=== PATIENT | female | born 1945 | race Caucasian/White ===

== ENCOUNTER 2016-07-27 14:23 | Inpatient (IN) ==
--- NOTE | 2016-07-27 14:56 | Emergency Department Note ---
Disposition Clinical Impression: Cerebrovascular accident Qualifiers: CVA mechanism: unspecified Qualified Code(s): I63.9 - Cerebral infarction, unspecified Disposition: Admitted As Inpatient Referrals: Orestes Grace MD [Primary Care Provider] - Forms: ED Satisfaction Letter Time of Disposition: 18:12 Neuro HPI - General Chief Complaint: ED Neuro Symptoms/Deficit Stated Complaint: neuro symptoms Time Seen by Provider: 07/27/16 14:30 Source: patient, family Limitations: no limitations Nursing Notes Reviewed: Yes Vital Signs Reviewed: Yes - History of Present Illness HPI Narrative: 70-year-old comes in with a couple month history of difficulty walking falling to the sides. Has fallen several times has hit her head. She also has had some difficulty swallowing and also has had some difficulty speaking for the last week. She notes swelling to her lower extremities. Onset of Symptoms Date: 05/26/16 Onset of Symptoms Time: 09:00 Timing confirmed by: spouse Location: speech, other (Swallowing ambulating) History of same: No Severity: moderate Symptoms Improving: No Improves with: none Worsens with: none Context: sudden onset Associated symptoms: Denies: chest pain, cough - Related Data Home Medications: Home Medications Medication Instructions Recorded Confirmed Albuterol Sulfate [Albuterol 2 puff IH Q4-6H PRN 10/15/15 07/27/16 Inhaler] Allopurinol [Zyloprim 100 MG] 100 mg PO DAILY 10/15/15 07/27/16 Alprazolam [Xanax 1 MG Tablet] 1 mg PO BID PRN 10/15/15 07/27/16 Fenofibrate Nanocrystallized 145 mg PO QPM 10/15/15 07/27/16 [Tricor] Fluticasone/Salmeterol [Advair 1 inh PO BID 10/15/15 07/27/16 500-50 Diskus] Gabapentin [Neurontin] 800 mg PO TID 10/15/15 07/27/16 Isosorbide MONOnitrate (24 HR) 60 mg PO DAILY 10/15/15 07/27/16 [Imdur] Levothyroxine [Synthroid] 112 mcg PO DAILY 10/15/15 07/27/16 [place]-3 Fatty Acids [Fish Oil] 1,200 mg PO DAILY 10/15/15 07/27/16 Omeprazole [PriLOSEC] 40 mg PO DAILY 10/15/15 07/27/16 Ropinirole HCl [Requip] 0.5 - 1 mg PO HS 10/15/15 07/27/16 Sertraline [Zoloft] 100 mg PO BID 10/15/15 07/27/16 Tiotropium [Spiriva] 18 mcg IH DAILY 10/15/15 07/27/16 Diltiazem HCl [Diltiazem ER] 120 mg PO DAILY 03/29/16 07/27/16 Ipratropium/Albuterol Neb [Duoneb] 3 ml IH Q4HR PRN 03/29/16 07/27/16 Atorvastatin [Lipitor] 10 mg PO HS 05/28/16 07/27/16 Gemfibrozil [Lopid] 600 mg PO BIDWM 05/28/16 07/27/16 OxyCODONE/APAP 5/325 [Percocet 1 each PO Q6HR PRN 05/28/16 07/27/16 5/325 MG] Meclizine HCl [Verticalm] 25 mg PO BID PRN 07/27/16 07/27/16 Allergies/Adverse Reactions: Allergies Allergy/AdvReac Type Severity Reaction Status Date / Time codeine Allergy Confusion Verified 05/28/16 08:53 Constitutional: Denies: fever, chills, weakness, weight change Eyes: Denies: eye pain, eye discharge, vision change ENT ED: Denies: ear pain, throat pain, dental pain, hearing loss, epistaxis, congestion, dysphagia Cardiovascular: Denies: chest pain, palpitations, dyspnea on exertion, edema, syncope Respiratory: Denies: cough, dyspnea, wheezes, hemoptysis, stridor Gastrointestinal: Denies: abdominal pain, nausea, vomiting, diarrhea, constipation, hematemesis, melena, hematochezia Genitourinary: Denies: dysuria, frequency, hematuria, discharge Musculoskeletal: Reports: joint swelling. Denies: back pain, neck pain, arthralgia, myalgia Integumentary: Denies: rash, abrasion, lesions Neurological: Reports: abnormal gait, other (Occult he swallowing difficulty speaking). Denies: headache, weakness, numbness, paresthesias, confusion, vertigo Psychiatric: Denies: anxiety, depression, suicidal thoughts, homicidal thoughts , auditory hallucinations, visual hallucinations Endocrine: Denies: fatigue Hematological/Lymphatic: Denies: easy bleeding, easy bruising Allergic/Immunologic: Denies: facial swelling, urticaria Past Medical History - Past Medical History Medical history: Reports: arthritis, COPD, coronary artery disease, hyperlipidemia, hypertension, thyroid disease, other Surgical history: Reports: cholecystectomy, herniorrhaphy, hysterectomy, orthopedic, other (right knee surgery April 2016; additional right knee surgery for infection May 2016), other Psychiatric history: Reports: anxiety, depression - Social History Smoking Status: Never smoker Smokeless Tobacco Status: No Alcohol use: Reports: none Drug use: Reports: none Physical Exam - General Limitations: no limitations General appearance: alert, in no apparent distress - Head Head exam: atraumatic, normocephalic, normal inspection - Eye Eye exam: Present: normal appearance, PERRL, EOMI - ENT ENT exam: normal exam, normal oropharynx, mucous membranes moist - Neck Neck exam: Present: normal inspection, full ROM, trachea midline - Chest Chest inspection: Present: normal inspection, symmetric chest wall rise - Respiratory Respiratory exam: Present: normal lung sounds bilaterally - Cardiovascular Cardiovascular exam: Present: regular rate, normal rhythm, normal heart sounds - Abdominal Exam Abdominal exam: Present: soft, Non-Tender. Absent: tenderness, distention, guarding, rebound, rigidity - Extremities Exam Extremities exam: Present: pedal edema (Bilateral lower extremities) - Expanded Lower Extremity Exam Neurovascular/Tendon exam: Absent: motor deficit, sensory deficit, tendon deficit Gait: not tested/not observed - Back Exam Back exam: Present: normal inspection, full ROM. Absent: tenderness - Neurological Exam Neurological exam: Present: alert, oriented X3, other (Speech,) - Skin Skin exam: Present: warm, dry, intact, normal color Course - Reevaluation(s) Reevaluation #1: Patient has symptoms consistent with a previous CVA she has difficulty ambulating difficulty swallowing and speaking that the states worsened about a week ago. Time: 18:11 - Consultations Consultation #1: Stress with , it. Time: 18:11 Vital Signs Temperature 97.5 F L 07/27/16 14:25 Pulse Rate 79 07/27/16 14:25 Respiratory Rate 18 07/27/16 14:25 Blood Pressure 116/58 07/27/16 14:25 O2 Sat by Pulse Oximetry 98 07/27/16 14:25 Temperature 97.5 F L 07/27/16 14:25 Pulse Rate 83 07/27/16 16:59 Respiratory Rate 18 07/27/16 16:59 Blood Pressure 122/63 07/27/16 16:59 O2 Sat by Pulse Oximetry 100 07/27/16 16:59 Oxygen Delivery Oxygen Delivery Room Air Neuro Symptoms/Deficit - Lab Data Result diagrams: 07/27/16 15:54 07/27/16 15:54 Lab Results 07/27/16 07/27/16 07/27/16 Range/Units 15:54 15:54 15:54 WBC 12.1 H (4.3-11.1) K/mcL RBC 2.90 L (3.82-4.97) M/mcL Hgb 8.7 L (11.5-15.4) g/dL Hct 25.9 L (35.3-44.9) % MCV 89.3 (83.0-100.0) fL MCH 30.0 (28.0-33.3) pg MCHC 33.6 (31.6-35.5) g/dL RDW 16.5 H (11.5-14.5) % Plt Count 348 (140-400) K/mcL MPV 9.8 (9.4-12.4) fL Immature Gran % 0.5 (0-4) % Seg Neutrophils % 79.7 % Lymphocytes % 13.2 % Monocytes % 5.0 % Eosinophils % 1.4 % Basophils % 0.2 % Neutrophils # 9.6 H (1.6-8.9) K/mcL Lymphocytes # 1.6 (0.6-4.6) K/mcL Monocytes # 0.6 (0.0-1.3) K/mcL Eosinophils # 0.2 (0.0-0.6) K/mcL Basophils # 0.0 (0.0-0.2) K/mcL Platelet Estimate Normal (Normal) Hypochromasia Present A (Not Present) Anisocytosis 1+ A (Not Present) PT 16.9 H (9.4-12.1) Seconds INR 1.5 APTT 36.5 H (26.0-36.0) Seconds Sodium 139 (136-145) mEq/L Potassium 3.9 (3.5-4.5) mEq/L Chloride 107 (98-109) mEq/L Carbon Dioxide 24 (19-29) mEq/L BUN 43 H (7-20) mg/dL Creatinine 1.16 H (0.57-1.11) mg/dL Est GFR ( Amer) 56 L (> 60) Est GFR (Non-Af Amer) 46 L (> 60) BUN/Creatinine Ratio 37 H (6-26) Glucose 116 H (70-99) mg/dL Calculated Osmolality 300 (280-300) Calcium 8.1 L (8.6-10.8) mg/dL Troponin I (0-0.03) ng/mL 07/27/16 Range/Units 15:54 WBC (4.3-11.1) K/mcL RBC (3.82-4.97) M/mcL Hgb (11.5-15.4) g/dL Hct (35.3-44.9) % MCV (83.0-100.0) fL MCH (28.0-33.3) pg MCHC (31.6-35.5) g/dL RDW (11.5-14.5) % Plt Count (140-400) K/mcL MPV (9.4-12.4) fL Immature Gran % (0-4) % Seg Neutrophils % % Lymphocytes % % Monocytes % % Eosinophils % % Basophils % % Neutrophils # (1.6-8.9) K/mcL Lymphocytes # (0.6-4.6) K/mcL Monocytes # (0.0-1.3) K/mcL Eosinophils # (0.0-0.6) K/mcL Basophils # (0.0-0.2) K/mcL Platelet Estimate (Normal) Hypochromasia (Not Present) Anisocytosis (Not Present) PT (9.4-12.1) Seconds INR APTT (26.0-36.0) Seconds Sodium (136-145) mEq/L Potassium (3.5-4.5) mEq/L Chloride (98-109) mEq/L Carbon Dioxide (19-29) mEq/L BUN (7-20) mg/dL Creatinine (0.57-1.11) mg/dL Est GFR ( Amer) (> 60) Est GFR (Non-Af Amer) (> 60) BUN/Creatinine Ratio (6-26) Glucose (70-99) mg/dL Calculated Osmolality (280-300) Calcium (8.6-10.8) mg/dL Troponin I 0.01 (0-0.03) ng/mL - EKG Data EKG shows normal: sinus rhythm Rate: normal Rhythm: NSR Interpretation: no acute changes NIH Stroke Scale - Level of Consciousness LOC: Alert - LOC Questions LOC Questions: Answers both correctly - LOC Commands LOC Commands: Performs both correctly - Best Gaze Best Gaze: Normal - Visual Visual: No visual loss - Facial Palsy Facial Palsy: Normal - Motor Arms Motor Arm-Left: No drift for 10 seconds Motor Arm-Right: No drift for 10 seconds - Motor Legs Motor Leg-Left: No drift for 5 seconds Motor Leg-Right: No drift for 5 seconds - Limb Ataxia Limb Ataxia: Present in ONE limb - Sensory Sensory: Normal - Best Language Best Language: No aphasia - Dysarthria Dysarthria: Mild, slurs some words - Extinction and Inattention Extinction and Inattention: Normal - NIHSS Total Score NIHSS Total Score: 2 TPA Checklist - Eligibilty for IV tPA 1. LKW equal to or less than 4.5 hours be before treatment: No - LKW: 3-4.5 hrs Add. Contraindications Patient/family understanding: The patient/family members have been counseled and understood the risk, benefit , and alternatives of treatment.
[2016-07-27 16:02] LABS: Basophils % 0.2 %; Eosinophils # 0.2 K/mcL (0.0-0.6); Eosinophils % 1.4 %; Hematocrit 25.9 % (35.3-44.9); Hemoglobin 8.7 g/dL (11.5-15.4); Immature Granulocytes % 0.5 % (0-4); Lymphocytes # 1.6 K/mcL (0.6-4.6); Lymphocytes % 13.2 %; Mean Corpuscular HGB Conc 33.6 g/dL (31.6-35.5); Mean Corpuscular Volume 89.3 fL (83.0-100.0); Mean Platelet Volume 9.8 fL (9.4-12.4); Monocytes # 0.6 K/mcL (0.0-1.3); Neutrophils # 9.6 K/mcL (1.6-8.9); Platelet Count 348 K/mcL (140-400); Red Cell Distribution Width 16.5 % (11.5-14.5); Segmented Neutrophils % 79.7 %
[2016-07-27 16:11] LABS: INR 1.5; Prothrombin Time 16.9 Seconds (9.4-12.1)
[2016-07-27 16:14] LABS: Activated Partial Thrombo Time 36.5 Seconds (26.0-36.0)
[2016-07-27 16:15] LABS: Calcium 8.1 mg/dL (8.6-10.8); Potassium 3.9 mEq/L (3.5-4.5)
[2016-07-27 16:36] LABS: Anisocytosis 1+ (Not Present); Hypochromasia Present (Not Present)
[2016-07-27 16:37] LABS: Platelet Estimate Normal (Normal)
[2016-07-27] MEDS ORDERED: Naloxone 0.4 MG/ML INJ IVP PRN (19:58)
--- NOTE | 2016-07-27 20:58 | Internal Med History&Physical ---
<Marisa Pickett M - Last Filed: 07/27/16 21:34> Date of Encounter: 07/27/16 Time of Encounter: 20:53 Assessment and Plan (1) Cerebrovascular accident Current visit: Yes Status: Acute Patient with ataxia X 2 months, and dysphagia and slurred speech on and off for last week. Outside window for TpA. On exam, left sided facial droop. CT of head showed no acute intracranial abnormality, though it was motion compromised. MRI head/brain without contrast Carotid dopplers echocardiogram BLE venous dopplers lipid profile speech therapy consult for swallow eval PT/OT consults Neurology consult Qualifiers: CVA mechanism: unspecified Qualified Code(s): I63.9 - Cerebral infarction, unspecified (2) Anemia Current visit: Yes Status: Acute Patient with Hgb of 8.7, decreased from previous of 9.3. Folate, B12 and stool occult blood ordered. Qualifiers: Anemia type: unspecified type Qualified Code(s): D64.9 - Anemia, unspecified (3) Hypertension Current visit: Yes Status: Acute Continue home doses of diltiazem and imdur Qualifiers: Hypertension type: essential hypertension Qualified Code(s): I10 - Essential (primary) hypertension (4) COPD (chronic obstructive pulmonary disease) Current visit: No Status: Chronic Patient denies any cough, or increased SOB. Lungs sound clear to auscultation. Continue Spiriva and advair. Duoneb treatments QID Albuterol nebulizer Q2hr PRN titrate O2 to maintain oxygen saturation > 92%. Qualifiers: COPD type: unspecified COPD Qualified Code(s): J44.9 - Chronic obstructive pulmonary disease, unspecified (5) DVT prophylaxis Current visit: Yes Status: Acute up to chair BID anti-embolic stockings heparin 5,000u SQ TID Internal Medicine - H&P: HPI Chief complaint: difficulty walking, swallowing and speaking Admitted From: Emergency Dept Plans for Post Hospital Care: Home History of present illness: Ms. Tucker is a 70 year old female with hyperlipidemia, hypertension, COPD, coronary artery disease, peripheral vascular disease who presented to the emergency department with complaints of difficulty swallowing, slurred speech, and difficulty walking. She reports she has had difficulty walking for the last 2 months, her reports she leans to the left and falls even while using a walker. She has had difficulty swallowing on and off for the last week, and slurred speech on and off for the last week. Daughters report when they spoke to on the phone last evening they could not understand her because of her slurred speech and that it is improved today, though not back to her baseline. She is also complaining of increased swelling in bilateral lower extremities, right greater than left. Evaluation in the emergency Department included CT of the head which showed no acute intracranial abnormality though was compromised by patient motion, chest x-ray showed a left lower lobe atelectasis and mild cardiomegaly, EKG showed normal sinus rhythm, troponin was normal at 0.01 calcium was low at 8.1, hemoglobin was low at 8.7, white blood cell count was slightly elevated 12.1. On exam patient and equal strength in bilateral upper extremities and bilateral lower extremities. She had negative pronator drift. She did have mild flattening of her left nasolabial fold, and mild left-sided mouth droop. Speech sounded slurred. Cranial nerves are intact. Lungs are clear to auscultation bilaterally, heart has regular rate and rhythm. Bilateral lower extremities have mild edema with right greater than left. Past Med Surg Social Fam HX - Past Medical History Medical history: arthritis, COPD, coronary artery disease, hyperlipidemia, hypertension, thyroid disease, other Psychiatric history: anxiety, depression - Past Surgical History Surgical History: cholecystectomy, herniorrhaphy, hysterectomy, orthopedic, other (right knee surgery April 2016; additional right knee surgery for infection May 2016), other - Social History Smoking Status: Former smoker (90 pack year history) Smokeless Tobacco Status: No Alcohol use: none Drug use: none Current living situation: Home, With Family Activity Level: Uses cane/walker - Family History Mother Living Status: Age at : 76 Cause of : Cancer Father Living Status: Age at : 76 Cause of : [place] Internal Medicine - H&P: Meds Albuterol Sulfate [Albuterol Inhaler] 2 puff IH Q4-6H PRN 10/15/15 [History] Allopurinol [Zyloprim 100 MG] 100 mg PO DAILY 10/15/15 [History] Alprazolam [Xanax 1 MG Tablet] 1 mg PO BID PRN 10/15/15 [History] Fenofibrate Nanocrystallized [Tricor] 145 mg PO QPM 10/15/15 [History] Fluticasone/Salmeterol [Advair 500-50 Diskus] 1 inh PO BID 10/15/15 [History] Gabapentin [Neurontin] 800 mg PO TID 10/15/15 [History] Isosorbide MONOnitrate (24 HR) [Imdur] 60 mg PO DAILY 10/15/15 [History] Levothyroxine [Synthroid] 112 mcg PO DAILY 10/15/15 [History] [place]-3 Fatty Acids [Fish Oil] 1,200 mg PO DAILY 10/15/15 [History] Omeprazole [PriLOSEC] 40 mg PO DAILY 10/15/15 [History] Ropinirole HCl [Requip] 0.5 - 1 mg PO HS 10/15/15 [History] Sertraline [Zoloft] 100 mg PO BID 10/15/15 [History] Tiotropium [Spiriva] 18 mcg IH DAILY 10/15/15 [History] Diltiazem HCl [Diltiazem ER] 120 mg PO DAILY 03/29/16 [History] Ipratropium/Albuterol Neb [Duoneb] 3 ml IH Q4HR PRN 03/29/16 [History] Atorvastatin [Lipitor] 10 mg PO HS 05/28/16 [History] Gemfibrozil [Lopid] 600 mg PO BIDWM 05/28/16 [History] OxyCODONE/APAP 5/325 [Percocet 5/325 MG] 1 each PO TID PRN 05/28/16 [History] Indomethacin [Indomethacin] 50 mg PO BID 07/27/16 [History] Allergies codeine Allergy (Verified 05/28/16 08:53) Confusion Iodinated Contrast Media - Oral and Adverse Reaction (Verified 07/27/16 18:30) See Comments patient states kidney problems. meclizine Adverse Reaction (Verified 07/27/16 18:30) Confusion All Systems PM: A 10-system review of systems was performed and is negative for pertinent findings except as documented above in the HPI. - Constitutional Constitutional: no chills, no fever(s), no night sweats - EENT Eyes: no change in vision, no discharge, no pain, no photophobia Ears: no ear discharge, no ear pain, no tinnitus Nose, mouth and throat: dysphagia, no nasal discharge, no neck pain, no sore throat - Cardiovascular Cardiovascular ROS IM: no chest pain, no diaphoresis, no dyspnea, no lightheadedness, no palpitations, no syncope - Respiratory Respiratory: no cough, no dyspnea, no wheezing, no excessive phlegm production - Gastrointestinal Gastrointestinal: no abdominal pain, no diarrhea, no hematemesis, no hematochezia, no melena, no nausea, no vomiting - Genitourinary Genitourinary: no change in urinary stream, no dysuria, no flank pain, no hematuria - Musculoskeletal Musculoskeletal ROS IM: no numbness, no tingling - Integumentary Integumentary IM: no rash, no unusual bruising - Neurological Neurological ROS: abnormal gait, abnormal speech (slurred), focal weakness ( reports falling to left side), frequent falls, no confusion, no convulsions, no numbness, no tingling, no tremor(s) - Hematologic/Lymphatic Hematologic/Lymphatic: no easy bruising - Constitutional Vitals: Temp Pulse Resp BP Pulse Ox 97.5 F L 83 18 110/62 100 07/27/16 14:25 07/27/16 16:59 07/27/16 19:26 07/27/16 19:26 07/27/16 16:59 General appearance: Present: A&O X 3, pleasant, no acute distress - Head Head exam: Present: atraumatic, normocephalic - Eye Eye exam: Present: PERRL, conjuntiva pink, sclera anicteric Pupils: Present: PERRL - Neck Neck exam general surgery: Present: supple, trachea midline. Absent: lymphadenopathy - Respiratory Respiratory exam: Present: CTAB. Absent: accessory muscle use, rales, rhonchi, wheezes - Cardiovascular Cardiovascular exam: Present: RRR, +S1, +S2. Absent: diastolic murmur, gallop, rubs, systolic murmur - GI/Abdominal GI/Abdominal exam: Present: normal bowel sounds, soft, no peritoneal signs. Absent: distended, tenderness - Extremities Exam Extremities exam: Present: pedal edema (BLE R> L), warm, radial pulses palpable and symetrical. Absent: calf tenderness, cyanotic - Neurological Exam Neurological exam: Present: alert, CN II-XII intact, oriented X3, no focal deficits, strengths equal and symetr throughout, facial droop, speech deficit ( slurred). Absent: pronater drift - Expanded Neurological Exam Patient oriented to: Present: person, place, time Speech: Present: slurred Cranial Nerves: EOM's intact PM: Normal, nystagmus PM: Abnormal Left, Abnormal Right, tongue deviation PM: Normal Sensory exam: LE 2 point discrimination: Normal, lower extremity light touch: Normal, UE 2 point discrimination: Normal, upper extremity light touch: Normal Neuro motor strength exam: LUE: 5, RUE: 5, LLE: 5, RLE: 5 Coma Scale Eye Opening: Spontaneous Coma Scale Motor Response: Obeys Commands Coma Scale Verbal Response: Oriented Coma Scale Total: 15 - Skin Skin exam: Present: dry, intact Internal Med - H&P Results - Labs CBC & Chem 7: 07/27/16 15:54 07/27/16 15:54 Labs: All Lab Results (24 Hours) 07/27/16 07/27/16 07/27/16 Range/Units 15:54 15:54 15:54 WBC 12.1 H (4.3-11.1) K/mcL RBC 2.90 L (3.82-4.97) M/mcL Hgb 8.7 L (11.5-15.4) g/dL Hct 25.9 L (35.3-44.9) % MCV 89.3 (83.0-100.0) fL MCH 30.0 (28.0-33.3) pg MCHC 33.6 (31.6-35.5) g/dL RDW 16.5 H (11.5-14.5) % Plt Count 348 (140-400) K/mcL MPV 9.8 (9.4-12.4) fL Immature Gran % 0.5 (0-4) % Seg Neutrophils % 79.7 % Lymphocytes % 13.2 % Monocytes % 5.0 % Eosinophils % 1.4 % Basophils % 0.2 % Neutrophils # 9.6 H (1.6-8.9) K/mcL Lymphocytes # 1.6 (0.6-4.6) K/mcL Monocytes # 0.6 (0.0-1.3) K/mcL Eosinophils # 0.2 (0.0-0.6) K/mcL Basophils # 0.0 (0.0-0.2) K/mcL Platelet Estimate Normal (Normal) Hypochromasia Present A (Not Present) Anisocytosis 1+ A (Not Present) PT 16.9 H (9.4-12.1) Seconds INR 1.5 APTT 36.5 H (26.0-36.0) Seconds Sodium 139 (136-145) mEq/L Potassium 3.9 (3.5-4.5) mEq/L Chloride 107 (98-109) mEq/L Carbon Dioxide 24 (19-29) mEq/L BUN 43 H (7-20) mg/dL Creatinine 1.16 H (0.57-1.11) mg/dL Est GFR ( Amer) 56 L (> 60) Est GFR (Non-Af Amer) 46 L (> 60) BUN/Creatinine Ratio 37 H (6-26) Glucose 116 H (70-99) mg/dL Calculated Osmolality 300 (280-300) Calcium 8.1 L (8.6-10.8) mg/dL Troponin I (0-0.03) ng/mL 07/27/16 Range/Units 15:54 WBC (4.3-11.1) K/mcL RBC (3.82-4.97) M/mcL Hgb (11.5-15.4) g/dL Hct (35.3-44.9) % MCV (83.0-100.0) fL MCH (28.0-33.3) pg MCHC (31.6-35.5) g/dL RDW (11.5-14.5) % Plt Count (140-400) K/mcL MPV (9.4-12.4) fL Immature Gran % (0-4) % Seg Neutrophils % % Lymphocytes % % Monocytes % % Eosinophils % % Basophils % % Neutrophils # (1.6-8.9) K/mcL Lymphocytes # (0.6-4.6) K/mcL Monocytes # (0.0-1.3) K/mcL Eosinophils # (0.0-0.6) K/mcL Basophils # (0.0-0.2) K/mcL Platelet Estimate (Normal) Hypochromasia (Not Present) Anisocytosis (Not Present) PT (9.4-12.1) Seconds INR APTT (26.0-36.0) Seconds Sodium (136-145) mEq/L Potassium (3.5-4.5) mEq/L Chloride (98-109) mEq/L Carbon Dioxide (19-29) mEq/L BUN (7-20) mg/dL Creatinine (0.57-1.11) mg/dL Est GFR ( Amer) (> 60) Est GFR (Non-Af Amer) (> 60) BUN/Creatinine Ratio (6-26) Glucose (70-99) mg/dL Calculated Osmolality (280-300) Calcium (8.6-10.8) mg/dL Troponin I 0.01 (0-0.03) ng/mL <Ezio Velazquez R - Last Filed: 07/28/16 01:22> Date of Encounter: 07/27/16 Assessment and Plan (1) Diarrhea Current visit: Yes Status: Acute Possible C diff infection: C diff PCR if positive start IV metronidazole versus oral vancomycin, based on tolerance. Start probiotics. Hold any additional antibiotics at this time. Qualifiers: Diarrhea type: presumed infectious Qualified Code(s): A09 - Infectious gastroenteritis and colitis, unspecified (2) RYLEY (acute kidney injury) Current visit: Yes Status: Acute Likely secondary to diarrhea and poor oral intake. Treat with IV fluids. Monitor renal function. (3) Atelectasis of left lung Current visit: Yes Status: Acute Start incentive spirometer (4) Frequent falls Current visit: Yes Status: Acute Suspected CVA versus orthostatic hypotension. MRI brain is pending. Check orthostatic vitals. PT/OT consult Internal Medicine - H&P: HPI History of present illness: Ms. Tucker is a 70 year old female All Systems PM: A 10-system review of systems was performed and is negative for pertinent findings except as documented above in the HPI. - Constitutional Vitals: Temp Pulse Resp BP Pulse Ox 97.5 F L 83 18 110/62 100 07/27/16 14:25 07/27/16 16:59 07/27/16 19:26 07/27/16 19:26 07/27/16 16:59 Internal Med - H&P Results - Labs CBC & Chem 7: 07/27/16 15:54 07/27/16 15:54 Labs: Urine 07/27/16 Range/Units Unknown Urine Color Dark Yellow (Yellow) Urine Clarity Cloudy A (Clear) Urine pH 5.5 (5.0-8.0) pH Units Ur Specific [place] 1.030 H (1.010-1.025) Urine Protein Trace (Neg-Trace) mg/dL Urine Glucose (UA) Normal (Normal) mg/dL - Impressions ITS Impressions Brain MRI 07/27/16 20:01 IMPRESSION: 1. No acute intracranial abnormality. 2. Empty sella turcica. D/ / Gregory Hylton MD / Gregory Hylton MD Interpreting Provider: Gregory Hylton MD - Attending Attestation I examined this patient and my medical decision-making was reviewed with the ONLINE PRODUCER/PA/Advanced Practice Nurse/Resident Physician. I agree with the documented findings, disposition and treatment plan as described except to the extent set forth below. 70 year old female with h/o hypertension, COPD, coronary artery disease, peripheral vascular disease. H/o obtained from the patient, and daughter. Patient apparently had right knee surgery done x 2 (last one in May 2016). She apparently had been on antibiotics for knee infection. Reports multiple episodes of diarrhea, reduced apetite. low back pain x 2 weeks. For about a week, she has been falling onto her left side. No LOC. reports garbled speech. Not able to pass urine. O/E: Oral mucosa is dry. No gross cranial nerve abnormalities; No localizing deficits; Bilateral Lower extremity swelling R>L. Purulent discharge from the right knee area. EKG: SR. CT head: No acute abnormality in a motion compromised study. WBC: 12.1 ; H&H: 8.7/25.9; Creat: 1.16 (baseline: 0.77). CRP: 185; CXR: Left basal atelectasis versus infiltrate (on my personal review favor atelectasis). A/P: Possible C diff infection: C diff PCR if positive start IV metronidazole versus oral vancomycin, based on tolerance. Acute kidney injury: Likely secondary to diarrhea and poor oral intake. Treat with IV fluids. Monitor renal function. Atelectasis of left lung: Start incentive spirometer Frequent falls: Suspected CVA versus orthostatic hypotension. MRI brain is pending if negative, consider MRI of the thoracic/lumbar spine. Check orthostatic vitals. PT/OT consult Slurred speech / suspected CVA: MRI of the brain is pending. Oral mucosa is very dry ??? if that is contributing to her speech problems. Difficulty voiding: Suspect she is dry. Will get straight cath to assess the volume and to exclude UTI. Normocytic anemia: Check hematenics / iron studies; fecal occult blood.
[2016-07-27] MEDS ORDERED: Aspirin 325 MG TABLET PO SCH (21:15)
[2016-07-27] MEDS: Ipratropium/Albuterol Neb 3 ML IH SCH (22:49)
[2016-07-27] MEDS: Gabapentin 400 MG CAPSULE PO SCH (23:53)
[2016-07-27] MEDS: rOPINIRole 0.25 MG TABLET PO SCH (23:53)
[2016-07-27] MEDS: INDOMETHACIN 50 MG PO SCH (23:55)
[2016-07-28 00:43] LABS: Bilirubin,Urine Moderate (Negative); Blood,Urine Negative (Negative); Clarity,Urine Cloudy (Clear); Color,Urine Dark Yellow (Yellow); Glucose,Urine (UA) Normal (Normal); Ketones,Urine Trace mg/dL (Negative); Leukocyte Esterase,Urine Small (Negative); Nitrite,Urine Negative (Negative); PH,Urine 5.5 pH Units (5.0-8.0); Protein,Urine Trace mg/dL (Neg-Trace); Urobilinogen,Urine Normal (Normal)
[2016-07-28] MEDS ORDERED: 0.9 % Sodium Chloride 1,000 ML IVC SCH (00:45)
[2016-07-28 00:46] LABS: Bacteria,Urine None Seen per hpf (None-Few); Hyaline Casts,Urine None Seen per lpf (None-Few); Squamous Epithelial Cell,Urine Moderate per lpf (None-Few); WBC,Urine 0-3 per hpf (0-3)
[2016-07-28] MEDS: Lactobacillus 1 EACH CAP.SPRINK PO SCH ×3 (03:14→22:26)
[2016-07-28] MEDS: Ipratropium/Albuterol Neb 3 ML IH SCH ×4 (03:54→22:15)
[2016-07-28 05:28] LABS: Hematocrit 23.5 % (35.3-44.9); Hemoglobin 7.9 g/dL (11.5-15.4); Mean Corpuscular HGB Conc 33.6 g/dL (31.6-35.5); Mean Corpuscular Hemoglobin 29.7 pg (28.0-33.3); Mean Corpuscular Volume 88.3 fL (83.0-100.0); Mean Platelet Volume 10.4 fL (9.4-12.4); Platelet Count 308 K/mcL (140-400); Red Blood Count 2.66 M/mcL (3.82-4.97); Red Cell Distribution Width 16.4 % (11.5-14.5)
[2016-07-28 05:49] LABS: Alanine Aminotransferase 24 Units/L (0-55); Albumin/Globulin Ratio 0.6 (1.1-2.2); Alkaline Phosphatase 139 Units/L (38-126); Aspartate Amino Transferase 39 Units/L (5-34); BUN/Creatinine Ratio 42 (6-26); Bilirubin,Total 0.9 mg/dL (0.2-1.2); Blood Urea Nitrogen 43 mg/dL (7-20); Calcium 7.7 mg/dL (8.6-10.8); Carbon Dioxide 22 mEq/L (19-29); Chloride 108 mEq/L (98-109); Globulin 2.8 g/dL (2.4-3.5); Glucose 83 mg/dL (70-99); LDL Cholesterol,Calculated 20 mg/dL (0-99); Osmolality,Calculated 296 (280-300); Potassium 3.9 mEq/L (3.5-4.5); Sodium 138 mEq/L (136-145); Total Protein 4.6 g/dL (6.0-8.3); Triglycerides 75 mg/dL (< 150); eGFR For African Americans > 60 (> 60); eGFR For Non-African Americans 54 (> 60)
[2016-07-28 05:57] LABS: Albumin 1.8 g/dL (3.5-5.0); Cholesterol 40 mg/dL (< 200); HDL Cholesterol < 5 mg/dL (40-59)
[2016-07-28 06:03] LABS: Eosinophils # 0.3 K/mcL (0.0-0.6); Lymphocytes # 2.6 K/mcL (0.6-4.6); Monocytes # 0.3 K/mcL (0.0-1.3); Neutrophils # 9.7 K/mcL (1.6-8.9)
[2016-07-28 06:04] LABS: Anisocytosis 1+ (Not Present); Microcytosis Present (Not Present); Platelet Estimate Normal (Normal); Poikilocytosis 1+ (Not Present); Target Cells 1+ (Not Present)
[2016-07-28 06:06] LABS: % Iron Saturation 37 % (15-50); Iron 55 mcg/dL (50-170); Transferrin 105 mg/dL (180-382)
[2016-07-28 06:19] LABS: Folate 9.6 ng/mL (7.0-31.4)
[2016-07-28 06:42] LABS: Vitamin B12 > 2000 pg/mL (213-816)
[2016-07-28] MEDS ORDERED: Tiotropium 18 MCG inhalation IH SCH (09:00)
[2016-07-28] MEDS: Aspirin Enteric Coated 81 MG Tablet PO SCH (10:04)
[2016-07-28] MEDS: INDOMETHACIN 50 MG PO SCH ×2 (10:04→22:26)
[2016-07-28] MEDS: Diltiazem CD (24hr) 120 MG CAPSULE PO SCH (10:04)
[2016-07-28] MEDS: OMEGA PO SCH (10:04)
[2016-07-28] MEDS: Gabapentin 400 MG CAPSULE PO SCH (10:04)
[2016-07-28] MEDS: FATTY ACIDS PO SCH (10:04)
[2016-07-28] MEDS: Isosorbide MONOnitrate (24 HR) 60 MG TAB.ER.24H PO SCH (10:08)
--- NOTE | 2016-07-28 10:21 | Venous Imaging Report ---
LE Venous Duplex Patient Name:Channing Tucker Order Number:[id number] Procedure Date:07/27/2016 Date:8Age:70 yrs Gender:Female Location:[facility] ED Room #: ER2 Fern Gatherer:Sandy Garnica VIDAL Referring MD:Donis Zamora MD plate sensitizer:Orestes Grace M.D. Reading MD:Darren Savage MD , FACS Primary Indications:Swelling of limb Secondary Indications: Risk Factors Yes/No Anticoagulants Yes Impressions: Bilateral lower extremity: normal superficial and deep exam. Recommendations: Preliminary given to Dr Zamora in ED. Test completed on 07/27/2016 at 6:04:00 pm. Findings Venous Duplex Results: Right: Venous imaging of the lower extremity reveals full patency and normal vessel compressibility of the right distal iliac, right common femoral, right superficial femoral, right popliteal, right posterior tibial, right peroneal, right great saphenous and right lesser saphenous. Doppler signals in the evaluated veins were normal. Left: Venous imaging of the lower extremity reveals full patency and normal vessel compressibility of the left distal iliac, left common femoral, left superficial femoral, left popliteal, left posterior tibial, left peroneal, left great saphenous and left lesser saphenous. Doppler signals in the evaluated veins were normal. Prior Study: No prior study available for comparison. Lower Extremity Venous Duplex Side Vein Compress Spontaneous Flow Augment Diameter (cm) Depth (cm) Right Distal Iliac Normal Yes Phasic Yes Right Common Femoral Normal Yes Phasic Yes Right Superficial Femoral Normal Yes Phasic Yes Right Popliteal Normal Yes Phasic Yes Right Posterior Tibial Normal Yes Phasic Yes Right Peroneal Normal Yes Phasic Yes Right Great Saphenous Normal Yes Phasic Yes Right Lesser Saphenous Normal Yes Phasic Yes Left Distal Iliac Normal Yes Phasic Yes Left Common Femoral Normal Yes Phasic Yes Left Superficial Femoral Normal Yes Phasic Yes Left Popliteal Normal Yes Phasic Yes Left Posterior Tibial Normal Yes Phasic Yes Left Peroneal Normal Yes Phasic Yes Left Great Saphenous Normal Yes Phasic Yes Left Lesser Saphenous Normal Yes Phasic Yes Updated by Darren Savage MD, FACS on 07/28/2016 10:16:53 AM Darren Savage MD electronically signed on 07/28/2016 10:17:53 AM with status of Final
--- NOTE | 2016-07-28 10:30 | Neurology - Consult Note ---
Date of Encounter: 07/28/16 Time of Encounter: 08:31 Assessment and Plan (1) Stroke-like symptoms Current Visit: No Status: Acute patient who is having these symptoms for quite some time, had some slurring of the speech along with these weakness in left lower ext, that she has for some time, also having difficulty with gait and balance. Symptoms could be related to other underlying conditions as well but certainly a stroke need to be excluded. MRI of the brain did not show any acute abnormality particularly no diffusion weighted images abnormality. At this time seems like her weakness and balance problems are likely related to underlying orthopedic issues certainly age may be the contributing factor along with other medical condition. She is also having issues with diarrhea perhaps she may be little bit dehydrated and along with no dentures in the mild she could get slurred speech from it as well . Regardless she is getting a stroke workup suggested to continue only on antiplatelet therapy. She would benefit from physical therapy evaluation particularly for gait and balance training. Continue to treat underlying other medical conditions may sure patient is hydrated. She did have an empty sella reported on the MRI as an incidental finding does not require any further imaging studies. (2) Frequent falls Current Visit: Yes Status: Acute She would benefit from physical therapy evaluation perhaps she may need short- term rehabilitation. No evidence of any acute weakness or any other focal findings on EXAMINATION History of Present Illness HPI: Ms. Tucker is a 70 year old female presented to the emergency department with complaints of slurred speech, and difficulty walking, and some difficulty in swallowing, she has had difficulty walking for the last 2 months, her reports she leans to the left and falls even while using a walker. She has had difficulty swallowing on and off for the last week, and slurred speech on and off for the last week. at times her difficult to understand her because of her slurred speech. She is also complaining of increased swelling in bilateral lower extremities, in the emergency Department CT of the head did t show any acute intracranial abnormality, chest x-ray showed a left lower lobe atelectasis and mild cardiomegaly, EKG showed normal sinus rhythm. pt also complaining of diarrhea, and weakness, admitted for work up with possibility of stroke. Past Med Surg Social Fam HX - Past Medical History Medical history: arthritis, COPD, coronary artery disease, hyperlipidemia, hypertension, thyroid disease, other Psychiatric history: anxiety, depression - Past Surgical History Surgical History: cholecystectomy, herniorrhaphy, hysterectomy, orthopedic, other (right knee surgery April 2016; additional right knee surgery for infection May 2016), other - Social History Smoking Status: Former smoker (90 pack year history) Smokeless Tobacco Status: No Alcohol use: none Drug use: none - Family History Mother Adopted: [place]: Faheem Adair Family Member Ethnicity: Non- Living Status: Age at : 76 Cause of : Cancer Hx Family Cardiac Disorders: Yes Hx Family Cancer: Yes Father Adopted: [place]: Bill Adair Living Status: Age at : 76 Cause of : [place] Hx Family Cardiac Disorders: Yes Hx Family Cancer: Yes Medications and Allergies Albuterol Sulfate [Albuterol Inhaler] 2 puff IH Q4-6H PRN 10/15/15 [History] Allopurinol [Zyloprim 100 MG] 100 mg PO DAILY 10/15/15 [History] Alprazolam [Xanax 1 MG Tablet] 1 mg PO BID PRN 10/15/15 [History] Fenofibrate Nanocrystallized [Tricor] 145 mg PO QPM 10/15/15 [History] Fluticasone/Salmeterol [Advair 500-50 Diskus] 1 inh PO BID 10/15/15 [History] Gabapentin [Neurontin] 800 mg PO TID 10/15/15 [History] Isosorbide MONOnitrate (24 HR) [Imdur] 60 mg PO DAILY 10/15/15 [History] Levothyroxine [Synthroid] 112 mcg PO DAILY 10/15/15 [History] [place]-3 Fatty Acids [Fish Oil] 1,200 mg PO DAILY 10/15/15 [History] Omeprazole [PriLOSEC] 40 mg PO DAILY 10/15/15 [History] Ropinirole HCl [Requip] 0.5 - 1 mg PO HS 10/15/15 [History] Sertraline [Zoloft] 100 mg PO BID 10/15/15 [History] Tiotropium [Spiriva] 18 mcg IH DAILY 10/15/15 [History] Diltiazem HCl [Diltiazem ER] 120 mg PO DAILY 03/29/16 [History] Ipratropium/Albuterol Neb [Duoneb] 3 ml IH Q4HR PRN 10/24/16 [History] Atorvastatin [Lipitor] 10 mg PO HS 05/28/16 [History] Gemfibrozil [Lopid] 600 mg PO BIDWM 05/28/16 [History] OxyCODONE/APAP 5/325 [Percocet 5/325 MG] 1 each PO TID PRN 05/28/16 [History] Indomethacin [Indomethacin] 50 mg PO BID 07/27/16 [History] Allergies codeine Allergy (Verified 05/28/16 08:53) Confusion Iodinated Contrast Media - Oral and Adverse Reaction (Verified 07/27/16 18:30) See Comments patient states kidney problems. meclizine Adverse Reaction (Verified 07/27/16 18:30) Confusion All Systems: A 10-system review of systems was performed and is negative for pertinent findings except as documented above in the HPI. Physical Examination - Vital Signs Vital Signs: Initial Vital Signs Temp Pulse Resp BP Pulse Ox 97.5 F L 79 18 116/58 98 07/27/16 14:25 07/27/16 14:25 07/27/16 14:25 07/27/16 14:25 07/27/16 14:25 - Exam Exam: HEART : S1 S2 AUDIBLE, LUNG : cta, EXT; PEDAL EDEMA POSITIVE, NO CHANGE IN COLOR, pluses positive - Constitutional General appearance: comfortable - Neurologic Detailed motor examination: grossly full strength in all extremities Motor examination - right side: 4/5: deltoids, biceps, triceps, wrist flexion, wrist extension, morphology teacher, hip flexors, tibialis Anterior, quadriceps, toe extension (EHL), plantarflexion Motor examination - left side: 4/5: deltoids, biceps, triceps, wrist flexion, wrist extension, hip flexors, morphology teacher, quadriceps, tibialis Anterior, toe extension (EHL), plantarflexion Detailed sensory examination: intact Reflexes: Biceps: 1+, Triceps: 1+, Brachioradialis: 1+, Patella: 1+, Achilles: 1 + Mental Status Examination: awake, alert, oriented to person, oriented to place, oriented to time, follows commands appropriately, answers questions appropriately, no agnosia, no aphasia Cranial nerve examination: PERRL, EOMI, visual lemus intact, sensory to face intact, mastication intact, no facial asymmetry is present, no dysarthria Cerebellar examination: no dysmetria Results - Laboratory Findings CBC and BMP: 07/28/16 04:58 07/28/16 04:58 Abnormal lab findings: Abnormal lab results WBC 12.8 K/mcL (4.3-11.1) H 07/28/16 04:58 RBC 2.66 M/mcL (3.82-4.97) L 07/28/16 04:58 Hgb 7.9 g/dL (11.5-15.4) L 07/28/16 04:58 Hct 23.5 % (35.3-44.9) L 07/28/16 04:58 RDW 16.4 % (11.5-14.5) H 07/28/16 04:58 Neutrophils # 9.7 K/mcL (1.6-8.9) H 07/28/16 04:58 Hypochromasia Present (Not Present) A 07/27/16 15:54 Poikilocytosis 1+ (Not Present) A 07/28/16 04:58 Anisocytosis 1+ (Not Present) A 07/28/16 04:58 Microcytosis Present (Not Present) A 07/28/16 04:58 Target Cells 1+ (Not Present) A 07/28/16 04:58 PT 16.9 Seconds (9.4-12.1) H 07/27/16 15:54 APTT 36.5 Seconds (26.0-36.0) H 07/27/16 15:54 BUN 43 mg/dL (7-20) H 07/28/16 04:58 Est GFR (Non-Af Amer) 54 (> 60) L 07/28/16 04:58 BUN/Creatinine Ratio 42 (6-26) H 07/28/16 04:58 Calcium 7.7 mg/dL (8.6-10.8) L 07/28/16 04:58 Transferrin 105 mg/dL (180-382) L 07/28/16 04:58 AST 39 Units/L (5-34) H 07/28/16 04:58 Alkaline Phosphatase 139 Units/L (38-126) H 07/28/16 04:58 C-Reactive Protein 185 mg/L (Less than 5) H 07/27/16 15:54 B-Natriuretic Peptide 288 pg/mL (0-100) H 07/27/16 15:54 Serum Total Protein 4.6 g/dL (6.0-8.3) L 07/28/16 04:58 Albumin 1.8 g/dL (3.5-5.0) L 07/28/16 04:58 Albumin/Globulin Ratio 0.6 (1.1-2.2) L 07/28/16 04:58 HDL Cholesterol < 5 mg/dL (40-59) L 07/28/16 04:58 Cholesterol/HDL Ratio 8.0 (0-4.9) H 07/28/16 04:58 Vitamin B12 > 2000 pg/mL (213-816) H 07/28/16 04:58 Urine Clarity Cloudy (Clear) A 07/27/16 Unknown Ur Specific [place] 1.030 (1.010-1.025) H 07/27/16 Unknown Urine Ketones Trace mg/dL (Negative) H 07/27/16 Unknown Urine Bilirubin Moderate (Negative) H 07/27/16 Unknown Ur Leukocyte Esterase Small (Negative) H 07/27/16 Unknown Urine Microscopic RBC 5-15 per hpf (0-3) H 07/27/16 Unknown Ur Squamous Epith Cells Moderate per lpf (None-Few) H 07/27/16 Unknown Ur Culture Indicated? YES (NO) A 07/27/16 Unknown - Diagnostic Findings Additional findings: MRI of BRAIN: no acute infarct, empty sella Consult Discharge Plan - Plan Referrals: Orestes Grace MD [Primary Care Provider] -
--- NOTE | 2016-07-28 13:34 | Internal Med Progress Note ---
<Rm Ramirez - Last Filed: 07/28/16 14:10> Date of Encounter: 07/28/16 Time of Encounter: 13:30 - Assessment and plan (1) Cerebrovascular accident Current Visit: Yes Status: Suspected Assessment and plan: 70-year-old female with a history of arthritis, COPD, coronary artery disease, hyperlipidemia, hypertension, hyperthyroidism, right total knee replacement presented with 4 days of's slurred speech and difficulty swallowing, diarhea and nasuea. Patient also complained of difficulty ambulating 2 months. Patient's spouse says she would lean left and fall. She has had multiple falls in the past few months. CT scan was negative. MRI was negative. Echocardiogram pending, carotid Dopplers pending. Patient also presented with bilateral pedal edema and was checked with Dopplers for VTE which is negative. Patient's lipid profile shows abnormally low HDL less than 5. Speech evaluated patient and cleared her for mechanically altered diet with nectar thick liquids. his is this was because she has poor dentition and difficulty chewing regular textures. PT/OT consults ordered. Neurology evaluated the patient. Appreciate input. Patient will continue on aspirin for antiplatelet therapy. We will continue monitoring her mental status. Today's neuro exam was nonfocal and nonlateralizing except for mild left facial droop. Furthermore, if patient's slurred speech was related to confusion we have ordered ammonia levels, and urine drug screen. Qualifiers: CVA mechanism: unspecified Qualified Code(s): I63.9 - Cerebral infarction, unspecified (2) Diarrhea Current Visit: Yes Status: Acute Assessment and plan: As stated the patient has had diarrhea for the past 3 days with nausea. She has watery brown stools 9 times a day. She denies melena or hematochezia. Patient had recent use of antibiotics status post surgical debridement and irrigation of right knee secondary to right knee replacement. C. difficile was checked and was negative. TSH within normal limits. GI stool panel ordered. Her white blood cell count is elevated at 12.8. Diarrhea is most likely infectious. Patient was initially resuscitated with fluids secondary to dehydration. However due to diastolic dysfunction, and bilateral lower extremity 2+ pitting edema this has been stopped. We have also ordered a CT abdomen/pelvis to investigate any type of inflammation. Repeat BMP tomorrow. Potassium chloride over the normal limits.Continue lactobacillus. Qualifiers: Diarrhea type: presumed infectious Qualified Code(s): A09 - Infectious gastroenteritis and colitis, unspecified (3) Anemia Current Visit: Yes Status: Acute Assessment and plan: Normocytic normochromic anemia. Patient's hemoglobin today 7.9. Last year her hemoglobin was 13. She denies any hemoptysis, hematemesis, melena, hematochezia. Patient is not on any anticoagulation. As per family patient 5 years ago had large colon polyp which was removed by Dr. Chow. There was no follow-up colonoscopy afterwards. Patient's B12 and iron, and folate levels are within normal limits. We will continue her Prilosec. Stool guaiac ordered. Repeat CBC tomorrow morning. Furthermore we will obtain CT abdomen and pelvis. Qualifiers: Anemia type: unspecified type Qualified Code(s): D64.9 - Anemia, unspecified (4) RYLEY (acute kidney injury) Current Visit: Yes Status: Resolved Assessment and plan: Patient presented with a creatinine of 1.16. CK is most likely secondary to dehydration from profuse diarrhea. After being resuscitated with fluids patient 's creatinine improved to 1.02. We will continue to monitor. Can start lisinopril. (5) Polypharmacy Current Visit: Yes Status: Acute Assessment and plan: Patient's HDL cholesterol level is less than 5. She is on 3 different medications for hyperlipidemia including statin, gemfibrozil, fenofibrate. We will discontinue these medications for now. (6) DVT prophylaxis Current Visit: Yes Status: Acute Assessment and plan: We will withhold anticoagulation as patient has low hemoglobin.b/l EPCDs (7) Hypertension Current Visit: Yes Status: Acute Qualifiers: Hypertension type: essential hypertension Qualified Code(s): I10 - Essential (primary) hypertension (8) CAD (coronary artery disease) Current Visit: No Status: Chronic Assessment and plan: Patient has history of coronary artery disease. She states she has had left heart cath in the past with no PCI. 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 Patient was evaluated by Dr. Romeo and would need an open procedure for treatment. It was decided as patient was asymptomatic to continue following her. She needs to continue aspirin treatment. We will also continue Cardizem, Imdur. Qualifiers: Coronary Disease-Associated Artery/Lesion type: council artery [place] vs. transplanted heart: council heart Associated angina: without angina Qualified Code(s): I25.10 - Atherosclerotic heart disease of council coronary artery without angina pectoris (9) COPD (chronic obstructive pulmonary disease) Current Visit: No Status: Chronic Assessment and plan: Patient has history of COPD. We will continue scheduled duoneb, Symbicort. Patient denies shortness of breath. And is oxygenating greater than 90% on room air. Qualifiers: COPD type: unspecified COPD Qualified Code(s): J44.9 - Chronic obstructive pulmonary disease, unspecified - Subjective Interval history: This morning patient's alert oriented 2. She continues to have slurred speech however she denies any changes in her speech. Patient's spouse says her speech has changed, and for the past few months she has had difficulty ambulating. Her slurred speech started 3 days ago. She has also had decrease in appetite, nausea, profuse diarrhea 9 times a day. Furthermore patient on March 2016 had total right knee replacement and May 2016 underwent right knee irrigation and debridement secondary to infection. She was started on antibiotics. Patient has finished her antibiotic course. C. difficile was checked and was negative. When talking to the family, they state that the patient has been in decline. In the ER patient decided to be DNR CC because of her medical conditions being too much to deal with. Family is quite concerned and would like to be updated as much as possible. Today patient complaints of weakness, decreased appetite, and difficulty walking. - Constitutional Vitals: Temp Pulse Resp BP Pulse Ox 98.4 F 82 16 127/45 95 07/28/16 07:06 07/28/16 07:06 07/28/16 07:06 07/28/16 07:06 07/28/16 07:06 General appearance: Present: A&O X 3, pleasant, no acute distress - Head Head exam: Present: atraumatic, normocephalic - Eye Eye exam: Present: normal appearance, PERRL, conjuntiva pink, sclera anicteric - Neck Neck exam general surgery: Present: supple, trachea midline. Absent: lymphadenopathy - Respiratory Respiratory exam: Present: CTAB. Absent: accessory muscle use, rales, rhonchi, wheezes - Cardiovascular Cardiovascular exam: Present: RRR, +S1, +S2. Absent: diastolic murmur, gallop, rubs, systolic murmur - GI/Abdominal GI/Abdominal exam: Present: normal bowel sounds, soft, no peritoneal signs. Absent: distended, tenderness - Extremities Exam Extremities exam: Present: joint swelling (Right knee swollen, warm with purulent discharge), pedal edema (2+), warm, radial pulses palpable and symetrical. Absent: calf tenderness, tenderness - Neurological Exam Neurological exam: Present: alert, oriented X3, reflexes normal, strengths equal and symetr throughout, facial droop (Left side), speech deficit (Slurred speech). Absent: motor sensory deficit, pronater drift - Psychiatric Psychiatric exam: Present: depressed Internal Medicine: Result - Labs CBC & Chem 7: 07/28/16 04:58 07/28/16 04:58 Labs: Short CBC 07/28/16 Range/Units 04:58 WBC 12.8 H (4.3-11.1) K/mcL Hgb 7.9 L (11.5-15.4) g/dL Hct 23.5 L (35.3-44.9) % Plt Count 308 (140-400) K/mcL Neutrophils # 9.7 H (1.6-8.9) K/mcL BMP 07/28/16 04:58 Sodium 138 Potassium 3.9 Chloride 108 Carbon Dioxide 22 BUN 43 H Creatinine 1.02 Glucose 83 Calcium 7.7 L Liver Function 07/28/16 Range/Units 04:58 Total Bilirubin 0.9 (0.2-1.2) mg/dL AST 39 H (5-34) Units/L ALT 24 (0-55) Units/L Alkaline Phosphatase 139 H (38-126) Units/L Albumin 1.8 L (3.5-5.0) g/dL Urine 07/27/16 Range/Units Unknown Urine Color Dark Yellow (Yellow) Urine Clarity Cloudy A (Clear) Urine pH 5.5 (5.0-8.0) pH Units Ur Specific [place] 1.030 H (1.010-1.025) Urine Protein Trace (Neg-Trace) mg/dL Urine Glucose (UA) Normal (Normal) mg/dL - ABG Interpretation ABG results: PT/INR, D-dimer PT 16.9 Seconds (9.4-12.1) H 07/27/16 15:54 - Impressions Impressions Brain MRI 07/27/16 20:01 IMPRESSION: 1. No acute intracranial abnormality. 2. Empty sella turcica. D/ / Gregory Hylton MD / Gregory Hylton MD Interpreting Provider: Gregory Hylton MD Consult Discharge Plan - Plan Referrals: Orestes Grace MD [Primary Care Provider] - <Aaron Patel - Last Filed: 07/28/16 18:42> Date of Encounter: 07/28/16 - Assessment and plan (1) Diarrhea Current Visit: Yes Status: Acute Qualifiers: Diarrhea type: presumed infectious Qualified Code(s): A09 - Infectious gastroenteritis and colitis, unspecified (2) Anemia Current Visit: Yes Status: Acute Qualifiers: Anemia type: unspecified type Qualified Code(s): D64.9 - Anemia, unspecified (3) Hypertension Current Visit: Yes Status: Acute Qualifiers: Hypertension type: essential hypertension Qualified Code(s): I10 - Essential (primary) hypertension (4) RYLEY (acute kidney injury) Current Visit: Yes Status: Resolved (5) COPD (chronic obstructive pulmonary disease) Current Visit: No Status: Chronic Qualifiers: COPD type: unspecified COPD Qualified Code(s): J44.9 - Chronic obstructive pulmonary disease, unspecified - Constitutional Vitals: Temp Pulse Resp BP Pulse Ox 97.7 F 75 18 124/60 98 07/28/16 16:12 07/28/16 16:12 07/28/16 16:13 07/28/16 16:12 07/28/16 16:13 Internal Medicine: Result - Labs CBC & Chem 7: 07/28/16 04:58 07/28/16 04:58 Labs: Short CBC 07/28/16 Range/Units 04:58 WBC 12.8 H (4.3-11.1) K/mcL Hgb 7.9 L (11.5-15.4) g/dL Hct 23.5 L (35.3-44.9) % Plt Count 308 (140-400) K/mcL Neutrophils # 9.7 H (1.6-8.9) K/mcL BMP 07/28/16 04:58 Sodium 138 Potassium 3.9 Chloride 108 Carbon Dioxide 22 BUN 43 H Creatinine 1.02 Glucose 83 Calcium 7.7 L Liver Function 07/28/16 Range/Units 04:58 Total Bilirubin 0.9 (0.2-1.2) mg/dL AST 39 H (5-34) Units/L ALT 24 (0-55) Units/L Alkaline Phosphatase 139 H (38-126) Units/L Albumin 1.8 L (3.5-5.0) g/dL Urine 07/27/16 Range/Units Unknown Urine Color Dark Yellow (Yellow) Urine Clarity Cloudy A (Clear) Urine pH 5.5 (5.0-8.0) pH Units Ur Specific [place] 1.030 H (1.010-1.025) Urine Protein Trace (Neg-Trace) mg/dL Urine Glucose (UA) Normal (Normal) mg/dL - ABG Interpretation ABG results: PT/INR, D-dimer PT 16.9 Seconds (9.4-12.1) H 07/27/16 15:54 - Impressions Impressions Brain MRI 07/27/16 20:01 IMPRESSION: 1. No acute intracranial abnormality. 2. Empty sella turcica. D/ / Gregory Hylton MD / Gregory Hylton MD Interpreting Provider: Gregory Hylton MD Abdomen/Pelvis CT 07/28/16 15:45 IMPRESSION: Mild ileus with asymmetric distal right ileal distention. Partial or early obstruction not excluded but unlikely. Sutures from prior right colonic surgery with multiple adjacent lymph nodes in the lower right mesentery new from the prior study. While these could be benign or inflammatory, if the surgery was for colon carcinoma, concern would be for local recurrent metastatic adenopathy. This needs clinical correlation. Basilar airspace disease greater left lower lobe. Atelectasis or pneumonia considered. Severe atherosclerotic calcification with near complete luminal compromise with dense calcified plaque, origin of the celiac artery and adjacent entire aortic lumen. Old T11 and mid coccygeal fracture. D/ / Mike Zhu MD / Mike Zhu MD Interpreting Provider: Mike Zhu MD - Attending Attestation I examined this patient and my medical decision-making was reviewed with the Resident Physician on 07/28/16. I agree with the documented findings, disposition and treatment plan as described except to the extent set forth below. Ms. Tucker is currently in observation due to weakness and concern for neurologic event as well as acute diarrhea. She is moderate to high risk due to potential neurologic worsening. Ms. Tucker feels about the same. She denies further diarrhea or other new symptoms. CT scan ordered today. Further tests results pending. Exam Alert. Comfortable at this time Heart reg No wheeze Abd soft I/P 1. Weakness 2. Diarrhea 3. Hypoalbuminemia Further diagnoses and plan as above.
--- NOTE | 2016-07-28 15:47 | ECHO - Doppler Report ---
Echo with Saline Contrast Name: Channing Tucker Date of Study: 07/28/2016 Date: 1945 Ht: Medical Record#: [id number] Age: 70 Wt: 174.0 lb Gender: Female BSA: Order #: [id number] Location: [facility] Room #: [id number] Reading Physician: Danni Olsen DO Business Banking Representative: Jumana Guardado Ordering Physician: Marisa Pickett CNP Primary Physician: Orestes Grace M.D. Indications: Cerebrovascular Accident Impressions: LVEF 55%. Normal left ventricular size and systolic function. There is evidence of mild diastolic dysfunction of the left ventricle. Normal right ventricular size and function. Mild to moderate mitral regurgitation. Mild tricuspid regurgitation. No pulmonary hypertension. No PFO with saline contrast. Left Ventricular Wall Motion: Rest Echo Findings All wall segments showed normal motion. Findings: Study Quality * Technically adequate exam. ECG Findings * Normal sinus rhythm. Left Ventricle * LVEF 55%. * Normal LV chamber size, wall thickness and function. * Mild left ventricular diastolic dysfunction. Mitral Valve * Normal mitral valve structure. * No mitral stenosis. * Mild-moderate mitral regurgitation. Aortic Valve * Aortic valve not well visualized. * No aortic stenosis. * Trace aortic regurgitation. Tricuspid Valve * Normal tricuspid valve structure. * Mild tricuspid regurgitation. * Estimated RA pressure is 3 mmHg. Pulmonic Valve * Pulmonic valve is not well visualized. * No pulmonic stenosis. * Trace pulmonic regurgitation. Pulmonary Artery * Pulmonary artery not well visualized. Right Ventricle * Normal right ventricular structure and function. Right Atrium * Normal right atrial size. Left Atrium * Moderate to severely dilated left atrium. Interatrial Septum * No evidence of PFO by color Doppler. * No evidence of PFO with agitated saline contrast. IVC * Normal IVC dimensions and inspiratory collapse. Pericardium * There is no pericardial effusion present. Aorta * Normally sized aortic root. History Hypertension Hypercholesteremia Years 34 Packs 3.5 Family History of CAD History of CAD/PTCA 06/02/2012 a Previous Echo was performed. Contrast: Agitated saline 20 ml. Measurements: BP: 127/ 45 2D Normal Values RVIDd: 3.10 cm <2.7 cm IVSd: 1.20 cm 0.6 - 1.0 cm LVIDd: 5.90 cm 3.7 - 5.6 cm LVPWd: 1.20 cm 0.6 - 1.1 cm LVIDs: 4.20 cm 1.5 - 3.6 cm LA: 4.70 cm 2.0 - 4.0cm LA volume: 80 Mitral Valve Peak E' Lat Bryant:4.78 cm/s Peak E' Med Bryant:4.19 cm/s E/E' Lat Ratio:22.8 E/E' Med Ratio:26 Updated by Danni Olsen on 07/28/2016 3:40:23 PM electronically signed on 07/28/2016 3:41:40 PM with status of Final Wall Motion [place]: 1=Normal, 2=Hypokinesis, 3=Akinesis, 4=Dyskinesis, 5=Aneurysmal, 6=Hyperkinetic, X=Not Visualized (Blank)=Missing
[2016-07-28] MEDS ORDERED: Fenofibrate 54 MG TABLET PO SCH (18:00)
--- NOTE | 2016-07-28 20:33 | Carotid Imaging Report ---
Carotid Duplex Patient Name:Channing Tucker Order Number:[id number] Procedure Date:07/28/2016 Date:8Age:70 yrs Gender:Female Lt BP:127 / 45 mmHg Rt.BP:127 / 45 mmHgHeart Rate: Location:[facility] Room #: 2NE24 Electro Optics Engineer:Jumana Guardado Referring MD:Marisa Pickett, [employer] program specialist:Orestes Grace M.D. Reading MD:Darren Savage MD , FACS Primary Indications:CVA Risk Factors Yes/No Hypertension Hypercholesterolemia Smoker Previous Impressions: Findings: Bilateral mid ICA and distal ICA has a severe, 60-79% stenosis. Findings Carotid Duplex: Right: There is nonstenotic plaque in the right distal common carotid artery. There is smooth heterogeneous plaque. There is 40-59% stenosis in the right bifurcation. There is 60-79% stenosis in the right mid internal carotid artery. There is 60-79% stenosis in the right distal internal carotid artery. Left: There is nonstenotic plaque in the left bifurcation. There is calcified plaque. There is 60-79% stenosis in the left proximal internal carotid artery. There is 60-79% stenosis in the left mid internal carotid artery. There is 60-79% stenosis in the left distal internal carotid artery. There is 60-79% stenosis in the left eca. Prior Study: No prior study available for comparison. Carotid Results Right PSV EDV Assessment Proximal CCA 137 17 Normal Mid CCA 189 20 Normal Distal CCA 128 37 Non Stenotic Plaque Bifurcation 155 36 40-59% stenosis Proximal ICA 109 35 Non Stenotic Plaque Mid ICA 134 46 60-79% stenosis Distal ICA 138 49 60-79% stenosis ECA 114 19 Normal Vertebral Artery 79 22 Antegrade Flow Left PSV EDV Assessment Proximal CCA 119 20 Normal Mid CCA 119 20 Normal Distal CCA 103 29 Normal Bifurcation 103 29 Non Stenotic Plaque Proximal ICA 200 45 60-79% stenosis Mid ICA 247 62 60-79% stenosis Distal ICA 194 52 60-79% stenosis ECA 128 25 60-79% stenosis Vertebral Artery 78 27 Antegrade Flow Ratio's Right ICA/CCA Ratio: 0.73 ICA/CCA Values: 138/189 Left ICA/CCA Ratio: 2.08 ICA/CCA Values: 247/119 Updated by Darren Savage MD, FACS on 07/28/2016 8:28:36 PM Darren Savage MD electronically signed on 07/28/2016 8:29:35 PM with status of Final
[2016-07-28] MEDS: rOPINIRole 0.25 MG TABLET PO SCH (22:26)
[2016-07-28] MEDS: ALPRAZolam 1 MG TABLET PO PRN (22:26)
[2016-07-29] MEDS: Ipratropium/Albuterol Neb 3 ML IH SCH ×4 (05:06→23:01)
[2016-07-29 05:28] LABS: Basophils % 0.5 %; Eosinophils # 0.2 K/mcL (0.0-0.6); Eosinophils % 2.8 %; Hematocrit 23.2 % (35.3-44.9); Hemoglobin 7.8 g/dL (11.5-15.4); Immature Platelets 1.8 % (1.1-6.1); Lymphocytes # 1.6 K/mcL (0.6-4.6); Lymphocytes % 20.7 %; Mean Corpuscular HGB Conc 33.6 g/dL (31.6-35.5); Mean Corpuscular Hemoglobin 29.7 pg (28.0-33.3); Mean Corpuscular Volume 88.2 fL (83.0-100.0); Mean Platelet Volume 10.4 fL (9.4-12.4); Monocytes # 0.5 K/mcL (0.0-1.3); Monocytes % 6.1 %; Platelet Count 321 K/mcL (140-400); Red Blood Count 2.63 M/mcL (3.82-4.97); Red Cell Distribution Width 16.4 % (11.5-14.5); Segmented Neutrophils % 68.9 %
[2016-07-29 05:38] LABS: Neutrophils # 5.4 K/mcL (1.6-8.9)
[2016-07-29 06:58] LABS: BUN/Creatinine Ratio 39 (6-26); Blood Urea Nitrogen 41 mg/dL (7-20); Calcium 7.7 mg/dL (8.6-10.8); Carbon Dioxide 21 mEq/L (19-29); Chloride 110 mEq/L (98-109); Glucose 84 mg/dL (70-99); Magnesium 1.6 mg/dL (1.6-2.6); Osmolality,Calculated 297 (280-300); Potassium 3.9 mEq/L (3.5-4.5); Sodium 139 mEq/L (136-145); eGFR For African Americans > 60 (> 60); eGFR For Non-African Americans 52 (> 60)
[2016-07-29 07:01] LABS: Anisocytosis 1+ (Not Present); Platelet Estimate Normal (Normal)
--- NOTE | 2016-07-29 09:34 | Neurology Progress Note ---
Date of Encounter: 07/29/16 Time of Encounter: 08:05 Assessment and Plan (1) Stroke-like symptoms Current Visit: No Status: Acute pt who has stoke like symptoms has resolved now,mri of brain did not show any evidence of acute stroke, echocardiogram was negative for any embolic source, carotid duplex that shows evidence of 60 is a 79% bilateral stenosis. Certainly that is independent risk factor for any stroke or a TIA. At the same time she did have other metabolic conditions and also has diarrhea with generalized weakness and dehydration perhaps that could be the main contributing factor for her symptoms. She had been on antiplatelet therapy suggested to continue on it particularly Plavix, along with the statin. Once she is stabilized she could be evaluated by vascular surgery for possible intervention of the carotid, Perhaps she may benefit from another imaging modality like CT angiogram of the neck in order to determine the exact level of the stenosis. She may benefit from vascular surgical consultation but that could be done as an outpatient In the meantime she may continue on physical therapy. Her leg weakness is chronic due to her other orthopedic issues and not related to any central etiology like a stroke (2) Frequent falls Current Visit: Yes Status: Acute (3) Carotid stenosis, bilateral Current Visit: Yes Status: Acute She had been on antiplatelet therapy suggested to continue on it particularly Plavix, along with the statin. Once she is stabilized she could be evaluated by vascular surgery for possible intervention of the carotid, Perhaps she may benefit from another imaging modality like CT angiogram of the neck in order to determine the exact level of the stenosis. She may benefit from vascular surgical consultation but that could be done as an outpatient Subjective Interval history: condition is stable still having weakness of the lower extremities continued to have GI issues for which she has been getting workup. Objective - Constitutional Vitals: Temp Pulse Resp BP Pulse Ox 98.2 F 92 18 122/50 98 07/28/16 23:36 07/29/16 08:15 07/29/16 08:15 07/29/16 08:15 07/29/16 08:15 - Neurological Exam Motor Examination: Present: grossly full strength in all extremities Motor examination - left side: 4/5: deltoids, biceps, triceps, wrist flexion, wrist extension, hip flexors, balance truing inspector, quadriceps, tibialis Anterior, toe extension (EHL), plantarflexion Sensation intact: Present: intact Mental Status Examination: Present: awake, alert, oriented to person, oriented to place, oriented to time, follows commands appropriately, answers questions appropriately, no agnosia, no aphasia Cranial nerve examination: Present: PERRL, EOMI, visual lemus intact, sensory to face intact, mastication intact, no facial asymmetry is present, no dysarthria Cerebellar examination: Present: no dysmetria Results - Laboratory Findings CBC and BMP: 07/29/16 03:18 07/29/16 03:18 Abnormal lab findings: Abnormal lab results RBC 2.63 M/mcL (3.82-4.97) L 07/29/16 03:18 Hgb 7.8 g/dL (11.5-15.4) L 07/29/16 03:18 Hct 23.2 % (35.3-44.9) L 07/29/16 03:18 RDW 16.4 % (11.5-14.5) H 07/29/16 03:18 Hypochromasia Present (Not Present) A 07/27/16 15:54 Poikilocytosis 1+ (Not Present) A 07/28/16 04:58 Anisocytosis 1+ (Not Present) A 07/29/16 03:18 Microcytosis Present (Not Present) A 07/28/16 04:58 Target Cells 1+ (Not Present) A 07/28/16 04:58 PT 16.9 Seconds (9.4-12.1) H 07/27/16 15:54 APTT 36.5 Seconds (26.0-36.0) H 07/27/16 15:54 Chloride 110 mEq/L (98-109) H 07/29/16 03:18 BUN 41 mg/dL (7-20) H 07/29/16 03:18 Est GFR (Non-Af Amer) 52 (> 60) L 07/29/16 03:18 BUN/Creatinine Ratio 39 (6-26) H 07/29/16 03:18 Calcium 7.7 mg/dL (8.6-10.8) L 07/29/16 03:18 Transferrin 105 mg/dL (180-382) L 07/28/16 04:58 AST 39 Units/L (5-34) H 07/28/16 04:58 Alkaline Phosphatase 139 Units/L (38-126) H 07/28/16 04:58 C-Reactive Protein 185 mg/L (Less than 5) H 07/27/16 15:54 B-Natriuretic Peptide 288 pg/mL (0-100) H 07/27/16 15:54 Serum Total Protein 4.6 g/dL (6.0-8.3) L 07/28/16 04:58 Albumin 1.8 g/dL (3.5-5.0) L 07/28/16 04:58 Albumin/Globulin Ratio 0.6 (1.1-2.2) L 07/28/16 04:58 HDL Cholesterol < 5 mg/dL (40-59) L 07/28/16 04:58 Cholesterol/HDL Ratio 8.0 (0-4.9) H 07/28/16 04:58 Vitamin B12 > 2000 pg/mL (213-816) H 07/28/16 04:58 Urine Clarity Cloudy (Clear) A 07/27/16 Unknown Ur Specific [place] 1.030 (1.010-1.025) H 07/27/16 Unknown Urine Ketones Trace mg/dL (Negative) H 07/27/16 Unknown Urine Bilirubin Moderate (Negative) H 07/27/16 Unknown Ur Leukocyte Esterase Small (Negative) H 07/27/16 Unknown Urine Microscopic RBC 5-15 per hpf (0-3) H 07/27/16 Unknown Ur Squamous Epith Cells Moderate per lpf (None-Few) H 07/27/16 Unknown Ur Culture Indicated? YES (NO) A 07/27/16 Unknown Consult Discharge Plan - Plan Referrals: Orestes Grace MD [Primary Care Provider] -
[2016-07-29] MEDS: OMEGA PO SCH (11:13)
[2016-07-29] MEDS: FATTY ACIDS PO SCH (11:13)
[2016-07-29] MEDS: INDOMETHACIN 50 MG PO SCH (11:13)
[2016-07-29] MEDS: Isosorbide MONOnitrate (24 HR) 60 MG TAB.ER.24H PO SCH (11:19)
[2016-07-29] MEDS: Lactobacillus 1 EACH CAP.SPRINK PO SCH ×2 (11:19→21:20)
[2016-07-29] MEDS: Diltiazem CD (24hr) 120 MG CAPSULE PO SCH (11:19)
[2016-07-29] MEDS: Aspirin Enteric Coated 81 MG Tablet PO SCH (11:19)
[2016-07-29 11:54] LABS: Adenovirus F 40/41 PCR Not detected (Not detect); Astrovirus PCR Not detected (Not detect); C.difficile Toxin A/B by PCR Not detected (Not detect); Campylobacter by PCR Not detected (Not detect); Cryptosporidium by PCR Not detected (Not detect); Cyclospora cayetanensis PCR Not detected (Not detect); E. coli O157 by PCR Not detected (Not detect); Entamoeba histolytica PCR Not detected (Not detect); Enteroaggregative E.coli(EAEC) Not detected (Not detect); Enteropathogenic E.coli(EPEC) Not detected (Not detect); Enterotoxigenic E.coli (ETEC) Not detected (Not detect); Giardia lamblia PCR Not detected (Not detect); Norovirus GI/GII PCR Not detected (Not detect); Plesiomonas shigelloides PCR Not detected (Not detect); Rotavirus A PCR Not detected (Not detect); Salmonella PCR Not detected (Not detect); Sapovirus PCR Not detected (Not detect); Shig/EnteroinvasiveE coli EIEC Not detected (Not detect); Shigalike tox-prod E coli STEC Not detected (Not detect); Vibrio PCR Not detected (Not detect); Vibrio cholerae PCR Not detected (Not detect); Yersinia enterocolitica PCR Not detected (Not detect)
--- NOTE | 2016-07-29 13:33 | Internal Med Progress Note ---
<Rm Ramirez - Last Filed: 07/29/16 13:30> Date of Encounter: 07/29/16 Time of Encounter: 09:00 - Assessment and plan (1) Diarrhea Current Visit: Yes Status: Acute Assessment and plan: As stated the patient has had diarrhea for the past 3 days with nausea. She has watery brown stools 9 times a day. She denies melena or hematochezia. Patient had recent use of antibiotics status post surgical debridement and irrigation of right knee secondary to right knee replacement. C. difficile was checked and was negative. TSH within normal limits. GI stool panel ordered. Her white blood cell count is elevated at 12.8. Diarrhea is most likely infectious. Patient was initially resuscitated with fluids secondary to dehydration. However due to diastolic dysfunction, and bilateral lower extremity 2+ pitting edema this has been stopped. Patient continues to have diarrhea. CT abdomen shows mild ileus with asymmetric distal right ileal distention. May have partial obstruction. Furthermore patient had previous colectomy done by Dr. 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 CT abdomen shows new multiple adjacent lymph nodes in the lower right mesentery new compared to prior study. Surgery was notified and will come see patient today for further evaluation. Qualifiers: Diarrhea type: presumed infectious Qualified Code(s): A09 - Infectious gastroenteritis and colitis, unspecified (2) Swelling of right knee joint Current Visit: Yes Status: Acute Assessment and plan: Patient had a total knee replacement in March 2016. Thereafter her prosthesis became infected and she underwent irrigation and debridement in May 2016. Since then patient has been followed by . Her right knee has appeared swollen and is draining purulent material since admission. It is well dressed. Dressing is changed daily. Patient was scheduled to see today outpatient. We have consult him for further evaluation. (3) Cerebrovascular accident Current Visit: Yes Status: Suspected Assessment and plan: 70-year-old female with a history of arthritis, COPD, coronary artery disease, hyperlipidemia, hypertension, hyperthyroidism, right total knee replacement presented with 4 days of's slurred speech and difficulty swallowing, diarhea and nasuea. Patient also complained of difficulty ambulating 2 months. Patient's spouse says she would lean left and fall. She has had multiple falls in the past few months. CT scan was negative. MRI was negative. Echocardiogram EF 55%, no wall motion abnormalaties, mild to moderate mitral regurg,no PFO. carotid Dopplers Shos 60-79% stenosis in b/l distal ICA and mid ICA . Patient also presented with bilateral pedal edema and was checked with Dopplers for VTE which is negative. Patient's lipid profile shows abnormally low HDL less than 5. PT/OT consults ordered and recommend SNF for rehab. Today's neuro exam was nonfocal and nonlateralizing except for mild left facial droop. Neruo recommends starting plavix and vascular surgery consultation once patient is stabilized. However patient hgb is low and there is suspicion of lower GI bleed. We have ordered stool guaiac. Patient has seen Dr. Romeo in the past. Will setup outpatient referral with him. Leg weakness chornic and 2nd to orthopedic issues. Less likey from CVA. Will continue PT/OT. Will talk to patient about rehab after discharge. 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 With 60% stenosis of aorta. Patient was evaluated by and was not considered a surgical candidate due to her multiple comorbidities and the high risk procedure she would have to undergo. (5) Anemia Current Visit: Yes Status: Acute Assessment and plan: Normocytic normochromic anemia. Patient's hemoglobin today 7.9. Last year her hemoglobin was 13. She denies any hemoptysis, hematemesis, melena, hematochezia. Patient is not on any anticoagulation. As per family patient 5 years ago had large colon polyp which was removed by Dr. Chow. There was no follow-up colonoscopy afterwards. Patient's B12 and iron, and folate levels are within normal limits. We will continue her Prilosec. Stool guaiac ordered. Patient's hemoglobin remained stable. As noted above surgery has been notified of CT abdomen results which shows emergence of new lymph nodes around previous surgical site of colectomy where tubulovillous adenoma was resected. Qualifiers: Anemia type: unspecified type Qualified Code(s): D64.9 - Anemia, unspecified (6) RYLEY (acute kidney injury) Current Visit: Yes Status: Resolved Assessment and plan: Resolved. Patient presented with a creatinine of 1.16. CK is most likely secondary to dehydration from profuse diarrhea. After being resuscitated with fluids patient's creatinine improved to 1.02. We will continue to monitor. (7) Polypharmacy Current Visit: Yes Status: Acute Assessment and plan: Patient's HDL cholesterol level is less than 5. She is on 3 different medications for hyperlipidemia including statin, gemfibrozil, fenofibrate. We will discontinue these medications for now. We will restart on atorvastatin 40 mg as patient has extensive vascular disease. If patient needs to be restarted on her other medications we will leave that up to her primary care physician. (8) DVT prophylaxis Current Visit: Yes Status: Acute Assessment and plan: We will withhold anticoagulation as patient has low hemoglobin.b/l EPCDs (9) CAD (coronary artery disease) Current Visit: No Status: Chronic Qualifiers: Coronary Disease-Associated Artery/Lesion type: [place] artery [place] vs. transplanted heart: [place] heart Associated angina: without angina Qualified Code(s): I25.10 - Atherosclerotic heart disease of [place] coronary artery without angina pectoris (10) COPD (chronic obstructive pulmonary disease) Current Visit: No Status: Chronic Assessment and plan: Patient has history of COPD. We will continue scheduled duoneb, Symbicort. Patient denies shortness of breath. And is oxygenating greater than 90% on room air. Qualifiers: COPD type: unspecified COPD Qualified Code(s): J44.9 - Chronic obstructive pulmonary disease, unspecified - Subjective Interval history: Patient this morning experienced a fall during PT. She did not have any trauma secondary to the fall. She denies any pain, chest pain, shortness of breath, abdominal pain, nausea, vomiting. - Constitutional Vitals: Temp Pulse Resp BP Pulse Ox 98.2 F 85 16 122/50 95 07/28/16 23:36 07/29/16 11:00 07/29/16 11:16 07/29/16 11:00 07/29/16 11:16 General appearance: Present: A&O X 3, pleasant, no acute distress - Head Head exam: Present: atraumatic, normocephalic - Eye Eye exam: Present: PERRL, conjuntiva pink, sclera anicteric - Neck Neck exam general surgery: Present: supple, trachea midline. Absent: lymphadenopathy - Respiratory Respiratory exam: Present: decreased breath sounds. Absent: accessory muscle use, rales, rhonchi, wheezes - Cardiovascular Cardiovascular exam: Present: RRR, +S1, +S2. Absent: diastolic murmur, gallop, rubs, systolic murmur - GI/Abdominal GI/Abdominal exam: Present: normal bowel sounds, soft, no peritoneal signs. Absent: distended, tenderness - Extremities Exam Extremities exam: Present: warm, radial pulses palpable and symetrical. Absent : calf tenderness, cyanotic, pedal edema - Expanded Lower Extremities Exam Knee exam: Present: erythema, swelling (Purulent drainage), tenderness - Neurological Exam Neurological exam: Present: CN II-XII intact, oriented X3, no focal deficits. Absent: pronater drift, facial droop, speech deficit - Skin Skin exam: Present: dry, intact Internal Medicine: Result - Labs CBC & Chem 7: 07/29/16 03:18 07/29/16 03:18 Labs: Short CBC 07/29/16 Range/Units 03:18 WBC 7.8 (4.3-11.1) K/mcL Hgb 7.8 L (11.5-15.4) g/dL Hct 23.2 L (35.3-44.9) % Plt Count 321 (140-400) K/mcL Neutrophils # 5.4 (1.6-8.9) K/mcL BMP 07/29/16 03:18 Sodium 139 Potassium 3.9 Chloride 110 H Carbon Dioxide 21 BUN 41 H Creatinine 1.06 Glucose 84 Calcium 7.7 L - ABG Interpretation ABG results: PT/INR, D-dimer PT 16.9 Seconds (9.4-12.1) H 07/27/16 15:54 - Impressions Impressions Abdomen/Pelvis CT 07/28/16 15:45 IMPRESSION: Mild ileus with asymmetric distal right ileal distention. Partial or early obstruction not excluded but unlikely. Sutures from prior right colonic surgery with multiple adjacent lymph nodes in the lower right mesentery new from the prior study. While these could be benign or inflammatory, if the surgery was for colon carcinoma, concern would be for local recurrent metastatic adenopathy. This needs clinical correlation. Basilar airspace disease greater left lower lobe. Atelectasis or pneumonia considered. Severe atherosclerotic calcification with near complete luminal compromise with dense calcified plaque, origin of the celiac artery and adjacent entire aortic lumen. Old T11 and mid coccygeal fracture. D/ / Mike Zhu MD / Mike Zhu MD Interpreting Provider: Mike Zhu MD Consult Discharge Plan - Plan Referrals: Orestes Grace MD [Primary Care Provider] - <Aaron Patel - Last Filed: 07/29/16 18:07> Date of Encounter: 07/29/16 - Assessment and plan (1) 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 (2) Diarrhea Current Visit: Yes Status: Acute Qualifiers: Diarrhea type: presumed infectious Qualified Code(s): A09 - Infectious gastroenteritis and colitis, unspecified (3) Anemia Current Visit: Yes Status: Suspected Qualifiers: Anemia type: other cause Other causes of anemia: chronic disease, other Qualified Code(s): D63.8 - Anemia in other chronic diseases classified elsewhere (4) Hypertension Current Visit: Yes Status: Acute Qualifiers: Hypertension type: essential hypertension Qualified Code(s): I10 - Essential (primary) hypertension (5) RYLEY (acute kidney injury) Current Visit: Yes Status: Resolved (6) COPD (chronic obstructive pulmonary disease) Current Visit: No Status: Chronic Qualifiers: COPD type: unspecified COPD Qualified Code(s): J44.9 - Chronic obstructive pulmonary disease, unspecified (7) Carotid stenosis, bilateral Current Visit: Yes Status: Chronic - Constitutional Vitals: Temp Pulse Resp BP Pulse Ox 98.2 F 79 15 144/76 96 07/28/16 23:36 07/29/16 16:42 07/29/16 16:42 07/29/16 16:42 07/29/16 16:42 Internal Medicine: Result - Labs CBC & Chem 7: 07/29/16 03:18 07/29/16 03:18 Labs: Short CBC 07/29/16 Range/Units 03:18 WBC 7.8 (4.3-11.1) K/mcL Hgb 7.8 L (11.5-15.4) g/dL Hct 23.2 L (35.3-44.9) % Plt Count 321 (140-400) K/mcL Neutrophils # 5.4 (1.6-8.9) K/mcL BMP 07/29/16 03:18 Sodium 139 Potassium 3.9 Chloride 110 H Carbon Dioxide 21 BUN 41 H Creatinine 1.06 Glucose 84 Calcium 7.7 L - ABG Interpretation ABG results: PT/INR, D-dimer PT 16.9 Seconds (9.4-12.1) H 07/27/16 15:54 - Impressions Impressions Abdomen/Pelvis CT 07/28/16 15:45 IMPRESSION: Mild ileus with asymmetric distal right ileal distention. Partial or early obstruction not excluded but unlikely. Sutures from prior right colonic surgery with multiple adjacent lymph nodes in the lower right mesentery new from the prior study. While these could be benign or inflammatory, if the surgery was for colon carcinoma, concern would be for local recurrent metastatic adenopathy. This needs clinical correlation. Basilar airspace disease greater left lower lobe. Atelectasis or pneumonia considered. Severe atherosclerotic calcification with near complete luminal compromise with dense calcified plaque, origin of the celiac artery and adjacent entire aortic lumen. Old T11 and mid coccygeal fracture. D/ / Mike Zhu MD / Mike Zhu MD Interpreting Provider: Mike Zhu MD - Attending Attestation I examined this patient and my medical decision-making was reviewed with the Resident Physician on 07/29/16. I agree with the documented findings, disposition and treatment plan as described except to the extent set forth below. Ms. Tucker is currently admitted for acute encephalopathy, diarrhea and abdominal pain. She remains moderate risk due to potential for worsening neuro and abdominal issues. Ms. Tucker is more alert today. She is sitting in a chair. She will not go to rehab if recommended. Her pain is controlled at this point but she continues to have diarrhea. Exam Alert Comfortable Heart reg No wheeze Edema present I/P 1. Abd pain - ? due to vascular disease 2. Diarrhea - surg eval ? scope Further diagnoses and plan as above.
--- NOTE | 2016-07-29 14:27 | Orthopedic Consult Note ---
Date of Encounter: 07/28/16 Time of Encounter: 17:30 Assessment and Plan (1) Status post total knee replacement, right Current Visit: Yes Status: Acute Irrigation debridement and wound closure right knee . Date of surgery -05/28/16 (Right TKR 03/29/2016) Complicated with chronic wound dehiscence. She continues to have wound dehiscence, most prominent to mid-incision. No purulence noted. Mild erythema noted. No evidence of intra-articular involvement at this time. Her knee has showed continual improvement since her office visit 2 weeks ago. Dressing changes daily with Mesalt, 4x4 and Medipore tape. Cleanse wound daily with antibacterial soap and water. Progress with ROM as tolerated and PT if tolerated. At this point, no need for further surgical intervention. We will continue to follow her during her hospital stay to monitor. Continue with daily wound care and dressing changes. Plan to f/up in the office at discharge from hospital. (2) Wound dehiscence, surgical Current Visit: Yes Status: Acute Qualifiers: Encounter type: initial encounter Qualified Code(s): T81.31XA - Disruption of external operation (surgical) wound, not elsewhere classified, initial encounter History of Present Illness Chief complaint: Stroke-like symptoms HPI: Ms. Tucker is a 70 year old female, well known to our orthopedic practice. She was admitted for stroke-like symptoms and weakness. She states she is having difficulty with her appetite and weakness for 1-2 weeks. She is s/p Irrigation debridement and wound closure right knee . Date of surgery -05/28/16 - (Primary TKR 03/29/16). She has been closely monitored in our office for new wound dehiscence. She completed Doxycycline and was improving. She complains of stiffness to her Right knee; she is able to ambulate but it is limited because of her LEFT leg weakness. She has limited ROM secondary to prolonged immobilization. She denies recent falls or trauma to knee and any radiation of pain into RLE. She denies N/T into Right lower extremity. Left lower extremity is weak and limited active hip flexion noted. She is having difficulty with raising her LEFT leg to the bed. Past Med Surg Social Fam HX - Past Medical History Medical history: arthritis, COPD, coronary artery disease, hyperlipidemia, hypertension, thyroid disease, other Psychiatric history: anxiety, depression - Past Surgical History Surgical History: cholecystectomy, herniorrhaphy, hysterectomy, orthopedic, other (right knee surgery April 2016; additional right knee surgery for infection May 2016), other - Social History Smoking Status: Former smoker (90 pack year history) Smokeless Tobacco Status: No Alcohol use: none Drug use: none - Family History Mother Adopted: [place]: Faheem Adair Family Member Ethnicity: Non- Living Status: Age at : 76 Cause of : Cancer Hx Family Cardiac Disorders: Yes Hx Family Cancer: Yes Father Adopted: [place]: Bill Adair Living Status: Age at : 76 Cause of : [place] Hx Family Cardiac Disorders: Yes Hx Family Cancer: Yes Medications and Allergies Albuterol Sulfate [Albuterol Inhaler] 2 puff IH Q4-6H PRN 10/15/15 [History] Allopurinol [Zyloprim 100 MG] 100 mg PO DAILY 10/15/15 [History] Alprazolam [Xanax 1 MG Tablet] 1 mg PO BID PRN 10/15/15 [History] Fenofibrate Nanocrystallized [Tricor] 145 mg PO QPM 10/15/15 [History] Fluticasone/Salmeterol [Advair 500-50 Diskus] 1 inh PO BID 10/15/15 [History] Gabapentin [Neurontin] 800 mg PO TID 10/15/15 [History] Isosorbide MONOnitrate (24 HR) [Imdur] 60 mg PO DAILY 10/15/15 [History] Levothyroxine [Synthroid] 112 mcg PO DAILY 10/15/15 [History] [place]-3 Fatty Acids [Fish Oil] 1,200 mg PO DAILY 10/15/15 [History] Omeprazole [PriLOSEC] 40 mg PO DAILY 10/15/15 [History] Ropinirole HCl [Requip] 0.5 - 1 mg PO HS 10/15/15 [History] Sertraline [Zoloft] 100 mg PO BID 10/15/15 [History] Tiotropium [Spiriva] 18 mcg IH DAILY 10/15/15 [History] Diltiazem HCl [Diltiazem ER] 120 mg PO DAILY 03/29/16 [History] Ipratropium/Albuterol Neb [Duoneb] 3 ml IH Q4HR PRN 10/24/16 [History] Atorvastatin [Lipitor] 10 mg PO HS 05/28/16 [History] Gemfibrozil [Lopid] 600 mg PO BIDWM 05/28/16 [History] OxyCODONE/APAP 5/325 [Percocet 5/325 MG] 1 each PO TID PRN 05/28/16 [History] Indomethacin [Indomethacin] 50 mg PO BID 07/27/16 [History] Allergies codeine Allergy (Verified 05/28/16 08:53) Confusion Iodinated Contrast Media - Oral and Adverse Reaction (Verified 07/27/16 18:30) See Comments patient states kidney problems. meclizine Adverse Reaction (Verified 07/27/16 18:30) Confusion All Systems Reviewed: A 10-system review of systems was performed and is negative for pertinent findings except as documented above in the HPI. - Constitutional Constitutional: weakness, no fever(s), no frequent falls - Cardiovascular Cardiovascular: as per HPI, no chest pain, no leg ulcers, no pedal edema, no syncope - Respiratory Respiratory: as per HPI - Musculoskeletal Musculoskeletal: abnormal gait, joint swelling, limited range of motion, muscle weakness, radiating pain into limb, stiffness, no numbness, no tingling Physical Exam - Constitutional Vitals: Temp Pulse Resp BP Pulse Ox 98.2 F 85 16 122/50 95 07/28/16 23:36 07/29/16 11:00 07/29/16 11:16 07/29/16 11:00 07/29/16 11:16 - Knee right Appearance: other (Proximal and mid-incisional wound dehiscence -superficial erythema along incision; no purulent drainage. Mild Serusanginous drainage present. No eschar present, no odor present) Varus alignment in stance: No Valgus alignment in stance: No Tenderness with palpation knee: medial Pain: throughout ROM (secondary to stiffness) Gait: limping (due to left leg weakness) Results - Labs Result Diagrams: 07/29/16 03:18 07/29/16 03:18 Labs: Abnormal lab results RBC 2.63 M/mcL (3.82-4.97) L 07/29/16 03:18 Hgb 7.8 g/dL (11.5-15.4) L 07/29/16 03:18 Hct 23.2 % (35.3-44.9) L 07/29/16 03:18 RDW 16.4 % (11.5-14.5) H 07/29/16 03:18 Hypochromasia Present (Not Present) A 07/27/16 15:54 Poikilocytosis 1+ (Not Present) A 07/28/16 04:58 Anisocytosis 1+ (Not Present) A 07/29/16 03:18 Microcytosis Present (Not Present) A 07/28/16 04:58 Target Cells 1+ (Not Present) A 07/28/16 04:58 PT 16.9 Seconds (9.4-12.1) H 07/27/16 15:54 APTT 36.5 Seconds (26.0-36.0) H 07/27/16 15:54 Chloride 110 mEq/L (98-109) H 07/29/16 03:18 BUN 41 mg/dL (7-20) H 07/29/16 03:18 Est GFR (Non-Af Amer) 52 (> 60) L 07/29/16 03:18 BUN/Creatinine Ratio 39 (6-26) H 07/29/16 03:18 POC Glucose 92 (58-89) H 07/29/16 08:17 Calcium 7.7 mg/dL (8.6-10.8) L 07/29/16 03:18 Transferrin 105 mg/dL (180-382) L 07/28/16 04:58 AST 39 Units/L (5-34) H 07/28/16 04:58 Alkaline Phosphatase 139 Units/L (38-126) H 07/28/16 04:58 C-Reactive Protein 185 mg/L (Less than 5) H 07/27/16 15:54 B-Natriuretic Peptide 288 pg/mL (0-100) H 07/27/16 15:54 Serum Total Protein 4.6 g/dL (6.0-8.3) L 07/28/16 04:58 Albumin 1.8 g/dL (3.5-5.0) L 07/28/16 04:58 Albumin/Globulin Ratio 0.6 (1.1-2.2) L 07/28/16 04:58 HDL Cholesterol < 5 mg/dL (40-59) L 07/28/16 04:58 Cholesterol/HDL Ratio 8.0 (0-4.9) H 07/28/16 04:58 Vitamin B12 > 2000 pg/mL (213-816) H 07/28/16 04:58 Urine Clarity Cloudy (Clear) A 07/27/16 Unknown Ur Specific [place] 1.030 (1.010-1.025) H 07/27/16 Unknown Urine Ketones Trace mg/dL (Negative) H 07/27/16 Unknown Urine Bilirubin Moderate (Negative) H 07/27/16 Unknown Ur Leukocyte Esterase Small (Negative) H 07/27/16 Unknown Urine Microscopic RBC 5-15 per hpf (0-3) H 07/27/16 Unknown Ur Squamous Epith Cells Moderate per lpf (None-Few) H 07/27/16 Unknown Ur Culture Indicated? YES (NO) A 07/27/16 Unknown Stool Occult Blood Positive (Negative) A 07/29/16 09:45 H & H 07/29/16 Range/Units 03:18 Hgb 7.8 L (11.5-15.4) g/dL Hct 23.2 L (35.3-44.9) % All other labs normal. Consult Discharge Plan - Plan Referrals: Orestes Grace MD [Primary Care Provider] -
--- NOTE | 2016-07-29 14:31 | General Surgery Consult Note ---
Date of Encounter: 07/29/16 Time of Encounter: 14:00 Assessment and Plan (1) Anemia Current Visit: Yes Status: Acute Plan for colonoscopy 07/30/[address] Chow Risks, benefits, alternatives and expected outcomes reviewed with the patient and she is in agreement to proceed tomorrow Clear liquid diet today (nectar thick) NPO after midnight Miralax and gatorade bowel prep Qualifiers: Anemia type: unspecified type Qualified Code(s): D64.9 - Anemia, unspecified (2) Mesenteric lymphadenopathy Current Visit: Yes Status: Acute Plan for colonoscopy 07/30/[address] Chow Risks, benefits, alternatives and expected outcomes reviewed with the patient and she is in agreement to proceed tomorrow Clear liquid diet today (nectar thick) NPO after midnight Miralax and gatorade bowel prep (3) Diarrhea Current Visit: Yes Status: Acute Qualifiers: Diarrhea type: presumed infectious Qualified Code(s): A09 - Infectious gastroenteritis and colitis, unspecified History of Present Illness Consult date: 07/29/16 Reason for consult: endoscopy Requesting physician: Rm Ramirez History of present illness: Mrs. Tucker is a very pleasant 70 year old female who presented to the hospital for stroke like symptoms. She has been seen by neurology and has no evidence of acute CVA. She does have carotid stenosis and will be referred to see vascular surgery on an outpatient basis. We have been asked to see due to anemia. The patient denies any abdominal discomfort. Denies any nausesa/vomiting. Admits to 50lb. weight loss over the past 18 months. Admits to diarrhea for the past 2 weeks. Denies any melena or hematochezia. Denies any shortness of breath of chest pains. Her last colonoscopy was in [address] Chow and she did have 1 hyperplastic polyp. She is s/p a colon resection (right hemicolectomy) in 2008 for an unresectable cecal polyp. Past Med Surg Social Fam HX - Past Medical History Medical history: arthritis, COPD, coronary artery disease, hyperlipidemia, hypertension, thyroid disease, other Psychiatric history: anxiety, depression - Past Surgical History Surgical History: cholecystectomy, colectomy (right hemicolectomy secondary to unresectable colon polyp 2008), herniorrhaphy, hysterectomy, orthopedic, other ( right knee surgery April 2016; additional right knee surgery for infection May 2016), other (Colonoscopy 2008, 2009) - Social History Smoking Status: Former smoker (90 pack year history) Smokeless Tobacco Status: No Alcohol use: none Drug use: none - Family History Mother Adopted: [place]: Faheem Adair Family Member Ethnicity: Non- Living Status: Age at : 76 Cause of : Cancer Hx Family Cardiac Disorders: Yes Hx Family Cancer: Yes Father Adopted: [place]: Bill Adair Living Status: Age at : 76 Cause of : [place] Hx Family Cardiac Disorders: Yes Hx Family Cancer: Yes Medications and Allergies Albuterol Sulfate [Albuterol Inhaler] 2 puff IH Q4-6H PRN 10/15/15 [History] Allopurinol [Zyloprim 100 MG] 100 mg PO DAILY 10/15/15 [History] Alprazolam [Xanax 1 MG Tablet] 1 mg PO BID PRN 10/15/15 [History] Fenofibrate Nanocrystallized [Tricor] 145 mg PO QPM 10/15/15 [History] Fluticasone/Salmeterol [Advair 500-50 Diskus] 1 inh PO BID 10/15/15 [History] Gabapentin [Neurontin] 800 mg PO TID 10/15/15 [History] Isosorbide MONOnitrate (24 HR) [Imdur] 60 mg PO DAILY 10/15/15 [History] Levothyroxine [Synthroid] 112 mcg PO DAILY 10/15/15 [History] [place]-3 Fatty Acids [Fish Oil] 1,200 mg PO DAILY 10/15/15 [History] Omeprazole [PriLOSEC] 40 mg PO DAILY 10/15/15 [History] Ropinirole HCl [Requip] 0.5 - 1 mg PO HS 10/15/15 [History] Sertraline [Zoloft] 100 mg PO BID 10/15/15 [History] Tiotropium [Spiriva] 18 mcg IH DAILY 10/15/15 [History] Diltiazem HCl [Diltiazem ER] 120 mg PO DAILY 03/29/16 [History] Ipratropium/Albuterol Neb [Duoneb] 3 ml IH Q4HR PRN 03/29/16 [History] Atorvastatin [Lipitor] 10 mg PO HS 05/28/16 [History] Gemfibrozil [Lopid] 600 mg PO BIDWM 05/28/16 [History] OxyCODONE/APAP 5/325 [Percocet 5/325 MG] 1 each PO TID PRN 05/28/16 [History] Indomethacin [Indomethacin] 50 mg PO BID 07/27/16 [History] Allergies codeine Allergy (Verified 05/28/16 08:53) Confusion Iodinated Contrast Media - Oral and Adverse Reaction (Verified 07/27/16 18:30) See Comments patient states kidney problems. meclizine Adverse Reaction (Verified 07/27/16 18:30) Confusion Review of Systems All systems PM: reviewed and no additional remarkable complaints except as stated (in the HPI) All systems PM: A 10-system review of systems was performed and is negative for pertinent findings except as documented above in the HPI. General Surgery Exam Initial Vital Signs Temp Pulse Resp BP Pulse Ox 97.5 F L 79 18 116/58 98 07/27/16 14:25 07/27/16 14:25 07/27/16 14:25 07/27/16 14:25 07/27/16 14:25 - General physical appearance well developed, well nourished, no distress, no pain - Eyes normal ocular movement - ENT normal mucosa, atraumatic, normocephalic - Neck trachea midline - Respiratory normal respiratory effort, clear to auscultation - Cardiovascular Cardiovascular exam: Present: RRR, 15, 16 - Abdomen Abdomen general surgery: Present: bowel sounds present, soft, non tender - Integumentary Integumentary general surgery: Present: warm and dry - Neurologic Present: CN 2-12 grossly intact - Musculoskeletal Present: normal gait, normal posture - Psychiatric Psychiatric general surgery: Present: appropriate, oriented to person, oriented to place, oriented to time, speech is normal, memory intact Exam Initial Vital Signs Temp Pulse Resp BP Pulse Ox 97.5 F L 79 18 116/58 98 07/27/16 14:25 07/27/16 14:25 07/27/16 14:25 07/27/16 14:25 07/27/16 14:25 Results - Labs 07/29/16 03:18 07/29/16 03:18 Abnormal lab results RBC 2.63 M/mcL (3.82-4.97) L 07/29/16 03:18 Hgb 7.8 g/dL (11.5-15.4) L 07/29/16 03:18 Hct 23.2 % (35.3-44.9) L 07/29/16 03:18 RDW 16.4 % (11.5-14.5) H 07/29/16 03:18 Hypochromasia Present (Not Present) A 07/27/16 15:54 Poikilocytosis 1+ (Not Present) A 07/28/16 04:58 Anisocytosis 1+ (Not Present) A 07/29/16 03:18 Microcytosis Present (Not Present) A 07/28/16 04:58 Target Cells 1+ (Not Present) A 07/28/16 04:58 PT 16.9 Seconds (9.4-12.1) H 07/27/16 15:54 APTT 36.5 Seconds (26.0-36.0) H 07/27/16 15:54 Chloride 110 mEq/L (98-109) H 07/29/16 03:18 BUN 41 mg/dL (7-20) H 07/29/16 03:18 Est GFR (Non-Af Amer) 52 (> 60) L 07/29/16 03:18 BUN/Creatinine Ratio 39 (6-26) H 07/29/16 03:18 POC Glucose 92 (58-89) H 07/29/16 08:17 Calcium 7.7 mg/dL (8.6-10.8) L 07/29/16 03:18 Transferrin 105 mg/dL (180-382) L 07/28/16 04:58 AST 39 Units/L (5-34) H 07/28/16 04:58 Alkaline Phosphatase 139 Units/L (38-126) H 07/28/16 04:58 C-Reactive Protein 185 mg/L (Less than 5) H 07/27/16 15:54 B-Natriuretic Peptide 288 pg/mL (0-100) H 07/27/16 15:54 Serum Total Protein 4.6 g/dL (6.0-8.3) L 07/28/16 04:58 Albumin 1.8 g/dL (3.5-5.0) L 07/28/16 04:58 Albumin/Globulin Ratio 0.6 (1.1-2.2) L 07/28/16 04:58 HDL Cholesterol < 5 mg/dL (40-59) L 07/28/16 04:58 Cholesterol/HDL Ratio 8.0 (0-4.9) H 07/28/16 04:58 Vitamin B12 > 2000 pg/mL (213-816) H 07/28/16 04:58 Urine Clarity Cloudy (Clear) A 07/27/16 Unknown Ur Specific [place] 1.030 (1.010-1.025) H 07/27/16 Unknown Urine Ketones Trace mg/dL (Negative) H 07/27/16 Unknown Urine Bilirubin Moderate (Negative) H 07/27/16 Unknown Ur Leukocyte Esterase Small (Negative) H 07/27/16 Unknown Urine Microscopic RBC 5-15 per hpf (0-3) H 07/27/16 Unknown Ur Squamous Epith Cells Moderate per lpf (None-Few) H 07/27/16 Unknown Ur Culture Indicated? YES (NO) A 07/27/16 Unknown Stool Occult Blood Positive (Negative) A 07/29/16 09:45 Diabetes panel 07/29/16 Range/Units 03:18 Sodium 139 (136-145) mEq/L Potassium 3.9 (3.5-4.5) mEq/L Chloride 110 H (98-109) mEq/L Carbon Dioxide 21 (19-29) mEq/L BUN 41 H (7-20) mg/dL Creatinine 1.06 (0.57-1.11) mg/dL Glucose 84 (70-99) mg/dL Calcium 7.7 L (8.6-10.8) mg/dL Calcium panel 07/29/16 Range/Units 03:18 Calcium 7.7 L (8.6-10.8) mg/dL Pituitary panel 07/29/16 Range/Units 03:18 Sodium 139 (136-145) mEq/L Potassium 3.9 (3.5-4.5) mEq/L Chloride 110 H (98-109) mEq/L Carbon Dioxide 21 (19-29) mEq/L BUN 41 H (7-20) mg/dL Creatinine 1.06 (0.57-1.11) mg/dL Glucose 84 (70-99) mg/dL Calcium 7.7 L (8.6-10.8) mg/dL Adrenal panel 07/29/16 Range/Units 03:18 Sodium 139 (136-145) mEq/L Potassium 3.9 (3.5-4.5) mEq/L Chloride 110 H (98-109) mEq/L Carbon Dioxide 21 (19-29) mEq/L BUN 41 H (7-20) mg/dL Creatinine 1.06 (0.57-1.11) mg/dL Glucose 84 (70-99) mg/dL Calcium 7.7 L (8.6-10.8) mg/dL All other labs normal. - Imaging CT scan - abdomen: report reviewed CT scan - pelvis: report reviewed Additional studies: Head CT 07/27/16 14:38 IMPRESSION: 1. Motion compromised study but no acute intracranial abnormality. D/ / Wilmar Davenport MD / Wilmar Davenport MD Interpreting Provider: Wilmar Davenport MD Chest X-Ray 07/27/16 14:40 IMPRESSION: Streaky left lower lobe opacification. This may represent an infiltrate or areas of atelectasis. Mild cardiomegaly without overt failure. D/ / Kevin Kessler MD / Kevin Kessler MD Interpreting Provider: Kevin Kessler MD Brain MRI 07/27/16 20:01 IMPRESSION: 1. No acute intracranial abnormality. 2. Empty sella turcica. D/ / Gregory Hylton MD / Gregory Hylton MD Interpreting Provider: Gregory Hylton MD Abdomen/Pelvis CT 07/28/16 15:45 IMPRESSION: Mild ileus with asymmetric distal right ileal distention. Partial or early obstruction not excluded but unlikely. Sutures from prior right colonic surgery with multiple adjacent lymph nodes in the lower right mesentery new from the prior study. While these could be benign or inflammatory, if the surgery was for colon carcinoma, concern would be for local recurrent metastatic adenopathy. This needs clinical correlation. Basilar airspace disease greater left lower lobe. Atelectasis or pneumonia considered. Severe atherosclerotic calcification with near complete luminal compromise with dense calcified plaque, origin of the celiac artery and adjacent entire aortic lumen. Old T11 and mid coccygeal fracture. D/ / Mike Zhu MD / Mike Zhu MD Interpreting Provider: Mike Zhu MD Consult Discharge Plan - Plan Referrals: Orestes Grace MD [Primary Care Provider] - - Attending Attestation I examined this patient and my medical decision-making was reviewed with the DIRECTOR OF SOFTWARE DEVELOPMENT/PA/Advanced Practice Nurse/Resident Physician. I agree with the documented findings, disposition and treatment plan as described except to the extent set forth below.
[2016-07-29] MEDS ORDERED: Polyethylene Glycol 3350 255 GM POWDER PO ONE (14:36)
[2016-07-29] MEDS: Budesonide/Formoterol 160/4.5 MDI IH SCH ×2 (17:45→17:46)
[2016-07-29] MEDS: Ondansetron 4 MG/2 ML VIAL IVP PRN (18:09)
[2016-07-29] MEDS: rOPINIRole 0.25 MG TABLET PO SCH (21:19)
[2016-07-29] MEDS: ALPRAZolam 1 MG TABLET PO PRN (21:20)
--- NOTE | 2016-07-29 23:01 | Arterial Study Report ---
LE Arterial Physiologic Study Patient Name:Channing Tucker Order Number:[id number] Procedure Date:07/29/2016 Date:8Age:70 yrs Gender:Female Lt BP:118 / mmHg Rt.BP:115 / mmHgHeart Rate: Location:[facility] Room #: 2NE24 Rapid Outsole Stitcher:Sandy Garnica VIDAL Referring MD:Rm Ramirez DO sap ppm consultant:Orestes Grace M.D. Reading MD:Darren Savage MD , FACS Primary Indications:Calfcification of Left Iliac Risk Factors Yes/No Hypercholesterolemia Yes Smoker Previous Yes Impressions: 1) Right lower extremity waveform demonstrates mildly diminished hemodynamics. 2) Right Ankle Brachial Index demonstrates mildly occlusive disease. 1) Left lower extremity waveform demonstrates moderately diminished hemodynamics. 2) Left Ankle Brachial Index demonstrates moderately occlusive disease. Recommendations: Risk Factor Modification, Suggest clinical correlation, and Follow up exam 3 months. Vascular preliminary noted in patient EMR. Findings LE Arterial Physiologic Exam: PVR: Right: The PVR waveforms are moderately diminished in the right . Left: The PVR waveforms are moderately diminished in the left . Prior Study: Changes noted compared to prior study dated: 07/28/2016. Segmental Pressures Side Location Pressure Index Result Right Posterior Tibial 103 0.87 Mildly Diminished Right Dorsalis Pedis 96 0.81 Mildly Diminished Left Posterior Tibial 81 0.69 Moderately Diminished Left Dorsalis Pedis 89 0.75 Moderately Diminished Ankle Brachial Index Right Systolic Diastolic CHAVEZ Brachial 115 0.87 Dorsalis Pedis 96 0.81 Posterior Tibial 103 0.87 Left Systolic Diastolic CHAVEZ Brachial 118 0.75 Dorsalis Pedis 89 0.75 Posterior Tibial 81 0.69 Updated by Darren Savage MD, FACS on 07/29/2016 10:55:21 PM with Status of Final Darren Savage MD electronically signed on 07/29/2016 10:55:57 PM with status of Final
[2016-07-30] MEDS: Ipratropium/Albuterol Neb 3 ML IH SCH ×4 (03:58→22:22)
[2016-07-30] MEDS ORDERED: Acetaminophen 325 MG TABLET PO PRN (04:03)
[2016-07-30 05:46] LABS: Basophils # 0.1 K/mcL (0.0-0.2); Basophils % 0.4 %; Eosinophils # 0.5 K/mcL (0.0-0.6); Immature Granulocytes % 1.1 % (0-4); Lymphocytes # 2.4 K/mcL (0.6-4.6); Red Blood Count 2.83 M/mcL (3.82-4.97); Red Cell Distribution Width 16.6 % (11.5-14.5)
[2016-07-30 05:54] LABS: Monocytes # 1.3 K/mcL (0.0-1.3)
[2016-07-30 06:11] LABS: BUN/Creatinine Ratio 35 (6-26); Blood Urea Nitrogen 37 mg/dL (7-20); Calcium 8.1 mg/dL (8.6-10.8); Carbon Dioxide 18 mEq/L (19-29); Chloride 107 mEq/L (98-109); Glucose 123 mg/dL (70-99); Osmolality,Calculated 290 (280-300); Potassium 4.1 mEq/L (3.5-4.5); Sodium 135 mEq/L (136-145); eGFR For African Americans > 60 (> 60); eGFR For Non-African Americans 51 (> 60)
[2016-07-30 06:12] LABS: Eosinophils % 3.5 %; Hematocrit 25.5 % (35.3-44.9); Hemoglobin 8.4 g/dL (11.5-15.4); Immature Platelets 2.3 % (1.1-6.1); Lymphocytes % 16.7 %; Mean Corpuscular HGB Conc 32.9 g/dL (31.6-35.5); Mean Corpuscular Hemoglobin 29.7 pg (28.0-33.3); Mean Corpuscular Volume 90.1 fL (83.0-100.0); Monocytes % 9.2 %; Neutrophils # 9.9 K/mcL (1.6-8.9); Platelet Count 298 K/mcL (140-400); Segmented Neutrophils % 69.1 %
--- NOTE | 2016-07-30 06:56 | Electrocardiograph Report ---
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
[2016-07-30] MEDS ORDERED: Furosemide 40 MG/4 ML VIAL ONE (06:57)
[2016-07-30] MEDS ORDERED: Furosemide 40 MG/4 ML VIAL IVP ONE (07:08)
[2016-07-30] MEDS: Budesonide/Formoterol 160/4.5 MDI IH SCH ×2 (07:47→22:25)
[2016-07-30] MEDS ORDERED: Magnesium Sulfate 2 GM in D5% in Water 100 ML IVPB ONE (08:47)
--- NOTE | 2016-07-30 08:51 | Internal Med Progress Note ---
<Rm Ramirez - Last Filed: 07/30/16 14:37> Date of Encounter: 07/30/16 Time of Encounter: 08:48 - Assessment and plan (1) Diarrhea Current Visit: Yes Status: Acute Assessment and plan: As stated the patient has had diarrhea for the past 3 days with nausea. She has watery brown stools 9 times a day. She denies melena or hematochezia. Patient had recent use of antibiotics status post surgical debridement and irrigation of right knee secondary to right knee replacement. C. difficile was checked and was negative. TSH within normal limits. GI stool panel wnl. Her white blood cell count is elevated at 12.8. Diarrhea is most likely infectious. Patient was initially resuscitated with fluids secondary to dehydration. However due to diastolic dysfunction, and bilateral lower extremity 2+ pitting edema this has been stopped. Patient continues to have diarrhea. CT abdomen shows mild ileus with asymmetric distal right ileal distention. May have partial obstruction. Furthermore patient had previous colectomy done by Dr. 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 CT abdomen shows new multiple adjacent lymph nodes in the lower right mesentery new compared to prior study. Surgery will plan again for colonsocopy tomorrow as prep was not adequate. Qualifiers: Diarrhea type: presumed infectious Qualified Code(s): A09 - Infectious gastroenteritis and colitis, unspecified (2) Swelling of right knee joint Current Visit: Yes Status: Acute Assessment and plan: Patient had a total knee replacement in March 2016. Thereafter her prosthesis became infected and she underwent irrigation and debridement in May 2016. Since then patient has been followed by . Her right knee has appeared swollen and is draining purulent material since admission. It is well dressed. Dressing is changed daily. Orthopedic states patient knee has had drastic improvement since irrigation and debridement. Will continue daily dressing changes. (3) Cerebrovascular accident Current Visit: Yes Status: Suspected Assessment and plan: 70-year-old female with a history of arthritis, COPD, coronary artery disease, hyperlipidemia, hypertension, hyperthyroidism, right total knee replacement presented with 4 days of's slurred speech and difficulty swallowing, diarhea and nasuea. Patient also complained of difficulty ambulating 2 months. Patient's spouse says she would lean left and fall. She has had multiple falls in the past few months. CT scan was negative. MRI was negative. Echocardiogram EF 55%, no wall motion abnormalaties, mild to moderate mitral regurg,no PFO. carotid Dopplers show 60-79% stenosis in b/l distal ICA and mid ICA . Patient also presented with bilateral pedal edema and was checked with Dopplers for VTE which is negative. Patient's lipid profile shows abnormally low HDL less than 5. PT/OT consults ordered and recommend SNF for rehab. Today's neuro exam was nonfocal and nonlateralizing Neruo recommends starting plavix and vascular surgery consultation once patient is stabilized. However patient hgb is low and there is suspicion of lower GI bleed. We have ordered stool guaiac. Patient has seen Dr. Romeo in the past. Leg weakness chornic and 2nd to orthopedic issues. Less likey from CVA. Will continue PT/OT. Will talk to patient about rehab after discharge. 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 With 60% stenosis of aorta. Patient was evaluated by and was not considered a surgical candidate due to her multiple comorbidities and the high risk procedure she would have to undergo. (5) Anemia Current Visit: Yes Status: Suspected Assessment and plan: Normocytic normochromic anemia. Patient's hemoglobin today 7.9. Last year her hemoglobin was 13. She denies any hemoptysis, hematemesis, melena, hematochezia. Patient is not on any anticoagulation. As per family patient 5 years ago had large colon polyp which was removed by Dr. Chow. There was no follow-up colonoscopy afterwards. Patient's B12 and iron, and folate levels are within normal limits. We will continue her Prilosec. Stool guaiac ordered. Patient's hemoglobin remained stable. As noted above surgery has been notified of CT abdomen results which shows emergence of new lymph nodes around previous surgical site of colectomy where tubulovillous adenoma was resected. Plan for colonoscopy tomorrow. Qualifiers: Anemia type: other cause Other causes of anemia: chronic disease, other Qualified Code(s): D63.8 - Anemia in other chronic diseases classified elsewhere (6) RYLEY (acute kidney injury) Current Visit: Yes Status: Resolved Assessment and plan: Resolved. Patient presented with a creatinine of 1.16. CK is most likely secondary to dehydration from profuse diarrhea. After being resuscitated with fluids patient's creatinine improved to 1.02. We will continue to monitor. (7) DVT prophylaxis Current Visit: Yes Status: Acute (8) CAD (coronary artery disease) Current Visit: No Status: Chronic Assessment and plan: Patient has history of coronary artery disease. She states she has had left heart cath in the past with no PCI. 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 Patient was evaluated by Dr. Romeo and would need an open procedure for treatment. It was decided as patient was asymptomatic to continue following her. She needs to continue aspirin treatment. We will also continue Cardizem, Imdur. Qualifiers: Coronary Disease-Associated Artery/Lesion type: [place] artery [place] vs. transplanted heart: [place] heart Associated angina: without angina Qualified Code(s): I25.10 - Atherosclerotic heart disease of [place] coronary artery without angina pectoris (9) COPD (chronic obstructive pulmonary disease) Current Visit: No Status: Chronic Assessment and plan: Patient has history of COPD. We will continue scheduled duoneb, Symbicort. Patient denies shortness of breath. And is oxygenating greater than 90% on room air. Qualifiers: COPD type: unspecified COPD Qualified Code(s): J44.9 - Chronic obstructive pulmonary disease, unspecified - Subjective Interval history: Patient had no acute events overnight. Plan was to undergo colonoscopy today however patient had difficulty prepping. Her stool was not clear this morning. Surgery was notified and has rescheduled colonoscopy to Tuesday. - Constitutional Vitals: Temp Pulse Resp BP Pulse Ox 98.2 F 83 16 116/40 92 L 07/30/16 07:46 07/30/16 07:46 07/30/16 07:46 07/30/16 07:46 07/30/16 07:46 General appearance: Present: A&O X 3, pleasant, no acute distress - Respiratory Respiratory exam: Present: CTAB, rales (Considerable rales bilaterally). Absent : accessory muscle use, rhonchi, wheezes - Cardiovascular Cardiovascular exam: Present: RRR, +S1, +S2. Absent: diastolic murmur, gallop, rubs, systolic murmur - GI/Abdominal GI/Abdominal exam: Present: normal bowel sounds, soft, no peritoneal signs. Absent: distended, tenderness - Extremities Exam Extremities exam: Present: joint swelling (Right knee well-dressed), pedal edema (1+ bilateral pitting edema). Absent: calf tenderness - Neurological Exam Neurological exam: Present: CN II-XII intact, oriented X3, no focal deficits. Absent: pronater drift, facial droop, speech deficit Internal Medicine: Result - Labs CBC & Chem 7: 07/30/16 05:16 07/30/16 05:16 Labs: Short CBC 07/30/16 Range/Units 05:16 WBC 14.3 H D (4.3-11.1) K/mcL Hgb 8.4 L (11.5-15.4) g/dL Hct 25.5 L (35.3-44.9) % Plt Count 298 (140-400) K/mcL Neutrophils # 9.9 H (1.6-8.9) K/mcL BMP 07/30/16 05:16 Sodium 135 L Potassium 4.1 Chloride 107 Carbon Dioxide 18 L BUN 37 H Creatinine 1.07 Glucose 123 H Calcium 8.1 L - ABG Interpretation ABG results: PT/INR, D-dimer PT 16.9 Seconds (9.4-12.1) H 07/27/16 15:54 Consult Discharge Plan - Plan Referrals: Orestes Grace MD [Primary Care Provider] - <Aaron Patel - Last Filed: 07/30/16 16:12> Date of Encounter: 07/30/16 - Assessment and plan (1) 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 (2) Diarrhea Current Visit: Yes Status: Acute Qualifiers: Diarrhea type: presumed infectious Qualified Code(s): A09 - Infectious gastroenteritis and colitis, unspecified (3) Anemia Current Visit: Yes Status: Suspected Qualifiers: Anemia type: other cause Other causes of anemia: chronic disease, other Qualified Code(s): D63.8 - Anemia in other chronic diseases classified elsewhere (4) Hypertension Current Visit: Yes Status: Acute Qualifiers: Hypertension type: essential hypertension Qualified Code(s): I10 - Essential (primary) hypertension (5) RYLEY (acute kidney injury) Current Visit: Yes Status: Resolved (6) COPD (chronic obstructive pulmonary disease) Current Visit: No Status: Chronic Qualifiers: COPD type: unspecified COPD Qualified Code(s): J44.9 - Chronic obstructive pulmonary disease, unspecified (7) Carotid stenosis, bilateral Current Visit: Yes Status: Chronic - Constitutional Vitals: Temp Pulse Resp BP Pulse Ox 98.2 F 83 18 116/40 95 07/30/16 07:46 07/30/16 07:46 07/30/16 10:52 07/30/16 07:46 07/30/16 10:52 Internal Medicine: Result - Labs CBC & Chem 7: 07/30/16 05:16 07/30/16 05:16 Labs: Short CBC 07/30/16 Range/Units 05:16 WBC 14.3 H D (4.3-11.1) K/mcL Hgb 8.4 L (11.5-15.4) g/dL Hct 25.5 L (35.3-44.9) % Plt Count 298 (140-400) K/mcL Neutrophils # 9.9 H (1.6-8.9) K/mcL BMP 07/30/16 05:16 Sodium 135 L Potassium 4.1 Chloride 107 Carbon Dioxide 18 L BUN 37 H Creatinine 1.07 Glucose 123 H Calcium 8.1 L - ABG Interpretation ABG results: PT/INR, D-dimer PT 16.9 Seconds (9.4-12.1) H 07/27/16 15:54 - Attending Attestation I examined this patient and my medical decision-making was reviewed with the Resident Physician on 07/30/16. I agree with the documented findings, disposition and treatment plan as described except to the extent set forth below. Ms. Tucker is currently admitted for weakness, abdominal pain, diarrhea and anemia. She remains moderate risk due to persistent diarrhea and anemia. Ms. Tucker is having some abdominal pain this morning. She is having a lot of rectal pain from the loose stool and the colonoscopy prep. No fever or chills. Unable to have the colonoscopy as prep is still not clear. Exam Alert. Uncomfortable due to pain Heart tachy and regular No wheeze I/P 1. Abd pain - attempting to arrange colonoscopy due to abnl CT. 2. Persistent diarrhea 3. Anemia Further diagnoses and plan as above.
[2016-07-30] MEDS: Isosorbide MONOnitrate (24 HR) 60 MG TAB.ER.24H PO SCH (10:29)
[2016-07-30] MEDS: Lactobacillus 1 EACH CAP.SPRINK PO SCH ×2 (10:29→20:37)
[2016-07-30] MEDS: Diltiazem CD (24hr) 120 MG CAPSULE PO SCH (10:29)
[2016-07-30] MEDS: Aspirin Enteric Coated 81 MG Tablet PO SCH (10:29)
[2016-07-30] MEDS: *HR* OxyCODONE/APAP 5/325 TABLET PO PRN ×2 (10:29→16:59)
--- NOTE | 2016-07-30 14:16 | General Surgery Progress Note ---
Date of Encounter: 07/30/16 Time of Encounter: 14:00 - Assessment and Plan (1) Anemia Current Visit: Yes Status: Suspected Patient not clear after gatorade and miralax bowel prep She was given the option to complete scope as an outpatient The patient refused outpatient treatment and states that she wants her scope complete while she is here Will plan to give Mg Citrate X 2 bottles today Clear liquids NPO after midnight Plan for EGD/Colonoscopy 07/31/[address] Ayala Qualifiers: Anemia type: other cause Other causes of anemia: chronic disease, other Qualified Code(s): D63.8 - Anemia in other chronic diseases classified elsewhere (2) Mesenteric lymphadenopathy Current Visit: Yes Status: Acute Patient not clear after gatorade and miralax bowel prep She was given the option to complete scope as an outpatient The patient refused outpatient treatment and states that she wants her scope complete while she is here Will plan to give Mg Citrate X 2 bottles today Clear liquids NPO after midnight Plan for EGD/Colonoscopy 07/31/[address] Ayala (3) Diarrhea Current Visit: Yes Status: Acute Patient not clear after gatorade and miralax bowel prep She was given the option to complete scope as an outpatient The patient refused outpatient treatment and states that she wants her scope complete while she is here Will plan to give Mg Citrate X 2 bottles today Clear liquids NPO after midnight Plan for EGD/Colonoscopy 07/31/[address] Ayala Qualifiers: Diarrhea type: presumed infectious Qualified Code(s): A09 - Infectious gastroenteritis and colitis, unspecified (4) Dysphagia Current Visit: Yes Status: Acute EGD 07/31/[address] Ayala [place] thick liquids Qualifiers: Dysphagia type: unspecified Qualified Code(s): R13.10 - Dysphagia, unspecified Subjective Patient reports: no new complaints, tolerating liquids well, voiding w/o difficulty, flatus, bowel movement (stool not clear after bowel prep), afebrile , other (complaint of sore throat and difficulty swallowing ) Objective Vital Signs - Last 8 Hours Temp Pulse Resp BP Pulse Ox 07/30/16 10:52 18 95 07/30/16 07:46 98.2 F 83 16 116/40 92 L Intake and Output 07/29/16 07/30/16 07/30/16 23:59 07:59 15:59 Intake Total 0 / 0 Output Total 0 / 0 / Balance 0 / 0 -1 / -1 Intake: Oral 0 / 0 Output: Urine 0 / 0 / Other: Stool Size Small Stool Consistency liquid Stool Color Brown # Voids 1 # Bowel Movements 1 Blood Glucose* 295 - General physical appearance well developed, well nourished, no distress, obese - Eyes normal ocular movement - ENT normal mucosa, atraumatic, normocephalic - Neck Neck exam: trachea midline - Respiratory normal respiratory effort, clear to auscultation, other (diminished bibasilar bases) - Cardiovascular Cardiovascular exam: Present: RRR - Abdomen Abdomen: Present: bowel sounds present, soft, non tender - Integumentary no rash - Neurologic CN 2-12 grossly intact - Psychiatric oriented to time, oriented to person, oriented to place, speech is normal, memory intact - Labs 07/30/16 05:16 07/30/16 05:16 Diabetes panel 07/30/16 Range/Units 05:16 Sodium 135 L (136-145) mEq/L Potassium 4.1 (3.5-4.5) mEq/L Chloride 107 (98-109) mEq/L Carbon Dioxide 18 L (19-29) mEq/L BUN 37 H (7-20) mg/dL Creatinine 1.07 (0.57-1.11) mg/dL Glucose 123 H (70-99) mg/dL Calcium 8.1 L (8.6-10.8) mg/dL Calcium panel 07/30/16 Range/Units 05:16 Calcium 8.1 L (8.6-10.8) mg/dL Pituitary panel 07/30/16 Range/Units 05:16 Sodium 135 L (136-145) mEq/L Potassium 4.1 (3.5-4.5) mEq/L Chloride 107 (98-109) mEq/L Carbon Dioxide 18 L (19-29) mEq/L BUN 37 H (7-20) mg/dL Creatinine 1.07 (0.57-1.11) mg/dL Glucose 123 H (70-99) mg/dL Calcium 8.1 L (8.6-10.8) mg/dL Adrenal panel 07/30/16 Range/Units 05:16 Sodium 135 L (136-145) mEq/L Potassium 4.1 (3.5-4.5) mEq/L Chloride 107 (98-109) mEq/L Carbon Dioxide 18 L (19-29) mEq/L BUN 37 H (7-20) mg/dL Creatinine 1.07 (0.57-1.11) mg/dL Glucose 123 H (70-99) mg/dL Calcium 8.1 L (8.6-10.8) mg/dL Consult Discharge Plan - Plan Referrals: Orestes Graec MD [Primary Care Provider] -
--- NOTE | 2016-07-30 14:59 | Physician Discharge Referral ---
<Rm Ramirez - Last Filed: 07/30/16 14:57> Home Health/Hosp Referral Info Transfer to: Home Health Attending Provider: Dr. Patel Provider in Charge Post Discharge: PCP - Diagnosis (1) Diarrhea Priority: Primary Status: Acute (2) Swelling of right knee joint Priority: Secondary Status: Acute (3) Cerebrovascular accident Priority: Secondary Status: Suspected (4) Celiac artery stenosis Priority: Secondary Status: Chronic (5) Anemia Priority: Secondary Status: Suspected (6) RYLEY (acute kidney injury) Priority: Secondary Status: Resolved (7) DVT prophylaxis Priority: Secondary Status: Acute (8) CAD (coronary artery disease) Priority: Secondary Status: Chronic (9) COPD (chronic obstructive pulmonary disease) Priority: Secondary Status: Chronic - Respiratory Orders Smoking Cessation: Smoking cessation has been advised. For more information, call the [place] Tobacco Quit Line at 3-699-FXDO-NOW. - Diet/Nutrition Diet/Nutrition Orders: Cardiac - Activity Activity Orders: Ambulate (as per PT) - Services Needed Following services are medically necessary services: Nursing, Physical Therapy - Transfer Medications Home Medications: Albuterol Sulfate [Albuterol Inhaler] 2 puff IH Q4-6H PRN 10/15/15 [History] Allopurinol [Zyloprim 100 MG] 100 mg PO DAILY 10/15/15 [History] Alprazolam [Xanax 1 MG Tablet] 1 mg PO BID PRN 10/15/15 [History] Fenofibrate Nanocrystallized [Tricor] 145 mg PO QPM 10/15/15 [History] Fluticasone/Salmeterol [Advair 500-50 Diskus] 1 inh PO BID 10/15/15 [History] Gabapentin [Neurontin] 800 mg PO TID 10/15/15 [History] Isosorbide MONOnitrate (24 HR) [Imdur] 60 mg PO DAILY 10/15/15 [History] Levothyroxine [Synthroid] 112 mcg PO DAILY 10/15/15 [History] [place]raine-3 Fatty Acids [Fish Oil] 1,200 mg PO DAILY 10/15/15 [History] Omeprazole [PriLOSEC] 40 mg PO DAILY 10/15/15 [History] Ropinirole HCl [Requip] 0.5 - 1 mg PO HS 10/15/15 [History] Sertraline [Zoloft] 100 mg PO BID 10/15/15 [History] Tiotropium [Spiriva] 18 mcg IH DAILY 10/15/15 [History] Diltiazem HCl [Diltiazem ER] 120 mg PO DAILY 03/29/16 [History] Ipratropium/Albuterol Neb [Duoneb] 3 ml IH Q4HR PRN 03/29/16 [History] Atorvastatin [Lipitor] 10 mg PO HS 05/28/16 [History] Gemfibrozil [Lopid] 600 mg PO BIDWM 05/28/16 [History] OxyCODONE/APAP 5/325 [Percocet 5/325 MG] 1 each PO TID PRN 05/28/16 [History] Indomethacin [Indomethacin] 50 mg PO BID 07/27/16 [History] Allergies/Adverse Reactions: Allergies codeine Allergy (Verified 05/28/16 08:53) Confusion Iodinated Contrast Media - Oral and Adverse Reaction (Verified 07/27/16 18:30) See Comments patient states kidney problems. meclizine Adverse Reaction (Verified 07/27/16 18:30) Confusion Certification: Further, I certify that my clinical findings support that this patient is homebound (i.e. absences from home require considerable and taxing effort and are for medical reasons or latter day services or infrequently or short duration when for other reasons) because: Homebound Reason: Patient requires assistance of a person or device to safely leave home, Leaving home requires considerable and taxing effort due to condition Attestation: My signature below is to certify that this patient is under my care and that I, or nurse practitioner, or a physician's offset assistant press operator working with me, has a face-to -face encounter with this patient. <Aaron Patel - Last Filed: 07/30/16 16:13> - Diagnosis (1) Celiac artery stenosis Status: Chronic (2) Diarrhea Status: Acute (3) Anemia Status: Suspected (4) Hypertension Status: Acute (5) RYLEY (acute kidney injury) Status: Resolved (6) COPD (chronic obstructive pulmonary disease) Status: Chronic (7) Carotid stenosis, bilateral Status: Chronic - Respiratory Orders Smoking Cessation: Smoking cessation has been advised. For more information, call the [place] Tobacco Quit Line at 0-419-JJNT-NOW. Certification: Further, I certify that my clinical findings support that this patient is homebound (i.e. absences from home require considerable and taxing effort and are for medical reasons or latter day services or infrequently or short duration when for other reasons) because: Attestation: My signature below is to certify that this patient is under my care and that I, or nurse practitioner, or a physician's offset assistant press operator working with me, has a face-to -face encounter with this patient.
[2016-07-30] MEDS ORDERED: Hydrocortisone Rectal 2.5% CRM 28 GM TUBE RC PRN (15:08)
[2016-07-30] MEDS: Ondansetron 4 MG/2 ML VIAL IVP PRN ×2 (17:45→21:03)
[2016-07-30] MEDS: rOPINIRole 0.25 MG TABLET PO SCH (20:36)
[2016-07-31] MEDS: Ipratropium/Albuterol Neb 3 ML IH SCH ×4 (04:27→22:27)
[2016-07-31 07:30] LABS: Basophils # 0.1 K/mcL (0.0-0.2); Basophils % 0.5 %; Eosinophils # 0.5 K/mcL (0.0-0.6); Eosinophils % 5.2 %; Hematocrit 24.2 % (35.3-44.9); Hemoglobin 8.3 g/dL (11.5-15.4); Immature Granulocytes % 0.9 % (0-4); Lymphocytes % 19.5 %; Mean Corpuscular HGB Conc 34.3 g/dL (31.6-35.5); Mean Corpuscular Hemoglobin 29.9 pg (28.0-33.3); Mean Corpuscular Volume 87.1 fL (83.0-100.0); Mean Platelet Volume 10.8 fL (9.4-12.4); Monocytes # 0.6 K/mcL (0.0-1.3); Monocytes % 6.2 %; Neutrophils # 6.8 K/mcL (1.6-8.9); Platelet Count 295 K/mcL (140-400); Red Blood Count 2.78 M/mcL (3.82-4.97); Red Cell Distribution Width 16.2 % (11.5-14.5); Segmented Neutrophils % 67.7 %
[2016-07-31 07:31] LABS: BUN/Creatinine Ratio 36 (6-26); Blood Urea Nitrogen 36 mg/dL (7-20); Calcium 7.8 mg/dL (8.6-10.8); Carbon Dioxide 21 mEq/L (19-29); Chloride 109 mEq/L (98-109); Glucose 73 mg/dL (70-99); Osmolality,Calculated 297 (280-300); Potassium 4.6 mEq/L (3.5-4.5); Sodium 140 mEq/L (136-145); eGFR For African Americans > 60 (> 60); eGFR For Non-African Americans 56 (> 60)
[2016-07-31] MEDS ORDERED: *HR* Midazolam HCl 5 MG/5 ML VIAL IVP ONE (09:12)
[2016-07-31] MEDS ORDERED: *HR* Promethazine 25 MG/ML VIAL ONE (09:13)
[2016-07-31] MEDS ORDERED: *HR* FentaNYL (PF) 100 MCG/2 ML VIAL ONE (09:13)
[2016-07-31] MEDS ORDERED: Simethicone 40 MG/0.6 ML MLS IR ONE (09:41)
[2016-07-31] MEDS ORDERED: Tetracaine/Benzocaine/Butamben 200MG/SPRAY (100SPY/BOT) MM ONE (09:41)
[2016-07-31] MEDS ORDERED: *HR* Promethazine 25 MG/ML VIAL IVP ONE (09:41)
--- NOTE | 2016-07-31 09:41 | Pre-Sedation Evaluation ---
Pre-sedation evaluation - Pre-sedation checklist Date of procedure: 07/31/16 Procedure: EGD/colonoscopy Recent Vitals: Last Vital Signs Temp 97.8 F 07/31/16 08:51 Pulse 89 07/31/16 08:51 Resp 16 07/31/16 08:51 BP 125/53 07/31/16 08:51 Pulse Ox 92 L 07/31/16 08:51 H&P (including ROS) documented in medical record: No (needs locked) Previous reaction to sedatives/anesthetics: No Dietary Status: NPO after Midnight Dentition: No loose teeth or bridges ASA Classification *see protocol: CLASS III-Severe systemic disease Plan of Care: Pt appropriate candidate for procedure/moderate/conscious sedation , Risks/benefits of procedure/sedation discussed w/ patient/family
[2016-07-31] MEDS ORDERED: 0.9 % Sodium Chloride 1,000 ML IVC SCH (09:45)
[2016-07-31] MEDS: *HR* Midazolam HCl 5 MG/5 ML VIAL IVP PRN ×3 (09:50→10:04)
[2016-07-31] MEDS: *HR* FentaNYL (PF) 100 MCG/2 ML VIAL IVP PRN ×3 (09:50→10:04)
[2016-07-31] MEDS: Budesonide/Formoterol 160/4.5 MDI IH SCH ×2 (10:13→22:27)
--- NOTE | 2016-07-31 12:35 | Internal Med Progress Note ---
<Rm Ramirez - Last Filed: 07/31/16 12:32> Date of Encounter: 07/31/16 Time of Encounter: 12:32 - Assessment and plan (1) Diarrhea Current Visit: Yes Status: Acute Assessment and plan: As stated the patient has had diarrhea for the past 3 days with nausea. She has watery brown stools 9 times a day. She denies melena or hematochezia. Patient had recent use of antibiotics status post surgical debridement and irrigation of right knee secondary to right knee replacement. C. difficile was checked and was negative. TSH within normal limits. GI stool panel wnl. Her white blood cell count is elevated at 12.8. Diarrhea is most likely infectious. Patient was initially resuscitated with fluids secondary to dehydration. However due to diastolic dysfunction, and bilateral lower extremity 2+ pitting edema this has been stopped. Patient continues to have diarrhea. CT abdomen shows mild ileus with asymmetric distal right ileal distention. May have partial obstruction. Furthermore patient had previous colectomy done by Dr. 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 CT abdomen shows new multiple adjacent lymph nodes in the lower right mesentery new compared to prior study. Underwent colonocopy. Results pending. Qualifiers: Diarrhea type: presumed infectious Qualified Code(s): A09 - Infectious gastroenteritis and colitis, unspecified (2) Swelling of right knee joint Current Visit: Yes Status: Acute Assessment and plan: Patient had a total knee replacement in March 2016. Thereafter her prosthesis became infected and she underwent irrigation and debridement in May 2016. Since then patient has been followed by . Her right knee has appeared swollen and is draining purulent material since admission. It is well dressed. Dressing is changed daily. Orthopedic states patient knee has had drastic improvement since irrigation and debridement. Will continue daily dressing changes. (3) Cerebrovascular accident Current Visit: Yes Status: Suspected Assessment and plan: 70-year-old female with a history of arthritis, COPD, coronary artery disease, hyperlipidemia, hypertension, hyperthyroidism, right total knee replacement presented with 4 days of's slurred speech and difficulty swallowing, diarhea and nasuea. Patient also complained of difficulty ambulating 2 months. Patient's spouse says she would lean left and fall. She has had multiple falls in the past few months. CT scan was negative. MRI was negative. Echocardiogram EF 55%, no wall motion abnormalaties, mild to moderate mitral regurg,no PFO. carotid Dopplers show 60-79% stenosis in b/l distal ICA and mid ICA . Patient also presented with bilateral pedal edema and was checked with Dopplers for VTE which is negative. Patient's lipid profile shows abnormally low HDL less than 5. PT/OT consults ordered and recommend SNF for rehab. Today's neuro exam was nonfocal and nonlateralizing Neruo recommends starting plavix and vascular surgery consultation once patient is stabilized. However patient hgb is low and there is suspicion of lower GI bleed. We have ordered stool guaiac. Patient has seen Dr. Romeo in the past. Leg weakness chornic and 2nd to orthopedic issues. Less likey from CVA. Will continue PT/OT. Will talk to patient about rehab after discharge. 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 With 60% stenosis of aorta. Patient was evaluated by and was not considered a surgical candidate due to her multiple comorbidities and the high risk procedure she would have to undergo. (5) Anemia Current Visit: Yes Status: Suspected Assessment and plan: Normocytic normochromic anemia. Patient's hemoglobin today 7.9. Last year her hemoglobin was 13. She denies any hemoptysis, hematemesis, melena, hematochezia. Patient is not on any anticoagulation. As per family patient 5 years ago had large colon polyp which was removed by Dr. Chow. There was no follow-up colonoscopy afterwards. Patient's B12 and iron, and folate levels are within normal limits. We will continue her Prilosec. Stool guaiac ordered. Patient's hemoglobin remained stable. As noted above surgery has been notified of CT abdomen results which shows emergence of new lymph nodes around previous surgical site of colectomy where tubulovillous adenoma was resected. Colonsocopy results pending. EGD found nonbleeding ulcer and gastritis. Awaiting final results. Qualifiers: Anemia type: other cause Other causes of anemia: chronic disease, other Qualified Code(s): D63.8 - Anemia in other chronic diseases classified elsewhere (6) RYLEY (acute kidney injury) Current Visit: Yes Status: Resolved Assessment and plan: Resolved. Patient presented with a creatinine of 1.16. CK is most likely secondary to dehydration from profuse diarrhea. After being resuscitated with fluids patient's creatinine improved to 1.02. We will continue to monitor. (7) DVT prophylaxis Current Visit: Yes Status: Acute Assessment and plan: We will withhold anticoagulation as patient has low hemoglobin.b/l EPCDs (8) CAD (coronary artery disease) Current Visit: No Status: Chronic Assessment and plan: Patient has history of coronary artery disease. She states she has had left heart cath in the past with no PCI. 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 Patient was evaluated by Dr. Romeo and would need an open procedure for treatment. It was decided as patient was asymptomatic to continue following her. She needs to continue aspirin treatment. We will also continue Cardizem, Imdur. Qualifiers: Coronary Disease-Associated Artery/Lesion type: [place] artery [place] vs. transplanted heart: [place] heart Associated angina: without angina Qualified Code(s): I25.10 - Atherosclerotic heart disease of [place] coronary artery without angina pectoris (9) COPD (chronic obstructive pulmonary disease) Current Visit: No Status: Chronic Assessment and plan: Patient has history of COPD. We will continue scheduled duoneb, Symbicort. Patient denies shortness of breath. And is oxygenating greater than 90% on room air. Qualifiers: COPD type: unspecified COPD Qualified Code(s): J44.9 - Chronic obstructive pulmonary disease, unspecified - Subjective Interval history: Patient had no acute events overnight. Plan is to undergo colonoscopy today. - Constitutional Vitals: Temp Pulse Resp BP Pulse Ox 97.5 F L 82 16 127/52 96 07/31/16 10:34 07/31/16 10:34 07/31/16 10:34 07/31/16 10:34 07/31/16 10:34 General appearance: Present: A&O X 3, pleasant, no acute distress - Respiratory Respiratory exam: Present: CTAB. Absent: accessory muscle use, rales, rhonchi, wheezes - Cardiovascular Cardiovascular exam: Present: RRR, +S1, +S2. Absent: diastolic murmur, gallop, rubs, systolic murmur - GI/Abdominal GI/Abdominal exam: Present: normal bowel sounds, soft, no peritoneal signs. Absent: distended, tenderness - Extremities Exam Extremities exam: Present: joint swelling (stable on r. knee), pedal edema ( imrpoved ), warm, radial pulses palpable and symetrical. Absent: calf tenderness, cyanotic Internal Medicine: Result - Labs CBC & Chem 7: 07/31/16 06:51 07/31/16 06:51 Labs: Short CBC 07/31/16 Range/Units 06:51 WBC 10.1 (4.3-11.1) K/mcL Hgb 8.3 L (11.5-15.4) g/dL Hct 24.2 L (35.3-44.9) % Plt Count 295 (140-400) K/mcL Neutrophils # 6.8 (1.6-8.9) K/mcL BMP 07/31/16 06:51 Sodium 140 Potassium 4.6 H Chloride 109 Carbon Dioxide 21 BUN 36 H Creatinine 0.99 Glucose 73 Calcium 7.8 L - ABG Interpretation ABG results: PT/INR, D-dimer PT 16.9 Seconds (9.4-12.1) H 07/27/16 15:54 Consult Discharge Plan - Plan Referrals: Orestes Grace MD [Primary Care Provider] - <Aaron Patel - Last Filed: 07/31/16 16:04> - Assessment and plan (1) 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 (2) Esophageal candidiasis Current Visit: Yes Status: Acute Assessment and plan: On Nystatin per surgery (3) Diarrhea Current Visit: Yes Status: Acute Qualifiers: Diarrhea type: presumed infectious Qualified Code(s): A09 - Infectious gastroenteritis and colitis, unspecified (4) Anemia Current Visit: Yes Status: Suspected Qualifiers: Anemia type: other cause Other causes of anemia: chronic disease, other Qualified Code(s): D63.8 - Anemia in other chronic diseases classified elsewhere (5) Hypertension Current Visit: Yes Status: Acute Qualifiers: Hypertension type: essential hypertension Qualified Code(s): I10 - Essential (primary) hypertension (6) RYLEY (acute kidney injury) Current Visit: Yes Status: Resolved (7) COPD (chronic obstructive pulmonary disease) Current Visit: No Status: Chronic Qualifiers: COPD type: unspecified COPD Qualified Code(s): J44.9 - Chronic obstructive pulmonary disease, unspecified (8) Carotid stenosis, bilateral Current Visit: Yes Status: Chronic - Constitutional Vitals: Temp Pulse Resp BP Pulse Ox 97.5 F L 82 16 127/52 96 07/31/16 10:34 07/31/16 10:34 07/31/16 10:34 07/31/16 10:34 07/31/16 10:34 Internal Medicine: Result - Labs CBC & Chem 7: 07/31/16 06:51 07/31/16 06:51 Labs: Short CBC 07/31/16 Range/Units 06:51 WBC 10.1 (4.3-11.1) K/mcL Hgb 8.3 L (11.5-15.4) g/dL Hct 24.2 L (35.3-44.9) % Plt Count 295 (140-400) K/mcL Neutrophils # 6.8 (1.6-8.9) K/mcL BMP 07/31/16 06:51 Sodium 140 Potassium 4.6 H Chloride 109 Carbon Dioxide 21 BUN 36 H Creatinine 0.99 Glucose 73 Calcium 7.8 L - ABG Interpretation ABG results: PT/INR, D-dimer PT 16.9 Seconds (9.4-12.1) H 07/27/16 15:54 - Attending Attestation I examined this patient and my medical decision-making was reviewed with the Resident Physician on 07/31/16. I agree with the documented findings, disposition and treatment plan as described except to the extent set forth below. Ms. Tucker is currently hospitalized for abd pain, diarrhea and anemia. She remains moderate risk due to potential for worsening GI issues and BP problems. Ms. Tucker underwent EGD/colonoscopy today. Had candidiasis and small ulcer. No active bleeding. She is still somewhat sedated post procedure. Her rectal area is still very painful from diarrhea and bowel prep. No fever or chills. Exam Sedated post procedure but arousable Heart reg No wheeze I/P 1. Abd pain, diarrhea - colonoscopy negative. She has not been eating well so hopefully this will improve. Appears stool volume has decreased. 2. Celiac artery calcification Further diagnoses and plan as above.
--- NOTE | 2016-07-31 13:19 | General Surgery Progress Note ---
Date of Encounter: 07/31/16 Time of Encounter: 13:00 - Assessment and Plan (1) Anemia Current Visit: Yes Status: Suspected The patient underwent EGD and colonscopy today. She tolerated the procedures well. She was found to have possible findings of esophageal candidiasis and biopsies were taken. Additionally she was found to have one small ulcer. Nystatin ordered for cadidiasis. Carafate ordered for ulcer. She is already on omeprazole 40mg daily. Qualifiers: Anemia type: other cause Other causes of anemia: chronic disease, other Qualified Code(s): D63.8 - Anemia in other chronic diseases classified elsewhere (2) Mesenteric lymphadenopathy Current Visit: Yes Status: Acute Patient underwent colonoscopy today. C. Dif negative. GI stool panel within normal limits. Presumed reactive secondary to infectious diarrhea. (3) Diarrhea Current Visit: Yes Status: Acute Continue fluids. Colonoscopy report pending. Qualifiers: Diarrhea type: presumed infectious Qualified Code(s): A09 - Infectious gastroenteritis and colitis, unspecified (4) Dysphagia Current Visit: Yes Status: Acute Likely secondary to esophagel candidiasis. Nystatin swish and swallow ordered. Qualifiers: Dysphagia type: unspecified Qualified Code(s): R13.10 - Dysphagia, unspecified Subjective Narrative: The patient was somewhat tired from the anesthesia received for her EGD and colonoscopy earlier today. She stated that she has some soreness with urination , but otherwise has no complaints. Objective Vital Signs - Last 8 Hours Temp Pulse Resp BP Pulse Ox 07/31/16 10:34 97.5 F L 82 16 127/52 96 07/31/16 10:23 83 16 122/58 98 07/31/16 10:18 83 16 136/63 98 07/31/16 10:13 82 16 123/59 98 07/31/16 10:08 84 16 120/61 98 07/31/16 10:03 82 16 130/60 98 07/31/16 09:58 83 16 140/80 99 07/31/16 09:53 82 16 158/64 98 07/31/16 09:48 80 16 130/60 98 07/31/16 09:39 97.8 F 89 16 125/53 92 L 07/31/16 08:51 97.8 F 89 16 125/53 92 L 07/31/16 08:49 92 L 07/31/16 07:02 97.8 F 89 16 125/53 92 L 07/31/16 05:30 97.9 F 87 18 121/74 91 L Intake and Output 07/30/16 07/31/16 07/31/16 23:59 07:59 15:59 Intake Total 400 / 400 0 / 0 250 / 250 Balance 400 / 400 0 / 0 250 / 250 Intake: IV Fluids 250 / 250 0.9 % Sodium Chloride 1, 250 / 250 000 ML @ 50 mls/hr IVC . Q20H [facility], [facility] Rx#:[id number] Oral 400 / 400 0 / 0 Other: Meal Dinner Percent of Meal Consumed 0% Stool Size Small Stool Consistency liquid Stool Color Brown # Voids 0 # Bowel Movements 2 Weight 77.5 kg Patient Weight 07/31/16 23:59 Weight 77.5 kg - General physical appearance well developed, well nourished, no distress - Eyes normal ocular movement - ENT normal nares - Neck Neck exam: trachea midline - Respiratory normal respiratory effort, clear to auscultation - Abdomen Abdomen: Present: bowel sounds present, soft, non tender - Integumentary other (erythema present over the sacral base without ulceration) - Neurologic normal coordination, normal sensation - Psychiatric oriented to time, oriented to person, oriented to place, speech is normal - Labs 07/31/16 06:51 07/31/16 06:51 Diabetes panel 07/31/16 Range/Units 06:51 Sodium 140 (136-145) mEq/L Potassium 4.6 H (3.5-4.5) mEq/L Chloride 109 (98-109) mEq/L Carbon Dioxide 21 (19-29) mEq/L BUN 36 H (7-20) mg/dL Creatinine 0.99 (0.57-1.11) mg/dL Glucose 73 (70-99) mg/dL Calcium 7.8 L (8.6-10.8) mg/dL Calcium panel 07/31/16 Range/Units 06:51 Calcium 7.8 L (8.6-10.8) mg/dL Pituitary panel 07/31/16 Range/Units 06:51 Sodium 140 (136-145) mEq/L Potassium 4.6 H (3.5-4.5) mEq/L Chloride 109 (98-109) mEq/L Carbon Dioxide 21 (19-29) mEq/L BUN 36 H (7-20) mg/dL Creatinine 0.99 (0.57-1.11) mg/dL Glucose 73 (70-99) mg/dL Calcium 7.8 L (8.6-10.8) mg/dL Adrenal panel 07/31/16 Range/Units 06:51 Sodium 140 (136-145) mEq/L Potassium 4.6 H (3.5-4.5) mEq/L Chloride 109 (98-109) mEq/L Carbon Dioxide 21 (19-29) mEq/L BUN 36 H (7-20) mg/dL Creatinine 0.99 (0.57-1.11) mg/dL Glucose 73 (70-99) mg/dL Calcium 7.8 L (8.6-10.8) mg/dL Consult Discharge Plan - Plan Referrals: Orestes Grace MD [Primary Care Provider] - - Attending Attestation I examined this patient and my medical decision-making was reviewed with the ACCOUNTS RECEIVABLE ASSOCIATE/PA/Advanced Practice Nurse/Resident Physician. I agree with the documented findings, disposition and treatment plan as described except to the extent set forth below.
[2016-07-31] MEDS: Diltiazem CD (24hr) 120 MG CAPSULE PO SCH (16:20)
[2016-07-31] MEDS: Aspirin Enteric Coated 81 MG Tablet PO SCH (16:20)
[2016-07-31] MEDS: Isosorbide MONOnitrate (24 HR) 60 MG TAB.ER.24H PO SCH (16:21)
[2016-07-31] MEDS: Nystatin SUSP 5 ML UD.LIQ PO SCH ×4 (16:21→22:00)
[2016-07-31] MEDS: Lactobacillus 1 EACH CAP.SPRINK PO SCH ×2 (16:21→22:01)
[2016-07-31] MEDS: Sucralfate 1 GM TABLET PO SCH ×3 (16:22→22:01)
[2016-07-31] MEDS: ALPRAZolam 1 MG TABLET PO PRN (22:01)
[2016-07-31] MEDS: rOPINIRole 0.25 MG TABLET PO SCH (22:10)
[2016-08-01] MEDS: Ipratropium/Albuterol Neb 3 ML IH SCH ×4 (05:00→23:13)
[2016-08-01 07:45] LABS: Basophils # 0.1 K/mcL (0.0-0.2); Basophils % 0.5 %; Eosinophils # 0.3 K/mcL (0.0-0.6); Eosinophils % 2.9 %; Hematocrit 25.1 % (35.3-44.9); Hemoglobin 8.3 g/dL (11.5-15.4); Immature Granulocytes % 1.6 % (0-4); Lymphocytes # 1.9 K/mcL (0.6-4.6); Lymphocytes % 19.1 %; Mean Corpuscular HGB Conc 33.1 g/dL (31.6-35.5); Mean Corpuscular Hemoglobin 29.3 pg (28.0-33.3); Mean Corpuscular Volume 88.7 fL (83.0-100.0); Mean Platelet Volume 10.5 fL (9.4-12.4); Monocytes # 0.7 K/mcL (0.0-1.3); Monocytes % 6.8 %; Neutrophils # 6.8 K/mcL (1.6-8.9); Platelet Count 348 K/mcL (140-400); Red Blood Count 2.83 M/mcL (3.82-4.97); Red Cell Distribution Width 16.3 % (11.5-14.5); Segmented Neutrophils % 69.1 %
[2016-08-01 08:01] LABS: BUN/Creatinine Ratio 34 (6-26); Blood Urea Nitrogen 29 mg/dL (7-20); Calcium 7.7 mg/dL (8.6-10.8); Carbon Dioxide 25 mEq/L (19-29); Chloride 106 mEq/L (98-109); Glucose 66 mg/dL (70-99); Magnesium 1.8 mg/dL (1.6-2.6); Osmolality,Calculated 292 (280-300); Phosphorous 3.3 mg/dL (2.3-4.7); Potassium 4.4 mEq/L (3.5-4.5); Sodium 139 mEq/L (136-145); eGFR For African Americans > 60 (> 60); eGFR For Non-African Americans > 60 (> 60)
--- NOTE | 2016-08-01 08:03 | General Surgery Progress Note ---
<Bobby Serna - Last Filed: 08/01/16 08:07> Date of Encounter: 08/01/16 Time of Encounter: 07:15 - Assessment and Plan (1) Anemia Current Visit: Yes Status: Suspected EGD demonstrated possible findings of esophageal candidiasis. Additionally she was found to have one small ulcer. Nystatin ordered for cadidiasis. Carafate ordered for ulcer. She is already on omeprazole 40mg daily. After colonoscopy she has begun having blood tinged stools. Hemoglobin remains stable at 8.3, which is the same as yesterday. Continue to monitor closely. Qualifiers: Anemia type: other cause Other causes of anemia: chronic disease, other Qualified Code(s): D63.8 - Anemia in other chronic diseases classified elsewhere (2) Mesenteric lymphadenopathy Current Visit: Yes Status: Acute C. Dif negative. GI stool panel within normal limits. Presumed reactive secondary to infectious diarrhea. (3) Diarrhea Current Visit: Yes Status: Acute Continue fluids. Colonoscopy report pending. Qualifiers: Diarrhea type: presumed infectious Qualified Code(s): A09 - Infectious gastroenteritis and colitis, unspecified (4) Dysphagia Current Visit: Yes Status: Acute Likely secondary to esophagel candidiasis. Nystatin swish and swallow ordered. Qualifiers: Dysphagia type: unspecified Qualified Code(s): R13.10 - Dysphagia, unspecified Subjective Patient reports: flatus, bowel movement, diarrhea, blood in stool, nausea, afebrile Narrative: The patient denies abdominal pain, but states she has some abdominal discomfort with associated nausea and diarrhea. She has had several bowel movements this morning, which have been loose and blood tinged. She states she feels fatigued as well. Objective Vital Signs - Last 8 Hours Temp Pulse Resp BP Pulse Ox 08/01/16 07:25 96 08/01/16 05:18 98.5 F 96 18 132/64 96 08/01/16 02:01 98.6 F 89 18 110/52 94 L Intake and Output 07/31/16 08/01/16 08/01/16 23:59 07:59 15:59 Intake Total 0 / 0 340 / 340 Balance 0 / 0 340 / 340 Intake: Oral 0 / 0 340 / 340 Other: Meal Dinner Percent of Meal Consumed 25% Stool Size Moderate Stool Consistency loose liquid soft Stool Color Bright Red Blood Blood Tinged # Voids 0 1 # Bowel Movements 1 Weight 74 kg Patient Weight 08/01/16 23:59 Weight 74 kg - General physical appearance well developed, well nourished, no distress - Eyes normal ocular movement - ENT normal mucosa, atraumatic, normocephalic - Neck Neck exam: trachea midline - Respiratory normal respiratory effort, clear to auscultation - Cardiovascular Cardiovascular exam: Present: RRR - Abdomen Abdomen: Present: bowel sounds present, soft, non tender (discomfort to palpation of the right lower quadrant, but no pain reported) - Neurologic CN 2-12 grossly intact - Psychiatric oriented to time, oriented to person, oriented to place, speech is normal - Labs 08/01/16 07:21 08/01/16 07:21 Consult Discharge Plan - Plan Referrals: Orestes Grace MD [Primary Care Provider] - - Attending Attestation I examined this patient and my medical decision-making was reviewed with the ARTIFICIAL STONE APPLICATOR/PA/Advanced Practice Nurse/Resident Physician. I agree with the documented findings, disposition and treatment plan as described except to the extent set forth below. <Natalie Ayala - Last Filed: 08/01/16 11:53> Time of Encounter: 11:30 - Assessment and Plan (1) Colitis Current Visit: Yes Status: Acute biopsies throughout colon taken, awaiting pathology stop aspirin (2) Esophageal candidiasis Current Visit: Yes Status: Acute continue nystatin swish and swallow has swallow eval in radiology planned for tomorrow (3) Anemia Current Visit: Yes Status: Suspected agree with resident assessment and plan await pathology results from colon biopsies Qualifiers: Anemia type: other cause Other causes of anemia: chronic disease, other Qualified Code(s): D63.8 - Anemia in other chronic diseases classified elsewhere Subjective Narrative: denies abdominal pain currently, states she is having pain passing liquid bms with blood having nausea Objective Vital Signs - Last 8 Hours Temp Pulse Resp BP Pulse Ox 08/01/16 09:35 18 95 08/01/16 08:46 98.4 F 87 18 127/49 95 08/01/16 07:25 96 08/01/16 05:18 98.5 F 96 18 132/64 96 Intake and Output 07/31/16 08/01/16 08/01/16 23:59 07:59 15:59 Intake Total 0 / 0 340 / 340 240 / 240 Balance 0 / 0 340 / 340 240 / 240 Intake: Oral 0 / 0 340 / 340 240 / 240 Other: Meal Dinner Breakfast Percent of Meal Consumed 25% 0% Stool Size Moderate Moderate Stool Consistency loose liquid liquid soft Stool Color Bright Red Blood Bright Red Blood Blood Tinged # Voids 0 1 # Bowel Movements 1 Weight 74 kg Patient Weight 08/01/16 23:59 Weight 74 kg - General physical appearance well developed, well nourished, no distress, obese - Eyes normal ocular movement - ENT normal mucosa, normocephalic - Neck Neck exam: trachea midline - Respiratory clear to auscultation - Cardiovascular Cardiovascular exam: Present: RRR - Abdomen Abdomen: Present: bowel sounds present, soft, non tender - Integumentary no rash, no growths - Neurologic CN 2-12 grossly intact - Musculoskeletal normal posture - Psychiatric oriented to time, oriented to person, memory intact - Labs 08/01/16 07:21 08/01/16 07:21 Vital Signs Temp Pulse Resp BP Pulse Ox 08/01/16 11:50 97.8 F 95 18 128/74 95 08/01/16 09:35 18 95 08/01/16 08:46 98.4 F 87 18 127/49 95 08/01/16 07:25 96 08/01/16 05:18 98.5 F 96 18 132/64 96 08/01/16 02:01 98.6 F 89 18 110/52 94 L 07/31/16 22:24 18 100 07/31/16 21:57 98.3 F 82 18 118/46 94 L 07/31/16 16:47 97.4 F L 90 16 124/63 93 L 07/31/16 15:24 18 96 Intake and Output 07/31/16 08/01/16 08/01/16 23:59 07:59 15:59 Intake Total 0 / 0 340 / 340 240 / 240 Balance 0 / 0 340 / 340 240 / 240 Intake: Oral 0 / 0 340 / 340 240 / 240 Other: Meal Dinner Breakfast Percent of Meal Consumed 25% 0% Stool Size Moderate Moderate Stool Consistency loose liquid liquid soft Stool Color Bright Red Blood Bright Red Blood Blood Tinged # Voids 0 1 # Bowel Movements 1 Weight 74 kg Patient Weight 08/01/16 23:59 Weight 74 kg Short CBC 08/01/16 Range/Units 07:21 WBC 9.8 (4.3-11.1) K/mcL Hgb 8.3 L (11.5-15.4) g/dL Hct 25.1 L (35.3-44.9) % Plt Count 348 (140-400) K/mcL Neutrophils # 6.8 (1.6-8.9) K/mcL BMP 08/01/16 Range/Units 07:21 Sodium 139 (136-145) mEq/L Potassium 4.4 (3.5-4.5) mEq/L Chloride 106 (98-109) mEq/L Carbon Dioxide 25 (19-29) mEq/L BUN 29 H (7-20) mg/dL Creatinine 0.85 (0.57-1.11) mg/dL Glucose 66 L (70-99) mg/dL Calcium 7.7 L (8.6-10.8) mg/dL
[2016-08-01] MEDS: Diltiazem CD (24hr) 120 MG CAPSULE PO SCH (09:11)
[2016-08-01] MEDS: Nystatin SUSP 5 ML UD.LIQ PO SCH ×5 (09:11→20:24)
[2016-08-01] MEDS: Lactobacillus 1 EACH CAP.SPRINK PO SCH ×2 (09:11→20:25)
[2016-08-01] MEDS: Aspirin Enteric Coated 81 MG Tablet PO SCH (09:11)
[2016-08-01] MEDS: Isosorbide MONOnitrate (24 HR) 60 MG TAB.ER.24H PO SCH (09:12)
[2016-08-01] MEDS: Sucralfate 1 GM TABLET PO SCH ×4 (09:12→20:25)
[2016-08-01] MEDS: Ondansetron 4 MG/2 ML VIAL IVP PRN ×2 (09:20→12:04)
[2016-08-01] MEDS: Budesonide/Formoterol 160/4.5 MDI IH SCH ×2 (09:35→23:13)
--- NOTE | 2016-08-01 14:24 | Internal Med Progress Note ---
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 With 60% stenosis of aorta. She has some diffuse abd pain today. Some blood in stool as well (had biopsies yesterday and rectal area has been very irritated with frequent stools). Pain control. (2) Esophageal candidiasis Current Visit: Yes Status: Acute Assessment and plan: On Nystatin per surgery. To have MBS tomorrow. (3) Diarrhea Current Visit: Yes Status: Acute Assessment and plan: Continues to have some episodes of loose stool and now is blood tinged. Pain control Biopsies pending from endoscopy. Add Anusol suppositories for anal canal. Qualifiers: Diarrhea type: presumed infectious Qualified Code(s): A09 - Infectious gastroenteritis and colitis, unspecified (4) Anemia Current Visit: Yes Status: Suspected Assessment and plan: Her hemoglobin is stable over last 2 days. Having some blood in her stool today. Will recheck blood count tomorrow. Qualifiers: Anemia type: other cause Other causes of anemia: chronic disease, other Qualified Code(s): D63.8 - Anemia in other chronic diseases classified elsewhere (5) Hypertension Current Visit: Yes Status: Acute Assessment and plan: Continue home meds. Appears controlled. Qualifiers: Hypertension type: essential hypertension Qualified Code(s): I10 - Essential (primary) hypertension (6) RYLEY (acute kidney injury) Current Visit: Yes Status: Resolved Assessment and plan: Resolved. (7) COPD (chronic obstructive pulmonary disease) Current Visit: No Status: Chronic Assessment and plan: Patient has history of COPD. We will continue scheduled duoneb, Symbicort. She denies acute symptoms at this time. Qualifiers: COPD type: unspecified COPD Qualified Code(s): J44.9 - Chronic obstructive pulmonary disease, unspecified (8) Carotid stenosis, bilateral Current Visit: Yes Status: Chronic Assessment and plan: Chronic (9) Severe protein-calorie malnutrition Current Visit: Yes Status: Chronic Assessment and plan: Nutrition support. - Subjective Interval history: Ms. Tucker is currently admitted for abdominal pain and diarrhea. She had EGD and colonoscopy yesterday. She remains moderate risk due to potential for worsening abd issues and anemia. Ms. Tucker is having some diffuse abd pain today but it is worse in the suprapubic area. She has had some loose stools today with blood tinge. No nausea or emesis. No fever at this time. Biopsies pending from procedure. To have MBS tomorrow to evaluate swallowing. On Nystatin for candidiasis. - Constitutional Vitals: Temp Pulse Resp BP Pulse Ox 97.8 F 95 18 128/74 95 08/01/16 11:50 08/01/16 11:50 08/01/16 11:50 08/01/16 11:50 08/01/16 11:50 General appearance: Present: mild distress, A&O X 3 - Head Head exam: Present: normocephalic - Eye Eye exam: Present: conjuntiva pink - ENT ENT exam: Present: mucous membranes dry - Respiratory Respiratory exam: Present: decreased breath sounds, CTAB - Cardiovascular Cardiovascular exam: Present: RRR. Absent: tachycardia - GI/Abdominal GI/Abdominal exam: Present: normal bowel sounds, soft, tenderness. Absent: mass (Abdomen diffusely tender but no peritoneal signs. Increased discomfort suprapubic area. ) - Extremities Exam Extremities exam: Present: warm - Neurological Exam Neurological exam: Present: alert, oriented X3, no focal deficits - Skin Skin exam: Present: warm. Absent: rash Internal Medicine: Result - Labs CBC & Chem 7: 08/01/16 07:21 08/01/16 07:21 Labs: Short CBC 08/01/16 Range/Units 07:21 WBC 9.8 (4.3-11.1) K/mcL Hgb 8.3 L (11.5-15.4) g/dL Hct 25.1 L (35.3-44.9) % Plt Count 348 (140-400) K/mcL Neutrophils # 6.8 (1.6-8.9) K/mcL BMP 08/01/16 07:21 Sodium 139 Potassium 4.4 Chloride 106 Carbon Dioxide 25 BUN 29 H Creatinine 0.85 Glucose 66 L Calcium 7.7 L - ABG Interpretation ABG results: PT/INR, D-dimer PT 16.9 Seconds (9.4-12.1) H 07/27/16 15:54 Consult Discharge Plan - Plan Referrals: Orestes Grace MD [Primary Care Provider] -
[2016-08-01] MEDS: Hydrocortisone Acetate 25 MG RECTAL SUPPOSITORY RC SCH ×2 (17:08→20:25)
[2016-08-01] MEDS: rOPINIRole 0.25 MG TABLET PO SCH (20:24)
[2016-08-01] MEDS: ALPRAZolam 1 MG TABLET PO PRN (20:25)
[2016-08-02] MEDS: Ipratropium/Albuterol Neb 3 ML IH SCH ×4 (04:44→22:00)
[2016-08-02 06:05] LABS: Hemoglobin 8.3 g/dL (11.5-15.4); Mean Corpuscular HGB Conc 33.2 g/dL (31.6-35.5); Mean Corpuscular Hemoglobin 29.2 pg (28.0-33.3); Mean Platelet Volume 9.8 fL (9.4-12.4); Platelet Count 325 K/mcL (140-400); Red Blood Count 2.84 M/mcL (3.82-4.97); Red Cell Distribution Width 16.4 % (11.5-14.5)
[2016-08-02 06:19] LABS: BUN/Creatinine Ratio 31 (6-26); Blood Urea Nitrogen 25 mg/dL (7-20); Calcium 7.6 mg/dL (8.6-10.8); Carbon Dioxide 20 mEq/L (19-29); Chloride 107 mEq/L (98-109); Glucose 69 mg/dL (70-99); Magnesium 1.5 mg/dL (1.6-2.6); Osmolality,Calculated 287 (280-300); Potassium 4.3 mEq/L (3.5-4.5); Sodium 137 mEq/L (136-145); eGFR For African Americans > 60 (> 60); eGFR For Non-African Americans > 60 (> 60)
[2016-08-02] MEDS ORDERED: Magnesium Sulfate 2 GM in D5% in Water 100 ML IVPB ONE (07:35)
[2016-08-02] MEDS: Budesonide/Formoterol 160/4.5 MDI IH SCH ×2 (10:31→22:01)
[2016-08-02] MEDS: Isosorbide MONOnitrate (24 HR) 60 MG TAB.ER.24H PO SCH (10:41)
[2016-08-02] MEDS: Diltiazem CD (24hr) 120 MG CAPSULE PO SCH (10:41)
[2016-08-02] MEDS: Lactobacillus 1 EACH CAP.SPRINK PO SCH ×2 (10:41→20:26)
[2016-08-02] MEDS: Nystatin SUSP 5 ML UD.LIQ PO SCH ×4 (10:46→20:26)
[2016-08-02] MEDS: Hydrocortisone Acetate 25 MG RECTAL SUPPOSITORY RC SCH ×2 (10:47→20:27)
[2016-08-02] MEDS: Sucralfate 1 GM TABLET PO SCH ×4 (10:47→20:26)
--- NOTE | 2016-08-02 16:04 | General Surgery Progress Note ---
<Laverne Schmidt - Last Filed: 08/02/16 16:08> Date of Encounter: 08/02/16 Time of Encounter: 16:00 - Assessment and Plan (1) Anemia Current Visit: Yes Status: Suspected s/p EGD/Colonoscopy 07/31/[address] Ayala Hgb stable at 8.3 No rectal bleeding noted today Carafate and PPI for ulcer on upper endoscopy Qualifiers: Anemia type: other cause Other causes of anemia: chronic disease, other Qualified Code(s): D63.8 - Anemia in other chronic diseases classified elsewhere (2) Mesenteric lymphadenopathy Current Visit: Yes Status: Acute s/p EGD/Colonoscopy 07/31/[address] Ayala Random colon biopsies complete- pathology pending Presumed from infectious diarrhea (3) Diarrhea Current Visit: Yes Status: Acute s/p EGD/Colonoscopy 07/31/[address] Ayala pathology pending Qualifiers: Diarrhea type: presumed infectious Qualified Code(s): A09 - Infectious gastroenteritis and colitis, unspecified (4) Dysphagia Current Visit: Yes Status: Acute EGD 07/31/[address] Aayla [place] thick liquids Treating for suspected candidiasis- nystatin Carafate and PPI for ulcer on upper endoscopy Qualifiers: Dysphagia type: unspecified Qualified Code(s): R13.10 - Dysphagia, unspecified Subjective Patient reports: no new complaints, feels better, tolerating a regular diet, flatus, bowel movement (last 08/01/16; no bleeding noted today), afebrile Objective Vital Signs - Last 8 Hours Temp Pulse Resp BP Pulse Ox 08/02/16 15:00 98.5 F 86 15 118/55 96 08/02/16 11:00 98.2 F 94 16 141/58 97 08/02/16 10:15 98 Intake and Output 08/02/16 08/02/16 08/02/16 07:59 15:59 23:59 Intake Total 0 / 0 0 / 0 Output Total 0 / 0 Balance 0 / 0 0 / 0 Intake: Oral 0 / 0 0 / 0 Output: Urine 0 / 0 Other: Meal Lunch Percent of Meal Consumed 0% # Voids 0 Weight 75.3 kg Patient Weight 08/02/16 23:59 Weight 75.3 kg - General physical appearance well developed, well nourished, no distress, no pain - Eyes normal ocular movement - ENT normal mucosa, atraumatic, normocephalic - Neck Neck exam: trachea midline - Respiratory normal respiratory effort, clear to auscultation - Abdomen Abdomen: Present: bowel sounds present, soft, non tender - Neurologic CN 2-12 grossly intact - Psychiatric oriented to time, oriented to person, oriented to place, speech is normal, memory intact - Labs 08/02/16 05:37 08/02/16 05:37 Diabetes panel 08/02/16 Range/Units 05:37 Sodium 137 (136-145) mEq/L Potassium 4.3 (3.5-4.5) mEq/L Chloride 107 (98-109) mEq/L Carbon Dioxide 20 (19-29) mEq/L BUN 25 H (7-20) mg/dL Creatinine 0.80 (0.57-1.11) mg/dL Glucose 69 L (70-99) mg/dL Calcium 7.6 L (8.6-10.8) mg/dL Calcium panel 08/02/16 Range/Units 05:37 Calcium 7.6 L (8.6-10.8) mg/dL Pituitary panel 08/02/16 Range/Units 05:37 Sodium 137 (136-145) mEq/L Potassium 4.3 (3.5-4.5) mEq/L Chloride 107 (98-109) mEq/L Carbon Dioxide 20 (19-29) mEq/L BUN 25 H (7-20) mg/dL Creatinine 0.80 (0.57-1.11) mg/dL Glucose 69 L (70-99) mg/dL Calcium 7.6 L (8.6-10.8) mg/dL Adrenal panel 08/02/16 Range/Units 05:37 Sodium 137 (136-145) mEq/L Potassium 4.3 (3.5-4.5) mEq/L Chloride 107 (98-109) mEq/L Carbon Dioxide 20 (19-29) mEq/L BUN 25 H (7-20) mg/dL Creatinine 0.80 (0.57-1.11) mg/dL Glucose 69 L (70-99) mg/dL Calcium 7.6 L (8.6-10.8) mg/dL Consult Discharge Plan - Plan Referrals: Orestes Grace MD [Primary Care Provider] - - Attending Attestation I examined this patient and my medical decision-making was reviewed with the PRINTER REPAIR TECHNICIAN/PA/Advanced Practice Nurse/Resident Physician. I agree with the documented findings, disposition and treatment plan as described except to the extent set forth below. <Natalie Ayala Ambrose - Last Filed: 08/02/16 16:23> - Assessment and Plan (1) Colitis Current Visit: Yes Status: Acute await pathology results from biopsies, stool culture panel was negative for all tested pathogens (2) Esophageal candidiasis Current Visit: Yes Status: Acute continue nystatin swish and swallow (3) Anemia Current Visit: Yes Status: Suspected Qualifiers: Anemia type: other cause Other causes of anemia: chronic disease, other Qualified Code(s): D63.8 - Anemia in other chronic diseases classified elsewhere Objective Vital Signs - Last 8 Hours Temp Pulse Resp BP Pulse Ox 08/02/16 15:00 98.5 F 86 15 118/55 96 08/02/16 11:00 98.2 F 94 16 141/58 97 08/02/16 10:15 98 Intake and Output 08/02/16 08/02/16 08/02/16 07:59 15:59 23:59 Intake Total 0 / 0 0 / 0 Output Total 0 / 0 Balance 0 / 0 0 / 0 Intake: Oral 0 / 0 0 / 0 Output: Urine 0 / 0 Other: Meal Lunch Percent of Meal Consumed 0% # Voids 0 Weight 75.3 kg Patient Weight 08/02/16 23:59 Weight 75.3 kg - Labs 08/02/16 05:37 08/02/16 05:37 Diabetes panel 08/02/16 Range/Units 05:37 Sodium 137 (136-145) mEq/L Potassium 4.3 (3.5-4.5) mEq/L Chloride 107 (98-109) mEq/L Carbon Dioxide 20 (19-29) mEq/L BUN 25 H (7-20) mg/dL Creatinine 0.80 (0.57-1.11) mg/dL Glucose 69 L (70-99) mg/dL Calcium 7.6 L (8.6-10.8) mg/dL Calcium panel 08/02/16 Range/Units 05:37 Calcium 7.6 L (8.6-10.8) mg/dL Pituitary panel 08/02/16 Range/Units 05:37 Sodium 137 (136-145) mEq/L Potassium 4.3 (3.5-4.5) mEq/L Chloride 107 (98-109) mEq/L Carbon Dioxide 20 (19-29) mEq/L BUN 25 H (7-20) mg/dL Creatinine 0.80 (0.57-1.11) mg/dL Glucose 69 L (70-99) mg/dL Calcium 7.6 L (8.6-10.8) mg/dL Adrenal panel 08/02/16 Range/Units 05:37 Sodium 137 (136-145) mEq/L Potassium 4.3 (3.5-4.5) mEq/L Chloride 107 (98-109) mEq/L Carbon Dioxide 20 (19-29) mEq/L BUN 25 H (7-20) mg/dL Creatinine 0.80 (0.57-1.11) mg/dL Glucose 69 L (70-99) mg/dL Calcium 7.6 L (8.6-10.8) mg/dL
--- NOTE | 2016-08-02 19:14 | Internal Med Progress Note ---
Date of Encounter: 08/02/16 Time of Encounter: 09:00 - Assessment and plan (1) Dysphagia Current Visit: Yes Status: Acute Assessment and plan: Diet adjusted. Qualifiers: Dysphagia type: oropharyngeal phase Qualified Code(s): R13.12 - Dysphagia, oropharyngeal phase (2) 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 Assessment and plan: CT abdomen shows celiac artery stenosis. 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 With 60% stenosis of aorta. Continues pain off and on. No further blood in stool. Symptomatic control. (3) Esophageal candidiasis Current Visit: Yes Status: Acute Assessment and plan: On Nystatin per surgery. (4) Diarrhea Current Visit: Yes Status: Acute Assessment and plan: Continues to have some episodes of loose stool. Biopsies are pending. No particular cause found at this point. Qualifiers: Diarrhea type: presumed infectious Qualified Code(s): A09 - Infectious gastroenteritis and colitis, unspecified (5) Anemia Current Visit: Yes Status: Suspected Assessment and plan: Her hemoglobin remains stable. No bleeding noted today. Most likely due to chronic blood loss and chronic disease Qualifiers: Anemia type: other cause Other causes of anemia: chronic disease, other Qualified Code(s): D63.8 - Anemia in other chronic diseases classified elsewhere (6) Hypertension Current Visit: Yes Status: Acute Assessment and plan: Continue home meds. Appears controlled. Qualifiers: Hypertension type: essential hypertension Qualified Code(s): I10 - Essential (primary) hypertension (7) COPD (chronic obstructive pulmonary disease) Current Visit: No Status: Chronic Qualifiers: COPD type: unspecified COPD Qualified Code(s): J44.9 - Chronic obstructive pulmonary disease, unspecified (8) Carotid stenosis, bilateral Current Visit: Yes Status: Chronic Assessment and plan: Chronic (9) Severe protein-calorie malnutrition Current Visit: Yes Status: Chronic Assessment and plan: Nutrition support. Continues to have poor appetite. Diet changed today due to dysphagia. - Subjective Interval history: Ms. Tucker is currently admitted for abdominal pain and diarrhea. She remains moderate risk due to potential for worsening abd issues and anemia. Ms. Tucker is still not eating very well. She continues to refuse to go to rehab but agrees to home care. Her pain seems a little better today. Still with diarrhea. MBS done - needs nectar thick liquids. Today [birth year]. She continues to have abdominal pain and requires positioning that can't be done in her home bed therefore requiring a hospital bed. - Constitutional Vitals: Temp Pulse Resp BP Pulse Ox 98.5 F 86 18 118/55 96 08/02/16 15:00 08/02/16 15:00 08/02/16 16:06 08/02/16 15:00 08/02/16 16:06 General appearance: Present: A&O X 3, answers questions appropriately - Head Head exam: Present: normocephalic - Eye Eye exam: Present: conjuntiva pink - ENT ENT exam: Present: mucous membranes dry - Respiratory Respiratory exam: Present: decreased breath sounds, CTAB - Cardiovascular Cardiovascular exam: Present: RRR. Absent: tachycardia - GI/Abdominal GI/Abdominal exam: Present: soft, tenderness Additional comments: Continues diffuse tenderness. - Extremities Exam Extremities exam: Present: warm. Absent: pedal edema - Neurological Exam Neurological exam: Present: alert, oriented X3 - Skin Skin exam: Present: warm. Absent: rash Internal Medicine: Result - Labs CBC & Chem 7: 08/02/16 05:37 08/02/16 05:37 Labs: Short CBC 08/02/16 Range/Units 05:37 WBC 7.2 (4.3-11.1) K/mcL Hgb 8.3 L (11.5-15.4) g/dL Hct 25.0 L (35.3-44.9) % Plt Count 325 (140-400) K/mcL [facility] 08/02/16 05:37 Sodium 137 Potassium 4.3 Chloride 107 Carbon Dioxide 20 BUN 25 H Creatinine 0.80 Glucose 69 L Calcium 7.6 L - ABG Interpretation ABG results: PT/INR, D-dimer PT 16.9 Seconds (9.4-12.1) H 07/27/16 15:54 - Impressions Impressions Videofluoroscopic Swallow 08/02/16 08:00 IMPRESSION: Aspiration observed with thin barium. Please see separate speech pathology report for full discussion of findings and recommendations. D/ / Domenico Loyd MD / Domenico Loyd MD Interpreting Provider: Domenico Loyd MD Consult Discharge Plan - Plan Referrals: Orestes Grace MD [Primary Care Provider] -
[2016-08-02] MEDS: rOPINIRole 0.25 MG TABLET PO SCH (20:26)
[2016-08-02] MEDS: ALPRAZolam 1 MG TABLET PO PRN (20:26)
[2016-08-03] MEDS: Ipratropium/Albuterol Neb 3 ML IH SCH ×3 (05:13→16:26)
[2016-08-03 06:23] LABS: Hematocrit 24.9 % (35.3-44.9); Hemoglobin 8.4 g/dL (11.5-15.4); Mean Corpuscular HGB Conc 33.7 g/dL (31.6-35.5); Mean Corpuscular Hemoglobin 29.9 pg (28.0-33.3); Mean Corpuscular Volume 88.6 fL (83.0-100.0); Mean Platelet Volume 10.3 fL (9.4-12.4); Platelet Count 371 K/mcL (140-400); Red Blood Count 2.81 M/mcL (3.82-4.97)
[2016-08-03 06:27] LABS: BUN/Creatinine Ratio 27 (6-26); Blood Urea Nitrogen 20 mg/dL (7-20); Calcium 7.7 mg/dL (8.6-10.8); Carbon Dioxide 24 mEq/L (19-29); Chloride 107 mEq/L (98-109); Glucose 81 mg/dL (70-99); Osmolality,Calculated 288 (280-300); Sodium 138 mEq/L (136-145); eGFR For African Americans > 60 (> 60); eGFR For Non-African Americans > 60 (> 60)
[2016-08-03] MEDS: Nystatin SUSP 5 ML UD.LIQ PO SCH (08:59)
[2016-08-03] MEDS: Isosorbide MONOnitrate (24 HR) 60 MG TAB.ER.24H PO SCH (09:00)
[2016-08-03] MEDS: Hydrocortisone Acetate 25 MG RECTAL SUPPOSITORY RC SCH (09:00)
[2016-08-03] MEDS: Sucralfate 1 GM TABLET PO SCH (09:00)
[2016-08-03] MEDS: Lactobacillus 1 EACH CAP.SPRINK PO SCH (09:00)
[2016-08-03] MEDS: Diltiazem CD (24hr) 120 MG CAPSULE PO SCH (09:00)
--- NOTE | 2016-08-03 09:26 | Discharge Summary ---
Date of Encounter: 08/03/16 Time of Encounter: 09:24 - Discharge Diagnosis (1) Diarrhea Priority: Primary Status: Acute Qualifiers: Diarrhea type: unspecified type Qualified Code(s): R19.7 - Diarrhea, unspecified (2) Dysphagia Priority: Primary Status: Acute Qualifiers: Dysphagia type: oropharyngeal phase Qualified Code(s): R13.12 - Dysphagia, oropharyngeal phase (3) Esophageal candidiasis Priority: Primary Status: Acute (4) Frequent falls Priority: Secondary Status: Chronic (5) Hypertension Priority: Secondary Status: Chronic Qualifiers: Hypertension type: essential hypertension Qualified Code(s): I10 - Essential (primary) hypertension (6) Wound dehiscence, surgical Priority: Secondary Status: Chronic Qualifiers: Encounter type: subsequent encounter Qualified Code(s): T81.31XD - Disruption of external operation (surgical) wound, not elsewhere classified, subsequent encounter (7) Status post total knee replacement, right Priority: Secondary Status: Chronic (8) Carotid stenosis, bilateral Priority: Secondary Status: Chronic (9) Celiac artery stenosis Priority: Primary Status: Chronic (10) Severe protein-calorie malnutrition Priority: Secondary Status: Chronic (11) Anemia Priority: Secondary Status: Chronic Qualifiers: Anemia type: other cause Other causes of anemia: chronic disease, other Qualified Code(s): D63.8 - Anemia in other chronic diseases classified elsewhere (12) CAD (coronary artery disease) Priority: Secondary Status: Chronic Qualifiers: Coronary Disease-Associated Artery/Lesion type: [place] artery [place] vs. transplanted heart: [place] heart Associated angina: without angina Qualified Code(s): I25.10 - Atherosclerotic heart disease of [place] coronary artery without angina pectoris (13) COPD (chronic obstructive pulmonary disease) Priority: Secondary Status: Chronic Qualifiers: COPD type: unspecified COPD Qualified Code(s): J44.9 - Chronic obstructive pulmonary disease, unspecified - Discharge Medications Prescriptions: Loperamide [Imodium] 2 mg PO Q4HR PRN #20 capsule PRN Reason: Diarrhea Lactobacillus [Culturelle] 1 each PO BID #30 cap.sprink Nystatin [Nystatin Suspension] 100,000 units PO QID #120 ml Sucralfate [Carafate] 1 gm PO QIDAC #90 tablet Home Medications: Albuterol Sulfate [Albuterol Inhaler] 2 puff IH Q4-6H PRN 10/15/15 [History] Allopurinol [Zyloprim 100 MG] 100 mg PO DAILY 10/15/15 [History] Alprazolam [Xanax 1 MG Tablet] 1 mg PO BID PRN 10/15/15 [History] Fenofibrate Nanocrystallized [Tricor] 145 mg PO QPM 10/15/15 [History] Fluticasone/Salmeterol [Advair 500-50 Diskus] 1 inh PO BID 10/15/15 [History] Gabapentin [Neurontin] 800 mg PO TID 10/15/15 [History] Isosorbide MONOnitrate (24 HR) [Imdur] 60 mg PO DAILY 10/15/15 [History] Levothyroxine [Synthroid] 112 mcg PO DAILY 10/15/15 [History] [place]-3 Fatty Acids [Fish Oil] 1,200 mg PO DAILY 10/15/15 [History] Ropinirole HCl [Requip] 0.5 - 1 mg PO HS 10/15/15 [History] Sertraline [Zoloft] 100 mg PO BID 10/15/15 [History] Tiotropium [Spiriva] 18 mcg IH DAILY 10/15/15 [History] Diltiazem HCl [Diltiazem ER] 120 mg PO DAILY 03/29/16 [History] Ipratropium/Albuterol Neb [Duoneb] 3 ml IH Q4HR PRN 03/29/16 [History] Atorvastatin [Lipitor] 10 mg PO HS 05/28/16 [History] Gemfibrozil [Lopid] 600 mg PO BIDWM 05/28/16 [History] OxyCODONE/APAP 5/325 [Percocet 5/325 MG] 1 each PO TID PRN 05/28/16 [History] Lactobacillus [Culturelle] 1 each PO BID #30 cap.sprink 08/03/16 [Rx] Loperamide [Imodium] 2 mg PO Q4HR PRN #20 capsule 08/03/16 [Rx] Nystatin [Nystatin Suspension] 100,000 units PO QID #120 ml 08/03/16 [Rx] Omeprazole [PriLOSEC] 40 mg PO BID #60 08/03/16 [Rx] Sucralfate [Carafate] 1 gm PO QIDAC #90 tablet 08/03/16 [Rx] Allergies/Adverse Reactions: Allergies codeine Allergy (Verified 05/28/16 08:53) Confusion Iodinated Contrast Media - Oral and Adverse Reaction (Verified 07/27/16 18:30) See Comments patient states kidney problems. meclizine Adverse Reaction (Verified 07/27/16 18:30) Confusion Date of admission: 07/29/16 14:48 Primary care physician: Orestes Grace MD Discharging clinician: Hue Aguila Anticipated date of discharge: 08/03/16 - Patient Status Disposition: Home Health Service Condition: Fair Functional capacity at discharge: uses cane/walker Overall status at discharge: patient is progressing back to baseline - Discharge Instructions Instructions: Loperamide (By mouth), Sucralfate (By mouth), Nystatin (By mouth) , Probiotic (By mouth), Acute Kidney Injury (DC), Acute Kidney Injury (GEN), Chronic Obstructive Pulmonary Disease (DC), Chronic Hypertension (DC), Anemia ( GEN), Acute Kidney Injury, Channel Process Supervisor (GEN) Follow Up With: Natalie Ayala MD [Partnered Physician] - 08/11/16 1:50 pm Orestes Grace MD [Primary Care Provider] - 08/12/16 2:15 pm Additional Instructions: F/up with [facility] in 1 week - Diet and Activity Activity: as per physical therapy Diet: low fat, low cholesterol, low salt diet, other (soft diet, nectar thick liquids ONLY) Hospital course: Ms. Tucker is a 71 year old female with multiple medical problems initially admitted with generalized weakness and strokelike symptoms. CT head and MRI brain showed no acute CVA. Neurology was consulted and recommended medical management for underlying medical and orthopedic issues. Physical therapy evaluation was done and recommended placement in extended care facility for continued rehabilitation. Patient and family declined this option and wished to be discharged home. She had abdominal pain and diarrhea. Abdominal pain was thought to be due to chronic known history of celiac artery stenosis and calcification and patient received IV hydration and supportive care with gradual improvement. Surgery was consulted and patient underwent EGD and colonoscopy. Colonoscopy showed multiple areas of inflammation with adherent blood in transverse and descending colon, biopsies pending. EGD showed esophageal candidiasis and ulcer and she was started on nystatin, PPI and Carafate. She recently underwent right knee replacement and is noted to have wound dehiscence, which is being followed as outpatient. Orthopedic surgery has been consulted during this admission and recommended no further intervention as an inpatient. Patient is currently medically stable for discharge with outpatient follow-up. - Time Spent with Patient Total time spent providing and/or coordinating discharge services: Greater than 30 minutes (45 min) - Constitutional Vitals: Temp Pulse Resp BP Pulse Ox 97.8 F 84 16 149/77 95 08/03/16 08:01 08/03/16 08:01 08/03/16 08:01 08/03/16 08:01 08/03/16 08:01 General appearance: Present: A&O X 3, answers questions appropriately - Respiratory Respiratory exam: Present: CTAB. Absent: accessory muscle use, rales, rhonchi, wheezes - Cardiovascular Cardiovascular exam: Present: RRR, +S1, +S2. Absent: diastolic murmur, gallop, rubs, systolic murmur
--- NOTE | 2016-08-03 09:37 | Physician Discharge Referral ---
Home Health/Hosp Referral Info Transfer to: Home Health Attending Provider: Hue Aguila Provider in Charge Post Discharge: PCP - Diagnosis (1) Diarrhea Priority: Primary Status: Acute (2) Dysphagia Priority: Primary Status: Acute (3) Esophageal candidiasis Priority: Primary Status: Acute (4) Frequent falls Priority: Secondary Status: Chronic (5) Hypertension Priority: Secondary Status: Chronic (6) Wound dehiscence, surgical Priority: Primary Status: Chronic (7) Status post total knee replacement, right Priority: Secondary Status: Chronic (8) Carotid stenosis, bilateral Priority: Secondary Status: Chronic (9) Celiac artery stenosis Priority: Secondary Status: Chronic (10) Severe protein-calorie malnutrition Priority: Secondary Status: Chronic (11) Anemia Priority: Secondary Status: Chronic (12) CAD (coronary artery disease) Priority: Secondary Status: Chronic (13) COPD (chronic obstructive pulmonary disease) Priority: Secondary Status: Chronic - Respiratory Orders Smoking Cessation: Smoking cessation has been advised. For more information, call the [facility] Quit Line at [phone]. - Diet/Nutrition Diet/Nutrition Orders: Mechanical Soft (nectar thick liquids), Cardiac - Activity Activity Orders: Ambulate - Services Needed Following services are medically necessary services: Nursing, Physical Therapy, Occupational Therapy, Speech Therapy - Transfer Medications Prescriptions: Loperamide [Imodium] 2 mg PO Q4HR PRN #20 capsule PRN Reason: Diarrhea Lactobacillus [Culturelle] 1 each PO BID #30 cap.sprink Nystatin [Nystatin Suspension] 100,000 units PO QID #120 ml Sucralfate [Carafate] 1 gm PO QIDAC #90 tablet Home Medications: Albuterol Sulfate [Albuterol Inhaler] 2 puff IH Q4-6H PRN 10/15/15 [History] Allopurinol [Zyloprim 100 MG] 100 mg PO DAILY 10/15/15 [History] Alprazolam [Xanax 1 MG Tablet] 1 mg PO BID PRN 10/15/15 [History] Fenofibrate Nanocrystallized [Tricor] 145 mg PO QPM 10/15/15 [History] Fluticasone/Salmeterol [Advair 500-50 Diskus] 1 inh PO BID 10/15/15 [History] Gabapentin [Neurontin] 800 mg PO TID 10/15/15 [History] Isosorbide MONOnitrate (24 HR) [Imdur] 60 mg PO DAILY 10/15/15 [History] Levothyroxine [Synthroid] 112 mcg PO DAILY 10/15/15 [History] [place]-3 Fatty Acids [Fish Oil] 1,200 mg PO DAILY 10/15/15 [History] Ropinirole HCl [Requip] 0.5 - 1 mg PO HS 10/15/15 [History] Sertraline [Zoloft] 100 mg PO BID 10/15/15 [History] Tiotropium [Spiriva] 18 mcg IH DAILY 10/15/15 [History] Diltiazem HCl [Diltiazem ER] 120 mg PO DAILY 03/29/16 [History] Ipratropium/Albuterol Neb [Duoneb] 3 ml IH Q4HR PRN 03/29/16 [History] Atorvastatin [Lipitor] 10 mg PO HS 05/28/16 [History] Gemfibrozil [Lopid] 600 mg PO BIDWM 05/28/16 [History] OxyCODONE/APAP 5/325 [Percocet 5/325 MG] 1 each PO TID PRN 05/28/16 [History] Lactobacillus [Culturelle] 1 each PO BID #30 cap.sprink 08/03/16 [Rx] Loperamide [Imodium] 2 mg PO Q4HR PRN #20 capsule 08/03/16 [Rx] Nystatin [Nystatin Suspension] 100,000 units PO QID #120 ml 08/03/16 [Rx] Omeprazole [PriLOSEC] 40 mg PO BID #60 08/03/16 [Rx] Sucralfate [Carafate] 1 gm PO QIDAC #90 tablet 08/03/16 [Rx] Allergies/Adverse Reactions: Allergies codeine Allergy (Verified 05/28/16 08:53) Confusion Iodinated Contrast Media - Oral and Adverse Reaction (Verified 07/27/16 18:30) See Comments patient states kidney problems. meclizine Adverse Reaction (Verified 07/27/16 18:30) Confusion Certification: Further, I certify that my clinical findings support that this patient is homebound (i.e. absences from home require considerable and taxing effort and are for medical reasons or [employer] services or infrequently or short duration when for other reasons) because: Homebound Reason: Patient requires assistance of a person or device to safely leave home, Leaving home requires considerable and taxing effort due to condition Attestation: My signature below is to certify that this patient is under my care and that I, or nurse practitioner, or a physician's branch assistant working with me, has a face-to -face encounter with this patient.
[2016-08-03] MEDS: Budesonide/Formoterol 160/4.5 MDI IH SCH (11:01)
[2016-08-03 11:23] VITALS: BP 129/57
== END 2016-08-03 16:31 | disposition home health service (06) | DRG 368 ==
LOC: EMEROO 14:23 → 2NENU 14:23 → OBSVTOIN 18:21 → INTOOBSV 18:21 → 2NENU 19:57 → SUATTDRO 07-29 14:48
PROVIDERS: ADMIT Internal Medicine; ATTEND Internal Medicine
PROC: ENDOCBX (2016-07-31 08:00)
PROC: ENDOEBX (2016-07-31 08:00)

== ENCOUNTER 2016-11-23 15:55 | Inpatient (IN) ==
--- NOTE | 2016-11-23 16:27 | Emergency Department Note ---
Disposition Clinical Impression: Weakness Closed coracoid process fracture Qualifiers: Encounter type: initial encounter Fracture alignment: nondisplaced Laterality: right Qualified Code(s): S42.134A - Nondisplaced fracture of coracoid process, right shoulder, initial encounter for closed fracture CHF exacerbation Qualifiers: Congestive heart failure type: unspecified congestive heart failure type Qualified Code(s): I50.9 - Heart failure, unspecified Fall Qualifiers: Encounter type: initial encounter Qualified Code(s): W19.XXXA - Unspecified fall, initial encounter Altered mental status Qualifiers: Altered mental status type: unspecified Qualified Code(s): R41.82 - Altered mental status, unspecified Disposition: Admitted As Inpatient Condition: Fair Neuro HPI - General Chief Complaint: ED Neuro Symptoms/Deficit Stated Complaint: Weakness Time Seen by Provider: 11/23/16 16:05 Source: patient, family Limitations: language barrier, physical limitation Nursing Notes Reviewed: Yes Vital Signs Reviewed: Yes - History of Present Illness HPI Narrative: 71-year-old female history of TIA in July 2016 with resolution of symptoms, hypertension, COPD non-oxygen dependent who presents to the ER with a chief complaint of weakness, altered mental status and left-sided weakness. Patient is accompanied by spouse who reports that history. He states that 3 days ago she started having trouble with her speech. He states that she uses a walker at home and has also been falling to the left and falling. He has had to come home multiple times to help her off the ground. She does take an aspirin daily. He reports that in July she was diagnosed with a TIA and had deficits in speech and left sided involvement that resolved after discharge. Patient was seen by her primary care provider today and was sent here due to concern for altered mental status and the bruising. Patient does report shortness of breath without chest pain. She does feel weaker on her left comparison to the right. No other complaints. Onset of Symptoms Date: 11/20/16 Symptom Onset Unknown: No Timing confirmed by: spouse Location: speech, left leg History of same: Yes Severity: severe Quality: weakness Symptoms Improving: No Improves with: none Worsens with: none Context: gradual onset On Anticoagulants: No Associated symptoms: Reports: shortness of breath. Denies: confusion, chest pain, fever/chills, headaches Treatments Prior to Arrival: none - Related Data Home Medications: Home Medications Medication Instructions Recorded Confirmed ALPRAZolam [Xanax 1 MG Tablet] 1 mg PO BID PRN 10/15/15 11/23/16 Albuterol Sulfate [Albuterol 2 puff IH Q4-6H PRN 10/15/15 11/23/16 Inhaler] Allopurinol [Zyloprim 100 MG] 100 mg PO DAILY 10/15/15 11/23/16 Fenofibrate Nanocrystallized 145 mg PO QPM 10/15/15 11/23/16 [Tricor] Fluticasone/Salmeterol [Advair 1 inh PO BID 10/15/15 11/23/16 500-50 Diskus] Gabapentin [Neurontin] 800 mg PO TID 10/15/15 11/23/16 Isosorbide MONOnitrate (24 HR) 60 mg PO DAILY 10/15/15 11/23/16 [Imdur] Levothyroxine [Synthroid] 112 mcg PO DAILY 10/15/15 11/23/16 Ropinirole HCl [Requip] 0.5 - 1 mg PO HS 10/15/15 11/23/16 Sertraline [Zoloft] 100 mg PO BID 10/15/15 11/23/16 Tiotropium [Spiriva] 18 mcg IH DAILY 10/15/15 11/23/16 Diltiazem HCl [Diltiazem ER] 120 mg PO DAILY 03/29/16 11/23/16 Ipratropium/Albuterol Neb [Duoneb] 3 ml IH QID 03/29/16 11/23/16 Gemfibrozil [Lopid] 600 mg PO BIDWM 05/28/16 11/23/16 OxyCODONE/APAP 5/325 [Percocet 1 each PO BID PRN 05/28/16 11/23/16 5/325 MG] Aspirin Enteric Coated [Aspirin EC] 81 mg PO DAILY 11/23/16 11/23/16 Ferrous Sulfate 325 mg PO DAILY 11/23/16 11/23/16 Fish Oil/Dha/Epa [Fish Oil 1,200 1 each PO TID 11/23/16 11/23/16 mg Fish Oil] Magnesium Oxide [Mag-Ox] 400 mg PO DAILY 11/23/16 11/23/16 Nystatin [Nystatin Suspension] 400,000 units PO QID 11/23/16 11/23/16 Omeprazole [PriLOSEC] 40 mg PO DAILY 11/23/16 11/23/16 Sucralfate [Carafate] 1 gm PO BID 11/23/16 11/23/16 Allergies/Adverse Reactions: Allergies Allergy/AdvReac Type Severity Reaction Status Date / Time codeine Allergy Confusion Verified 11/23/16 15:59 Iodinated Contrast- Oral and AdvReac See Verified 11/23/16 15:59 IV Dye Comments [Iodinated Contrast Media - Oral and] meclizine AdvReac Confusion Verified 11/23/16 15:59 All systems ED: reviewed and negative except as stated. Constitutional: Denies: fever Cardiovascular: Denies: chest pain Respiratory: Reports: dyspnea. Denies: cough Gastrointestinal: Denies: abdominal pain, nausea, vomiting Genitourinary: Denies: dysuria Neurological: Reports: weakness. Denies: headache, numbness, paresthesias Past Medical History - Past Medical History Attestation: Yes The following information was validated with the patient. Source: patient Medical history: Reports: arthritis, COPD, coronary artery disease, diabetes, hyperlipidemia, hypertension, renal disease, thyroid disease, other Surgical history: Reports: cholecystectomy, colectomy, herniorrhaphy, hysterectomy, orthopedic, other, other Psychiatric history: Reports: anxiety, depression RISK ASSESSOR history: Reports: no RISK ASSESSOR history - Social History Smoking Status: Never smoker Smokeless Tobacco Status: No Alcohol use: Reports: none Drug use: Reports: none Physical Exam - General Limitations: language barrier, physical limitation General appearance: alert, in no apparent distress - Head Head exam: atraumatic, normocephalic, normal inspection - Eye Eye exam: Present: normal appearance, EOMI, other (There is ecchymosis to the left lateral orbit) - ENT ENT exam: normal exam, normal oropharynx - Neck Neck exam: Present: normal inspection, full ROM. Absent: tenderness - Chest Chest inspection: Present: normal inspection, symmetric chest wall rise - Respiratory Respiratory exam: Present: normal lung sounds bilaterally - Cardiovascular Cardiovascular exam: Present: regular rate, normal rhythm, normal heart sounds - Abdominal Exam Abdominal exam: Present: soft, Non-Tender, other (There are multiple ecchymotic lesions over the abdomen). Absent: tenderness, distention, rigidity - Extremities Exam Extremities exam: Present: normal inspection, full ROM - Expanded Upper Extremity Exam Shoulder exam: Present: normal inspection, full ROM Arm exam: Present: normal inspection, full ROM Elbow exam: Present: normal inspection, full ROM Forearm/Wrist exam: Present: normal inspection, full ROM Hand exam: Present: normal inspection, full ROM - Expanded Lower Extremity Exam Hip/Pelvis exam: Present: normal inspection, full ROM Upper leg exam: Present: normal inspection, full ROM Knee exam: Present: normal inspection, full ROM Lower leg exam: Present: normal inspection, full ROM, other (Patient has weakness of the left leg with muscle strength 4 out of 5 compared to 5 out of 5 of the right lower extremity.) Ankle exam: Present: normal inspection, full ROM Foot/toe exam: Present: normal inspection, full ROM - Back Exam Back exam: Present: normal inspection - Neurological Exam Neurological exam: Present: alert, oriented X3, CN II-XII intact - Expanded Neurological Exam Patient oriented to: Present: person, place, time Speech: Present: expressive aphasia (Dysarthria) Cranial nerves: EOM function (II, III, IV, ): Normal, facial sensation (V): Normal, spinal accessory function (XI): Normal, tongue deviation (XII): Normal Motor strength - LUE: 4/5 Motor strength - RUE: 5/5 Motor strength - LLE: 4/5 Motor strength - RLE: 5/5 Sensory exam upper extremity: light touch: Normal Sensory exam lower extremity: light touch: Normal Coma Scale Eye Opening: Spontaneous Coma Scale Motor Response: Obeys Commands Coma Scale Verbal Response: Oriented Coma Scale Total: 15 - Psychiatric Psychiatric exam: Present: normal affect, normal mood - Skin Skin exam: Present: warm, dry, intact, normal color Course Course Narrative: Patient seen and examined. Vital signs reviewed. We will obtain imaging of the head and neck given her fall as well as a chest abdomen pelvis CT given her recent falls and abdominal bruising. We will also check labs for altered mental status including TSH, ammonia, urinalysis as well. Patient will be given IV fluids and will require admission due to weakness, dysarthria and neurodeficits. - Reevaluation(s) Reevaluation #1: I discussed the results of imaging and lab work with the patient and family. She does have Doppler pulses of the dorsalis pedis and posterior tibial in the emergency department. She remains altered and filled her bedside swallow evaluation. Patient will be given IV Lasix [address] chest with elevated BNP. Patient will be admitted to the hospitalist service. Vital Signs Temperature 97.6 F 11/23/16 15:59 Pulse Rate 78 11/23/16 15:59 Respiratory Rate 15 11/23/16 15:59 Blood Pressure 122/71 11/23/16 15:59 O2 Sat by Pulse Oximetry 95 11/23/16 15:59 Temperature 97.8 F 11/23/16 20:43 Pulse Rate 75 11/23/16 20:43 Respiratory Rate 18 11/23/16 20:43 Blood Pressure 107/68 11/23/16 20:43 O2 Sat by Pulse Oximetry 97 11/23/16 20:43 Oxygen Delivery Oxygen Delivery Nasal Cannula Neuro Symptoms/Deficit - MDM Narrative Medical decision making narrative: 71-year-old female presents to the ER due to concern for altered mental status and fall at home. Family reports for the last 3 days that she has had trouble speaking and falling to her left when walking at home. Patient has fallen multiple times while at home requiring assistance to get up. She takes aspirin daily no other anticoagulation. Patient was seen by her PCP today and referred here due to altered mental status and her bruising from the falls. She is alert here with weakness discrepancy in the left versus the right. She does exhibit dysarthria on exam which family reports is new. This seems similar to her prior TIA. Her EKG is nonischemic. CT of the head and cervical spine showed no acute abnormalities. CT of her chest that showed coracoid fracture as well as pulmonary edema. Her BNP is elevated as well as a slight bump in her troponin. Patient given IV Lasix and admitted to the hospitalist service. - Lab Data Lab results reviewed: Yes I reviewed the patient's lab results. Result diagrams: 11/23/16 16:58 11/23/16 16:58 Lab Results 11/23/16 11/23/16 11/23/16 Range/Units 16:40 16:40 16:58 WBC 11.9 H (4.3-11.1) K/mcL RBC 3.47 L (3.82-4.97) M/mcL Hgb 10.1 L (11.5-15.4) g/dL Hct 29.4 L (35.3-44.9) % MCV 84.7 (83.0-100.0) fL MCH 29.1 (28.0-33.3) pg MCHC 34.4 (31.6-35.5) g/dL RDW 17.0 H (11.5-14.5) % Plt Count 285 (140-400) K/mcL MPV 10.4 (9.4-12.4) fL Immature Gran % 2.2 (0-4) % Seg Neutrophils % 70.7 % Lymphocytes % 13.2 % Monocytes % 7.0 % Eosinophils % 6.4 % Basophils % 0.5 % Neutrophils # 8.4 (1.6-8.9) K/mcL Lymphocytes # 1.6 (0.6-4.6) K/mcL Monocytes # 0.8 (0.0-1.3) K/mcL Eosinophils # 0.8 H (0.0-0.6) K/mcL Basophils # 0.1 (0.0-0.2) K/mcL Platelet Estimate Normal (Normal) Immature Plt Fraction 2.6 (1.1-6.1) % Anisocytosis 1+ A (Not Present) PT (9.4-12.1) Seconds INR Sodium (136-145) mEq/L Potassium (3.5-4.5) mEq/L Chloride (98-109) mEq/L Carbon Dioxide (19-29) mEq/L BUN (7-20) mg/dL Creatinine (0.57-1.11) mg/dL Est GFR ( Amer) (> 60) Est GFR (Non-Af Amer) (> 60) BUN/Creatinine Ratio (6-26) Glucose (70-99) mg/dL Calculated Osmolality (280-300) Calcium (8.6-10.8) mg/dL Total Bilirubin (0.2-1.2) mg/dL Direct Bilirubin (0.0-0.5) mg/dL Indirect Bilirubin (0.0-1.2) mg/dL AST (5-34) Units/L ALT (0-55) Units/L Alkaline Phosphatase (38-126) Units/L Ammonia (18-72) mcmol/L Troponin I (0-0.03) ng/mL B-Natriuretic Peptide (0-100) pg/mL Serum Total Protein (6.0-8.3) g/dL Albumin (3.5-5.0) g/dL Globulin (2.4-3.5) g/dL Albumin/Globulin Ratio (1.1-2.2) TSH (0.350-4.840) mcIU/mL Urine Color Dark Yellow (Yellow) Urine Clarity Slightly Hazy (Clear) Urine pH 5.5 (5.0-8.0) pH Units Ur Specific [place] 1.025 (1.010-1.025) Urine Protein Negative (Neg-Trace) mg/dL Urine Glucose (UA) Normal (Normal) mg/dL Urine Ketones Trace H (Negative) mg/dL Urine Blood Negative (Negative) Urine Nitrite Negative (Negative) Urine Bilirubin Small H (Negative) Urine Urobilinogen Normal (Normal) mg/dL Ur Leukocyte Esterase Trace H (Negative) Urine Microscopic RBC 0-3 (0-3) per hpf Urine Microscopic WBC 0-3 (0-3) per hpf Ur Squamous Epith Cells Many H (None-Few) per lpf Urine Bacteria None Seen (None-Few) per hpf Hyaline Casts Few (None-Few) per lpf Urine Opiates Screen Negative (Nwqovt=633) ng/mL Ur Barbiturates Screen Negative (Zmnfxz=523) ng/mL Ur Phencyclidine Scrn Negative (Cutoff=25) ng/mL Ur Amphetamines Screen Negative (Cccoyw=1951) ng/mL U Benzodiazepines Scrn Positive H (Xueydm=973) ng/mL Urine Cocaine Screen Negative (Cutoff= 300) ng/mL U Marijuana (THC) Screen Negative (Cutoff = 50) ng/mL Ethyl Alcohol (0-10) mg/dL 11/23/16 11/23/16 11/23/16 Range/Units 16:58 16:58 16:58 WBC (4.3-11.1) K/mcL RBC (3.82-4.97) M/mcL Hgb (11.5-15.4) g/dL Hct (35.3-44.9) % MCV (83.0-100.0) fL MCH (28.0-33.3) pg MCHC (31.6-35.5) g/dL RDW (11.5-14.5) % Plt Count (140-400) K/mcL MPV (9.4-12.4) fL Immature Gran % (0-4) % Seg Neutrophils % % Lymphocytes % % Monocytes % % Eosinophils % % Basophils % % Neutrophils # (1.6-8.9) K/mcL Lymphocytes # (0.6-4.6) K/mcL Monocytes # (0.0-1.3) K/mcL Eosinophils # (0.0-0.6) K/mcL Basophils # (0.0-0.2) K/mcL Platelet Estimate (Normal) Immature Plt Fraction (1.1-6.1) % Anisocytosis (Not Present) PT 18.8 H (9.4-12.1) Seconds INR 1.7 Sodium 139 (136-145) mEq/L Potassium 3.8 (3.5-4.5) mEq/L Chloride 107 (98-109) mEq/L Carbon Dioxide 23 (19-29) mEq/L BUN 41 H (7-20) mg/dL Creatinine 1.07 (0.57-1.11) mg/dL Est GFR ( Amer) > 60 (> 60) Est GFR (Non-Af Amer) 51 L (> 60) BUN/Creatinine Ratio 38 H (6-26) Glucose 96 (70-99) mg/dL Calculated Osmolality 298 (280-300) Calcium 8.9 (8.6-10.8) mg/dL Total Bilirubin (0.2-1.2) mg/dL Direct Bilirubin (0.0-0.5) mg/dL Indirect Bilirubin (0.0-1.2) mg/dL AST (5-34) Units/L ALT (0-55) Units/L Alkaline Phosphatase (38-126) Units/L Ammonia (18-72) mcmol/L Troponin I 0.06 H* (0-0.03) ng/mL B-Natriuretic Peptide (0-100) pg/mL Serum Total Protein (6.0-8.3) g/dL Albumin (3.5-5.0) g/dL Globulin (2.4-3.5) g/dL Albumin/Globulin Ratio (1.1-2.2) TSH (0.350-4.840) mcIU/mL Urine Color (Yellow) Urine Clarity (Clear) Urine pH (5.0-8.0) pH Units Ur Specific [place] (1.010-1.025) Urine Protein (Neg-Trace) mg/dL Urine Glucose (UA) (Normal) mg/dL Urine Ketones (Negative) mg/dL Urine Blood (Negative) Urine Nitrite (Negative) Urine Bilirubin (Negative) Urine Urobilinogen (Normal) mg/dL Ur Leukocyte Esterase (Negative) Urine Microscopic RBC (0-3) per hpf Urine Microscopic WBC (0-3) per hpf Ur Squamous Epith Cells (None-Few) per lpf Urine Bacteria (None-Few) per hpf Hyaline Casts (None-Few) per lpf Urine Opiates Screen (Qlwimc=423) ng/mL Ur Barbiturates Screen (Jspote=162) ng/mL Ur Phencyclidine Scrn (Cutoff=25) ng/mL Ur Amphetamines Screen (Ysoqrv=7871) ng/mL U Benzodiazepines Scrn (Jldogb=764) ng/mL Urine Cocaine Screen (Cutoff= 300) ng/mL U Marijuana (THC) Screen (Cutoff = 50) ng/mL Ethyl Alcohol < 10 (0-10) mg/dL 11/23/16 11/23/16 11/23/16 Range/Units 16:58 16:58 16:58 WBC (4.3-11.1) K/mcL RBC (3.82-4.97) M/mcL Hgb (11.5-15.4) g/dL Hct (35.3-44.9) % MCV (83.0-100.0) fL MCH (28.0-33.3) pg MCHC (31.6-35.5) g/dL RDW (11.5-14.5) % Plt Count (140-400) K/mcL MPV (9.4-12.4) fL Immature Gran % (0-4) % Seg Neutrophils % % Lymphocytes % % Monocytes % % Eosinophils % % Basophils % % Neutrophils # (1.6-8.9) K/mcL Lymphocytes # (0.6-4.6) K/mcL Monocytes # (0.0-1.3) K/mcL Eosinophils # (0.0-0.6) K/mcL Basophils # (0.0-0.2) K/mcL Platelet Estimate (Normal) Immature Plt Fraction (1.1-6.1) % Anisocytosis (Not Present) PT (9.4-12.1) Seconds INR Sodium (136-145) mEq/L Potassium (3.5-4.5) mEq/L Chloride (98-109) mEq/L Carbon Dioxide (19-29) mEq/L BUN (7-20) mg/dL Creatinine (0.57-1.11) mg/dL Est GFR ( Amer) (> 60) Est GFR (Non-Af Amer) (> 60) BUN/Creatinine Ratio (6-26) Glucose (70-99) mg/dL Calculated Osmolality (280-300) Calcium (8.6-10.8) mg/dL Total Bilirubin 1.1 (0.2-1.2) mg/dL Direct Bilirubin 0.9 H (0.0-0.5) mg/dL Indirect Bilirubin 0.2 (0.0-1.2) mg/dL AST 141 H (5-34) Units/L ALT 106 H (0-55) Units/L Alkaline Phosphatase 151 H (38-126) Units/L Ammonia 38 (18-72) mcmol/L Troponin I (0-0.03) ng/mL B-Natriuretic Peptide 1290 H (0-100) pg/mL Serum Total Protein 5.7 L (6.0-8.3) g/dL Albumin 2.2 L (3.5-5.0) g/dL Globulin 3.5 (2.4-3.5) g/dL Albumin/Globulin Ratio 0.6 L (1.1-2.2) TSH 6.128 H (0.350-4.840) mcIU/mL Urine Color (Yellow) Urine Clarity (Clear) Urine pH (5.0-8.0) pH Units Ur Specific [place] (1.010-1.025) Urine Protein (Neg-Trace) mg/dL Urine Glucose (UA) (Normal) mg/dL Urine Ketones (Negative) mg/dL Urine Blood (Negative) Urine Nitrite (Negative) Urine Bilirubin (Negative) Urine Urobilinogen (Normal) mg/dL Ur Leukocyte Esterase (Negative) Urine Microscopic RBC (0-3) per hpf Urine Microscopic WBC (0-3) per hpf Ur Squamous Epith Cells (None-Few) per lpf Urine Bacteria (None-Few) per hpf Hyaline Casts (None-Few) per lpf Urine Opiates Screen (Pubtzr=773) ng/mL Ur Barbiturates Screen (Auazox=954) ng/mL Ur Phencyclidine Scrn (Cutoff=25) ng/mL Ur Amphetamines Screen (Vsbdea=2152) ng/mL U Benzodiazepines Scrn (Ydxuid=087) ng/mL Urine Cocaine Screen (Cutoff= 300) ng/mL U Marijuana (THC) Screen (Cutoff = 50) ng/mL Ethyl Alcohol (0-10) mg/dL - Radiology Data Radiology results reviewed: Yes I reviewed the patient's radiology results. Cervical Spine CT 11/23/16 16:21 IMPRESSION: No acute abnormality of the cervical spine. Bilateral upper lobe pulmonary infiltrates. D/ / Jesus Chapa MD / Jesus Chapa MD Interpreting Provider: Jesus Chapa MD Head CT 11/23/16 16:21 IMPRESSION: No acute intracranial abnormality. D/ / Ike Jasmine MD / Ike Jasmine MD Interpreting Provider: Ike Jasmine MD Abdomen/Pelvis CT 11/23/16 16:25 IMPRESSION: 1. Patchy diffuse ground-glass opacification throughout the lungs with small bilateral effusions. The findings are nonspecific but suggest possible pulmonary edema and CHF. An infectious process is not excluded. 2. Fracture of the right coracoid process. No other acute osseous findings. 3. Visceral evaluation is limited by the lack of intravenous contrast. No evidence of traumatic abdominal or pelvic visceral injury. 4. Small amount of free pelvic fluid. No significant retroperitoneal or pelvic hematoma. 5. Atherosclerotic changes involving the abdominal aorta. Compromise of the aortic lumen just above the renal arteries, possibly representing an occluded aorta at this level. 6. Mild edema within the subcutaneous soft tissues. Some focal fluid in the subcutaneous soft tissues overlying the left lateral hip. No soft tissue hematoma. D/ / 11/23/2016 18:27:01 Kevin Kessler MD / jude Interpreting Provider: Kevin Kessler MD Chest CT 11/23/16 16:25 IMPRESSION: 1. Patchy diffuse ground-glass opacification throughout the lungs with small bilateral effusions. The findings are nonspecific but suggest possible pulmonary edema and CHF. An infectious process is not excluded. 2. Fracture of the right coracoid process. No other acute osseous findings. 3. Visceral evaluation is limited by the lack of intravenous contrast. No evidence of traumatic abdominal or pelvic visceral injury. 4. Small amount of free pelvic fluid. No significant retroperitoneal or pelvic hematoma. 5. Atherosclerotic changes involving the abdominal aorta. Compromise of the aortic lumen just above the renal arteries, possibly representing an occluded aorta at this level. 6. Mild edema within the subcutaneous soft tissues. Some focal fluid in the subcutaneous soft tissues overlying the left lateral hip. No soft tissue hematoma. D/ / 11/23/2016 18:27:01 [facility] Provider: Kevin Kessler MD - EKG Data EKG attestation: Yes I reviewed and interpreted this EKG. EKG results narrative: EKG demonstrates sinus rhythm with a rate of 80 bpm. Normal axis. Normal intervals. No ST elevations or depressions. No acute ischemic findings. S.B.A.Herson. - Samantha.Xi.Jenn Situation: Demographics, MOA Background: Presenting Complaint, Relevant PMH, Meds, & Allergies Assessment: Vital Signs, Course and respsone to treatment, Exam Concerns, Patient/Family Expectation, Pertinant Lab Results, Outstanding Labs Recommendation: Barrier(s) to disposition, Recommendation based on pending studies, treatments, or consults S.B.A.RDale Report Given to: Dr. Rishi Robin [facility] Time: 19:53 Attestation Statement - Attestation Attestation: I, Kt Matamoros, examined this patient and my medical decision-making was reviewed with the PILATES COORDINATOR/PA/Advanced Practice Nurse/Resident Physician. I agree with the documented findings, disposition and treatment plan as described except to the extent set forth below. 71-year-old female presents with concerns of weakness and altered mental status. Patient states she has had slurred speech and weakness of the left lower extremity over the past 3 days. states that he encouraged her to come in multiple times of this test 3 days however the patient refused. Today the patient is malt more altered and weak then her usual baseline and the was able to convince her to come in. She reports similar symptoms with a TIA in the past. No recent trauma. Patient denies chest pain, nausea, vomiting, fever, chills, abdominal pain. On physical exam the patient has slurred speech and difficulty with word finding. She is able to move both upper extremities however her left lower extremity is more weak than the right lower extremity. Patient has bruising to the anterior abdomen secondary to a fall due to her instability with ambulation. Patient denies abuse and feel safe at home. No history of liver disease. Patient CT of the head does not show acute intracranial hemorrhage or fracture. CT of the chest abdomen pelvis revealed vascular congestion of the bilateral lungs likely secondary to HF versus fibrosis versus possible infection. Patient is afebrile. She has an elevated BNP. CT of the abdomen did not reveal acute intra-abdominal bleeding however she does have a possible occlusion of her aorta. Patient has no back pain or increased pain in her lower extremities and this is likely a chronic finding. This will be further evaluated while in the hospital. Patient was counseled regarding her CT results and will be admitted to the hospital for further care and evaluation.
[2016-11-23] MEDS ORDERED: 0.9 % Sodium Chloride 1,000 ML IVC ONE (16:38)
[2016-11-23 17:00] LABS: Bilirubin,Urine Small (Negative); Blood,Urine Negative (Negative); Color,Urine Dark Yellow (Yellow); Glucose,Urine (UA) Normal (Normal); Ketones,Urine Trace mg/dL (Negative); Leukocyte Esterase,Urine Trace (Negative); Nitrite,Urine Negative (Negative); PH,Urine 5.5 pH Units (5.0-8.0); Protein,Urine Negative (Neg-Trace); Specific Gravity,Urine 1.025 (1.010-1.025); Urobilinogen,Urine Normal (Normal)
[2016-11-23 17:03] LABS: Bacteria,Urine None Seen per hpf (None-Few); Hyaline Casts,Urine Few per lpf (None-Few); RBC,Urine 0-3 per hpf (0-3); Squamous Epithelial Cell,Urine Many per lpf (None-Few); WBC,Urine 0-3 per hpf (0-3)
[2016-11-23 17:04] LABS: Clarity,Urine Slightly Hazy (Clear)
[2016-11-23 17:05] LABS: Basophils # 0.1 K/mcL (0.0-0.2); Basophils % 0.5 %; Eosinophils # 0.8 K/mcL (0.0-0.6); Eosinophils % 6.4 %; Hematocrit 29.4 % (35.3-44.9); Hemoglobin 10.1 g/dL (11.5-15.4); Immature Granulocytes % 2.2 % (0-4); Immature Platelets 2.6 % (1.1-6.1); Lymphocytes # 1.6 K/mcL (0.6-4.6); Lymphocytes % 13.2 %; Mean Corpuscular HGB Conc 34.4 g/dL (31.6-35.5); Mean Corpuscular Hemoglobin 29.1 pg (28.0-33.3); Mean Corpuscular Volume 84.7 fL (83.0-100.0); Mean Platelet Volume 10.4 fL (9.4-12.4); Monocytes # 0.8 K/mcL (0.0-1.3); Neutrophils # 8.4 K/mcL (1.6-8.9); Platelet Count 285 K/mcL (140-400); Red Blood Count 3.47 M/mcL (3.82-4.97); Segmented Neutrophils % 70.7 %
[2016-11-23 17:07] LABS: Amphetamine Screen,Urine Negative ng/mL (Cutoff=1000); Barbiturate Screen,Urine Negative ng/mL (Cutoff=200); Benzodiazepines Screen,Urine Positive ng/mL (Cutoff=200); Cannabinoid Screen,Urine Negative ng/mL (Cutoff = 50); Cocaine Screen,Urine Negative ng/mL (Cutoff= 300); Opiate Screen,Urine Negative ng/mL (Cutoff=300); Phencyclidine Screen,Urine Negative ng/mL (Cutoff=25)
[2016-11-23 17:17] LABS: INR 1.7; Prothrombin Time 18.8 Seconds (9.4-12.1)
[2016-11-23 17:27] LABS: Anisocytosis 1+ (Not Present); BUN/Creatinine Ratio 38 (6-26); Blood Urea Nitrogen 41 mg/dL (7-20); Calcium 8.9 mg/dL (8.6-10.8); Carbon Dioxide 23 mEq/L (19-29); Chloride 107 mEq/L (98-109); Glucose 96 mg/dL (70-99); Osmolality,Calculated 298 (280-300); Platelet Estimate Normal (Normal); Potassium 3.8 mEq/L (3.5-4.5); Sodium 139 mEq/L (136-145); eGFR For African Americans > 60 (> 60); eGFR For Non-African Americans 51 (> 60)
[2016-11-23 17:28] LABS: Albumin 2.2 g/dL (3.5-5.0); Albumin/Globulin Ratio 0.6 (1.1-2.2); Bilirubin,Direct 0.9 mg/dL (0.0-0.5); Bilirubin,Indirect 0.2 mg/dL (0.0-1.2); Bilirubin,Total 1.1 mg/dL (0.2-1.2); Ethanol < 10 mg/dL (0-10); Globulin 3.5 g/dL (2.4-3.5); Total Protein 5.7 g/dL (6.0-8.3)
[2016-11-23 17:49] LABS: Thyroid Stimulating Hormone 6.128 mcIU/mL (0.350-4.840)
[2016-11-23] MEDS ORDERED: Aspirin 81 MG TAB.CHEW PO STA (18:59)
[2016-11-23] MEDS ORDERED: Furosemide 40 MG/4 ML VIAL IVP ONE (19:00)
[2016-11-23] MEDS ORDERED: Acetaminophen 325 MG TABLET PO PRN (20:38)
[2016-11-23] MEDS ORDERED: Naloxone 0.4 MG/ML INJ IVP PRN (20:38)
--- NOTE | 2016-11-23 22:51 | Internal Med History&Physical ---
Date of Encounter: 11/23/16 Time of Encounter: 22:30 Assessment and Plan (1) Cerebrovascular accident Current visit: Yes Status: Suspected Patient has facial deviation, slurring of the speech and weakness on left side. On exam, her face deviates to the right and there is weakness in the left leg. Patient will be admitted to inpatient status. Expected to be in the hospital for at least 2 nights. High risk due to risk of worsening neurological decline. She needs further workup for her stroke. Will obtain MRI and MRA. Expected discharge disposition is to rehabilitation. Qualifiers: CVA mechanism: unspecified Qualified Code(s): I63.9 - Cerebral infarction, unspecified (2) CHF (congestive heart failure) Current visit: Yes Status: Acute Patient comes in with leg swelling history. On exam, patient has bilateral pedal edema and bilateral basal crepitations. Patient received Lasix in the emergency department. We will continue the patient on Lasix. Repeat limited echocardiogram. Cohen catheter. Strict input and output monitoring. Qualifiers: Congestive heart failure type: unspecified congestive heart failure type Congestive heart failure chronicity: acute Qualified Code(s): I50.9 - Heart failure, unspecified (3) Esophageal candidiasis Current visit: Yes Status: Chronic Patient was receiving nystatin swish and swallow. Patient will be placed on intravenous Diflucan. She will require a three-week course of the same. Once the patient passes swallow evaluation, Diflucan can be switched to by mouth status. (4) Celiac artery stenosis Current visit: No Status: Chronic Outpatient follow-up with vascular surgery (5) Hypertension Current visit: Yes Status: Chronic Stable. Permissive hypertension for now. Qualifiers: Hypertension type: essential hypertension Qualified Code(s): I10 - Essential (primary) hypertension (6) Hypothyroidism Current visit: Yes Status: Acute Elevated TSH at 6.128 likely due to noncompliance due to dysphagia. Patient be placed on intravenous Synthroid. Qualifiers: Hypothyroidism type: unspecified Qualified Code(s): E03.9 - Hypothyroidism , unspecified Internal Medicine - H&P: HPI Chief complaint: Altered mental status and left-sided weakness Admitted From: Emergency Dept Plans for Post Hospital Care: Transfer Inp Rehab Fac History of present illness: Ms. Tucker is a 71 year old female who was brought to the emergency department by her due to chief complaint of altered mental status and left sided weakness. History obtained by review of medical records, from her and from the emergency room physician. Apparently, the patient has been having change in her speech over the past 3 days. The patient has also been falling to the left side multiple times despite using her walker. Apparently, the patient's found her on the floor whenever he came home. The patient was admitted diagnosed with TIA in July 2016. The patient was taken to her primary care physician and they were directed to present to the emergency department due to her symptoms. The patient currently denies any chest pain, palpitations, shortness of breath, cough or wheezing. She denies any lightheadedness. She denies any nausea or vomiting. Denies any fever or chills. She does report swelling in her legs. The states that they followed up with vascular surgery after being discharged in July 2016 after being diagnosed with a TIA. The patient underwent a CT angiogram of the neck which did not reveal any flow limiting stenosis. The also states that the patient has been on nystatin swish and swallow for her candidal esophagitis. He reports that she has had poor by mouth intake. Past Med Surg Social Fam HX - Past Medical History Source: old records reviewed Medical history: arthritis, COPD, coronary artery disease, diabetes, hyperlipidemia, hypertension, renal disease, thyroid disease, other Psychiatric history: anxiety, depression - Past Surgical History Surgical History: cholecystectomy, colectomy, herniorrhaphy, hysterectomy, orthopedic, other, other - Social History Smoking Status: Never smoker Smokeless Tobacco Status: No Alcohol use: none Drug use: none Current living situation: Home, With Family - Family History Mother Adopted: No Family Member Ethnicity: Non- Living Status: Hx Family Cardiac Disorders: Yes Hx Family Cancer: Yes Father Adopted: No Living Status: Hx Family Cardiac Disorders: Yes Hx Family Cancer: Yes Internal Medicine - H&P: Meds ALPRAZolam [Xanax 1 MG Tablet] 1 mg PO BID PRN 10/15/15 [History] Albuterol Sulfate [Albuterol Inhaler] 2 puff IH Q4-6H PRN 10/15/15 [History] Allopurinol [Zyloprim 100 MG] 100 mg PO DAILY 10/15/15 [History] Fenofibrate Nanocrystallized [Tricor] 145 mg PO QPM 10/15/15 [History] Fluticasone/Salmeterol [Advair 500-50 Diskus] 1 inh PO BID 10/15/15 [History] Gabapentin [Neurontin] 800 mg PO TID 10/15/15 [History] Isosorbide MONOnitrate (24 HR) [Imdur] 60 mg PO DAILY 10/15/15 [History] Levothyroxine [Synthroid] 112 mcg PO DAILY 10/15/15 [History] Ropinirole HCl [Requip] 0.5 - 1 mg PO HS 10/15/15 [History] Sertraline [Zoloft] 100 mg PO BID 10/15/15 [History] Tiotropium [Spiriva] 18 mcg IH DAILY 10/15/15 [History] Diltiazem HCl [Diltiazem ER] 120 mg PO DAILY 03/29/16 [History] Ipratropium/Albuterol Neb [Duoneb] 3 ml IH QID 03/29/16 [History] Gemfibrozil [Lopid] 600 mg PO BIDWM 05/28/16 [History] OxyCODONE/APAP 5/325 [Percocet 5/325 MG] 1 each PO BID PRN 05/28/16 [History] Aspirin Enteric Coated [Aspirin EC] 81 mg PO DAILY 11/23/16 [History] Ferrous Sulfate 325 mg PO DAILY 11/23/16 [History] Fish Oil/Dha/Epa [Fish Oil 1,200 mg Fish Oil] 1 each PO TID 11/23/16 [History] Magnesium Oxide [Mag-Ox] 400 mg PO DAILY 11/23/16 [History] Nystatin [Nystatin Suspension] 400,000 units PO QID 11/23/16 [History] Omeprazole [PriLOSEC] 40 mg PO DAILY 11/23/16 [History] Sucralfate [Carafate] 1 gm PO BID 11/23/16 [History] Allergies codeine Allergy (Verified 11/23/16 15:59) Confusion Iodinated Contrast- Oral and IV Dye [Iodinated Contrast Media - Oral and] Adverse Reaction (Verified 11/23/16 15:59) See Comments patient states kidney problems. meclizine Adverse Reaction (Verified 11/23/16 15:59) Confusion All Systems PM: A 10-system review of systems was performed and is negative for pertinent findings except as documented above in the HPI. Review of systems: 10 systems have been reviewed and are negative except as mentioned in the history of present illness - Constitutional Vitals: Temp Pulse Resp BP Pulse Ox 97.8 F 75 18 107/68 97 11/23/16 20:43 11/23/16 20:43 11/23/16 20:43 11/23/16 20:43 11/23/16 21:42 Exam: Gen.: Lying in bed. No acute distress. Eyes: Pupils equal, round and reactive to light. Extraocular muscles intact. ENT: Moist mucous membranes. No oropharyngeal erythema or discharge. Chest: Bilateral basal crepitations present. CVS: First and second heart sounds present. No murmurs, rubs or gallops. Abdomen: Soft, nontender, nondistended. Bowel sounds present. No hepatosplenomegaly. Skin: No decubitus ulcers appreciated. [employer]: Facial deviation to the right. Slurred speech. Power 5/5 bilateral upper extremities. 4/5 right lower extremity. 3/5 in the left lower extremity. Reduced sensation in the left lower extremity. Psychiatric: Lethargic. Not oriented to time, place or person. Lymphatic system: No lymphadenopathy appreciated Internal Med - H&P Results - Labs CBC & Chem 7: 11/23/16 16:58 11/23/16 16:58 - EKG Data -: EKG Interpreted by Myself EKG shows normal: sinus rhythm, ST-T waves (Nonspecific ST-T changes) Rate: normal - Impressions Patient had an echocardiogram July 2016-ejection fraction of 55% with normal left and regular size and systolic function. Evidence of mild diastolic dysfunction of the left ventricle. Normal right ventricle size and function. Mild to moderate mitral regurgitation. No PFO with saline contrast. No pulmonary hypertension. Carotid duplex in July 2016-bilateral mid internal carotid and distal internal carotid artery has a severe 60-79% stenosis Neck CT angiogram in August 2016 did not reveal any significant flow-limiting stenosis. Endoscopy in August 2016 revealed candidal esophagitis for which the patient was discharged on nystatin swish and swallow 4 times a day - Diagnostic Studies CT scan - chest Status: image reviewed by me (Patchy diffuse groundglass opacification throughout the lungs with small bilateral pleural effusions. Atherosclerotic changes involving the ureter.)
[2016-11-23] MEDS ORDERED: Ipratropium/Albuterol Neb 3 ML IH PRN (23:02)
[2016-11-24 01:35] LABS: Basophils # 0.1 K/mcL (0.0-0.2); Basophils % 0.7 %; Eosinophils # 0.9 K/mcL (0.0-0.6); Eosinophils % 7.1 %; Hematocrit 28.9 % (35.3-44.9); Hemoglobin 9.7 g/dL (11.5-15.4); Immature Granulocytes % 1.8 % (0-4); Lymphocytes # 1.6 K/mcL (0.6-4.6); Lymphocytes % 12.8 %; Mean Corpuscular HGB Conc 33.6 g/dL (31.6-35.5); Mean Corpuscular Hemoglobin 28.7 pg (28.0-33.3); Mean Corpuscular Volume 85.5 fL (83.0-100.0); Mean Platelet Volume 11.1 fL (9.4-12.4); Monocytes # 0.9 K/mcL (0.0-1.3); Monocytes % 7.4 %; Neutrophils # 8.6 K/mcL (1.6-8.9); Platelet Count 264 K/mcL (140-400); Red Blood Count 3.38 M/mcL (3.82-4.97); Red Cell Distribution Width 17.1 % (11.5-14.5); Segmented Neutrophils % 70.2 %
[2016-11-24 01:50] LABS: Alanine Aminotransferase 93 Units/L (0-55); Albumin 2.2 g/dL (3.5-5.0); Albumin/Globulin Ratio 0.7 (1.1-2.2); Alkaline Phosphatase 141 Units/L (38-126); Aspartate Amino Transferase 128 Units/L (5-34); BUN/Creatinine Ratio 39 (6-26); Bilirubin,Total 0.9 mg/dL (0.2-1.2); Blood Urea Nitrogen 41 mg/dL (7-20); Calcium 8.6 mg/dL (8.6-10.8); Carbon Dioxide 24 mEq/L (19-29); Chloride 109 mEq/L (98-109); Globulin 3.3 g/dL (2.4-3.5); Glucose 81 mg/dL (70-99); Osmolality,Calculated 297 (280-300); Sodium 139 mEq/L (136-145); Total Protein 5.5 g/dL (6.0-8.3); eGFR For African Americans > 60 (> 60); eGFR For Non-African Americans 51 (> 60)
[2016-11-24] MEDS: Levothyroxine Sodium 100 MCG VIAL IVP SCH (05:19)
[2016-11-24] MEDS ORDERED: Fluconazole 200 MG/100 ML 200 MG/100 ML BAG IVPB SCH ×2 (09:00→12:30)
[2016-11-24] MEDS: Pantoprazole 40 MG in 0.9 % Sodium Chloride 50 ML IVPB SCH (10:59)
[2016-11-24] MEDS: Furosemide 40 MG/4 ML VIAL IVP SCH ×2 (10:59→18:10)
[2016-11-24] MEDS ORDERED: Furosemide 20 MG/2 ML VIAL IVP ONE (14:17)
--- NOTE | 2016-11-24 14:25 | Electrocardiograph Report ---
[place] [id number] Test Date: 2016-11-23 Pat Name: Channing Tucker Department: 105 Room: 3B43 Gender: F Scorekeeper: : 1945 Requested By: Briana Chavez Order Number: [id number] Reading MD: Maico cK MD Measurements Intervals [place] Rate: 80 P: 51 CT: 147 QRS: 51 QRSD: 82 T: 9 QT: 392 QTc: 428 Interpretive Statements SINUS RHYTHM LEFT ATRIAL ENLARGEMENT Electronically Signed On 11-24-2016 14:23:03 EDT by Maico Kc MD
[2016-11-24 15:41] LABS: ABG Base Excess -1.3 mEq/L (-2.0 to 3.0); ABG HCO3 23.7 mEQ/L (21-27); ABG Oxygen Saturation 93 % (95-98); ABG PCO2 40 mmHg (35-45); ABG PH 7.38 pH Units (7.32-7.45); ABG PO2 70 mmHg (85-104); ABG TCO2 24.9 mEq/L (20-26); Blood Gas FiO2 40 %
[2016-11-24] MEDS ORDERED: Ipratropium/Albuterol Neb 3 ML IH ONE (16:14)
[2016-11-24] MEDS ORDERED: Ipratropium/Albuterol Neb 3 ML ONE (16:15)
--- NOTE | 2016-11-24 17:14 | Internal Med Progress Note ---
Date of Encounter: 11/24/16 Time of Encounter: 10:40 - Assessment and plan (1) Cerebrovascular accident Current Visit: Yes Status: Suspected Assessment and plan: Patient has been admitted for CVA. She has been seen by neurology today. Patient was at home for the last 3 days was falling frequently, leaning to the left, and was having slurred speech. On my initial assessment this morning. Patient had obvious left facial droop however when she smiled, frowned, or raise her eyebrows her facial movements were symmetrical. She has obvious slurring of the speech and during my initial assessment she appeared to have no weakness on the left side, other than she could not lift her left leg from the bed. Her foot press/pull and hand grasps were strong and equal bilaterally both upper and lower extremities. We are still waiting on MRI and MRA. We just called the department and patient will be transported downstairs soon. Head CT showed no acute abnormality. Patient had echocardiogram today that showed decreased LVEF of 40%, mildly dilated left ventricle. Left ventricular function has decreased from prior study 4 months ago. Prior echocardiogram from July 28 of this year showed LVEF of 55% with normal systolic function, mild diastolic dysfunction, mild to moderate mitral regurgitation mild tricuspid regurgitation and no pulmonary hypertension. We will wait for MRI and MRA results. Neurology is on board. Qualifiers: CVA mechanism: unspecified Qualified Code(s): I63.9 - Cerebral infarction, unspecified (2) CHF (congestive heart failure) Current Visit: Yes Status: Chronic Assessment and plan: Patient has decreased LV function, 55% in July, 40% now. Limited echo with saline done today. BNP is elevated at 1290. She also has elevated troponin most likely due to demand from CHF. Patient appeared to be an respiratory distress this afternoon. Chest CT showed cardiomegaly and mild pulmonary edema including trace bilateral pleural effusions. At that time she did have rails and audible wheezing. She was on supplemental oxygen. Continue IV Lasix Strict intake and output Cohen catheter Cardiology consult in the morning. Qualifiers: Congestive heart failure type: diastolic Congestive heart failure chronicity: acute Qualified Code(s): I50.31 - Acute diastolic (congestive) heart failure (3) Hypertension Current Visit: Yes Status: Chronic Assessment and plan: Chronic. Continue to monitor. Continue home medications. Qualifiers: Hypertension type: essential hypertension Qualified Code(s): I10 - Essential (primary) hypertension (4) Celiac artery stenosis Current Visit: No Status: Chronic Assessment and plan: Patient will need to follow-up with vascular surgery after discharge. (5) Dysphagia Current Visit: No Status: Acute Assessment and plan: Patient is to have mechanically altered diet with thin liquids. Patient is to have her medications in applesauce, she has not have a straw. Patient is going to have physical therapy and occupational therapy. We will continue to monitor. Qualifiers: Dysphagia type: oropharyngeal phase Qualified Code(s): R13.12 - Dysphagia, oropharyngeal phase (6) Esophageal candidiasis Current Visit: Yes Status: Chronic Assessment and plan: Patient is getting IV Diflucan. She will require a 3 week course, she will switched over to by mouth tomorrow morning. (7) Hypothyroidism Current Visit: Yes Status: Chronic Assessment and plan: Chronic. Continue home medications. Qualifiers: Hypothyroidism type: unspecified Qualified Code(s): E03.9 - Hypothyroidism , unspecified - Time Spent With Patient less than 15 minutes - Subjective Interval history: Patient was seen and assessed this morning at about 10:40 AM. At the time I saw her she had left face droop, slurred speech. Her grasps and foot press/ pull was strong bilaterally upper and lower extremities. She reported a frontal headache. Her speech was slurred. She was alert and oriented, facial movements were symmetrical. She was able to follow commands. There is no nystagmus, PERRLA. As called to the patient's bedside by nursing home social worker earlier this afternoon. Patient appeared to be in mild respiratory distress and was requiring some oxygen. She did have rails and audible wheezing. I ordered a chest x-ray, 20 mg of Lasix IV, and a blood gas. Patient did appear to be slower to respond than she had been in the morning. She does answer questions appropriately. Vital signs were within normal limits, O2 sat was 96% on oxygen. The chest x- ray showed cardiomegaly and findings consistent with mild pulmonary edema including trace bilateral pleural effusions. Findings may reflect congestive heart failure ABG within normal limits other than PO2 and O2 sat are only slightly decreased. Patient is wearing supplemental oxygen. We will have to continue to monitor her condition. - Constitutional Vitals: Temp Pulse Resp BP Pulse Ox 98.0 F 84 16 134/76 95 11/24/16 16:10 11/24/16 16:10 11/24/16 16:10 11/24/16 16:10 11/24/16 16:10 General appearance: Present: cooperative, A&O X 3, answers questions appropriately - Head Head exam: Present: normal inspection - Eye Eye exam: Present: normal appearance, PERRL, conjuntiva pink. Absent: nystagmus - ENT ENT exam: Present: mucous membranes moist, normal exam - Neck Neck exam general surgery: Present: normal inspection. Absent: lymphadenopathy , tenderness - Respiratory Respiratory exam: Present: accessory muscle use, rales, respiratory distress, wheezes, tachypnea. Absent: CTAB, stridor - Cardiovascular Cardiovascular exam: Present: RRR, +S1, +S2. Absent: clicks, diastolic murmur, gallop, systolic murmur - GI/Abdominal GI/Abdominal exam: Present: soft. Absent: distended, hepatomegaly, mass, tenderness - Extremities Exam Extremities exam: Present: normal capillary refill, warm, radial pulses palpable and symetrical. Absent: pedal edema, tenderness - Neurological Exam Neurological exam: Present: alert, CN II-XII intact, motor sensory deficit, oriented X3, strengths equal and symetr throughout, facial droop, speech deficit. Absent: pronater drift Internal Medicine: Result - Labs CBC & Chem 7: 11/24/16 00:43 11/24/16 00:43 Labs: Short CBC 11/24/16 Range/Units 00:43 WBC 12.2 H (4.3-11.1) K/mcL Hgb 9.7 L (11.5-15.4) g/dL Hct 28.9 L (35.3-44.9) % Plt Count 264 (140-400) K/mcL Neutrophils # 8.6 (1.6-8.9) K/mcL BMP 11/24/16 00:43 Sodium 139 Potassium 4.0 Chloride 109 Carbon Dioxide 24 BUN 41 H Creatinine 1.06 Glucose 81 Calcium 8.6 Cardiac Enzymes 11/24/16 11/24/16 Range/Units 00:43 05:48 Troponin I 0.07 H* 0.07 H* (0-0.03) ng/mL Liver Function 11/24/16 Range/Units 00:43 Total Bilirubin 0.9 (0.2-1.2) mg/dL AST 128 H (5-34) Units/L ALT 93 H (0-55) Units/L Alkaline Phosphatase 141 H (38-126) Units/L Albumin 2.2 L (3.5-5.0) g/dL - ABG Interpretation ABG results: ABG ABG pH 7.38 pH Units (7.32-7.45) 11/24/16 15:33 ABG pCO2 40 mmHg (35-45) 11/24/16 15:33 ABG pO2 70 mmHg (85-104) L 11/24/16 15:33 ABG O2 Saturation 93 % (95-98) L 11/24/16 15:33 PT/INR, D-dimer PT 18.8 Seconds (9.4-12.1) H 11/23/16 16:58 - Impressions Impressions Chest X-Ray 11/24/16 14:15 IMPRESSION: Cardiomegaly and findings consistent with mild pulmonary edema, including trace bilateral pleural effusions. Findings may reflect congestive heart failure. D/ / 11/24/2016 15:06:16 Nicolle Camilo MD / earnold Interpreting Provider: Nicolle Camilo MD Consult Discharge Plan - Plan Referrals: Orestes Grace MD [Primary Care Provider] - 12/02/16 2:15 pm
--- NOTE | 2016-11-24 17:48 | Neurology - Consult Note ---
Date of Encounter: 11/24/16 Time of Encounter: 17:48 Assessment and Plan (1) Weakness Current Visit: Yes Status: Acute The differential diagnosis for this case is broad. It seems as though his symptom onset fairly acutely. Given that I would like to rule out the possibility of a cerebral infarct. She also has breathing difficulty, swallowing difficulty. I will check to rule out myasthenia gravis. I do not feel that we are dealing with Guillain-Oden because she does have reflexes. She does seem to have a sensory gradient distal to proximal. She also has proximal muscle weakness. Therefore we should entertain the possibility of myopathy. Pain is conspicuously absent here. Ultimately she may benefit from an EMG as an outpatient if were not able to identify a specific etiology for this presentation during this hospitalization. History of Present Illness HPI: Ms. Tucker is a 71 year old female seen for neurologic evaluation secondary to symptoms of weakness of the upper and lower extremities along with shortness of breath, dysphagia and hypophonia. She has a multitude of different symptoms and I am not certain will fit into a unified diagnosis. She states that she is not able to raise her arms above her head. She is concerned about pain and weakness of the left leg, she is also had several recent falls. And she has weakness of the right leg primarily below the knee. She did have some intermittent motor impersistence however. Most part was able to give a lucid history. Apparently she initially had some confusion but this appears to be improving. She did have a CT scan of the head in the ED which was unrevealing. Past Med Surg Social Fam HX - Past Medical History Medical history: arthritis, COPD, coronary artery disease, diabetes, hyperlipidemia, hypertension, renal disease, thyroid disease, other Psychiatric history: anxiety, depression - Past Surgical History Surgical History: cholecystectomy, colectomy, herniorrhaphy, hysterectomy, orthopedic, other, other - Social History Smoking Status: Never smoker Smokeless Tobacco Status: No Alcohol use: none Drug use: none - Family History Mother Adopted: No Family Member Ethnicity: Non- Living Status: Hx Family Cardiac Disorders: Yes Hx Family Cancer: Yes Father Adopted: No Living Status: Hx Family Cardiac Disorders: Yes Hx Family Cancer: Yes Medications and Allergies ALPRAZolam [Xanax 1 MG Tablet] 1 mg PO BID PRN 10/15/15 [History] Albuterol Sulfate [Albuterol Inhaler] 2 puff IH Q4-6H PRN 10/15/15 [History] Allopurinol [Zyloprim 100 MG] 100 mg PO DAILY 10/15/15 [History] Fenofibrate Nanocrystallized [Tricor] 145 mg PO QPM 10/15/15 [History] Fluticasone/Salmeterol [Advair 500-50 Diskus] 1 inh PO BID 10/15/15 [History] Gabapentin [Neurontin] 800 mg PO TID 10/15/15 [History] Isosorbide MONOnitrate (24 HR) [Imdur] 60 mg PO DAILY 10/15/15 [History] Levothyroxine [Synthroid] 112 mcg PO DAILY 10/15/15 [History] Ropinirole HCl [Requip] 0.5 - 1 mg PO HS 10/15/15 [History] Sertraline [Zoloft] 100 mg PO BID 10/15/15 [History] Tiotropium [Spiriva] 18 mcg IH DAILY 10/15/15 [History] Diltiazem HCl [Diltiazem ER] 120 mg PO DAILY 03/29/16 [History] Ipratropium/Albuterol Neb [Duoneb] 3 ml IH QID 03/29/16 [History] Gemfibrozil [Lopid] 600 mg PO BIDWM 05/28/16 [History] OxyCODONE/APAP 5/325 [Percocet 5/325 MG] 1 each PO BID PRN 05/28/16 [History] Aspirin Enteric Coated [Aspirin EC] 81 mg PO DAILY 11/23/16 [History] Ferrous Sulfate 325 mg PO DAILY 11/23/16 [History] Fish Oil/Dha/Epa [Fish Oil 1,200 mg Fish Oil] 1 each PO TID 11/23/16 [History] Magnesium Oxide [Mag-Ox] 400 mg PO DAILY 11/23/16 [History] Nystatin [Nystatin Suspension] 400,000 units PO QID 11/23/16 [History] Omeprazole [PriLOSEC] 40 mg PO DAILY 11/23/16 [History] Sucralfate [Carafate] 1 gm PO BID 11/23/16 [History] Allergies codeine Allergy (Verified 11/23/16 15:59) Confusion Iodinated Contrast- Oral and IV Dye [Iodinated Contrast Media - Oral and] Adverse Reaction (Verified 11/23/16 15:59) See Comments patient states kidney problems. meclizine Adverse Reaction (Verified 11/23/16 15:59) Confusion All Systems: A 10-system review of systems was performed and is negative for pertinent findings except as documented above in the HPI. Review of Systems: 10 point review of systems is consistent with a history of present illness and otherwise negative. Physical Examination - Vital Signs Vital Signs: Initial Vital Signs Temp Pulse Resp BP Pulse Ox 97.6 F 78 15 122/71 95 11/23/16 15:59 11/23/16 15:59 11/23/16 15:59 11/23/16 15:59 11/23/16 15:59 - Exam Exam: Cerebral functions-she is alert and oriented to person place and fairly oriented to time. She was 1 day off on the day, one day off on the date. She does know the month is November, she knows that the year is 2016. Sometime she has motor impersistence with command following however. There is no agnosia aphasia or apraxia. Cranial nerves-pupils are equal and reactive to light and accommodation. Extraocular motility is intact. Sensory to face is intact. Mastication is intact. There is no facial asymmetry. Speech is not dysarthric, however her breathing is labored and interferes with her ability to talk. She is very short of breath. Tongue protrudes midline. There are no tongue fasciculations identified. Motor exam-on deltoid strength is 3-3/5 symmetrically. Biceps strength is -4/5 symmetrically, triceps strength is 3/5 on the right 4/5 on the left. Right inspector air carrier strength is 4/5 left inspector air carrier strength is 5/5. She is able to raise the right leg off the bed against gravity at about 4/5. The left leg is externally rotated and is a bit weaker. Quadriceps strength is 4/5 symmetrically. She does have weakness of the right ankle in dorsiflexion as well as eversion. Inversion was normal. Straight leg raising is negative. She has generalized weakness of the left lower extremity. Sensory exam-does find a sensory gradient distal to proximal Deep tendon reflexes-2 symmetrically the biceps triceps brachial radialis. The left patellar reflex is to the right patellar reflex is absent. Achilles reflexes are absent symmetrically. There are no long tract signs identifiable. Results - Laboratory Findings CBC and BMP: 11/24/16 00:43 11/24/16 00:43 Abnormal lab findings: Abnormal lab results WBC 12.2 K/mcL (4.3-11.1) H 11/24/16 00:43 RBC 3.38 M/mcL (3.82-4.97) L 11/24/16 00:43 Hgb 9.7 g/dL (11.5-15.4) L 11/24/16 00:43 Hct 28.9 % (35.3-44.9) L 11/24/16 00:43 RDW 17.1 % (11.5-14.5) H 11/24/16 00:43 Eosinophils # 0.9 K/mcL (0.0-0.6) H 11/24/16 00:43 Anisocytosis 1+ (Not Present) A 11/23/16 16:58 PT 18.8 Seconds (9.4-12.1) H 11/23/16 16:58 ABG pO2 70 mmHg (85-104) L 11/24/16 15:33 ABG O2 Saturation 93 % (95-98) L 11/24/16 15:33 BUN 41 mg/dL (7-20) H 11/24/16 00:43 Est GFR (Non-Af Amer) 51 (> 60) L 11/24/16 00:43 BUN/Creatinine Ratio 39 (6-26) H 11/24/16 00:43 Direct Bilirubin 0.9 mg/dL (0.0-0.5) H 11/23/16 16:58 AST 128 Units/L (5-34) H 11/24/16 00:43 ALT 93 Units/L (0-55) H 11/24/16 00:43 Alkaline Phosphatase 141 Units/L (38-126) H 11/24/16 00:43 Troponin I 0.07 ng/mL (0-0.03) H* 11/24/16 05:48 B-Natriuretic Peptide 1290 pg/mL (0-100) H 11/23/16 16:58 Serum Total Protein 5.5 g/dL (6.0-8.3) L 11/24/16 00:43 Albumin 2.2 g/dL (3.5-5.0) L 11/24/16 00:43 Albumin/Globulin Ratio 0.7 (1.1-2.2) L 11/24/16 00:43 TSH 6.128 mcIU/mL (0.350-4.840) H 11/23/16 16:58 Urine Ketones Trace mg/dL (Negative) H 11/23/16 16:40 Urine Bilirubin Small (Negative) H 11/23/16 16:40 Ur Leukocyte Esterase Trace (Negative) H 11/23/16 16:40 Ur Squamous Epith Cells Many per lpf (None-Few) H 11/23/16 16:40 Nasal Screen MRSA (PCR) Positive (Negative) A 11/24/16 11:12 U Benzodiazepines Scrn Positive ng/mL (Vcdtwi=394) H 11/23/16 16:40 Consult Discharge Plan - Plan Referrals: Orestes Grace MD [Primary Care Provider] - 12/02/16 2:15 pm
[2016-11-25 05:09] LABS: Basophils # 0.1 K/mcL (0.0-0.2); Eosinophils # 0.7 K/mcL (0.0-0.6); Eosinophils % 6.8 %; Hematocrit 31.2 % (35.3-44.9); Hemoglobin 10.5 g/dL (11.5-15.4); Immature Granulocytes % 1.7 % (0-4); Immature Platelets 3.2 % (1.1-6.1); Lymphocytes # 2.2 K/mcL (0.6-4.6); Lymphocytes % 20.8 %; Mean Corpuscular HGB Conc 33.7 g/dL (31.6-35.5); Mean Corpuscular Hemoglobin 28.5 pg (28.0-33.3); Mean Corpuscular Volume 84.8 fL (83.0-100.0); Mean Platelet Volume 11.2 fL (9.4-12.4); Monocytes # 0.9 K/mcL (0.0-1.3); Monocytes % 8.3 %; Neutrophils # 6.5 K/mcL (1.6-8.9); Platelet Count 300 K/mcL (140-400); Red Blood Count 3.68 M/mcL (3.82-4.97); Segmented Neutrophils % 61.4 %
[2016-11-25 05:20] LABS: BUN/Creatinine Ratio 37 (6-26); Blood Urea Nitrogen 40 mg/dL (7-20); Calcium 8.5 mg/dL (8.6-10.8); Carbon Dioxide 26 mEq/L (19-29); Chloride 105 mEq/L (98-109); Glucose 72 mg/dL (70-99); Osmolality,Calculated 300 (280-300); Sodium 141 mEq/L (136-145); eGFR For African Americans > 60 (> 60); eGFR For Non-African Americans 50 (> 60)
[2016-11-25] MEDS: Levothyroxine Sodium 100 MCG VIAL IVP SCH (05:59)
--- NOTE | 2016-11-25 07:16 | Venous Imaging Report ---
LE Venous Duplex Patient Name:Channing Tucker Order Number:[id number] Procedure Date:11/24/2016 Date:8Age:71 yrs Gender:Female Location:[facility] Room #: 3B43 Checker Cashier:Briana King RDCS, RVT Referring MD:Sanchez Montejo MD head up operator:Jesus Michaels MD:Neal Romeo MD Primary Indications:Swelling Secondary Indications: Risk Factors Yes/No Hx of DVT No Hx of Chemotherapy No Recent Surgery No Impressions: Normal bilateral lower extremity deep and superficial venous exam. Recommendations: After imaging the patient returned to their room. Test completed on 11/24/2016 at 10:00:40 am. Lower Extremity Venous Duplex Side Vein Compress Spontaneous Flow Augment Diameter (cm) Depth (cm) Right Distal Iliac Normal Yes Phasic Yes Right Common Femoral Normal Yes Phasic Yes Right Superficial Femoral Normal Yes Phasic Yes Right Popliteal Normal Yes Phasic Yes Right Posterior Tibial Normal Yes Phasic Yes Right Peroneal Normal Yes Phasic Yes Right Great Saphenous Normal Yes Phasic Yes Right Lesser Saphenous Normal Yes Phasic Yes Left Distal Iliac Normal Yes Phasic Yes Left Common Femoral Normal Yes Phasic Yes Left Superficial Femoral Normal Yes Phasic Yes Left Popliteal Normal Yes Phasic Yes Left Posterior Tibial Normal Yes Phasic Yes Left Peroneal Normal Yes Phasic Yes Left Great Saphenous Normal Yes Phasic Yes Left Lesser Saphenous Normal Yes Phasic Yes Updated by Neal Romeo MD on 11/25/2016 7:09:06 AM electronically signed on 11/25/2016 7:09:32 AM with status of Final
[2016-11-25] MEDS ORDERED: Fluconazole 200 MG/100 ML 200 MG/100 ML BAG IVPB SCH (09:00)
[2016-11-25 10:16] LABS: Alanine Aminotransferase 74 Units/L (0-55); Aspartate Amino Transferase 152 Units/L (5-34)
[2016-11-25] MEDS: Furosemide 40 MG/4 ML VIAL IVP SCH ×2 (12:16→17:51)
--- NOTE | 2016-11-25 12:16 | Neurology Progress Note ---
<Kulwinder Stover - Last Filed: 11/25/16 12:13> Date of Encounter: 11/25/16 Time of Encounter: 08:00 Assessment and Plan (1) Weakness Current Visit: Yes Status: Acute Exam patient's strength assessment is equal bilaterally in upper and lower extremities. Patient's overall condition improved from yesterday. No focal neurological deficits identified on exam. Cardiology plans to continue assessment for decrease in left ventricular function. Recent echo shows drop in LVEF from 55% to 40%. No further recommendations from neurology at this time. Subjective Principal diagnosis: Weakness Interval history: Patient seen and examined at bedside this a.m. Patient reports no adverse events overnight. Patient states that she feels better than she did yesterday. Objective - Constitutional Vitals: Temp Pulse Resp BP Pulse Ox 98.0 F 79 16 149/85 96 11/25/16 07:50 11/25/16 07:50 11/25/16 07:50 11/25/16 07:50 11/25/16 07:50 General appearance: Present: cooperative, A&O X 3, no acute distress, answers questions appropriately - Head Head exam: Present: atraumatic, normocephalic - Eye Eye exam: Present: PERRL, conjuntiva pink, sclera anicteric Pupils: Present: PERRL - Extremities Exam Extremities exam: Present: normal capillary refill, warm, radial pulses palpable and symetrical. Absent: calf tenderness, cyanotic, pedal edema - Neurological Exam Sensorimotor examination: Present: intact Motor examination - right side: 5/5: deltoids, biceps, triceps, wrist flexion, wrist extension, human resources compensation analyst, hip flexors, tibialis Anterior, quadriceps, plantarflexion Motor examination - left side: 5/5: deltoids, biceps, triceps, wrist flexion, wrist extension, hip flexors, human resources compensation analyst, quadriceps, tibialis Anterior, plantarflexion Sensation intact: Present: intact, light touch Mental Status Examination: Present: awake, alert, oriented to person, oriented to place, oriented to time, follows commands appropriately, answers questions appropriately, no aphasia (Slurring of speech improved from yesterday, patient' s mouth not as dry as yesterday) Cranial nerve examination: Present: PERRL, EOMI, visual lemus intact, sensory to face intact, no facial asymmetry is present, hearing is intact symmetrically , tongue protrudes midline Cerebellar examination: Present: no difficulty with rapid alternating movements Results - Laboratory Findings CBC and BMP: 11/25/16 04:01 11/25/16 04:01 Abnormal lab findings: Abnormal lab results RBC 3.68 M/mcL (3.82-4.97) L 11/25/16 04:01 Hgb 10.5 g/dL (11.5-15.4) L 11/25/16 04:01 Hct 31.2 % (35.3-44.9) L 11/25/16 04:01 RDW 17.0 % (11.5-14.5) H 11/25/16 04:01 Eosinophils # 0.7 K/mcL (0.0-0.6) H 11/25/16 04:01 Anisocytosis 1+ (Not Present) A 11/23/16 16:58 PT 18.8 Seconds (9.4-12.1) H 11/23/16 16:58 ABG pO2 70 mmHg (85-104) L 11/24/16 15:33 ABG O2 Saturation 93 % (95-98) L 11/24/16 15:33 BUN 40 mg/dL (7-20) H 11/25/16 04:01 Est GFR (Non-Af Amer) 50 (> 60) L 11/25/16 04:01 BUN/Creatinine Ratio 37 (6-26) H 11/25/16 04:01 Calcium 8.5 mg/dL (8.6-10.8) L 11/25/16 04:01 Direct Bilirubin 0.9 mg/dL (0.0-0.5) H 11/23/16 16:58 Alkaline Phosphatase 141 Units/L (38-126) H 11/24/16 00:43 AST 152 Units/L (5-34) H 11/25/16 09:50 ALT 74 Units/L (0-55) H 11/25/16 09:50 Creatine Kinase 14 Units/L (29-168) L 11/24/16 18:30 Troponin I 0.07 ng/mL (0-0.03) H* 11/24/16 05:48 B-Natriuretic Peptide 1290 pg/mL (0-100) H 11/23/16 16:58 Serum Total Protein 5.5 g/dL (6.0-8.3) L 11/24/16 00:43 Albumin 2.2 g/dL (3.5-5.0) L 11/24/16 00:43 Albumin/Globulin Ratio 0.7 (1.1-2.2) L 11/24/16 00:43 Vitamin B12 1792 pg/mL (213-816) H 11/24/16 18:30 TSH 6.128 mcIU/mL (0.350-4.840) H 11/23/16 16:58 Urine Ketones Trace mg/dL (Negative) H 11/23/16 16:40 Urine Bilirubin Small (Negative) H 11/23/16 16:40 Ur Leukocyte Esterase Trace (Negative) H 11/23/16 16:40 Ur Squamous Epith Cells Many per lpf (None-Few) H 11/23/16 16:40 Nasal Screen MRSA (PCR) Positive (Negative) A 11/24/16 11:12 U Benzodiazepines Scrn Positive ng/mL (Endsve=103) H 11/23/16 16:40 Consult Discharge Plan - Plan Referrals: Orestes Grace MD [Primary Care Provider] - 12/02/16 2:15 pm <Ike Macario - Last Filed: 11/25/16 16:49> Date of Encounter: 11/25/16 Time of Encounter: 16:44 Assessment and Plan (1) Weakness Current Visit: Yes Status: Acute I agree with Dr. Dr. Jay assessment stated above. MRI and MRA scans of the brain were unrevealing. CPK level was not elevated. I will reevaluate her at your request. Subjective Interval history: She is awake and much more alert today. She still has complaints of left leg weakness. However the weakness is really limited to the left hip and is secondary to pain. She has good power with dorsiflexing both feet as well as plantar flexion. Her speech is much more crisp today. She is in no respiratory distress at the moment. Cranial nerves II through XII are intact. She has good strength of both upper extremities in all muscles. Objective - Constitutional Vitals: Temp Pulse Resp BP Pulse Ox 98.2 F 76 18 124/72 99 11/25/16 15:27 11/25/16 15:27 11/25/16 15:27 11/25/16 15:27 11/25/16 15:27 Results - Laboratory Findings CBC and BMP: 11/25/16 04:01 11/25/16 04:01 Abnormal lab findings: Abnormal lab results RBC 3.68 M/mcL (3.82-4.97) L 11/25/16 04:01 Hgb 10.5 g/dL (11.5-15.4) L 11/25/16 04:01 Hct 31.2 % (35.3-44.9) L 11/25/16 04:01 RDW 17.0 % (11.5-14.5) H 11/25/16 04:01 Eosinophils # 0.7 K/mcL (0.0-0.6) H 11/25/16 04:01 Anisocytosis 1+ (Not Present) A 11/23/16 16:58 PT 18.8 Seconds (9.4-12.1) H 11/23/16 16:58 ABG pO2 70 mmHg (85-104) L 11/24/16 15:33 ABG O2 Saturation 93 % (95-98) L 11/24/16 15:33 BUN 40 mg/dL (7-20) H 11/25/16 04:01 Est GFR (Non-Af Amer) 50 (> 60) L 11/25/16 04:01 BUN/Creatinine Ratio 37 (6-26) H 11/25/16 04:01 Calcium 8.5 mg/dL (8.6-10.8) L 11/25/16 04:01 Direct Bilirubin 0.9 mg/dL (0.0-0.5) H 11/23/16 16:58 Alkaline Phosphatase 141 Units/L (38-126) H 11/24/16 00:43 AST 152 Units/L (5-34) H 11/25/16 09:50 ALT 74 Units/L (0-55) H 11/25/16 09:50 Creatine Kinase 14 Units/L (29-168) L 11/24/16 18:30 Troponin I 0.07 ng/mL (0-0.03) H* 11/24/16 05:48 B-Natriuretic Peptide 1290 pg/mL (0-100) H 11/23/16 16:58 Serum Total Protein 5.5 g/dL (6.0-8.3) L 11/24/16 00:43 Albumin 2.2 g/dL (3.5-5.0) L 11/24/16 00:43 Albumin/Globulin Ratio 0.7 (1.1-2.2) L 11/24/16 00:43 Vitamin B12 1792 pg/mL (213-816) H 11/24/16 18:30 TSH 6.128 mcIU/mL (0.350-4.840) H 11/23/16 16:58 Urine Ketones Trace mg/dL (Negative) H 11/23/16 16:40 Urine Bilirubin Small (Negative) H 11/23/16 16:40 Ur Leukocyte Esterase Trace (Negative) H 11/23/16 16:40 Ur Squamous Epith Cells Many per lpf (None-Few) H 11/23/16 16:40 Nasal Screen MRSA (PCR) Positive (Negative) A 11/24/16 11:12 U Benzodiazepines Scrn Positive ng/mL (Pokrgn=076) H 11/23/16 16:40
[2016-11-25] MEDS: Fluconazole 100 MG TABLET PO SCH (12:18)
[2016-11-25] MEDS: Pantoprazole 40 MG VIAL IVP SCH (14:25)
--- NOTE | 2016-11-25 15:01 | Cardiology Consult Note ---
<Ray Marte - Last Filed: 11/25/16 16:17> Date of Encounter: 11/25/16 Time of Encounter: 15:00 Assessment and Plan (1) Altered mental status Current Visit: Yes Status: Acute Per Cardiology: Presented with weakness, altered mental status, and left-sided weakness. Head CT and brain MRI with no acute findings. Neurology following. Reported TIA July 2016. According to review of outpatient medical records history of CVA. Currently alert and oriented 3 and appears improved from admission. Qualifiers: Altered mental status type: unspecified Qualified Code(s): R41.82 - Altered mental status, unspecified (2) Cardiomyopathy Current Visit: Yes Status: Acute Per Cardiology: Last echo May 2012 showed EF 65%, mild diastolic dysfunction, normal RV size and function, no significant valvular dysfunction, no pulmonary hypertension, NSWMA. Current echo shows EF decreased to 40%. Patient on IV Lasix per primary service and currently appears to be negative 1010ml during hospital stay. Continue daily weights. Will place on 1.5 L fluid restriction and strict I's and O's. Patient with no CP. Recommend [facility] for ischemic eval with decreased EF, however has relatively new issues of anemia, elevated LFTs/ INR 1.7 not on anticoagulation. Liver U/S showed no significant findings (s/p cholycystectomy). Listed to have allergy to IVP dye, however patient denies. Denies previous LHC-- no records noted. Again, according to outpatient records, hx of CAD with IA. 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 Patient agreeable to [facility] if deemed clinically appropriate. Will discuss and review with Dr. Olsen, suspect may recommend medical management and f/u as outpatient to allow for other underlying multiple comorbidities improve. Qualifiers: Cardiomyopathy type: unspecified Qualified Code(s): I42.9 - Cardiomyopathy , unspecified (3) Elevated troponin Current Visit: Yes Status: Acute Per Cardiology: Flat and adynamic. Peak trop 0.07. Chest pain-free. Do not suspect non-STEMI, suspect demand ischemia setting of multiple comorbid conditions. No cardiac rehabilitation consult warranted. (4) Closed coracoid process fracture Current Visit: Yes Status: Acute Per Cardiology: Noted on CT. Management per primary service. Had recent falls. Qualifiers: Encounter type: initial encounter Fracture alignment: nondisplaced Laterality: right Qualified Code(s): S42.134A - Nondisplaced fracture of coracoid process, right shoulder, initial encounter for closed fracture (5) Anemia Current Visit: No Status: Chronic Per Cardiology: Patient noted to have apparent anemia since March 2016. Reports "black/green stools" past 1 month. Guiaic stool. Qualifiers: Anemia type: other cause Other causes of anemia: chronic disease, other Qualified Code(s): D63.8 - Anemia in other chronic diseases classified elsewhere (6) Carotid stenosis, bilateral Current Visit: No Status: Chronic Per Cardiology: Follows with vascular surgery with bilateral 60-79% ICA stenosis. On aspirin as outpatient-- will resume for now. (7) CKD (chronic kidney disease) Current Visit: No Status: Chronic Per Cardiology: Appears to have CKD 3a. Currently stable. Qualifiers: Chronic kidney disease stage: unspecified stage Qualified Code(s): N18.9 - Chronic kidney disease, unspecified Discussion w patient/family: The assessment and plan as outlined above was discussed with the patient and/or family members who expressed understanding and agreement. All questions were answered. Thank you for involving us in the care of your patient. Please call with any questions. History of Present Illness Consult date: 11/25/16 Requesting physician: Briana Chavez Consult reason: Decreased EF Chief complaint: Weakness, Fall History of present illness: Ms. Tucker is a 71 year old female with relevant past medical history of peripheral vascular disease with iliac stenting, bilateral carotid artery stenosis 60-79%, past history nicotine abuse, COPD, hyperlipidemia, GERD, hypothyroidism, sleep apnea with noncompliance, CKD. According to records history of IA with coronary stenting, however patient denies cardiac stenting and no previous catheterization records available for review. Cardiology consult for decreased EF on echo and mild troponin elevations. Patient unable to provide accurate history regarding her admission. She reports she "fell with weakness ". Records reviewed and show: "was brought to the emergency department by her due to chief complaint of altered mental status and left sided weakness. History obtained by review of medical records, from her and from the emergency room physician. Apparently, the patient has been having change in her speech over the past 3 days. The patient has also been falling to the left side multiple times despite using her walker. Apparently, the patient's found her on the floor whenever he came home. The patient was admitted diagnosed with TIA in July 2016". Patient denies any awareness to any chest pain. Reports her shortness of breath at rest about baseline. Does not utilize home oxygen. She reports she quit smoking about 23 years ago, however smoked for at least 20 years 3 packs per day. Denies any palpitations or known history of atrial fibrillation. Reports over the past one month intermittent black/green stools. Denies any awareness to bright red bleeding. Reports right shoulder and arm soreness the past few weeks. Reports limited mobility at home. Past Med Surg Social Fam HX - Past Medical History Attestation: Yes The following information was validated with the patient. Source: patient, old records reviewed Medical history: arthritis, COPD, coronary artery disease, diabetes, hyperlipidemia, hypertension, renal disease, thyroid disease, other Psychiatric history: anxiety, depression - Past Surgical History Surgical History: cholecystectomy, colectomy, herniorrhaphy, hysterectomy, orthopedic, other, other - Social History Smoking Status: Never smoker Smokeless Tobacco Status: No Alcohol use: none Drug use: none - Family History Mother Adopted: No Family Member Ethnicity: Non- Living Status: Hx Family Cardiac Disorders: Yes Hx Family Cancer: Yes Father Adopted: No Living Status: Hx Family Cardiac Disorders: Yes Hx Family Cancer: Yes Medications and Allergies ALPRAZolam [Xanax 1 MG Tablet] 1 mg PO BID PRN 10/15/15 [History] Albuterol Sulfate [Albuterol Inhaler] 2 puff IH Q4-6H PRN 10/15/15 [History] Allopurinol [Zyloprim 100 MG] 100 mg PO DAILY 10/15/15 [History] Fenofibrate Nanocrystallized [Tricor] 145 mg PO QPM 10/15/15 [History] Fluticasone/Salmeterol [Advair 500-50 Diskus] 1 inh PO BID 10/15/15 [History] Gabapentin [Neurontin] 800 mg PO TID 10/15/15 [History] Isosorbide MONOnitrate (24 HR) [Imdur] 60 mg PO DAILY 10/15/15 [History] Levothyroxine [Synthroid] 112 mcg PO DAILY 10/15/15 [History] Ropinirole HCl [Requip] 0.5 - 1 mg PO HS 10/15/15 [History] Sertraline [Zoloft] 100 mg PO BID 10/15/15 [History] Tiotropium [Spiriva] 18 mcg IH DAILY 10/15/15 [History] Diltiazem HCl [Diltiazem ER] 120 mg PO DAILY 03/29/16 [History] Ipratropium/Albuterol Neb [Duoneb] 3 ml IH QID 03/29/16 [History] Gemfibrozil [Lopid] 600 mg PO BIDWM 05/28/16 [History] OxyCODONE/APAP 5/325 [Percocet 5/325 MG] 1 each PO BID PRN 05/28/16 [History] Aspirin Enteric Coated [Aspirin EC] 81 mg PO DAILY 11/23/16 [History] Ferrous Sulfate 325 mg PO DAILY 11/23/16 [History] Fish Oil/Dha/Epa [Fish Oil 1,200 mg Fish Oil] 1 each PO TID 11/23/16 [History] Magnesium Oxide [Mag-Ox] 400 mg PO DAILY 11/23/16 [History] Nystatin [Nystatin Suspension] 400,000 units PO QID 11/23/16 [History] Omeprazole [PriLOSEC] 40 mg PO DAILY 11/23/16 [History] Sucralfate [Carafate] 1 gm PO BID 11/23/16 [History] Allergies codeine Allergy (Verified 11/23/16 15:59) Confusion Iodinated Contrast- Oral and IV Dye [Iodinated Contrast Media - Oral and] Adverse Reaction (Verified 11/23/16 15:59) See Comments patient states kidney problems. meclizine Adverse Reaction (Verified 11/23/16 15:59) Confusion All Systems Review: A 10-system review of systems was performed and is negative for pertinent findings except as documented above in the HPI. - Constitutional Constitutional: frequent falls, weakness - Cardiovascular Cardiovascular: as per HPI - Respiratory Respiratory: dyspnea - Gastrointestinal Gastrointestinal: other (reports "black/green" stoold for past 1 month) - Musculoskeletal Musculoskeletal: muscle weakness - Neurological Neurological: other (admitted with confusion and left sided weakness) Physical Examination Selected Entries 11/25/16 07:50 11/25/16 10:38 Temperature 98.0 F Pulse Rate 79 Respiratory Rate 16 Blood Pressure 149/85 O2 Sat by Pulse Oximetry 96 Oxygen Flow Rate (LPM) 2 Oxygen Delivery Method Nasal Cannula General: Conversant, No Apparent Distress HEENT: Atraumatic, Normocephaly, Mucus Membranes Moist Neck: No JVD, Normal carotid pulses Cardiac: Reg Rate and Rhythm, Normal S1 and S2, No Murmur Lungs: Normal Breath Sounds, Other (conversational dyspnea, decreased to bases) Neuro: Alert and responsive, No focal deficits noted Abdomen: Soft, Non-Tender, Other (obese) Skin: Other (few abrasions noted to legs) Musculoskeletal: No Chest Wall Tenderness Extremities: No Clubbing, No Cyanosis, Normal Pulses, Other (+1 pitting edema bilateral LE) Results 11/25/16 04:01 11/25/16 04:01 Lab Results Laboratory Tests 02/10/16 03/24/16 03/31/16 09:38 12:00 06:28 Hgb 13.4 Hct 39.8 Creatinine Est GFR (Non-Af Amer) > 60 AST 22 ALT 13 07/27/16 07/29/16 07/31/16 15:54 03:18 06:51 Hgb 7.8 L Hct 24.2 L Creatinine Est GFR (Non-Af Amer) 46 L AST ALT 11/23/16 11/23/16 11/24/16 16:58 16:58 00:43 Hgb 10.1 L 9.7 L Hct 29.4 L 28.9 L Creatinine Est GFR (Non-Af Amer) 51 L AST ALT 11/24/16 11/25/16 11/25/16 00:43 04:01 04:01 Hgb 10.5 L Hct 31.2 L Creatinine 1.08 Est GFR (Non-Af Amer) 51 L 50 L AST ALT 11/25/16 09:50 Hgb Hct Creatinine Est GFR (Non-Af Amer) AST 152 H ALT 74 H 11/23/16 16:58 TSH 6.128 H 11/23/16 16:58 INR 1.7 ITS Impressions Cervical Spine CT 11/23/16 16:21 IMPRESSION: No acute abnormality of the cervical spine. Bilateral upper lobe pulmonary infiltrates. D/ / Jesus Chapa MD / Jesus Chpaa MD Interpreting Provider: Jesus Chapa MD Head CT 11/23/16 16:21 IMPRESSION: No acute intracranial abnormality. D/ / Ike Jasmine MD / Ike Jasmine MD Interpreting Provider: Ike Jasmine MD Abdomen/Pelvis CT 11/23/16 16:25 IMPRESSION: 1. Patchy diffuse ground-glass opacification throughout the lungs with small bilateral effusions. The findings are nonspecific but suggest possible pulmonary edema and CHF. An infectious process is not excluded. 2. Fracture of the right coracoid process. No other acute osseous findings. 3. Visceral evaluation is limited by the lack of intravenous contrast. No evidence of traumatic abdominal or pelvic visceral injury. 4. Small amount of free pelvic fluid. No significant retroperitoneal or pelvic hematoma. 5. Atherosclerotic changes involving the abdominal aorta. Compromise of the aortic lumen just above the renal arteries, possibly representing an occluded aorta at this level. 6. Mild edema within the subcutaneous soft tissues. Some focal fluid in the subcutaneous soft tissues overlying the left lateral hip. No soft tissue hematoma. D/ /23/2016 18:27:01 Kevin Kessler MD / jude Interpreting Provider: Kevin Kessler MD Chest CT 11/23/16 16:25 IMPRESSION: 1. Patchy diffuse ground-glass opacification throughout the lungs with small bilateral effusions. The findings are nonspecific but suggest possible pulmonary edema and CHF. An infectious process is not excluded. 2. Fracture of the right coracoid process. No other acute osseous findings. 3. Visceral evaluation is limited by the lack of intravenous contrast. No evidence of traumatic abdominal or pelvic visceral injury. 4. Small amount of free pelvic fluid. No significant retroperitoneal or pelvic hematoma. 5. Atherosclerotic changes involving the abdominal aorta. Compromise of the aortic lumen just above the renal arteries, possibly representing an occluded aorta at this level. 6. Mild edema within the subcutaneous soft tissues. Some focal fluid in the subcutaneous soft tissues overlying the left lateral hip. No soft tissue hematoma. D/ /23/2016 18:27:01 Kevin Kessler MD / lgray Interpreting Provider: Kevin Kessler MD Brain MRI 11/24/16 12:25 IMPRESSION: No acute infarct. D/ / Jesus Durant MD / Jesus Durant MD Interpreting Provider: Jesus Durant MD Head MRA 11/24/16 12:25 IMPRESSION: No acute infarct. D/ / Jesus Durant MD / Jesus Durant MD Interpreting Provider: Jesus Durant MD Chest X-Ray 11/24/16 14:15 IMPRESSION: Cardiomegaly and findings consistent with mild pulmonary edema, including trace bilateral pleural effusions. Findings may reflect congestive heart failure. D/ / 11/24/2016 15:06:16 Nicolle Camilo MD / earnold Interpreting Provider: Nicolle Camilo MD Liver Ultrasound 11/25/16 11:00 IMPRESSION: 1. Status post cholecystectomy. 2. Incidental note of right-sided pleural effusion. D/ / Dipti Dorantes MD / Dipti Dorantes MD Interpreting Provider: Dipti Dorantes MD Intake & Output 11/22/16 11/23/16 11/24/16 11/25/16 23:59 23:59 23:59 23:59 Intake Total 1000 / 1000 50 / 50 240 / 240 Output Total 1700 / 1700 600 / 600 Balance 1000 / 1000 -1650 / -1650 -360 / -360 Weight 70.6 kg 68.2 kg Active Medications Acetaminophen (Tylenol) 650 mg PO Q6HR PRN PRN Reason: Mild Pain (1-3) Stop: 05/25/17 20:39 Albuterol/Ipratropium (Duoneb) 3 ml IH QID PRN; Protocol PRN Reason: Shortness Of Breath/Wheezing Stop: 05/25/17 23:03 Budesonide/Formoterol Fumarate (Symbicort) 2 puff IH BID DUSTY Stop: 05/26/17 09:01 Fluconazole (Diflucan) 100 mg PO DAILY DUSTY Stop: 05/27/17 09:01 Last Admin: 11/25/16 12:18 Dose: 100 mg Furosemide (Lasix) 40 mg IVP BIDDIURETIC DUSTY Stop: 05/26/17 08:01 Last Admin: 11/25/16 12:16 Dose: 40 mg Levothyroxine Sodium (Synthroid) 50 mcg IVP 0630 DUSTY Stop: 05/26/17 06:31 Last Admin: 11/25/16 05:59 Dose: 50 mcg Naloxone HCl (Narcan) 0.4 mg IVP Q2MIN PRN PRN Reason: Opioid Reversal Stop: 05/25/17 20:39 Ondansetron HCl (Zofran) 4 mg IVP Q8HR PRN PRN Reason: Nausea And Vomiting Stop: 05/25/17 20:39 Pantoprazole Sodium (Protonix) 40 mg IVP DAILY DUSTY Stop: 05/27/17 12:46 Last Admin: 11/25/16 14:25 Dose: 40 mg - Imaging and Cardiology Chest Xray: report reviewed Echo: report reviewed - EKG Interpretation EKG results cardiology: personally reviewed, normal ECG, sinus rhythm, other ( Sinus rhythm in the 70s on telemetry) Consult Discharge Plan - Plan Referrals: Orestes Grace MD [Primary Care Provider] - 12/02/16 2:15 pm <Danni Olsen - Last Filed: 11/26/16 10:51> Date of Encounter: 11/26/16 Assessment and Plan Discussion w patient/family: The assessment and plan as outlined above was discussed with the patient and/or family members who expressed understanding and agreement. All questions were answered. Thank you for involving us in the care of your patient. Please call with any questions. History of Present Illness History of present illness: Ms. Tucker is a 71 year old female All Systems Review: A 10-system review of systems was performed and is negative for pertinent findings except as documented above in the HPI. Physical Examination Vital Signs, Last 4 Hours Temp Pulse Resp BP Pulse Ox 11/26/16 08:15 98.4 F 81 16 131/72 99 Results 11/26/16 05:28 11/26/16 05:28 Lab Results 11/26/16 11/26/16 05:28 05:28 WBC 10.0 Hgb 10.8 L Hct 31.7 L Plt Count 325 Sodium 138 Potassium 3.8 Chloride 99 Carbon Dioxide 30 H BUN 31 H Creatinine 0.85 Glucose 78 Calcium 8.5 L AST 130 H ALT 62 H - Attending Attestation I examined this patient and my medical decision-making was reviewed with the TRUCK JUMPER/PA/Advanced Practice Nurse/Resident Physician. I agree with the documented findings, disposition and treatment plan. Ms. Tucker presents with AMS and is presently alert and oriented. Current echo demonstrates reduced EF 40% which appears new when compared to prior echo in 2011. Patient denies cardiac complaints. No concerning ECG findings. Troponins are flat and adynamic. We discussed consideration for LHC. However, her LFTs and INR are abnormal and she has anemia that need to be further explored. We discussed this with the patient. Recommend conservative management with pharmacotherapy at this time. Patient is in agreement.
--- NOTE | 2016-11-25 18:21 | Internal Med Progress Note ---
Date of Encounter: 11/25/16 Time of Encounter: 10:20 - Assessment and plan (1) Cerebrovascular accident Current Visit: Yes Status: Suspected Assessment and plan: All imaging has been negative. Patient appears to be significantly better than yesterday. She has very minimal left facial droop at the mouth. Facial movements are symmetrical. Strength assessment is equal bilaterally in upper or lower extremities. There are no focal neurological deficits. Neurology has signed off at this time. Head CT 11/23/16 16:21 IMPRESSION: No acute intracranial abnormality. D/ / Ike Jasmine MD / Ike Jasmine MD Interpreting Provider: Ike Jasmine MD :2 Brain MRI 11/24/16 12:25 IMPRESSION: No acute infarct. D/ / Jesus Durant MD / Jesus Durant MD Interpreting Provider: Jesus Durant MD Head MRA 11/24/16 12:25 IMPRESSION: No acute infarct. D/ / Jesus Durant MD / Jesus Durant MD Interpreting Provider: Jesus Durant MD Qualifiers: CVA mechanism: unspecified Qualified Code(s): I63.9 - Cerebral infarction, unspecified (2) CHF (congestive heart failure) Current Visit: Yes Status: Chronic Assessment and plan: Patient has decreased LV function, 55% in July, 40% now. Limited echo with saline done today. BNP is elevated at 1290. She also has elevated troponin most likely due to demand from CHF. Patient is not in any respiratory distress, she speaks easily in full sentences. She is sitting at bedside. At the time of assessment she was wearing supplemental oxygen and respirations are easy and unlabored. Her lungs are clear and diminished. Cardiology has evaluated today. Cardiology will determine tomorrow if she will have an LHC done. She will be in npo after midnight. Continue IV Lasix Strict intake and output Cohen catheter . Qualifiers: Congestive heart failure type: diastolic Congestive heart failure chronicity: acute Qualified Code(s): I50.31 - Acute diastolic (congestive) heart failure (3) Hypertension Current Visit: Yes Status: Chronic Assessment and plan: Chronic. Continue to monitor. Continue home medications. Qualifiers: Hypertension type: essential hypertension Qualified Code(s): I10 - Essential (primary) hypertension (4) Celiac artery stenosis Current Visit: No Status: Chronic Assessment and plan: Patient will need to follow-up with vascular surgery after discharge. (5) Dysphagia Current Visit: No Status: Acute Assessment and plan: Patient is to have mechanically altered diet with thin liquids. Patient is to have her medications in applesauce, she is not have a straw. Patient is going to have physical therapy and occupational therapy. We will continue to monitor. Qualifiers: Dysphagia type: oropharyngeal phase Qualified Code(s): R13.12 - Dysphagia, oropharyngeal phase (6) Esophageal candidiasis Current Visit: Yes Status: Chronic Assessment and plan: Diflucan by mouth. Patient will need 3 week course. (7) Hypothyroidism Current Visit: Yes Status: Chronic Assessment and plan: Chronic. Continue home medications. Qualifiers: Hypothyroidism type: unspecified Qualified Code(s): E03.9 - Hypothyroidism , unspecified (8) Elevated transaminase level Current Visit: Yes Status: Acute Assessment and plan: AST appears to be chronically elevated, however, is at highest level in trend. ALT just appears to be elevated at this time. Right upper quadrant is tender to palpation, Vo's is negative. Will continue to monitor labs. Hepatitis panel will be ordered. Patient does report heavy drinking history. She says "I was the [facility]." She reports drinking daily for 10-15 years. She said she quit about 25 years ago. We will continue to monitor labs and consult GI tomorrow. Abdomen/Pelvis CT 11/23/16 16:25 IMPRESSION: 1. Patchy diffuse ground-glass opacification throughout the lungs with small bilateral effusions. The findings are nonspecific but suggest possible pulmonary edema and CHF. An infectious process is not excluded. 2. Fracture of the right coracoid process. No other acute osseous findings. 3. Visceral evaluation is limited by the lack of intravenous contrast. No evidence of traumatic abdominal or pelvic visceral injury. 4. Small amount of free pelvic fluid. No significant retroperitoneal or pelvic hematoma. 5. Atherosclerotic changes involving the abdominal aorta. Compromise of the aortic lumen just above the renal arteries, possibly representing an occluded aorta at this level. 6. Mild edema within the subcutaneous soft tissues. Some focal fluid in the subcutaneous soft tissues overlying the left lateral hip. No soft tissue hematoma. D/ / 11/23/2016 18:27:01 Kevin Kessler MD / jude Interpreting Provider: Kevin Kessler MD Liver Ultrasound 11/25/16 11:00 IMPRESSION: 1. Status post cholecystectomy. 2. Incidental note of right-sided pleural effusion. D/ / Dipti Dorantes MD / Dipti Dorantes MD Interpreting Provider: Dipti Dorantes MD - Time Spent With Patient less than 15 minutes - Subjective Interval history: Patient was seen and assessed at about 10:20 AM. Patient face droop and speech has greatly improved. Speech is no longer slurred. Her grasps and foot process pull, and strength against resistance are all strong and equal bilaterally upper and lower extremities. She denies a headache today. She is alert and oriented, facial movements are symmetrical. She follows commands. During examination today, patient had noticeable right upper quadrant tenderness , Vo's sign was negative. Patient has elevated transaminases. Liver ultrasound was ordered, no abnormalities. Continue to follow. Patient admits to very heavy drinking for 15-20 years, she said she quit 25 years ago. Patient is also being followed by cardiology. Consult was created due to decreased EF on recent echocardiogram. The suggested after discussion, she may have an [facility] tomorrow morning. Neurology has no further recommendations at this time, they have signed off due to improved condition. I have also put in an orthopedic consult for the coracoid fracture. Patient denies pain and has adequate range of motion. Will have them review. - Constitutional Vitals: Temp Pulse Resp BP Pulse Ox 98.2 F 76 18 124/72 99 11/25/16 15:27 11/25/16 15:27 11/25/16 15:27 11/25/16 15:27 11/25/16 15:27 General appearance: Present: cooperative, A&O X 3, pleasant, answers questions appropriately - Head Head exam: Present: normal inspection - Eye Eye exam: Present: normal appearance, conjuntiva pink. Absent: nystagmus - ENT ENT exam: Present: mucous membranes moist, normal exam - Neck Neck exam general surgery: Absent: lymphadenopathy, tenderness - Respiratory Respiratory exam: Present: decreased breath sounds, CTAB. Absent: rales, rhonchi, stridor, wheezes - Cardiovascular Cardiovascular exam: Present: RRR, +S1, +S2. Absent: diastolic murmur, systolic murmur - GI/Abdominal GI/Abdominal exam: Present: distended, hepatomegaly, normal bowel sounds, soft, tenderness. Absent: firm - Extremities Exam Extremities exam: Present: normal capillary refill, warm, radial pulses palpable and symetrical. Absent: pedal edema, tenderness - Neurological Exam Neurological exam: Present: alert, oriented X3, no focal deficits, strengths equal and symetr throughout, facial droop. Absent: speech deficit - Skin Skin exam: Present: dry, normal color, warm Internal Medicine: Result - Labs CBC & Chem 7: 11/25/16 04:01 11/25/16 04:01 Labs: Short CBC 11/25/16 Range/Units 04:01 WBC 10.6 (4.3-11.1) K/mcL Hgb 10.5 L (11.5-15.4) g/dL Hct 31.2 L (35.3-44.9) % Plt Count 300 (140-400) K/mcL Neutrophils # 6.5 (1.6-8.9) K/mcL BMP 11/25/16 04:01 Sodium 141 Potassium 4.0 Chloride 105 Carbon Dioxide 26 BUN 40 H Creatinine 1.08 Glucose 72 Calcium 8.5 L Liver Function 11/25/16 Range/Units 09:50 AST 152 H (5-34) Units/L ALT 74 H (0-55) Units/L - ABG Interpretation ABG results: ABG ABG pH 7.38 pH Units (7.32-7.45) 11/24/16 15:33 ABG pCO2 40 mmHg (35-45) 11/24/16 15:33 ABG pO2 70 mmHg (85-104) L 11/24/16 15:33 ABG O2 Saturation 93 % (95-98) L 11/24/16 15:33 PT/INR, D-dimer PT 18.8 Seconds (9.4-12.1) H 11/23/16 16:58 - Impressions Impressions Brain MRI 11/24/16 12:25 IMPRESSION: No acute infarct. D/ / Jesus Durant MD / Jesus Durant MD Interpreting Provider: Jesus Durant MD Head MRA 11/24/16 12:25 IMPRESSION: No acute infarct. D/ / Jesus Durant MD / Jesus Durant MD Interpreting Provider: Jesus Durant MD Liver Ultrasound 11/25/16 11:00 IMPRESSION: 1. Status post cholecystectomy. 2. Incidental note of right-sided pleural effusion. D/ / Dipti Dorantes MD / Dipti Dorantes MD Interpreting Provider: Dipti Dorantes MD Consult Discharge Plan - Plan Referrals: Orestes Grace MD [Primary Care Provider] - 12/02/16 2:15 pm
[2016-11-26 05:45] LABS: Basophils # 0.1 K/mcL (0.0-0.2); Basophils % 1.3 %; Eosinophils # 0.6 K/mcL (0.0-0.6); Eosinophils % 5.5 %; Hematocrit 31.7 % (35.3-44.9); Hemoglobin 10.8 g/dL (11.5-15.4); Immature Granulocytes % 1.1 % (0-4); Lymphocytes # 2.3 K/mcL (0.6-4.6); Mean Corpuscular HGB Conc 34.1 g/dL (31.6-35.5); Mean Corpuscular Hemoglobin 28.2 pg (28.0-33.3); Mean Corpuscular Volume 82.8 fL (83.0-100.0); Mean Platelet Volume 10.2 fL (9.4-12.4); Monocytes # 0.8 K/mcL (0.0-1.3); Monocytes % 8.4 %; Neutrophils # 6.1 K/mcL (1.6-8.9); Platelet Count 325 K/mcL (140-400); Red Blood Count 3.83 M/mcL (3.82-4.97); Red Cell Distribution Width 16.7 % (11.5-14.5); Segmented Neutrophils % 60.7 %
[2016-11-26 06:00] LABS: Alanine Aminotransferase 62 Units/L (0-55); Aspartate Amino Transferase 130 Units/L (5-34); BUN/Creatinine Ratio 36 (6-26); Blood Urea Nitrogen 31 mg/dL (7-20); Calcium 8.5 mg/dL (8.6-10.8); Carbon Dioxide 30 mEq/L (19-29); Chloride 99 mEq/L (98-109); Glucose 78 mg/dL (70-99); Osmolality,Calculated 291 (280-300); Potassium 3.8 mEq/L (3.5-4.5); Sodium 138 mEq/L (136-145); eGFR For African Americans > 60 (> 60); eGFR For Non-African Americans > 60 (> 60)
[2016-11-26] MEDS: Levothyroxine Sodium 100 MCG VIAL IVP SCH (06:17)
[2016-11-26] MEDS: Fluconazole 100 MG TABLET PO SCH (08:27)
[2016-11-26] MEDS: Furosemide 40 MG/4 ML VIAL IVP SCH ×2 (08:27→17:27)
[2016-11-26] MEDS: Pantoprazole 40 MG VIAL IVP SCH (08:27)
[2016-11-26] MEDS: Aspirin 81 MG TAB.CHEW PO SCH (08:27)
[2016-11-26] MEDS: Ondansetron 4 MG/2 ML VIAL IVP PRN ×2 (08:31→17:27)
--- NOTE | 2016-11-26 10:23 | Cardiology Progress Note ---
Date of Encounter: 11/26/16 Time of Encounter: 10:00 Assessment and Plan (1) Altered mental status Current Visit: Yes Status: Acute Per Cardiology: Presented with weakness, altered mental status, and left-sided weakness. Head CT and brain MRI with no acute findings. Neurology following. Reported TIA July 2016. According to review of outpatient medical records, history of CVA. Currently alert and oriented 3 and appears improved from admission. Qualifiers: Altered mental status type: unspecified Qualified Code(s): R41.82 - Altered mental status, unspecified (2) Cardiomyopathy Current Visit: Yes Status: Acute Per Cardiology: Last echo May 2012 showed EF 65%, mild diastolic dysfunction, normal RV size and function, no significant valvular dysfunction, no pulmonary hypertension, NSWMA. Current echo shows EF decreased to 40%. Patient on IV Lasix per primary service and currently appears to be -5460ml during hospital stay. Continue daily weights, 1.5 L fluid restriction, and strict I's and O's. CP free. Discussed and reviewed with Dr. Olsen, recommend medical management for now and evaluate in outpatient setting possible [facility] if clinically appropriate. Patient verbalized understanding and agreed with plan. On asa and will add BB (had brief SVT as well). Will s/o, re-consult PRN, follow up scheduled. Qualifiers: Cardiomyopathy type: unspecified Qualified Code(s): I42.9 - Cardiomyopathy , unspecified (3) Elevated troponin Current Visit: Yes Status: Acute Per Cardiology: Flat and adynamic. Peak trop 0.07. Chest pain-free. Do not suspect non-STEMI, suspect demand ischemia setting of multiple comorbid conditions. (4) Closed coracoid process fracture Current Visit: Yes Status: Acute Per Cardiology: Noted on CT. Management per primary service. Had recent falls. Qualifiers: Encounter type: initial encounter Fracture alignment: nondisplaced Laterality: right Qualified Code(s): S42.134A - Nondisplaced fracture of coracoid process, right shoulder, initial encounter for closed fracture (5) Anemia Current Visit: No Status: Chronic Per Cardiology: Patient noted to have apparent anemia since March 2016. Reports "black/green stools" past 1 month. Monitor for any bleeding. GI consult pending for elevate LFTs and anemia. Qualifiers: Anemia type: other cause Other causes of anemia: chronic disease, other Qualified Code(s): D63.8 - Anemia in other chronic diseases classified elsewhere (6) Carotid stenosis, bilateral Current Visit: No Status: Chronic Per Cardiology: Follows with vascular surgery with bilateral 60-79% ICA stenosis. On aspirin. Will not add statin d/t LFTs elevated. (7) CKD (chronic kidney disease) Current Visit: No Status: Chronic Per Cardiology: Appears to have CKD 3a. Currently stable. Qualifiers: Chronic kidney disease stage: unspecified stage Qualified Code(s): N18.9 - Chronic kidney disease, unspecified Discussion w patient/family: The assessment and plan as outlined above was discussed with the patient and/or family members who expressed understanding and agreement. All questions were answered. Thank you for involving us in the care of your patient. Please call with any questions. Subjective Principal diagnosis: Weakness Interval history: Patient denies any chest pain, short of breath, palpitations. Does report some nausea this morning. Objective Vital Signs, Last 4 Hours Temp Pulse Resp BP Pulse Ox 11/26/16 08:15 98.4 F 81 16 131/72 99 General: Conversant, No Apparent Distress Cardiac: Reg Rate and Rhythm, Normal S1 and S2, No Murmur Lungs: Normal Breath Sounds, No Wheeze, Rales, Rhonchi Neuro: Alert and responsive, No focal deficits noted Extremities: Other (trace pedal) Other: Cohen draining dark yellow urine Results 11/26/16 05:28 11/26/16 05:28 Lab Results Laboratory Tests 11/26/16 05:28 AST 130 H ALT 62 H Impressions Chest X-Ray 11/24/16 14:15 IMPRESSION: Cardiomegaly and findings consistent with mild pulmonary edema, including trace bilateral pleural effusions. Findings may reflect congestive heart failure. D/ / 11/24/2016 15:06:16 Nicolle Camilo MD / earnold Interpreting Provider: Nicolle Camilo MD Liver Ultrasound 11/25/16 11:00 IMPRESSION: 1. Status post cholecystectomy. 2. Incidental note of right-sided pleural effusion. D/ / Dipti Dorantes MD / Dipti Dorantes MD Interpreting Provider: Dipti Dorantes MD Intake & Output 11/23/16 11/24/16 11/25/16 11/26/16 23:59 23:59 23:59 23:59 Intake Total 1000 / 1000 50 / 50 240 / 240 Output Total 1700 / 1700 3550 / 3550 1500 / 1500 Balance 1000 / 1000 -1650 / -1650 -3310 / -3310 -1500 / -1500 Weight 70.6 kg 68.2 kg 66.2 kg Active Medications Acetaminophen (Tylenol) 650 mg PO Q6HR PRN PRN Reason: Mild Pain (1-3) Stop: 05/25/17 20:39 Albuterol/Ipratropium (Duoneb) 3 ml IH QID PRN; Protocol PRN Reason: Shortness Of Breath/Wheezing Stop: 05/25/17 23:03 Aspirin (Aspirin) 81 mg PO DAILY DUSTY Stop: 05/28/17 09:01 Last Admin: 11/26/16 08:27 Dose: 81 mg Budesonide/Formoterol Fumarate (Symbicort) 2 puff IH BID DUSTY Stop: 05/26/17 09:01 Fluconazole (Diflucan) 100 mg PO DAILY DUSTY Stop: 05/27/17 09:01 Last Admin: 11/26/16 08:27 Dose: 100 mg Furosemide (Lasix) 40 mg IVP BIDDIURETIC DUSTY Stop: 05/26/17 08:01 Last Admin: 11/26/16 08:27 Dose: 40 mg Levothyroxine Sodium (Synthroid) 50 mcg IVP 0630 DUSTY Stop: 05/26/17 06:31 Last Admin: 11/26/16 06:17 Dose: 50 mcg Naloxone HCl (Narcan) 0.4 mg IVP Q2MIN PRN PRN Reason: Opioid Reversal Stop: 05/25/17 20:39 Ondansetron HCl (Zofran) 4 mg IVP Q8HR PRN PRN Reason: Nausea And Vomiting Stop: 05/25/17 20:39 Last Admin: 11/26/16 08:31 Dose: 4 mg Pantoprazole Sodium (Protonix) 40 mg IVP DAILY DUSTY Stop: 05/27/17 12:46 Last Admin: 11/26/16 08:27 Dose: 40 mg - Imaging and Cardiology Echo: report reviewed - EKG Interpretation EKG results cardiology: other (Telemetry reviewed with average heart rate 77, brief episodes of SVT noted) Consult Discharge Plan - Plan Referrals: Orestes Grace MD [Primary Care Provider] - 12/02/16 2:15 pm
[2016-11-26] MEDS: Metoprolol XL (24 HR) Succ 25 MG TAB.ER.24H PO SCH (11:14)
[2016-11-26 11:39] LABS: Hepatitis B Surface Antigen Nonreactive (Nonreactive)
--- NOTE | 2016-11-26 12:17 | Gastroenterology Consult Note ---
<Ike Cortez - Last Filed: 11/26/16 12:15> Date of Encounter: 11/26/16 Time of Encounter: 11:45 - Assessment and plan (1) Anemia Current Visit: No Status: Chronic Assessment and plan: Hemoglobin stable at 10.8. Continue to monitor CBC and transfuse PRBC as needed. Qualifiers: Anemia type: other cause Other causes of anemia: chronic disease, other Qualified Code(s): D63.8 - Anemia in other chronic diseases classified elsewhere (2) Elevated transaminase level Current Visit: Yes Status: Acute Assessment and plan: Trending down, continue to monitor. Liver ultrasound with no cirrhosis. Complete liver workup. (3) RUQ pain Current Visit: Yes Status: Acute Assessment and plan: CT A/P and right upper quadrant ultrasound negative for cause of abdominal pain. EGD July 2016 with nonbleeding gastric ulcer, small hiatal hernia, and monilial esophagitis. No indication of duodenal ulcers. Continue daily PPI. (4) Esophageal candidiasis Current Visit: Yes Status: Chronic Assessment and plan: Continue Diflucan. (5) Altered mental status Current Visit: Yes Status: Acute Qualifiers: Altered mental status type: unspecified Qualified Code(s): R41.82 - Altered mental status, unspecified (6) Cardiomyopathy Current Visit: Yes Status: Acute Qualifiers: Cardiomyopathy type: unspecified Qualified Code(s): I42.9 - Cardiomyopathy , unspecified - Time Spent With Patient Total time spent is greater than 50% in coordination of care (as documented) at patient's floor/unit and/or counseling patient: GI History of Present Illness - Data of Consult Patient: new to practice Consult date: 11/26/16 Requesting Physician: Briana Chavez CNP - Consult Narrative Reason for consult: RUQ pain, elevated LFTs History of present illness: Ms. Tucker is a 71 year old female with PMHx of arthritis, COPD, CAD, DM, HLD, HTN, and alcohol abuse who presented to the ED with altered mental status and left-sided weakness. CT head, MRI brain, head MRA negative. We were consulted for right upper quadrant pain, anemia, and elevated LFTs. Liver ultrasound with no cirrhosis. Pt denies recent alcohol consumption, but states she used to be a heavy drinker and quit about 25 years ago. Procedures: EGD 07/31/2016 Dr. Ayala: Nonbleeding gastric ulcer, small hiatal hernia, monilial esophagitis. Colonoscopy 07/31/2016 Dr. Ayala: Scattered moderate inflammation in the descending and transverse colon, scar colonic anastomosis, positive for collagenous colitis NSAIDs: ASA Anticoagulation: None Past Med Surg Social Fam HX - Past Medical History Medical history: arthritis, COPD, coronary artery disease, diabetes, hyperlipidemia, hypertension, renal disease, thyroid disease, other Psychiatric history: anxiety, depression - Past Surgical History Surgical History: cholecystectomy, colectomy, herniorrhaphy, hysterectomy, orthopedic, other, other - Social History Smoking Status: Never smoker Smokeless Tobacco Status: No Alcohol use: none Drug use: none - Family History Mother Adopted: No Family Member Ethnicity: Non- Living Status: Hx Family Cardiac Disorders: Yes Hx Family Cancer: Yes Father Adopted: No Living Status: Hx Family Cardiac Disorders: Yes Hx Family Cancer: Yes - Gastrointestinal Gastrointestinal: Present: as per HPI - Constitutional Constitutional: as per HPI - EENT Eyes: as per HPI Ears: Present: as per HPI Nose, mouth and throat: Present: as per HPI - Cardiovascular Cardiovascular ROS: Present: as per HPI - Respiratory Respiratory IM: Present: as per HPI - Genitourinary Genitourinary: Absent: change in color, Urinary frequency - Neurological ROS Neurological GI: Present: as per HPI - Hematologic/Lymphatic Hematologic/Lymphatic pediatric: Present: as per HPI - Musculoskeletal Musculoskeletal ROS GI: Present: as per HPI - Integumentary Integumentary GI: Present: as per HPI - Psychiatric ROS Psychiatric GI: Present: as per HPI - Endocrine Endocrine IM: Present: as per HPI - Constitutional Vitals: Temp Pulse Resp BP Pulse Ox 98.3 F 77 16 124/73 95 11/26/16 11:37 11/26/16 11:37 11/26/16 11:37 11/26/16 11:37 11/26/16 11:37 General appearance: Present: cooperative, A&O X 3, no acute distress, answers questions appropriately - Head Head exam: Present: atraumatic, normocephalic - Eye Eye exam: Present: normal appearance, sclera anicteric - ENT ENT exam: Present: mucous membranes moist - Neck Neck exam general surgery: Present: normal inspection, trachea midline - Respiratory Respiratory exam: Present: decreased breath sounds, CTAB. Absent: rales, rhonchi - Cardiovascular Cardiovascular exam: Present: RRR, +S1, +S2 - GI/Abdominal GI/Abdominal exam: Present: soft, tenderness (RUQ), no peritoneal signs. Absent : distended, firm, guarding - Rectal Rectal exam: Present: deferred - Extremities Exam Extremities exam: Present: warm - Neurological Exam Neurological exam: Present: no focal deficits - Psychiatric Psychiatric exam: Present: normal affect, normal mood - Skin Skin exam: Present: dry, intact, normal color, warm Results - Labs CBC & Chem 7: 11/26/16 05:28 11/26/16 05:28 Labs: Last Result Calcium 8.5 mg/dL (8.6-10.8) L 11/26/16 05:28 Troponin I 0.07 ng/mL (0-0.03) H* 11/24/16 05:48 Vitamin B12 1792 pg/mL (213-816) H 11/24/16 18:30 Urine Opiates Screen Negative ng/mL (Fontec=[id number]) 11/23/16 16:40 Entire Visit Hgb 10.8 g/dL (11.5-15.4) L 11/26/16 05:28 Hct 31.7 % (35.3-44.9) L 11/26/16 05:28 PT 18.8 Seconds (9.4-12.1) H 11/23/16 16:58 Total Bilirubin 0.9 mg/dL (0.2-1.2) 11/24/16 00:43 AST 130 Units/L (5-34) H 11/26/16 05:28 ALT 62 Units/L (0-55) H 11/26/16 05:28 Ammonia 38 mcmol/L (18-72) 11/23/16 16:58 - ABG ABG results: ABG ABG pH 7.38 pH Units (7.32-7.45) 11/24/16 15:33 ABG pCO2 40 mmHg (35-45) 11/24/16 15:33 ABG pO2 70 mmHg (85-104) L 11/24/16 15:33 ABG O2 Saturation 93 % (95-98) L 11/24/16 15:33 PT/INR, D-dimer PT 18.8 Seconds (9.4-12.1) H 11/23/16 16:58 - Impressions Impressions Chest X-Ray 11/24/16 14:15 IMPRESSION: Cardiomegaly and findings consistent with mild pulmonary edema, including trace bilateral pleural effusions. Findings may reflect congestive heart failure. D/ / 11/24/2016 15:06:16 Nicolle Camilo MD / earnold Interpreting Provider: Nicolle Camilo MD Consult Discharge Plan - Plan Referrals: Orestes Grace MD [Primary Care Provider] - 12/02/16 2:15 pm <Rere Mclaughlin - Last Filed: 11/26/16 15:56> Date of Encounter: 11/26/16 Time of Encounter: 14:00 - Time Spent With Patient Total time spent is greater than 50% in coordination of care (as documented) at patient's floor/unit and/or counseling patient: GI History of Present Illness - Data of Consult Requesting Physician: Briana Chavez CNP - Consult Narrative History of present illness: Ms. Tucker is a 71 year old female - Constitutional Vitals: Temp Pulse Resp BP Pulse Ox 97.5 F L 78 18 124/70 94 11/26/16 15:38 11/26/16 15:38 11/26/16 15:38 11/26/16 15:38 11/26/16 15:38 Results - Labs CBC & Chem 7: 11/26/16 05:28 11/26/16 05:28 Labs: Last Result Calcium 8.5 mg/dL (8.6-10.8) L 11/26/16 05:28 Ferritin 433 ng/ml (5-204) H 11/26/16 12:05 Troponin I 0.07 ng/mL (0-0.03) H* 11/24/16 05:48 Vitamin B12 1792 pg/mL (213-816) H 11/24/16 18:30 Urine Opiates Screen Negative ng/mL ([id number]=[id number]) 11/23/16 16:40 Entire Visit Hgb 10.8 g/dL (11.5-15.4) L 11/26/16 05:28 Hct 31.7 % (35.3-44.9) L 11/26/16 05:28 PT 18.0 Seconds (9.4-12.1) H 11/26/16 12:05 Total Bilirubin 0.9 mg/dL (0.2-1.2) 11/24/16 00:43 Ferritin 433 ng/ml (5-204) H 11/26/16 12:05 AST 130 Units/L (5-34) H 11/26/16 05:28 ALT 62 Units/L (0-55) H 11/26/16 05:28 Ammonia 38 mcmol/L (18-72) 11/23/16 16:58 - ABG ABG results: ABG ABG pH 7.38 pH Units (7.32-7.45) 11/24/16 15:33 ABG pCO2 40 mmHg (35-45) 11/24/16 15:33 ABG pO2 70 mmHg (85-104) L 11/24/16 15:33 ABG O2 Saturation 93 % (95-98) L 11/24/16 15:33 PT/INR, D-dimer PT 18.0 Seconds (9.4-12.1) H 11/26/16 12:05 - Impressions Impressions Chest X-Ray 11/24/16 14:15 IMPRESSION: Cardiomegaly and findings consistent with mild pulmonary edema, including trace bilateral pleural effusions. Findings may reflect congestive heart failure. D/ / 11/24/2016 15:06:16 Nicolle Camilo MD / earnold Interpreting Provider: Nicolle Camlio MD - Attending Attestation I examined this patient and my medical decision-making was reviewed with the SEATING UPHOLSTERER/PA/Advanced Practice Nurse/Resident Physician. I agree with the documented findings, disposition and treatment plan as described except to the extent set forth below. Pt with EGD/colon in Jul. Had gastric ulcer. Consider EGD on tuesday if pt still here. NPO after MN on tuesday
[2016-11-26 12:35] LABS: INR 1.6
[2016-11-26] MEDS ORDERED: Ibuprofen 600 MG TABLET PO PRN (12:52)
--- NOTE | 2016-11-26 15:46 | Internal Med Progress Note ---
Date of Encounter: 11/26/16 Time of Encounter: 08:30 - Assessment and plan (1) Cerebrovascular accident Current Visit: Yes Status: Suspected Assessment and plan: All imaging has been negative. All symptoms have resolved.. She has very minimal left facial droop at the mouth. Facial movements are symmetrical. Strength assessment is equal bilaterally in upper or lower extremities. There are no focal neurological deficits. Neurology has signed off. Head CT 11/23/16 16:21 IMPRESSION: No acute intracranial abnormality. D/ / Ike Jasmine MD / Ike Jasmine MD Interpreting Provider: Ike Jasmine MD :2 Brain MRI 11/24/16 12:25 IMPRESSION: No acute infarct. D/ / Jesus Durant MD / Jesus Durant MD Interpreting Provider: Jesus Durant MD Head MRA 11/24/16 12:25 IMPRESSION: No acute infarct. D/ / Jesus Durant MD / Jesus Durant MD Interpreting Provider: Jesus Durant MD Qualifiers: CVA mechanism: unspecified Qualified Code(s): I63.9 - Cerebral infarction, unspecified (2) CHF (congestive heart failure) Current Visit: Yes Status: Chronic Assessment and plan: Patient has decreased LV function, 55% in July, 40% now. BNP is elevated at 1290. She also has elevated troponin most likely due to demand from CHF. Patient is not in any respiratory distress, she speaks easily in full sentences. She is sitting at bedside. At the time of assessment she was wearing supplemental oxygen and respirations are easy and unlabored. Her lungs are clear and diminished. Cardiology has evaluated and will follow patient outpatient for possible LHC if anemia and transaminases and other comorbidities are more stable. Cardiology has signed off, will reconsult when necessary. I appreciate their recommendations of consultation. Continue IV Lasix Strict intake and output Cohen catheter Daily weights Continue aspirin, cardiology has added a beta conner for brief run of SVT. . Qualifiers: Congestive heart failure type: diastolic Congestive heart failure chronicity: acute Qualified Code(s): I50.31 - Acute diastolic (congestive) heart failure (3) Hypertension Current Visit: Yes Status: Chronic Assessment and plan: Chronic. Continue to monitor. Continue home medications. Qualifiers: Hypertension type: essential hypertension Qualified Code(s): I10 - Essential (primary) hypertension (4) Celiac artery stenosis Current Visit: No Status: Chronic Assessment and plan: Patient will need to follow-up with vascular surgery after discharge. (5) Dysphagia Current Visit: No Status: Resolved Assessment and plan: Resolved. Qualifiers: Dysphagia type: oropharyngeal phase Qualified Code(s): R13.12 - Dysphagia, oropharyngeal phase (6) Esophageal candidiasis Current Visit: Yes Status: Chronic Assessment and plan: Patient is taking by mouth Diflucan. She will need to take it for 3 weeks. (7) Hypothyroidism Current Visit: Yes Status: Chronic Assessment and plan: Chronic. Continue home medications. Qualifiers: Hypothyroidism type: unspecified Qualified Code(s): E03.9 - Hypothyroidism , unspecified (8) Elevated transaminase level Current Visit: Yes Status: Acute Assessment and plan: Trending down today. We will continue to monitor. Patient has been evaluated by GI today, patient had an EGD in July with nonbleeding gastric ulcer, small hiatal hernia. There is no indication of duodenal ulcers. Recommended continue her daily PPI. Per conversation with DISPLAYER, there is no further testing needed at this time. Patient has hepatomegaly as well as right upper quadrant tenderness with palpation. We will continue to monitor labs. Abdomen/Pelvis CT 11/23/16 16:25 IMPRESSION: 1. Patchy diffuse ground-glass opacification throughout the lungs with small bilateral effusions. The findings are nonspecific but suggest possible pulmonary edema and CHF. An infectious process is not excluded. 2. Fracture of the right coracoid process. No other acute osseous findings. 3. Visceral evaluation is limited by the lack of intravenous contrast. No evidence of traumatic abdominal or pelvic visceral injury. 4. Small amount of free pelvic fluid. No significant retroperitoneal or pelvic hematoma. 5. Atherosclerotic changes involving the abdominal aorta. Compromise of the aortic lumen just above the renal arteries, possibly representing an occluded aorta at this level. 6. Mild edema within the subcutaneous soft tissues. Some focal fluid in the subcutaneous soft tissues overlying the left lateral hip. No soft tissue hematoma. D/ / 11/23/2016 18:27:01 Kevin Kessler MD / jude Interpreting Provider: Kevin Kessler MD Liver Ultrasound 11/25/16 11:00 IMPRESSION: 1. Status post cholecystectomy. 2. Incidental note of right-sided pleural effusion. D/ / Dipti Dorantes MD / Dipti Dorantes MD Interpreting Provider: Dipti Dorantes MD (9) Anemia Current Visit: No Status: Chronic Assessment and plan: Patient has chronic anemia since last March. Hemoglobin is 10.8 today. Is actually trending up over the last couple of days. We will continue to monitor this. She reports to cardiology that she has "black/green stools" for the past month. She is not reported this to nursing staff, nursing staff has not made note of this or notified me. Patient states that she has been going to the bathroom and having bowel movements on her own. I have ordered a stool for occult blood. Iron studies and folate were normal in July. I have reordered them for the morning. B12 level is significantly elevated. Continue to monitor hemoglobin and hematocrit Prepare to transfuse as needed Stool for occult blood knees to be collected Monitor iron studies and folate level in the morning. Qualifiers: Anemia type: other cause Other causes of anemia: chronic disease, other Qualified Code(s): D63.8 - Anemia in other chronic diseases classified elsewhere - Subjective Interval history: Patient was seen and assessed at about 8:30 AM. She is alert, awake, oriented, interactive. She has no neurological deficits. Today she reports decreased appetite and states she does not like the food. She has had multiple family members visiting today. She has been assessed by GI for transaminases and the hepatomegaly. Her abdomen is tender to palpation in right upper quadrant. We will continue to monitor her transaminases and look ahead to potential discharge on Tuesday when precertification will be done for patient's transfer to [facility]. - Constitutional Vitals: Temp Pulse Resp BP Pulse Ox 97.5 F L 78 18 124/70 94 11/26/16 15:38 11/26/16 15:38 11/26/16 15:38 11/26/16 15:38 11/26/16 15:38 General appearance: Present: cooperative, A&O X 3, pleasant, answers questions appropriately - Head Head exam: Present: normal inspection - Eye Eye exam: Present: normal appearance, conjuntiva pink - ENT ENT exam: Present: mucous membranes moist, normal exam, normal external ear exam - Neck Neck exam general surgery: Present: normal inspection. Absent: lymphadenopathy , tenderness - Respiratory Respiratory exam: Present: CTAB. Absent: respiratory distress - Cardiovascular Cardiovascular exam: Present: RRR, +S1, +S2. Absent: bradycardia, diastolic murmur, systolic murmur, tachycardia - GI/Abdominal GI/Abdominal exam: Present: firm, hepatomegaly, normal bowel sounds, soft, tenderness - Extremities Exam Extremities exam: Present: warm, radial pulses palpable and symetrical. Absent : pedal edema, tenderness - Neurological Exam Neurological exam: Present: alert, oriented X3, strengths equal and symetr throughout. Absent: motor sensory deficit, facial droop, speech deficit - Skin Skin exam: Present: dry, normal color, rash. Absent: warm Internal Medicine: Result - Labs CBC & Chem 7: 11/26/16 05:28 11/26/16 05:28 Labs: Short CBC 11/26/16 Range/Units 05:28 WBC 10.0 (4.3-11.1) K/mcL Hgb 10.8 L (11.5-15.4) g/dL Hct 31.7 L (35.3-44.9) % Plt Count 325 (140-400) K/mcL Neutrophils # 6.1 (1.6-8.9) K/mcL BMP 11/26/16 05:28 Sodium 138 Potassium 3.8 Chloride 99 Carbon Dioxide 30 H BUN 31 H Creatinine 0.85 Glucose 78 Calcium 8.5 L Liver Function 11/26/16 Range/Units 05:28 AST 130 H (5-34) Units/L ALT 62 H (0-55) Units/L - ABG Interpretation ABG results: ABG ABG pH 7.38 pH Units (7.32-7.45) 11/24/16 15:33 ABG pCO2 40 mmHg (35-45) 11/24/16 15:33 ABG pO2 70 mmHg (85-104) L 11/24/16 15:33 ABG O2 Saturation 93 % (95-98) L 11/24/16 15:33 PT/INR, D-dimer PT 18.0 Seconds (9.4-12.1) H 11/26/16 12:05 - Impressions Impressions Chest X-Ray 11/24/16 14:15 IMPRESSION: Cardiomegaly and findings consistent with mild pulmonary edema, including trace bilateral pleural effusions. Findings may reflect congestive heart failure. D/ / 11/24/2016 15:06:16 Nicolle Camilo MD / earnold Interpreting Provider: Nicolle Camilo MD Consult Discharge Plan - Plan Referrals: Orestes Grace MD [Primary Care Provider] - 12/02/16 2:15 pm
[2016-11-26 20:38] LABS: Hepatitis A Antibody IgM Nonreactive (Nonreactive); Hepatitis C Virus Antibody Nonreactive (Nonreactive)
[2016-11-26 20:47] LABS: Hepatitis B Core IgM Grayzone (Nonreactive)
[2016-11-27 04:28] LABS: Basophils # 0.1 K/mcL (0.0-0.2); Basophils % 1.4 %; Eosinophils # 0.5 K/mcL (0.0-0.6); Eosinophils % 5.4 %; Hematocrit 31.7 % (35.3-44.9); Hemoglobin 10.9 g/dL (11.5-15.4); Immature Granulocytes % 0.7 % (0-4); Lymphocytes # 2.8 K/mcL (0.6-4.6); Lymphocytes % 29.6 %; Mean Corpuscular HGB Conc 34.4 g/dL (31.6-35.5); Mean Corpuscular Hemoglobin 28.3 pg (28.0-33.3); Mean Corpuscular Volume 82.3 fL (83.0-100.0); Mean Platelet Volume 11.7 fL (9.4-12.4); Monocytes # 0.8 K/mcL (0.0-1.3); Monocytes % 8.3 %; Neutrophils # 5.2 K/mcL (1.6-8.9); Platelet Count 348 K/mcL (140-400); Red Blood Count 3.85 M/mcL (3.82-4.97); Red Cell Distribution Width 16.8 % (11.5-14.5); Segmented Neutrophils % 54.6 %
[2016-11-27 04:41] LABS: % Iron Saturation 36 % (15-50); Alanine Aminotransferase 52 Units/L (0-55); Aspartate Amino Transferase 123 Units/L (5-34); BUN/Creatinine Ratio 33 (6-26); Blood Urea Nitrogen 30 mg/dL (7-20); Calcium 8.8 mg/dL (8.6-10.8); Carbon Dioxide 30 mEq/L (19-29); Chloride 95 mEq/L (98-109); Glucose 70 mg/dL (70-99); Iron 98 mcg/dL (50-170); Osmolality,Calculated 291 (280-300); Potassium 3.7 mEq/L (3.5-4.5); Sodium 138 mEq/L (136-145); Transferrin 192 mg/dL (180-382); eGFR For African Americans > 60 (> 60); eGFR For Non-African Americans > 60 (> 60)
[2016-11-27] MEDS: Levothyroxine Sodium 100 MCG VIAL IVP SCH (09:13)
[2016-11-27] MEDS: Pantoprazole 40 MG VIAL IVP SCH (09:19)
[2016-11-27] MEDS: Furosemide 40 MG/4 ML VIAL IVP SCH ×2 (09:19→17:24)
[2016-11-27] MEDS: Aspirin 81 MG TAB.CHEW PO SCH (09:19)
[2016-11-27] MEDS: Fluconazole 100 MG TABLET PO SCH (09:19)
[2016-11-27] MEDS: Ondansetron 4 MG/2 ML VIAL IVP PRN ×2 (09:19→17:25)
[2016-11-27] MEDS: Folic Acid 1 MG TABLET PO SCH (09:19)
[2016-11-27] MEDS: Metoprolol XL (24 HR) Succ 25 MG TAB.ER.24H PO SCH (09:19)
--- NOTE | 2016-11-27 12:08 | Orthopedic Consult Note ---
Date of Encounter: 11/27/16 Time of Encounter: 12:01 History of Present Illness Chief complaint: Patient denies any acute right shoulder pain HPI: Ms. Tucker is a 71 year old right hand dominant female who is seen in regards to a finding on a CT scan of her right coracoid. Patient states that she has no acute changes to the right shoulder. She states she did have right rotator cuff surgery in the past and has some mild chronic issues. She denies any acute injury or pain. For complete history and physical data please refer to the completed portion of the medical record. Pertinent orthopedic examination at this time shows fairly good range of motion. She does have overt rotator cuff weakness. She however has excellent abduction. I do not identify any pain to palpation of the coracoid or in her biceps. I reviewed multiple studies. She had a chest x-ray completed on 11 24 2016, this reveals bilateral rotator cuff arthropathy with right humeral head elevated much higher than the left. This is manifested by glenohumeral and acromioclavicular arthritic changes. There are some changes at the base of the coracoid though these are not well-defined on the chest x-ray proper. I also reviewed a right shoulder x-ray from 11 10 2011, this does not show any obvious of chronic findings in comparison to the recent x-ray. An MRI also completed best that time does not show definitive evidence of any problems with the coracoid. I reviewed a CT scan of her chest from 11 23 2016, this reveals a chronic nonunion of the base of the right coracoid. This is manifested by sclerotic margins without evidence of any acute soft tissue changes. The overall position is unremarkable. Impression: Chronic nonunion/fibrous union right coracoid (base) Recommendation: No intervention is required. This is a chronic finding and is of no acute concern. Encouraged the patient to continue to use her arm as tolerated. Thank you very much for allowing me to see and care for Mrs. Tucker. Sincerely , Josh Pittman,DO Past Med Surg Social Fam HX - Past Medical History Medical history: arthritis, COPD, coronary artery disease, diabetes, hyperlipidemia, hypertension, renal disease, thyroid disease, other Psychiatric history: anxiety, depression - Past Surgical History Surgical History: cholecystectomy, colectomy, herniorrhaphy, hysterectomy, orthopedic, other, other - Social History Smoking Status: Never smoker Smokeless Tobacco Status: No Alcohol use: none Drug use: none - Family History Mother Adopted: No Family Member Ethnicity: Non- Living Status: Hx Family Cardiac Disorders: Yes Hx Family Cancer: Yes Father Adopted: No Living Status: Hx Family Cardiac Disorders: Yes Hx Family Cancer: Yes Medications and Allergies ALPRAZolam [Xanax 1 MG Tablet] 1 mg PO BID PRN 10/15/15 [History] Albuterol Sulfate [Albuterol Inhaler] 2 puff IH Q4-6H PRN 10/15/15 [History] Allopurinol [Zyloprim 100 MG] 100 mg PO DAILY 10/15/15 [History] Fenofibrate Nanocrystallized [Tricor] 145 mg PO QPM 10/15/15 [History] Fluticasone/Salmeterol [Advair 500-50 Diskus] 1 inh PO BID 10/15/15 [History] Gabapentin [Neurontin] 800 mg PO TID 10/15/15 [History] Isosorbide MONOnitrate (24 HR) [Imdur] 60 mg PO DAILY 10/15/15 [History] Levothyroxine [Synthroid] 112 mcg PO DAILY 10/15/15 [History] Ropinirole HCl [Requip] 0.5 - 1 mg PO HS 10/15/15 [History] Sertraline [Zoloft] 100 mg PO BID 10/15/15 [History] Tiotropium [Spiriva] 18 mcg IH DAILY 10/15/15 [History] Diltiazem HCl [Diltiazem ER] 120 mg PO DAILY 03/29/16 [History] Ipratropium/Albuterol Neb [Duoneb] 3 ml IH QID 03/29/16 [History] Gemfibrozil [Lopid] 600 mg PO BIDWM 05/28/16 [History] OxyCODONE/APAP 5/325 [Percocet 5/325 MG] 1 each PO BID PRN 05/28/16 [History] Aspirin Enteric Coated [Aspirin EC] 81 mg PO DAILY 11/23/16 [History] Ferrous Sulfate 325 mg PO DAILY 11/23/16 [History] Fish Oil/Dha/Epa [Fish Oil 1,200 mg Fish Oil] 1 each PO TID 11/23/16 [History] Magnesium Oxide [Mag-Ox] 400 mg PO DAILY 11/23/16 [History] Nystatin [Nystatin Suspension] 400,000 units PO QID 11/23/16 [History] Omeprazole [PriLOSEC] 40 mg PO DAILY 11/23/16 [History] Sucralfate [Carafate] 1 gm PO BID 11/23/16 [History] Allergies codeine Allergy (Verified 11/23/16 15:59) Confusion Iodinated Contrast- Oral and IV Dye [Iodinated Contrast Media - Oral and] Adverse Reaction (Verified 11/23/16 15:59) See Comments patient states kidney problems. meclizine Adverse Reaction (Verified 11/23/16 15:59) Confusion All Systems Reviewed: A 10-system review of systems was performed and is negative for pertinent findings except as documented above in the HPI. Physical Exam - Constitutional Vitals: Temp Pulse Resp BP Pulse Ox 98.0 F 72 15 121/65 91 11/27/16 11:17 11/27/16 11:17 11/27/16 11:17 11/27/16 11:17 11/27/16 11:17 General appearance IM: cooperative, A&O X 3, no acute distress, answers questions appropriately Results - Labs Result Diagrams: 11/27/16 03:36 11/27/16 03:36 Labs: Abnormal lab results Hgb 10.9 g/dL (11.5-15.4) L 11/27/16 03:36 Hct 31.7 % (35.3-44.9) L 11/27/16 03:36 MCV 82.3 fL (83.0-100.0) L 11/27/16 03:36 RDW 16.8 % (11.5-14.5) H 11/27/16 03:36 Anisocytosis 1+ (Not Present) A 11/23/16 16:58 PT 18.0 Seconds (9.4-12.1) H 11/26/16 12:05 ABG pO2 70 mmHg (85-104) L 11/24/16 15:33 ABG O2 Saturation 93 % (95-98) L 11/24/16 15:33 Chloride 95 mEq/L (98-109) L 11/27/16 03:36 Carbon Dioxide 30 mEq/L (19-29) H 11/27/16 03:36 BUN 30 mg/dL (7-20) H 11/27/16 03:36 BUN/Creatinine Ratio 33 (6-26) H 11/27/16 03:36 Direct Bilirubin 0.9 mg/dL (0.0-0.5) H 11/23/16 16:58 Ferritin 433 ng/ml (5-204) H 11/26/16 12:05 Alkaline Phosphatase 141 Units/L (38-126) H 11/24/16 00:43 AST 123 Units/L (5-34) H 11/27/16 03:36 Creatine Kinase 14 Units/L (29-168) L 11/24/16 18:30 Troponin I 0.07 ng/mL (0-0.03) H* 11/24/16 05:48 B-Natriuretic Peptide 1290 pg/mL (0-100) H 11/23/16 16:58 Serum Total Protein 5.5 g/dL (6.0-8.3) L 11/24/16 00:43 Albumin 2.2 g/dL (3.5-5.0) L 11/24/16 00:43 Albumin/Globulin Ratio 0.7 (1.1-2.2) L 11/24/16 00:43 Vitamin B12 1792 pg/mL (213-816) H 11/24/16 18:30 Folate 4.8 ng/mL (7.0-31.4) L 11/27/16 03:36 TSH 6.128 mcIU/mL (0.350-4.840) H 11/23/16 16:58 Urine Ketones Trace mg/dL (Negative) H 11/23/16 16:40 Urine Bilirubin Small (Negative) H 11/23/16 16:40 Ur Leukocyte Esterase Trace (Negative) H 11/23/16 16:40 Ur Squamous Epith Cells Many per lpf (None-Few) H 11/23/16 16:40 Nasal Screen MRSA (PCR) Positive (Negative) A 11/24/16 11:12 Stool Occult Blood Positive (Negative) A 11/27/16 07:35 U Benzodiazepines Scrn Positive ng/mL (Aybobc=560) H 11/23/16 16:40 Hep B Core IgM Ab Grayzone (Nonreactive) H 11/26/16 05:28 H & H 11/27/16 Range/Units 03:36 Hgb 10.9 L (11.5-15.4) g/dL Hct 31.7 L (35.3-44.9) % All other labs normal. - Diagnostic results Shoulder x-ray: image reviewed Shoulder MRI: image reviewed Shoulder CT: image reviewed Consult Discharge Plan - Plan Referrals: Orestes Grace MD [Primary Care Provider] - 12/02/16 2:15 pm
--- NOTE | 2016-11-27 13:20 | Internal Med Progress Note ---
Date of Encounter: 11/27/16 Time of Encounter: 12:15 - Assessment and plan (1) Cerebrovascular accident Current Visit: Yes Status: Suspected Assessment and plan: All imaging has been negative. All symptoms have resolved, including facial droop. Facial movements are symmetrical. Strength assessment is equal bilaterally in upper or lower extremities. There are no focal neurological deficits. Neurology has signed off. Head CT 11/23/16 16:21 IMPRESSION: No acute intracranial abnormality. D/ / Ike Jasmine MD / Ike Jasmine MD Interpreting Provider: Ike Jasmine MD :2 Brain MRI 11/24/16 12:25 IMPRESSION: No acute infarct. D/ / Jesus Durant MD / Jesus Durant MD Interpreting Provider: Jesus Durant MD Head MRA 11/24/16 12:25 IMPRESSION: No acute infarct. D/ / Jesus Durant MD / Jesus Durant MD Interpreting Provider: Jesus Durant MD Qualifiers: CVA mechanism: unspecified Qualified Code(s): I63.9 - Cerebral infarction, unspecified (2) CHF (congestive heart failure) Current Visit: Yes Status: Chronic Assessment and plan: Patient has decreased LV function, 55% in July, 40% now. BNP is elevated at 1290. She also had elevated troponin on admission, most likely due to demand from CHF. Patient is not in any respiratory distress, she speaks easily in full sentences. She is sitting at bedside. At the time of assessment she is on room air and respirations are easy and unlabored. Her lungs are clear and diminished. Cardiology has evaluated and will follow patient outpatient for possible LHC if anemia and transaminases and other comorbidities are more stable. Cardiology has signed off, will reconsult when necessary. I appreciate their recommendations of consultation. Continue IV Lasix Strict intake and output Cohen catheter discontinued Daily weights Continue aspirin, cardiology has added a beta conner for brief run of SVT. . Qualifiers: Congestive heart failure type: diastolic Congestive heart failure chronicity: acute Qualified Code(s): I50.31 - Acute diastolic (congestive) heart failure (3) Hypertension Current Visit: Yes Status: Chronic Assessment and plan: Chronic. Continue to monitor. Continue home medications. Qualifiers: Hypertension type: essential hypertension Qualified Code(s): I10 - Essential (primary) hypertension (4) Celiac artery stenosis Current Visit: No Status: Chronic Assessment and plan: Patient will need to follow-up with vascular surgery after discharge. (5) Dysphagia Current Visit: No Status: Resolved Assessment and plan: Resolved. Qualifiers: Dysphagia type: oropharyngeal phase Qualified Code(s): R13.12 - Dysphagia, oropharyngeal phase (6) Esophageal candidiasis Current Visit: Yes Status: Chronic Assessment and plan: Patient remains on Diflucan. She will be discharged to rehabilitation with prescription. She will need a total of 3 week course. (7) Hypothyroidism Current Visit: Yes Status: Chronic Assessment and plan: Chronic. Continue home medications. Qualifiers: Hypothyroidism type: unspecified Qualified Code(s): E03.9 - Hypothyroidism , unspecified (8) Elevated transaminase level Current Visit: Yes Status: Acute Assessment and plan: Levels are returning to normal. ALT is within normal limits today. AST is decreased to 123. We will continue to monitor labs. (9) Anemia Current Visit: No Status: Chronic Assessment and plan: Patient has chronic anemia since last March. Hemoglobin is 10.9 today. Iron studies and folate were normal in July. I have reordered them for the morning. B12 level is significantly elevated. Folate was low at 4.8. She has been started on folic acid 1 mg by mouth daily. Continue to monitor hemoglobin and hematocrit Prepare to transfuse as needed Stool for occult blood knees to be collected GI ordered multiple labs. Will monitor for results. Qualifiers: Anemia type: other cause Other causes of anemia: chronic disease, other Qualified Code(s): D63.8 - Anemia in other chronic diseases classified elsewhere - Time Spent With Patient less than 15 minutes - Subjective Interval history: Patient was seen and assessed at about 12:15 today. She is alert, awake, oriented, interactive, joking with me. She has 2 family members at the bedside. We discussed labs and test results with her permission. Again, today she reports decreased appetite and states that she does not like the food. She said she will try to eat some lunch. Her labs are improving, ALT is within normal limits, and AST has decreased to 123. Her folate is low at 4.8. She has been started on folic acid 1 mg po. I discussed her hepatitis B results with her. She is aware that she will need continued testing. She is also aware that she will be here until a bed opened to [facility] for her. Patient will most likely go on Tuesday when precertification is completed. - Constitutional Vitals: Temp Pulse Resp BP Pulse Ox 98.0 F 72 15 121/65 91 11/27/16 11:17 11/27/16 11:17 11/27/16 11:17 11/27/16 11:17 11/27/16 11:17 General appearance: Present: cooperative, A&O X 3, pleasant, answers questions appropriately - Head Head exam: Present: normal inspection - Eye Eye exam: Present: normal appearance, conjuntiva pink - ENT ENT exam: Present: mucous membranes moist, normal exam - Neck Neck exam general surgery: Present: normal inspection. Absent: lymphadenopathy , tenderness - Respiratory Respiratory exam: Present: decreased breath sounds, CTAB. Absent: accessory muscle use, rales, respiratory distress, rhonchi, stridor, wheezes - Cardiovascular Cardiovascular exam: Present: RRR, +S1, +S2. Absent: diastolic murmur, systolic murmur - GI/Abdominal GI/Abdominal exam: Present: hepatomegaly, normal bowel sounds, soft. Absent: distended, firm, guarding, mass, tenderness - Extremities Exam Extremities exam: Present: normal capillary refill, warm, radial pulses palpable and symetrical. Absent: pedal edema - Neurological Exam Neurological exam: Present: alert, normal gait, oriented X3, no focal deficits. Absent: pronater drift, facial droop, speech deficit - Skin Skin exam: Present: dry, intact, normal color, warm. Absent: rash Internal Medicine: Result - Labs CBC & Chem 7: 11/27/16 03:36 11/27/16 03:36 Labs: Short CBC 11/27/16 Range/Units 03:36 WBC 9.5 (4.3-11.1) K/mcL Hgb 10.9 L (11.5-15.4) g/dL Hct 31.7 L (35.3-44.9) % Plt Count 348 (140-400) K/mcL Neutrophils # 5.2 (1.6-8.9) K/mcL BMP 11/27/16 03:36 Sodium 138 Potassium 3.7 Chloride 95 L Carbon Dioxide 30 H BUN 30 H Creatinine 0.92 Glucose 70 Calcium 8.8 Liver Function 11/27/16 Range/Units 03:36 AST 123 H (5-34) Units/L ALT 52 (0-55) Units/L - ABG Interpretation ABG results: ABG ABG pH 7.38 pH Units (7.32-7.45) 11/24/16 15:33 ABG pCO2 40 mmHg (35-45) 11/24/16 15:33 ABG pO2 70 mmHg (85-104) L 11/24/16 15:33 ABG O2 Saturation 93 % (95-98) L 11/24/16 15:33 PT/INR, D-dimer PT 18.0 Seconds (9.4-12.1) H 11/26/16 12:05 Consult Discharge Plan - Plan Referrals: Orestes Grace MD [Primary Care Provider] - 12/02/16 2:15 pm
[2016-11-27] MEDS: Budesonide/Formoterol 160/4.5 MDI IH SCH ×4 (19:40→22:20)
[2016-11-27] MEDS: Pantoprazole 40 MG in 0.9 % Sodium Chloride 50 ML IVPB SCH (19:43)
[2016-11-28] MEDS: Levothyroxine Sodium 100 MCG VIAL IVP SCH (06:15)
[2016-11-28] MEDS: Ondansetron 4 MG/2 ML VIAL IVP PRN (06:15)
[2016-11-28] MEDS: Aspirin 81 MG TAB.CHEW PO SCH (08:19)
[2016-11-28] MEDS: Folic Acid 1 MG TABLET PO SCH (08:19)
[2016-11-28] MEDS: Fluconazole 100 MG TABLET PO SCH (08:19)
[2016-11-28] MEDS: Metoprolol XL (24 HR) Succ 25 MG TAB.ER.24H PO SCH (08:19)
[2016-11-28] MEDS: Ondansetron ODT 4 MG TAB.RAPDIS SL PRN (08:19)
[2016-11-28] MEDS: Furosemide 20 MG TABLET PO SCH (08:19)
[2016-11-28] MEDS: Pantoprazole 40 MG VIAL IVP SCH (08:19)
[2016-11-28] MEDS ORDERED: Metoclopramide 10 MG/2 ML VIAL IVP ONE (09:43)
--- NOTE | 2016-11-28 16:26 | Internal Med Progress Note ---
Date of Encounter: 11/28/16 Time of Encounter: 12:30 - Assessment and plan (1) Cerebrovascular accident Current Visit: Yes Status: Suspected Assessment and plan: All imaging has been negative. All symptoms have resolved, including facial droop. Facial movements are symmetrical. Strength assessment is equal bilaterally in upper or lower extremities. There are no focal neurological deficits. Neurology has signed off. Head CT 11/23/16 16:21 IMPRESSION: No acute intracranial abnormality. D/ / Ike Jasmine MD / Ike Jasmine MD Interpreting Provider: Ike Jasmine MD :2 Brain MRI 11/24/16 12:25 IMPRESSION: No acute infarct. D/ / Jesus Durant MD / Jesus Durant MD Interpreting Provider: Jesus Durant MD Head MRA 11/24/16 12:25 IMPRESSION: No acute infarct. D/ / Jesus Durant MD / Jesus Durant MD Interpreting Provider: Jesus Durant MD Qualifiers: CVA mechanism: unspecified Qualified Code(s): I63.9 - Cerebral infarction, unspecified (2) CHF (congestive heart failure) Current Visit: Yes Status: Chronic Assessment and plan: Patient has decreased LV function, 55% in July, 40% now. Patient is not in any respiratory distress, she speaks easily in full sentences. She is sitting at bedside. At the time of assessment she is on room air and respirations are easy and unlabored. Her lungs are clear and diminished. Cardiology has evaluated and will follow patient outpatient for possible LHC if anemia and transaminases and other comorbidities are more stable. Cardiology has signed off, will reconsult when necessary. I appreciate their recommendations of consultation. Patient has lost approximately 8 kg. she has no peripheral edema. Lasix 20 mg by mouth daily Strict intake and output Cohen catheter discontinued Daily weights Continue aspirin, cardiology has added a beta conner for brief run of SVT. . Qualifiers: Congestive heart failure type: diastolic Congestive heart failure chronicity: acute Qualified Code(s): I50.31 - Acute diastolic (congestive) heart failure (3) Hypertension Current Visit: Yes Status: Chronic Assessment and plan: Chronic. Continue to monitor. Continue home medications. Qualifiers: Hypertension type: essential hypertension Qualified Code(s): I10 - Essential (primary) hypertension (4) Celiac artery stenosis Current Visit: No Status: Chronic Assessment and plan: Patient will need to follow-up with vascular surgery after discharge. (5) Esophageal candidiasis Current Visit: Yes Status: Chronic Assessment and plan: Patient remains on p.o. Diflucan. She will be discharged to rehabilitation with prescription. She will need a total of 3 week course. (6) Hypothyroidism Current Visit: Yes Status: Chronic Assessment and plan: Chronic. Continue home medications. Qualifiers: Hypothyroidism type: unspecified Qualified Code(s): E03.9 - Hypothyroidism , unspecified (7) Elevated transaminase level Current Visit: Yes Status: Acute Assessment and plan: We will recheck levels in the morning. Returning to normal. (8) Anemia Current Visit: No Status: Chronic Assessment and plan: Chronic. Patient is on folic acid. All other iron studies within normal limits. B12 is elevated. Patient has external hemorrhoids which could have used positive result for stool occult blood. Hemoglobin has remained steady throughout visit. Is actually improving. Qualifiers: Anemia type: other cause Other causes of anemia: chronic disease, other Qualified Code(s): D63.8 - Anemia in other chronic diseases classified elsewhere - Time Spent With Patient less than 15 minutes - Subjective Interval history: Patient was seen and assessed at about 12:15 today. Today she is alert, awake, oriented, visiting with family, very pleasant. Patient states that she has nausea today. I gave her Reglan 10 mg IV and nurse reports later today that nausea has resolved. She said that she did not eat much for lunch tray, we will reassess after dinner since nausea is controlled. We could consider appetite stimulant tomorrow. Her abdomen is soft and nontender. Patient has external hemorrhoids bedside guaiac was negative. Hemoglobin is holding steady. - Constitutional Vitals: Temp Pulse Resp BP Pulse Ox 98.2 F 73 17 118/75 95 11/28/16 15:41 11/28/16 15:41 11/28/16 15:41 11/28/16 15:41 11/28/16 15:41 General appearance: Present: cooperative, A&O X 3, pleasant, no acute distress, answers questions appropriately - Head Head exam: Present: normal inspection - Eye Eye exam: Present: normal appearance, conjuntiva pink - ENT ENT exam: Present: mucous membranes moist, normal exam - Neck Neck exam general surgery: Present: normal inspection. Absent: lymphadenopathy , tenderness - Respiratory Respiratory exam: Present: CTAB. Absent: rales, respiratory distress, rhonchi, stridor - Cardiovascular Cardiovascular exam: Present: RRR, +S1, +S2. Absent: diastolic murmur, systolic murmur - GI/Abdominal GI/Abdominal exam: Present: distended, hepatomegaly, soft. Absent: firm, tenderness - Extremities Exam Extremities exam: Present: normal inspection, warm, radial pulses palpable and symetrical. Absent: pedal edema, tenderness - Neurological Exam Neurological exam: Present: alert, oriented X3, no focal deficits. Absent: facial droop, speech deficit - Skin Skin exam: Present: dry, intact, normal color, warm Additional comments: Patient has covered pressure ulcer to coccyx. Was present on arrival. Internal Medicine: Result - Labs CBC & Chem 7: 11/27/16 03:36 11/27/16 03:36 - ABG Interpretation ABG results: ABG ABG pH 7.38 pH Units (7.32-7.45) 11/24/16 15:33 ABG pCO2 40 mmHg (35-45) 11/24/16 15:33 ABG pO2 70 mmHg (85-104) L 11/24/16 15:33 ABG O2 Saturation 93 % (95-98) L 11/24/16 15:33 PT/INR, D-dimer PT 18.0 Seconds (9.4-12.1) H 11/26/16 12:05 Consult Discharge Plan - Plan Referrals: Orestes Grace MD [Primary Care Provider] - 12/02/16 2:15 pm
[2016-11-28] MEDS: Budesonide/Formoterol 160/4.5 MDI IH SCH (19:30)
[2016-11-29 03:34] LABS: Basophils # 0.1 K/mcL (0.0-0.2); Eosinophils # 0.3 K/mcL (0.0-0.6); Eosinophils % 2.9 %; Hematocrit 34.6 % (35.3-44.9); Hemoglobin 11.5 g/dL (11.5-15.4); Immature Granulocytes % 0.4 % (0-4); Lymphocytes # 3.2 K/mcL (0.6-4.6); Mean Corpuscular HGB Conc 33.2 g/dL (31.6-35.5); Mean Corpuscular Hemoglobin 27.5 pg (28.0-33.3); Mean Corpuscular Volume 82.8 fL (83.0-100.0); Mean Platelet Volume 10.8 fL (9.4-12.4); Monocytes # 0.9 K/mcL (0.0-1.3); Monocytes % 9.1 %; Neutrophils # 5.4 K/mcL (1.6-8.9); Platelet Count 422 K/mcL (140-400); Red Blood Count 4.18 M/mcL (3.82-4.97); Red Cell Distribution Width 17.2 % (11.5-14.5); Segmented Neutrophils % 54.6 %
[2016-11-29] MEDS: Budesonide/Formoterol 160/4.5 MDI IH SCH (03:41)
[2016-11-29 03:52] LABS: Aspartate Amino Transferase 186 Units/L (5-34); BUN/Creatinine Ratio 32 (6-26); Blood Urea Nitrogen 32 mg/dL (7-20); Carbon Dioxide 30 mEq/L (19-29); Chloride 94 mEq/L (98-109); Glucose 80 mg/dL (70-99); Osmolality,Calculated 294 (280-300); Potassium 3.7 mEq/L (3.5-4.5); Sodium 139 mEq/L (136-145); eGFR For African Americans > 60 (> 60); eGFR For Non-African Americans 54 (> 60)
[2016-11-29] MEDS: Levothyroxine Sodium 100 MCG VIAL IVP SCH (05:08)
[2016-11-29] MEDS: Ondansetron ODT 4 MG TAB.RAPDIS SL PRN (05:14)
[2016-11-29 07:37] LABS: AFP Tumor Marker Non-Pregnant 4 ng/mL (0-9); Alpha-1-Antitrypsin 224 mg/dL (90-200); Myeloperoxidase Ab 2 AU/mL (0-19); Serine Protease-3 Antibody 9 AU/mL (0-19)
[2016-11-29 07:38] LABS: Ceruloplasmin 24 mg/dL (17-54)
[2016-11-29] MEDS ORDERED: 0.9 % Sodium Chloride 1,000 ML IVC SCH (08:00)
[2016-11-29 08:01] LABS: ANA IgG by ELISA DETECTED (None Detected); F-Actin (sm muscle) Ab IgG 30 Units (0-19)
[2016-11-29] MEDS: Furosemide 20 MG TABLET PO SCH (08:19)
[2016-11-29] MEDS: Pantoprazole 40 MG VIAL IVP SCH (08:19)
[2016-11-29] MEDS: Aspirin 81 MG TAB.CHEW PO SCH (08:20)
[2016-11-29] MEDS: Metoprolol XL (24 HR) Succ 25 MG TAB.ER.24H PO SCH (08:20)
[2016-11-29] MEDS: Folic Acid 1 MG TABLET PO SCH (08:20)
[2016-11-29] MEDS: Fluconazole 100 MG TABLET PO SCH (08:20)
[2016-11-29] MEDS ORDERED: Budesonide/Formoterol 160/4.5 MDI IH SCH (10:00)
[2016-11-29 16:45] VITALS: BP 118/64
--- NOTE | 2016-11-29 17:05 | Discharge Summary ---
Date of Encounter: 11/29/16 Time of Encounter: 09:20 - Discharge Diagnosis (1) Cerebrovascular accident Priority: Primary Status: Suspected Comments: Resolved. All imaging has been negative. Patient has no neurological deficits or symptoms. Qualifiers: CVA mechanism: unspecified Qualified Code(s): I63.9 - Cerebral infarction, unspecified (2) CHF (congestive heart failure) Priority: Secondary Status: Chronic Comments: Patient has lost approximately 8 kg and has diuresed well. She has no peripheral edema. She is in no respiratory distress and speaks easily in full sentences. Cardiology has evaluated and will follow up outpatient for possible left heart catheter if anemia and transaminases or more stable. Cardiology signed off. She will continue her home dose of Lasix on discharge. Qualifiers: Congestive heart failure type: diastolic Congestive heart failure chronicity: acute Qualified Code(s): I50.31 - Acute diastolic (congestive) heart failure (3) Hypertension Priority: Secondary Status: Chronic Comments: Pressures been well controlled in the inpatient setting. We will continue home medications on discharge. Qualifiers: Hypertension type: essential hypertension Qualified Code(s): I10 - Essential (primary) hypertension (4) Celiac artery stenosis Priority: Secondary Status: Chronic Comments: Follow-up outpatient with vascular surgery after discharge. (5) Esophageal candidiasis Priority: Secondary Status: Chronic Comments: Continue Diflucan for 2 more weeks. (6) Hypothyroidism Priority: Secondary Status: Chronic Comments: Chronic. Continue home medication. Qualifiers: Hypothyroidism type: unspecified Qualified Code(s): E03.9 - Hypothyroidism , unspecified (7) Elevated transaminase level Priority: Secondary Status: Acute Comments: ALT is fluctuant. AST has returned to normal. Patient will need to follow up with GI outpatient. (8) Anemia Priority: Secondary Status: Chronic Comments: Hemoglobin has returned to normal. Iron studies were within normal limits, B12 was elevated. Continue folic acid 1 mg. Qualifiers: Anemia type: other cause Other causes of anemia: chronic disease, other Qualified Code(s): D63.8 - Anemia in other chronic diseases classified elsewhere - Discharge Medications Prescriptions: ALPRAZolam [Xanax 1 MG Tablet] 1 mg PO BID PRN #6 tablet PRN Reason: Anxiety Fluconazole [Diflucan] 50 mg PO DAILY #15 tablet Folic Acid 1 mg PO DAILY #30 tablet Furosemide [Lasix] 20 mg PO DAILY #30 tablet Megestrol Acetate [Megace] 40 mg PO DAILY #30 tablet Metoclopramide [Reglan] 10 mg PO BID PRN #15 mls PRN Reason: Nausea Metoprolol XL (24 HR) Succ [Toprol Xl] 12.5 mg PO DAILY #15 tab.er.24h Home Medications: Albuterol Sulfate [Albuterol Inhaler] 2 puff IH Q4-6H PRN 10/15/15 [History] Allopurinol [Zyloprim 100 MG] 100 mg PO DAILY 10/15/15 [History] Fenofibrate Nanocrystallized [Tricor] 145 mg PO QPM 10/15/15 [History] Fluticasone/Salmeterol [Advair 500-50 Diskus] 1 inh PO BID 10/15/15 [History] Gabapentin [Neurontin] 800 mg PO TID 10/15/15 [History] Isosorbide MONOnitrate (24 HR) [Imdur] 60 mg PO DAILY 10/15/15 [History] Levothyroxine [Synthroid] 112 mcg PO DAILY 10/15/15 [History] Ropinirole HCl [Requip] 0.5 - 1 mg PO HS 10/15/15 [History] Sertraline [Zoloft] 100 mg PO BID 10/15/15 [History] Tiotropium [Spiriva] 18 mcg IH DAILY 10/15/15 [History] Diltiazem HCl [Diltiazem ER] 120 mg PO DAILY 03/29/16 [History] Ipratropium/Albuterol Neb [Duoneb] 3 ml IH QID 03/29/16 [History] Gemfibrozil [Lopid] 600 mg PO BIDWM 05/28/16 [History] OxyCODONE/APAP 5/325 [Percocet 5/325 MG] 1 each PO BID PRN 05/28/16 [History] Aspirin Enteric Coated [Aspirin EC] 81 mg PO DAILY 11/23/16 [History] Ferrous Sulfate 325 mg PO DAILY 11/23/16 [History] Fish Oil/Dha/Epa [Fish Oil 1,200 mg Fish Oil] 1 each PO TID 11/23/16 [History] Magnesium Oxide [Mag-Ox] 400 mg PO DAILY 11/23/16 [History] Nystatin [Nystatin Suspension] 400,000 units PO QID 11/23/16 [History] Omeprazole [PriLOSEC] 40 mg PO DAILY 11/23/16 [History] Sucralfate [Carafate] 1 gm PO BID 11/23/16 [History] ALPRAZolam [Xanax 1 MG Tablet] 1 mg PO BID PRN #6 tablet 11/29/16 [Rx] Fluconazole [Diflucan] 50 mg PO DAILY #15 tablet 11/29/16 [Rx] Folic Acid 1 mg PO DAILY #30 tablet 11/29/16 [Rx] Furosemide [Lasix] 20 mg PO DAILY #30 tablet 11/29/16 [Rx] Megestrol Acetate [Megace] 40 mg PO DAILY #30 tablet 11/29/16 [Rx] Metoclopramide [Reglan] 10 mg PO BID PRN #15 mls 11/29/16 [Rx] Metoprolol XL (24 HR) Succ [Toprol Xl] 12.5 mg PO DAILY #15 tab.er.24h 11/29/16 [Rx] Allergies/Adverse Reactions: Allergies codeine Allergy (Verified 11/23/16 15:59) Confusion Iodinated Contrast- Oral and IV Dye [Iodinated Contrast Media - Oral and] Adverse Reaction (Verified 11/23/16 15:59) See Comments patient states kidney problems. meclizine Adverse Reaction (Verified 11/23/16 15:59) Confusion Date of admission: 11/23/16 20:38 Primary care physician: Orestes Grace MD Consults: 11/23/16 21:47 Consult to Captain/Check Airman [CONS] Routine Reason for SW Consult: weakness, may need help at home/rehab 11/23/16 22:45 Consult to Occupational Therapy [CONS] Routine Comment: Evaluate, develop and implement POC Reason for Consult: CVA Consult to Physical Therapy [CONS] Routine Comment: Evaluate, develop and implement POC Reason for Consult: CVA Consult to Speech Therapy [CONS] Routine Comment: Evaluate, develop and implement POC Reason for Consult: CVA Call Completed: No 11/24/16 10:06 Consult to Neurology [CONS] Routine Consulting Provider: [facility] Reason for Consult: CVA, L weakness, falling, slurred speech. Echo, doppler, MRA, MRI pending. Time Notified: 10:07 Call Completed: Yes 11/25/16 08:45 Consult to Cardiology [CONS] Routine Comment: Consulting Provider: Card[facility] Reason for Consult: LV function 40%, was 55% last echo 3 mos ago. Time Notified: 08:46 Call Completed: Yes 11/25/16 18:22 Consult to Orthopedic Surgery [CONS] Routine Consulting Provider: Orthopedics [facility] Reason for Consult: pt has coracoid fx from fall at home recently. Please review while pt is inpt. Call Completed: No 11/26/16 10:55 Consult to Gastroenterology [CONS] Routine Consulting Provider: G[facility]enterology [facility] Reason for Consult: RUQ pain, elevated transaminases, anemia, dark stools Time Notified: 10:56 Call Completed: Yes Discharging clinician: Briana Chavez Anticipated date of discharge: 11/29/16 - Patient Status Disposition: Transfer Inpatient Rehab Fac Condition: Good Functional capacity at discharge: uses cane/walker Overall status at discharge: patient is progressing back to baseline - Discharge Instructions Follow Up With: Justin Westbrook TEXTILE COLORIST DYER [Advanced Practice Nurse] - 12/22/16 11:30 am - Diet and Activity Activity: ambulate only with your walker, as per physical therapy, increase activity as tolerated Diet: advance to your usual diet Hospital course: Ms. Tucker is a 71 year old female with past medical history of hypothyroidism hypertension, celiac artery stenosis, recent esophageal candidiasis, CHF. Patient was brought to the emergency department by her due to altered mental status, left-sided weakness, slurred speech. reports slurred speech for the last 3 days prior to arrival. also reports that she had been falling to the left side despite using her walker. Patient was found in the floor at home when her came home from work. Recent TIA in July. He denied any chest pain, palpitations, shortness of breath, cough, or wheezing. No lightheadedness no nausea or vomiting. No fever or chills. She did have peripheral edema on arrival. Patient had a CT angiography of the neck in 2016 after she was discharged with her TIA which did not reveal any flow limiting stenosis. She was also discharged on nystatin swish and swallow for candidal esophagitis. This obviously did not cure it and she has been placed on Diflucan 100 mg for 3 weeks. She has completed 1 week in the hospital be sent to rehabilitation with a prescription for 2 weeks more. CVA symptoms have all resolved. All imaging was negative. Speech was slurred initially on day of admission to the floor, speech is clear now.. Altered facial movements are symmetrical, speech is clear, strength assessment is equal bilaterally in upper and lower extremities. No focal neurological defects. She is able to ambulate without difficulty. No nystagmus or vision changes. No nausea, vomiting, diaphoresis, chest pain, shortness of breath, weakness. Head CT was negative for any intracranial abnormality, MRI was negative for acute infarct. Head MRA was also negative for acute infarct. Echocardiogram showed decreased LV function, 55% in June, 40% now. She is in no respiratory distress. Mild exacerbation of CHF. She was treated with Lasix 20 mg by mouth daily, strict intake and output I did DC her Cohen catheter. She was also on a fluid restriction diet 1.5 L. She diuresed nicely had approximately 8 kg weight loss. No peripheral edema and her lungs are clear. She was assessed by cardiology, however her anemia and elevated transaminases prevented any further treatment they have signed off and will follow patient outpatient for possible LHC. Also will need to follow up with vascular surgery after discharge for celiac artery stenosis. Her blood pressure is been well controlled and will continue her home medications on discharge. She will also continue her thyroid medication on discharge, as well. Transaminases have been fluctuant. ALT has returned to normal, AST is elevated. She was seen by GI, they signed off. She will need to follow-up outpatient for further testing. Hepatitis panel was negative. CT abdomen and pelvis was done that showed no evidence of traumatic abdominal or pelvic visceral injury. Small amount of free pelvic fluid but no significant retroperitoneal or pelvic hematoma. There are atherosclerotic changes involving the abdominal aorta. This was followed up with a liver ultrasound. She is status post cholecystectomy and incidental note of right-sided pleural effusion. No other findings. Patient was also mildly anemic during admission. Admit her had stated that she was on folic acid , however I did not see this in her medical record and it was started. Her B12 was extremely elevated. Hemoglobin is actually returned to within normal limits. She will need to be monitored. Patient has been accepted to [facility] for physical therapy. Patient reports nausea and decreased appetite since arrival here. She says that she does not like her food at all. She also reports decreased appetite since her stroke in July. Have started her on Megace, and she also reports relief from nausea with Reglan. She will be sent with prescriptions for both of those to rehabilitation as well. Patient also had a coracoid fracture. She was seen by orthopedics. No further treatment needed. She has no bruising, edema to area. She has normal range of motion to joints. Patient is appropriate and stable for discharge at this time. - Time Spent with Patient Total time spent providing and/or coordinating discharge services: Less than 30 minutes - Constitutional Vitals: Temp Pulse Resp BP Pulse Ox 97.8 F 59 16 118/64 95 11/29/16 16:43 11/29/16 16:43 11/29/16 16:43 11/29/16 16:43 11/29/16 16:43 General appearance: Present: cooperative, A&O X 3, pleasant, no acute distress, answers questions appropriately - Head Head exam: Present: normal inspection - Eye Eye exam: Present: normal appearance, conjuntiva pink - ENT ENT exam: Present: mucous membranes moist, normal exam, normal oropharynx - Neck Neck exam general surgery: Absent: lymphadenopathy, tenderness - Respiratory Respiratory exam: Present: CTAB. Absent: rales, respiratory distress, rhonchi, stridor, wheezes - Cardiovascular Cardiovascular exam: Present: RRR, +S1, +S2. Absent: diastolic murmur, systolic murmur - Extremities Exam Extremities exam: Present: warm, radial pulses palpable and symetrical. Absent : pedal edema, tenderness - Neurological Exam Neurological exam: Present: alert, oriented X3, no focal deficits, strengths equal and symetr throughout. Absent: pronater drift, facial droop, speech deficit
--- NOTE | 2016-11-29 18:16 | Physician Discharge Referral ---
ExtendedCare Referral Info Provider in Charge after Transfer: PCP Institutional Level of Care: Skilled - Diagnosis (1) Cerebrovascular accident Status: Resolved (2) CHF (congestive heart failure) Priority: Secondary Status: Chronic (3) Hypertension Priority: Secondary Status: Chronic (4) Celiac artery stenosis Priority: Secondary Status: Chronic (5) Esophageal candidiasis Priority: Secondary Status: Acute (6) Hypothyroidism Priority: Secondary Status: Chronic (7) Elevated transaminase level Priority: Secondary Status: Acute (8) Anemia Priority: Secondary Status: Chronic Prognosis: Good Aware of Diagnosis: Patient, Family Aware of Prognosis: Patient, Family - Transfer Medications Prescriptions: ALPRAZolam [Xanax 1 MG Tablet] 1 mg PO BID PRN #6 tablet PRN Reason: Anxiety Fluconazole [Diflucan] 50 mg PO DAILY #15 tablet Folic Acid 1 mg PO DAILY #30 tablet Furosemide [Lasix] 20 mg PO DAILY #30 tablet Megestrol Acetate [Megace] 40 mg PO DAILY #30 tablet Metoclopramide [Reglan] 10 mg PO BID PRN #15 mls PRN Reason: Nausea Metoprolol XL (24 HR) Succ [Toprol Xl] 12.5 mg PO DAILY #15 tab.er.24h Home Medications: Albuterol Sulfate [Albuterol Inhaler] 2 puff IH Q4-6H PRN 10/15/15 [History] Allopurinol [Zyloprim 100 MG] 100 mg PO DAILY 10/15/15 [History] Fenofibrate Nanocrystallized [Tricor] 145 mg PO QPM 10/15/15 [History] Fluticasone/Salmeterol [Advair 500-50 Diskus] 1 inh PO BID 10/15/15 [History] Gabapentin [Neurontin] 800 mg PO TID 10/15/15 [History] Isosorbide MONOnitrate (24 HR) [Imdur] 60 mg PO DAILY 10/15/15 [History] Levothyroxine [Synthroid] 112 mcg PO DAILY 10/15/15 [History] Ropinirole HCl [Requip] 0.5 - 1 mg PO HS 10/15/15 [History] Sertraline [Zoloft] 100 mg PO BID 10/15/15 [History] Tiotropium [Spiriva] 18 mcg IH DAILY 10/15/15 [History] Diltiazem HCl [Diltiazem ER] 120 mg PO DAILY 03/29/16 [History] Ipratropium/Albuterol Neb [Duoneb] 3 ml IH QID 03/29/16 [History] Gemfibrozil [Lopid] 600 mg PO BIDWM 05/28/16 [History] OxyCODONE/APAP 5/325 [Percocet 5/325 MG] 1 each PO BID PRN 05/28/16 [History] Aspirin Enteric Coated [Aspirin EC] 81 mg PO DAILY 11/23/16 [History] Ferrous Sulfate 325 mg PO DAILY 11/23/16 [History] Fish Oil/Dha/Epa [Fish Oil 1,200 mg Fish Oil] 1 each PO TID 11/23/16 [History] Magnesium Oxide [Mag-Ox] 400 mg PO DAILY 11/23/16 [History] Nystatin [Nystatin Suspension] 400,000 units PO QID 11/23/16 [History] Omeprazole [PriLOSEC] 40 mg PO DAILY 11/23/16 [History] Sucralfate [Carafate] 1 gm PO BID 11/23/16 [History] ALPRAZolam [Xanax 1 MG Tablet] 1 mg PO BID PRN #6 tablet 11/29/16 [Rx] Fluconazole [Diflucan] 50 mg PO DAILY #15 tablet 11/29/16 [Rx] Folic Acid 1 mg PO DAILY #30 tablet 11/29/16 [Rx] Furosemide [Lasix] 20 mg PO DAILY #30 tablet 11/29/16 [Rx] Megestrol Acetate [Megace] 40 mg PO DAILY #30 tablet 11/29/16 [Rx] Metoclopramide [Reglan] 10 mg PO BID PRN #15 mls 11/29/16 [Rx] Metoprolol XL (24 HR) Succ [Toprol Xl] 12.5 mg PO DAILY #15 tab.er.24h 11/29/16 [Rx] Allergies/Adverse Reactions: Allergies codeine Allergy (Verified 11/23/16 15:59) Confusion Iodinated Contrast- Oral and IV Dye [Iodinated Contrast Media - Oral and] Adverse Reaction (Verified 11/23/16 15:59) See Comments patient states kidney problems. meclizine Adverse Reaction (Verified 11/23/16 15:59) Confusion - Respiratory Orders Smoking Cessation: Smoking cessation has been advised. For more information, call the [place] Tobacco Quit Line at 1-881-IKYC-NOW. - Lab Orders Lab Orders: CBC, U/A - Ancillary Orders May use pressure relief devices daily prn, May go on SALMA w/family/respon constitution party w /meds at nurse discretion PRN - Advance Directives Code Status: Full Code - Mobility Orders Ambulate - Rehabiliation Orders Rehab Potential: Good Rehab Orders: ROM Exercises, Evaluation for Physical Therapy, Evaluation for Occupational Therapy - Treatments Skin tear care topically daily PRN per policy, May check for fecal impaction rectally daily PRN, Fleet enema rectally every other day PRN cleansing purposes CERTIFICATION: I certify that the transfer of the above named patient to an Extended Care Facility is necessary for the continuing treatment of the diagnosis listed. The above information is true and accurate reflection of patient's current condition. Confidential - Redisclosure prohibited without a patient's written consent.
[2016-11-30 06:45] LABS: Smooth Muscle Ab Titer IgG <1:20 (<1:20)
== END 2016-11-29 18:35 | disposition other institution (70) | DRG 69 ==
LOC: 3BNU 15:55 → EMEROO 15:55 → 3BNU 20:34
PROVIDERS: ADMIT Family Medicine; ATTEND Registered Nurse

== ENCOUNTER 2017-01-12 06:50 | Observation (INO) ==
[2017-01-12] MEDS ORDERED: Furosemide 40 MG/4 ML VIAL IVP ONE (07:12)
--- NOTE | 2017-01-12 07:18 | Emergency Department Note ---
Disposition Clinical Impression: CHF (congestive heart failure) Disposition: Admitted As Inpatient Condition: Fair Forms: ED Satisfaction Letter Time of Disposition: 09:24 SOB HPI - General Chief Complaint: ED Shortness of Breath/Dyspnea Stated Complaint: SOB Time Seen by Provider: 01/12/17 07:12 Source: patient Mode of arrival: private vehicle Limitations: no limitations Nursing Notes Reviewed: Yes Vital Signs Reviewed: Yes - History of Present Illness 71-year-old female patient presents to the emergency department complaining of shortness of breath. Patient states that this began yesterday and has progressively worse over the last 24 hours. Patient does state a history of congestive heart failure. She denies any previous cardiac events. She denies any recent travel, or smoking, or swelling to her calves. Patient does state that she takes Lasix daily and has noticed some mild increase in edema to her legs. She denies any fever, chills, nausea, vomiting, chest pain, dizziness, lightheadedness. Pt Subjective Complaint: shortness of breath Onset (ago): hour(s) (24) Severity: moderate Improves with: rest Worsens with: exertion Known history of: congestive heart failure Associated symptoms: Reports: denies other symptoms Treatment prior to arrival: none Cough present: No - Related Data Home Medications Medication Instructions Recorded Confirmed Albuterol Sulfate [Albuterol 2 puff IH Q4-6H PRN 10/15/15 11/29/16 Inhaler] Allopurinol [Zyloprim 100 MG] 100 mg PO DAILY 10/15/15 11/29/16 Fenofibrate Nanocrystallized 145 mg PO QPM 10/15/15 11/29/16 [Tricor] Fluticasone/Salmeterol [Advair 1 inh PO BID 10/15/15 11/29/16 500-50 Diskus] Gabapentin [Neurontin] 800 mg PO TID 10/15/15 11/29/16 Isosorbide MONOnitrate (24 HR) 60 mg PO DAILY 10/15/15 11/29/16 [Imdur] Levothyroxine [Synthroid] 112 mcg PO DAILY 10/15/15 11/29/16 Ropinirole HCl [Requip] 0.5 - 1 mg PO HS 10/15/15 11/29/16 Sertraline [Zoloft] 100 mg PO BID 10/15/15 11/29/16 Tiotropium [Spiriva] 18 mcg IH DAILY 10/15/15 11/29/16 Diltiazem HCl [Diltiazem ER] 120 mg PO DAILY 03/29/16 11/29/16 Ipratropium/Albuterol Neb [Duoneb] 3 ml IH QID 03/29/16 11/29/16 Gemfibrozil [Lopid] 600 mg PO BIDWM 05/28/16 11/29/16 OxyCODONE/APAP 5/325 [Percocet 1 each PO BID PRN 05/28/16 11/29/16 5/325 MG] Aspirin Enteric Coated [Aspirin EC] 81 mg PO DAILY 11/23/16 11/29/16 Ferrous Sulfate 325 mg PO DAILY 11/23/16 11/29/16 Fish Oil/Dha/Epa [Fish Oil 1,200 1 each PO TID 11/23/16 11/29/16 mg Fish Oil] Magnesium Oxide [Mag-Ox] 400 mg PO DAILY 11/23/16 11/29/16 Nystatin [Nystatin Suspension] 400,000 units PO QID 11/23/16 11/29/16 Omeprazole [PriLOSEC] 40 mg PO DAILY 11/23/16 11/29/16 Sucralfate [Carafate] 1 gm PO BID 11/23/16 11/29/16 Previous Rx's Medication Instructions Recorded ALPRAZolam [Xanax 1 MG Tablet] 1 mg PO BID PRN #6 tablet 11/29/16 Fluconazole [Diflucan] 50 mg PO DAILY #15 tablet 11/29/16 Folic Acid 1 mg PO DAILY #30 tablet 11/29/16 Furosemide [Lasix] 20 mg PO DAILY #30 tablet 11/29/16 Megestrol Acetate [Megace] 40 mg PO DAILY #30 tablet 11/29/16 Metoclopramide [Reglan] 10 mg PO BID PRN #15 mls 11/29/16 Metoprolol XL (24 HR) Succ [Toprol 12.5 mg PO DAILY #15 tab.er.24h 11/29/16 Xl] Allergies Allergy/AdvReac Type Severity Reaction Status Date / Time codeine Allergy Confusion Verified 01/12/17 06:56 Iodinated Contrast- Oral and AdvReac See Verified 01/12/17 06:56 IV Dye Comments [Iodinated Contrast Media - Oral and] meclizine AdvReac Confusion Verified 01/12/17 06:56 All systems ED: reviewed and negative except as stated. Constitutional: Denies: fever, chills Cardiovascular: Denies: chest pain Respiratory: Reports: dyspnea. Denies: cough, wheezes, hemoptysis, stridor Gastrointestinal: Denies: abdominal pain, nausea, vomiting Musculoskeletal: Denies: back pain, neck pain Integumentary: Denies: rash, abrasion, lesions Neurological: Denies: headache Psychiatric: Denies: anxiety, depression, suicidal thoughts, homicidal thoughts Past Medical History - Past Medical History Attestation: Yes The following information was validated with the patient. Source: patient, nursing notes reviewed Medical history: Reports: arthritis, CHF, COPD, coronary artery disease, CVA, hyperlipidemia, hypertension, myocardial infarction, osteoporosis, renal disease , thyroid disease, other Surgical history: Reports: cholecystectomy, colectomy, herniorrhaphy, hysterectomy, knee replacement, other Psychiatric history: Reports: anxiety, depression POWDER MIXER history: Reports: no POWDER MIXER history - Social History Smoking Status: Never smoker Smokeless Tobacco Status: No Alcohol use: Reports: none Drug use: Reports: none Physical Exam - General Limitations: no limitations General appearance: alert - Head Head exam: atraumatic, normocephalic, normal inspection - Eye Eye exam: Present: normal appearance, PERRL - Neck Neck exam: Present: normal inspection, full ROM, trachea midline - Chest Chest inspection: Present: normal inspection, symmetric chest wall rise - Respiratory Respiratory exam: Absent: respiratory distress, wheezes, stridor - Expanded Respiratory Exam Location: decreased breath sounds: Lower - Cardiovascular Cardiovascular exam: Present: regular rate, normal rhythm, normal heart sounds - Abdominal Exam Abdominal exam: Present: soft, Non-Tender, normal bowel sounds - Extremities Exam Extremities exam: Present: normal inspection, full ROM. Absent: tenderness, pedal edema - Expanded Lower Extremity Exam Gait: observed and normal - Back Exam Back exam: Present: normal inspection, full ROM. Absent: tenderness - Neurological Exam Neurological exam: Present: alert, oriented X3 - Psychiatric Psychiatric exam: Present: normal affect, normal mood - Skin Skin exam: Present: warm, dry, intact, normal color Course - Consultations Consultation #1: I discussed this patient's case with the hospitalist, Dr. Joshua, she accepts the patient for observation and further evaluation. Time: 09:24 Vital Signs Temperature 97.9 F 01/12/17 06:53 Pulse Rate 89 01/12/17 06:53 Respiratory Rate 24 01/12/17 06:53 Blood Pressure 113/64 01/12/17 06:53 O2 Sat by Pulse Oximetry 95 01/12/17 06:53 Temperature 97.9 F 01/12/17 06:53 Pulse Rate 83 01/12/17 08:55 Respiratory Rate 16 01/12/17 08:55 Blood Pressure 98/70 01/12/17 08:55 O2 Sat by Pulse Oximetry 99 01/12/17 08:55 Oxygen Delivery Oxygen Delivery Room Air Shortness of Breath/Dyspnea - Lab Data Lab results reviewed: Yes I reviewed the patient's lab results. Result diagrams: 01/12/17 07:31 01/12/17 07:31 Lab Results 01/12/17 01/12/17 01/12/17 Range/Units 07:31 07:31 07:31 WBC 9.3 (4.3-11.1) K/mcL RBC 3.13 L (3.82-4.97) M/mcL Hgb 9.8 L (11.5-15.4) g/dL Hct 29.4 L (35.3-44.9) % MCV 93.9 (83.0-100.0) fL MCH 31.3 (28.0-33.3) pg MCHC 33.3 (31.6-35.5) g/dL RDW 19.2 H (11.5-14.5) % Plt Count 274 (140-400) K/mcL MPV 11.4 (9.4-12.4) fL Immature Gran % 0.4 (0-4) % Seg Neutrophils % 65.1 % Lymphocytes % 22.8 % Monocytes % 6.8 % Eosinophils % 4.4 % Basophils % 0.5 % Neutrophils # 6.0 (1.6-8.9) K/mcL Lymphocytes # 2.1 (0.6-4.6) K/mcL Monocytes # 0.6 (0.0-1.3) K/mcL Eosinophils # 0.4 (0.0-0.6) K/mcL Basophils # 0.1 (0.0-0.2) K/mcL PT 12.0 (9.4-12.1) Seconds INR 1.1 APTT 31.6 (26.0-36.0) Seconds Sodium 133 L (136-145) mEq/L Potassium 3.6 (3.5-4.5) mEq/L Chloride 103 (98-109) mEq/L Carbon Dioxide 23 (19-29) mEq/L BUN 17 (7-20) mg/dL Creatinine 0.78 (0.57-1.11) mg/dL Est GFR ( Amer) > 60 (> 60) Est GFR (Non-Af Amer) > 60 (> 60) BUN/Creatinine Ratio 22 (6-26) Glucose 93 (70-99) mg/dL Calculated Osmolality 277 L (280-300) Lactic Acid (0.5-2.2) mmol/L Calcium 9.7 (8.6-10.8) mg/dL Troponin I (0-0.03) ng/mL B-Natriuretic Peptide (0-100) pg/mL 01/12/17 01/12/17 01/12/17 Range/Units 07:31 07:31 07:31 WBC (4.3-11.1) K/mcL RBC (3.82-4.97) M/mcL Hgb (11.5-15.4) g/dL Hct (35.3-44.9) % MCV (83.0-100.0) fL MCH (28.0-33.3) pg MCHC (31.6-35.5) g/dL RDW (11.5-14.5) % Plt Count (140-400) K/mcL MPV (9.4-12.4) fL Immature Gran % (0-4) % Seg Neutrophils % % Lymphocytes % % Monocytes % % Eosinophils % % Basophils % % Neutrophils # (1.6-8.9) K/mcL Lymphocytes # (0.6-4.6) K/mcL Monocytes # (0.0-1.3) K/mcL Eosinophils # (0.0-0.6) K/mcL Basophils # (0.0-0.2) K/mcL PT (9.4-12.1) Seconds INR APTT (26.0-36.0) Seconds Sodium (136-145) mEq/L Potassium (3.5-4.5) mEq/L Chloride (98-109) mEq/L Carbon Dioxide (19-29) mEq/L BUN (7-20) mg/dL Creatinine (0.57-1.11) mg/dL Est GFR ( Amer) (> 60) Est GFR (Non-Af Amer) (> 60) BUN/Creatinine Ratio (6-26) Glucose (70-99) mg/dL Calculated Osmolality (280-300) Lactic Acid 1.3 (0.5-2.2) mmol/L Calcium (8.6-10.8) mg/dL Troponin I 0.02 (0-0.03) ng/mL B-Natriuretic Peptide 2577 H (0-100) pg/mL - Radiology Data Radiology results reviewed: Yes I reviewed the patient's radiology results.
[2017-01-12 07:48] LABS: INR 1.1
[2017-01-12 07:51] LABS: Activated Partial Thrombo Time 31.6 Seconds (26.0-36.0)
[2017-01-12 07:59] LABS: BUN/Creatinine Ratio 22 (6-26); Blood Urea Nitrogen 17 mg/dL (7-20); Calcium 9.7 mg/dL (8.6-10.8); Carbon Dioxide 23 mEq/L (19-29); Chloride 103 mEq/L (98-109); Glucose 93 mg/dL (70-99); Osmolality,Calculated 277 (280-300); Potassium 3.6 mEq/L (3.5-4.5); Sodium 133 mEq/L (136-145); eGFR For African Americans > 60 (> 60); eGFR For Non-African Americans > 60 (> 60)
[2017-01-12 08:12] LABS: Basophils # 0.1 K/mcL (0.0-0.2); Basophils % 0.5 %; Eosinophils # 0.4 K/mcL (0.0-0.6); Eosinophils % 4.4 %; Hematocrit 29.4 % (35.3-44.9); Hemoglobin 9.8 g/dL (11.5-15.4); Immature Granulocytes % 0.4 % (0-4); Lymphocytes # 2.1 K/mcL (0.6-4.6); Lymphocytes % 22.8 %; Mean Corpuscular HGB Conc 33.3 g/dL (31.6-35.5); Mean Corpuscular Hemoglobin 31.3 pg (28.0-33.3); Mean Corpuscular Volume 93.9 fL (83.0-100.0); Mean Platelet Volume 11.4 fL (9.4-12.4); Monocytes # 0.6 K/mcL (0.0-1.3); Monocytes % 6.8 %; Platelet Count 274 K/mcL (140-400); Red Blood Count 3.13 M/mcL (3.82-4.97); Red Cell Distribution Width 19.2 % (11.5-14.5); Segmented Neutrophils % 65.1 %
--- NOTE | 2017-01-12 09:23 | Emergency Department Note ---
START Narrative - START START: saw mason in concordance with LEYLA (DAMASO). This is a 71 year old female with HX of congestive heart failure. It appears she has excerbated her CHF. Although she has lasix therapy at home. WE will admit patient to the medicine service for therapy of her CHF Excerbation with increased lasix therapy. Marlene villanueva areeable with the plan.
[2017-01-12] MEDS ORDERED: Ondansetron 4 MG/2 ML VIAL IVP PRN (10:59)
[2017-01-12] MEDS ORDERED: Naloxone 0.4 MG/ML INJ IVP PRN (10:59)
[2017-01-12] MEDS ORDERED: Acetaminophen 325 MG TABLET PO PRN (10:59)
--- NOTE | 2017-01-12 11:41 | Internal Med History&Physical ---
<Rudy Chavez - Last Filed: 01/12/17 12:46> Date of Encounter: 01/12/17 Time of Encounter: 10:30 Assessment and Plan (1) Acute exacerbation of CHF (congestive heart failure) Current visit: Yes Status: Acute Patient presents with acute exacerbation of CHF and reports severe SOB and dyspnea for the past several days. On examination, patient has bilateral wheezes in all lobes and is using her abdominal accessory muscle to breathe. Patient takes lasix 20 mg PO daily. Will hold PO lasix and administer 20 mg IVP lasix BID. Patient to be placed on continuous cardiac telemetry and supplemental O2 with continuous SpO2 monitoring as well as falls/safety precautions due to SOB/left-sided weakness (residual from previous CVA/TIA). DuoNebs ordered Q4. Will monitor I&O and daily weight and use 1.5L daily fluid restriction. Qualifiers: Congestive heart failure type: diastolic Qualified Code(s): I50.33 - Acute on chronic diastolic (congestive) heart failure (2) Dyspnea due to congestive heart failure Current visit: Yes Status: Acute Patient presents with acute SOB/dyspnea and reported orthopnea due to current acue exacerbation of CHF. Supplemental O2 with SpO2 monitoring ordered, DuoNebs Q4, daily fluid restriction of 1.5L, monitor I&O stone daily weight, and falls/ safety precautions due to SOB/left-sided weakness/hx of syncope. (3) Left-sided weakness Current visit: Yes Status: Acute Patient presents with acute on chronic left-sided weakness due to history of previous CVA/TIAs. On exam, patient is neurlogically intact with some residual left-sided weakness present. Some speech deficit present as well. PT/OT/Speech Therapy consults ordered. (4) Hyponatremia Current visit: Yes Status: Acute Patient presents with acute hyponatremia based on sodium level of 133 on admission. Patient is currently experiencing fluid overload due to acute exacerbation of CHF and will not be given IV fluids at this time. Will monitor sodium level in follow-up labs. (5) COPD (chronic obstructive pulmonary disease) Current visit: Yes Status: Chronic Patient presents with history of chronic COPD. DuoNebs ordered Q4. Patient placed on supplemental O2 with SpO2 monitoring. Qualifiers: COPD type: emphysema Qualified Code(s): J43.9 - Emphysema, unspecified (6) Hx of TIA (transient ischemic attack) and stroke Current visit: Yes Status: Chronic Patient presents with history of CVA/TIAs and reports that her last episode was three weeks ago when she became syncopal. Patient's previous MRI was done due to slurred speech/left-sided weakness and showed no acute infarct. CT of the head/brain ordered today due to episode taking place post-MRI. CT to be done w/o contrast as patient is allergic to IV contrast. On exam patient still has some speech deficit and left-sided weakness present. PT/OT/Speech Therapy/ SW consults placed to asses patient and current home needs. Patient placed as falls precautions/up with assist/bedrest with bathroom privileges with assist only due to history of syncope and left-sided weakness. (7) HLD (hyperlipidemia) Current visit: Yes Status: Chronic Patient presents with history of chronic HLD. Lipid panel ordered. Will continue patient's TriCor and Lopid. Qualifiers: Hyperlipidemia type: pure hypercholesterolemia Qualified Code(s): E78.00 - Pure hypercholesterolemia, unspecified; E78.0 - Pure hypercholesterolemia (8) CAD (coronary artery disease) Current visit: Yes Status: Chronic Patient presents with history of CAD. Patient to be placed on continuous cardiac telemetry with continuation of patient's aspirin therapy. We will continue patient's Imdur, TriCor, lisinopril, diltiazem, metoprolol, and Lopid. Qualifiers: Coronary Disease-Associated Artery/Lesion type: [place] artery [place] vs. transplanted heart: [place] heart Associated angina: without angina Qualified Code(s): I25.10 - Atherosclerotic heart disease of [place] coronary artery without angina pectoris (9) Frequent falls Current visit: Yes Status: Chronic Patient presents with history chronic and frequent falls related to her CVA/TIA history. Patient placed as falls precautions/up with assist/bed rest with bathroom privileges with assist only due to hx of syncope and falls and left- sided weakness. (10) Hypertension Current visit: Yes Status: Chronic Patient presents with history of chronic hypertension. Will monitor patient vital signs and continue patient's Lisinopril. Qualifiers: Hypertension type: essential hypertension Qualified Code(s): I10 - Essential (primary) hypertension (11) Hypothyroidism Current visit: Yes Status: Chronic Patient presents with history of hypothyroidism. Will continue patient's Synthroid. Qualifiers: Hypothyroidism type: unspecified Qualified Code(s): E03.9 - Hypothyroidism , unspecified (12) DVT prophylaxis Current visit: Yes Status: Acute Patient to be placed on DVT prophylaxis due to current admission protocol and bed rest status. Heparin 5,000 units SQ Q8 ordered. Internal Medicine - H&P: HPI Chief complaint: SOB/Dyspnea Admitted From: Emergency Dept Plans for Post Hospital Care: Home History of present illness: Mrs. Tucker is a 71 year old female who presents from the ED with chief complaint of shortness of breath and dyspnea patient has a history of CHF and COPD and presents with symptomatology of acute exacerbation of CHF. Patient currently takes 20 mg daily by mouth Lasix. Patient states symptoms have been present for the past several days. Patient reports syncopal episode 3 weeks ago due to possible CVA/TIA. This episode left her with mild left-sided weakness and notable speech deficit. Patient's medical history includes arthritis, CHF, COPD, CAD, CVA/TIA, HLD, HTN, [place], osteoporosis, renal disease, and thyroid disease. Patient is a never smoker. Patient also has history of chronic anemia with Hgb currently 9.8 and HCT currently 29.4, both of which are not far from her recent baseline. Will order H&H and monitor follow-up labs. Patient is at moderate risk for respiratory decline based on current symptoms and risk factors and will be placed as observation status with orders for continuous cardiac telemetry, supplemental O2 with continuous SPO2 monitoring, Lasix 20 mg IVP twice a day, fluid restriction diet of 1.5 L daily, consults for PT/OT/speech therapy/SW ordered to assess patient for ambulation strength and possible needs related to history of CVA/TIA. Patient placed as follows precautions/up with assist/bedrest with bathroom privileges with assist only due to current SOB, left-sided weakness, and history of syncope. Due to patient 's syncopal episode 3 weeks ago, CT of the head/brain without contrast ordered ( patient is allergic to IV contrast). Previous MRI of the brain and echo were done on 11/24/16 prior to patient's syncopal episode. Patient to be monitored closely for signs of fluid overload, cardiac and/or respiratory distress, as well as neurological changes/deficits. Time spent with patient > 40 minutes. Past Med Surg Social Fam HX - Past Medical History Source: patient Medical history: arthritis, CHF, COPD, coronary artery disease, CVA, hyperlipidemia, hypertension, myocardial infarction, osteoporosis, renal disease , thyroid disease, other Psychiatric history: anxiety, depression - Past Surgical History Surgical History: cholecystectomy, colectomy, herniorrhaphy, hysterectomy (Total ), knee replacement (Right), other (Stent placement in left leg) - Social History Smoking Status: Never smoker Smokeless Tobacco Status: No Alcohol use: none Drug use: none Current living situation: Home, With Family Activity Level: Independent ambulation Recent Out of Country Travel Within the Last 8 Weeks: No Exposure or Possible Exposure to Illness During Travel: No - Family History Mother Adopted: No Race: Family Member Ethnicity: Non- Living Status: Age at : 79 Cause of : Cancer Hx Family Cardiac Disorders: Yes (HD, HTN) Hx Family Cancer: Yes Hx Family Endocrine Disorder: Yes (DM) Father Adopted: No Race: Family Member Ethnicity: Non- Living Status: Age at : 76 Cause of : [place] Hx Family Cardiac Disorders: Yes (HD, HTN) Hx Family Endocrine Disorder: Yes (DM) Brother Race: Family Member Ethnicity: Non- Living Status: Age at : 63 Cause of : [place] Hx Family Cardiac Disorders: Yes ([place], HD, HTN) Sister Race: Family Member Ethnicity: Non- Living Status: Still Living Hx Family Cancer: Yes (Esophageal) Internal Medicine - H&P: Meds Albuterol Sulfate [Albuterol Inhaler] 2 puff IH Q4-6H PRN 10/15/15 [History] Allopurinol [Zyloprim 100 MG] 100 mg PO DAILY 10/15/15 [History] Fenofibrate Nanocrystallized [Tricor] 145 mg PO QPM 10/15/15 [History] Fluticasone/Salmeterol [Advair 500-50 Diskus] 1 inh PO BID 10/15/15 [History] Gabapentin [Neurontin] 800 mg PO TID 10/15/15 [History] Isosorbide MONOnitrate (24 HR) [Imdur] 60 mg PO DAILY 10/15/15 [History] Levothyroxine [Synthroid] 112 mcg PO DAILY 10/15/15 [History] Ropinirole HCl [Requip] 0.5 - 1 mg PO HS 10/15/15 [History] Sertraline [Zoloft] 100 mg PO BID 10/15/15 [History] Tiotropium [Spiriva] 18 mcg IH DAILY 10/15/15 [History] Diltiazem HCl [Diltiazem ER] 120 mg PO DAILY 03/29/16 [History] Ipratropium/Albuterol Neb [Duoneb] 3 ml IH QID 03/29/16 [History] Gemfibrozil [Lopid] 600 mg PO BIDWM 05/28/16 [History] OxyCODONE/APAP 5/325 [Percocet 5/325 MG] 1 each PO BID PRN 05/28/16 [History] Aspirin Enteric Coated [Aspirin EC] 81 mg PO DAILY 11/23/16 [History] Ferrous Sulfate 325 mg PO DAILY 11/23/16 [History] Fish Oil/Dha/Epa [Fish Oil 1,200 mg Fish Oil] 1 each PO TID 11/23/16 [History] Magnesium Oxide [Mag-Ox] 400 mg PO DAILY 11/23/16 [History] Nystatin [Nystatin Suspension] 400,000 units PO QID 11/23/16 [History] Omeprazole [PriLOSEC] 40 mg PO DAILY 11/23/16 [History] Sucralfate [Carafate] 1 gm PO BID 11/23/16 [History] ALPRAZolam [Xanax 1 MG Tablet] 1 mg PO BID PRN #6 tablet 11/29/16 [Rx] Folic Acid 1 mg PO DAILY #30 tablet 11/29/16 [Rx] Furosemide [Lasix] 20 mg PO DAILY #30 tablet 11/29/16 [Rx] Megestrol Acetate [Megace] 40 mg PO DAILY #30 tablet 11/29/16 [Rx] Metoprolol XL (24 HR) Succ [Toprol Xl] 12.5 mg PO DAILY #15 tab.er.24h 11/29/16 [Rx] Lisinopril [Lisinopril] 2.5 mg PO DAILY 01/12/17 [History] Metoclopramide [Reglan] 20 mg PO DAILY PRN 01/12/17 [History] Allergies codeine Allergy (Verified 01/12/17 06:56) Confusion Iodinated Contrast- Oral and IV Dye [Iodinated Contrast Media - Oral and] Adverse Reaction (Verified 01/12/17 06:56) See Comments patient states kidney problems. meclizine Adverse Reaction (Verified 01/12/17 06:56) Confusion All Systems PM: A 10-system review of systems was performed and is negative for pertinent findings except as documented above in the HPI. - Constitutional Constitutional: as per HPI, falls, weakness (Left-sided), no chills, no fever(s) , no night sweats - EENT Eyes: no change in vision, no discharge, no pain, no photophobia Ears: no ear discharge, no ear pain, no tinnitus Nose, mouth and throat: no dysphagia, no nasal discharge, no neck pain, no sore throat - Breasts Breasts: as per HPI - Cardiovascular Cardiovascular ROS IM: as per HPI, dyspnea, dyspnea on exertion, edema ( Bilateral pedal/Non-pitting), syncope - Respiratory Respiratory: as per HPI, dyspnea, dyspnea on exertion, wheezing - Gastrointestinal Gastrointestinal: no abdominal pain, no diarrhea, no hematemesis, no hematochezia, no melena, no nausea, no vomiting - Genitourinary Genitourinary: no change in urinary stream, no dysuria, no flank pain, no hematuria Menstruation: as per HPI, post hysterectomy - Musculoskeletal Musculoskeletal ROS IM: as per HPI, arthralgias, muscle weakness (Left-sided) - Integumentary Integumentary IM: no rash, no unusual bruising - Neurological Neurological ROS: as per HPI, abnormal speech, disequilibrium, frequent falls, restless legs - Psychiatric Psychiatric: as per HPI - Endocrine Endocrine IM: as per HPI - Hematologic/Lymphatic Hematologic/Lymphatic: no easy bruising - Allergic/Immunologic Allergic/Immunologic: as per HPI - Constitutional Vitals: Temp Pulse Resp BP Pulse Ox 97.4 F L 83 22 109/60 97 01/12/17 11:04 01/12/17 11:04 01/12/17 11:04 01/12/17 11:04 01/12/17 11:04 General appearance: Present: cooperative, A&O X 3, pleasant, no acute distress, obese, answers questions appropriately - Head Head exam: Present: atraumatic, normocephalic - Eye Eye exam: Present: PERRL, conjuntiva pink, sclera anicteric Pupils: Present: PERRL - ENT ENT exam: Present: normal exam, normal external ear exam - Neck Neck exam general surgery: Present: normal inspection, supple, trachea midline - Respiratory Respiratory exam: Present: accessory muscle use, wheezes - Cardiovascular Cardiovascular exam: Present: RRR, +S1, +S2. Absent: diastolic murmur, gallop, rubs, systolic murmur - GI/Abdominal GI/Abdominal exam: Present: normal bowel sounds, soft, no peritoneal signs. Absent: distended, tenderness - Rectal Rectal exam: Present: deferred - Additional comments: exam deferred. - Extremities Exam Extremities exam: Present: pedal edema, warm, radial pulses palpable and symmetrical. Absent: calf tenderness, cyanotic - Back Exam Back exam: Present: normal inspection - Neurological Exam Neurological exam: Present: CN II-XII intact, oriented X3, no focal deficits, speech deficit. Absent: pronater drift, facial droop - Psychiatric Psychiatric exam: Present: normal affect, normal mood - Skin Skin exam: Present: dry, intact Internal Med - H&P Results - Labs CBC & Chem 7: 01/12/17 07:31 01/12/17 07:31 - EKG Data EKG shows normal: sinus rhythm - EKG Data Prior EKG available for review: yes When compared to previous EKG: there is no significant change Interpretation IM: suggestive of ischemia EKG comments: 01/12/17 11:49 EKG dated 11/23/16 shows sinus rhythm with left atrial enlargement. EKG dated 01/12/17 shows sinus rhythm with possible left atrial enlargement and possible anterior myocardial infarction (probably old). - Diagnostic Studies Chest x-ray Additional comments: Impressions Chest X-Ray 01/12/17 07:12 IMPRESSION: Pulmonary edema. Given the cardiac enlargement CHF is considered D/ / Raciel Escamilla MD / Raciel Escamilla MD Interpreting Provider: Raciel Escamilla MD <Jason Joshua - Last Filed: 01/12/17 18:47> Date of Encounter: 01/12/17 Internal Medicine - H&P: HPI History of present illness: Ms. Tucker is a 71 year old female All Systems PM: A 10-system review of systems was performed and is negative for pertinent findings except as documented above in the HPI. - Constitutional Vitals: Temp Pulse Resp BP Pulse Ox 98.0 F 84 16 98/56 96 01/12/17 16:10 01/12/17 16:10 01/12/17 16:10 01/12/17 16:10 01/12/17 16:10 Internal Med - H&P Results - Labs CBC & Chem 7: 01/12/17 07:31 01/12/17 07:31 - Impressions ITS Impressions Head CT 01/12/17 12:00 IMPRESSION: No acute intracranial abnormality. No significant change D/ / Jesus Petersen MD / Jesus Petersen MD Interpreting Provider: Jesus Petersen MD - Attending Attestation I examined this patient and my medical decision-making was reviewed with the [employer]. I agree with the documented findings, disposition and treatment plan as described .
[2017-01-12] MEDS: *HR* Heparin 5,000 UNIT/ML VIAL SQ SCH ×2 (15:06→21:48)
[2017-01-12] MEDS: Pantoprazole 40 MG VIAL IVP SCH (15:06)
[2017-01-12] MEDS: Gabapentin 400 MG CAPSULE PO SCH ×2 (15:06→21:47)
[2017-01-12] MEDS: DHA PO SCH ×2 (15:28→21:49)
[2017-01-12] MEDS: EPA PO SCH ×2 (15:28→21:49)
[2017-01-12] MEDS: FISH OIL PO SCH ×2 (15:28→21:49)
[2017-01-12] MEDS: Ipratropium/Albuterol Neb 3 ML IH SCH ×4 (15:55→23:53)
[2017-01-12] MEDS: Nystatin SUSP 5 ML UD.LIQ PO SCH ×3 (17:02→21:48)
[2017-01-12] MEDS: Furosemide 20 MG/2 ML VIAL IVP SCH ×2 (17:17→22:10)
[2017-01-12] MEDS ORDERED: Fenofibrate 54 MG TABLET PO SCH (18:00)
--- NOTE | 2017-01-12 20:37 | Electrocardiograph Report ---
[place] [id number] Test Date: 2017-01-12 Pat Name: Channing Tucker Department: 105 Room: 3B Gender: F [employer]: : 1945 Requested By: Wandy Venegas Order Number: [id number] Reading MD: Maico Kc MD Measurements Intervals [place] Rate: 82 P: 46 ND: 160 QRS: 42 QRSD: 80 T: 40 QT: 364 QTc: 402 Interpretive Statements SINUS RHYTHM Poor R wave progression Electronically Signed On 01-12-2017 20:36:06 EDT by Maico Kc MD
[2017-01-12] MEDS ORDERED: rOPINIRole 0.25 MG TABLET PO SCH (21:00)
[2017-01-12] MEDS: Sucralfate 1 GM TABLET PO SCH (21:47)
[2017-01-12] MEDS: ALPRAZolam 1 MG TABLET PO PRN (22:10)
[2017-01-13 04:14] LABS: Basophils % 0.4 %; Eosinophils # 0.2 K/mcL (0.0-0.6); Eosinophils % 3.2 %; Hemoglobin 8.9 g/dL (11.5-15.4); Immature Granulocytes % 0.5 % (0-4); Lymphocytes # 1.9 K/mcL (0.6-4.6); Lymphocytes % 33.5 %; Mean Corpuscular HGB Conc 34.2 g/dL (31.6-35.5); Mean Corpuscular Hemoglobin 31.6 pg (28.0-33.3); Mean Corpuscular Volume 92.2 fL (83.0-100.0); Mean Platelet Volume 11.3 fL (9.4-12.4); Monocytes # 0.5 K/mcL (0.0-1.3); Monocytes % 8.8 %; Platelet Count 250 K/mcL (140-400); Red Blood Count 2.82 M/mcL (3.82-4.97); Red Cell Distribution Width 18.6 % (11.5-14.5); Segmented Neutrophils % 53.6 %
[2017-01-13 04:17] LABS: INR 1.2; Prothrombin Time 13.2 Seconds (9.4-12.1)
[2017-01-13 04:20] LABS: Activated Partial Thrombo Time 33.8 Seconds (26.0-36.0)
[2017-01-13] MEDS: Ipratropium/Albuterol Neb 3 ML IH SCH ×4 (04:24→16:10)
[2017-01-13 04:34] LABS: BUN/Creatinine Ratio 21 (6-26); Blood Urea Nitrogen 18 mg/dL (7-20); Calcium 9.5 mg/dL (8.6-10.8); Carbon Dioxide 26 mEq/L (19-29); Chloride 101 mEq/L (98-109); Chol/HDL Ratio 15.2 (0-4.9); Cholesterol 91 mg/dL (< 200); Glucose 84 mg/dL (70-99); HDL Cholesterol 6 mg/dL (40-59); LDL Cholesterol,Calculated 65 mg/dL (0-99); Magnesium 1.4 mg/dL (1.6-2.6); Osmolality,Calculated 283 (280-300); Sodium 136 mEq/L (136-145); Triglycerides 101 mg/dL (< 150); eGFR For African Americans > 60 (> 60); eGFR For Non-African Americans > 60 (> 60)
[2017-01-13 04:41] LABS: Hemoglobin A1C 4.1 %
[2017-01-13] MEDS: *HR* Heparin 5,000 UNIT/ML VIAL SQ SCH ×2 (06:07→13:30)
[2017-01-13] MEDS: Furosemide 20 MG/2 ML VIAL IVP SCH (08:09)
[2017-01-13] MEDS: Pantoprazole 40 MG VIAL IVP SCH (08:11)
[2017-01-13] MEDS: FISH OIL PO SCH ×2 (08:13→14:29)
[2017-01-13] MEDS: DHA PO SCH ×2 (08:13→14:29)
[2017-01-13] MEDS: EPA PO SCH ×2 (08:13→14:29)
[2017-01-13] MEDS: Sucralfate 1 GM TABLET PO SCH (08:15)
[2017-01-13] MEDS: Gabapentin 400 MG CAPSULE PO SCH ×2 (08:17→14:34)
[2017-01-13] MEDS: Nystatin SUSP 5 ML UD.LIQ PO SCH ×2 (08:17→13:30)
[2017-01-13] MEDS: ALPRAZolam 1 MG TABLET PO PRN ×2 (08:19→14:34)
[2017-01-13] MEDS ORDERED: Metoprolol XL (24 HR) Succ 25 MG TAB.ER.24H PO SCH (09:00)
[2017-01-13] MEDS ORDERED: Isosorbide MONOnitrate (24 HR) 60 MG TAB.ER.24H PO SCH (09:00)
[2017-01-13] MEDS ORDERED: Diltiazem CD (24hr) 120 MG CAPSULE PO SCH (09:00)
[2017-01-13] MEDS ORDERED: Tiotropium 18 MCG inhalation IH SCH (09:00)
[2017-01-13] MEDS ORDERED: Aspirin Enteric Coated 81 MG Tablet PO SCH (09:00)
[2017-01-13] MEDS ORDERED: Folic Acid 1 MG TABLET PO SCH (09:00)
[2017-01-13] MEDS ORDERED: Magnesium Oxide 400 MG TABLET PO SCH (09:00)
[2017-01-13] MEDS ORDERED: Potassium Chloride Elixir 20 MEQ/15 ML UDC PO SCH (12:15)
[2017-01-13 12:40] VITALS: BP 102/54
--- NOTE | 2017-01-13 16:25 | Discharge Summary ---
Date of Encounter: 01/13/17 Time of Encounter: 14:30 - Discharge Diagnosis (1) Acute exacerbation of CHF (congestive heart failure) Priority: Primary Status: Resolved Comments: Acute on chronic combined heart failure. Successfully diuresed during this admission. Patient denied shortness of breath above her normal time of discharge. Pedal edema also resolved. Increased her home furosemide dosage and started her on potassium supplementation. Follow-up outpatient. Fluid and sodium restricted diet reinforced. (2) CHF (congestive heart failure) Priority: Secondary Status: Chronic Comments: Recent heart catheter revealing her ejection fraction is 40% with diastolic dysfunction. Acute on chronic combined heart failure. Successfully diuresed during this admission, denies shortness of breath above her normal on day of discharge. Qualifiers: Congestive heart failure type: combined Congestive heart failure chronicity : acute on chronic Qualified Code(s): I50.43 - Acute on chronic combined systolic (congestive) and diastolic (congestive) heart failure (3) Frequent falls Priority: Secondary Status: Chronic Comments: OT and PT recommended home with 24-hour supervision. She lives with her . (4) Hypokalemia Priority: Primary Status: Acute Comments: Replaced prior to discharge, likely resolved, follow up outpatient (5) COPD (chronic obstructive pulmonary disease) Priority: Secondary Status: Chronic Comments: No acute exacerbation Qualifiers: COPD type: emphysema Emphysema type: unspecified Qualified Code(s): J43.9 - Emphysema, unspecified (6) CAD (coronary artery disease) Priority: Secondary Status: Chronic Comments: Patient denied chest pain during this admission Qualifiers: Coronary Disease-Associated Artery/Lesion type: [place] artery [place] vs. transplanted heart: [place] heart Associated angina: without angina Qualified Code(s): I25.10 - Atherosclerotic heart disease of [place] coronary artery without angina pectoris (7) Anemia Priority: Secondary Status: Chronic Comments: Remained stable and at the low end of her normal throughout this admission. Follow-up outpatient. Qualifiers: Anemia type: other cause Other causes of anemia: chronic disease, other Qualified Code(s): D63.8 - Anemia in other chronic diseases classified elsewhere (8) Hypertension Priority: Secondary Status: Chronic Comments: Controlled, follow-up outpatient Qualifiers: Hypertension type: essential hypertension Qualified Code(s): I10 - Essential (primary) hypertension (9) DVT prophylaxis Priority: Primary Status: Acute Comments: Subcutaneous heparin while admitted (10) Hypothyroidism Priority: Secondary Status: Chronic Comments: TSH checked last month and was mildly elevated however free T4 was normal. Follow-up outpatient. Qualifiers: Hypothyroidism type: unspecified Qualified Code(s): E03.9 - Hypothyroidism , unspecified (11) Hyponatremia Priority: Primary Status: Resolved (12) Hx of TIA (transient ischemic attack) and stroke Priority: Secondary Status: Chronic Comments: no new symptoms (13) HLD (hyperlipidemia) Priority: Secondary Status: Chronic Comments: Lipid panel unremarkable. On gemfibrozil and fenofibrate at home Qualifiers: Hyperlipidemia type: pure hypercholesterolemia Qualified Code(s): E78.00 - Pure hypercholesterolemia, unspecified; E78.0 - Pure hypercholesterolemia (14) Left-sided weakness Priority: Secondary Status: Chronic Comments: subjective; no new focal neurological weaknesses present on examination - Discharge Medications Prescriptions: Furosemide [Lasix] 40 mg PO DAILY #60 tab Potassium Chloride 20 meq PO DAILY #30 tab.er.prt Home Medications: Albuterol Sulfate [Albuterol Inhaler] 2 puff IH Q4-6H PRN 10/15/15 [History] Allopurinol [Zyloprim 100 MG] 100 mg PO DAILY 10/15/15 [History] Fenofibrate Nanocrystallized [Tricor] 145 mg PO QPM 10/15/15 [History] Fluticasone/Salmeterol [Advair 500-50 Diskus] 1 inh PO BID 10/15/15 [History] Gabapentin [Neurontin] 800 mg PO TID 10/15/15 [History] Isosorbide MONOnitrate (24 HR) [Imdur] 60 mg PO DAILY 10/15/15 [History] Levothyroxine [Synthroid] 112 mcg PO DAILY 10/15/15 [History] Ropinirole HCl [Requip] 0.5 - 1 mg PO HS 10/15/15 [History] Sertraline [Zoloft] 100 mg PO BID 10/15/15 [History] Tiotropium [Spiriva] 18 mcg IH DAILY 10/15/15 [History] Diltiazem HCl [Diltiazem ER] 120 mg PO DAILY 03/29/16 [History] Ipratropium/Albuterol Neb [Duoneb] 3 ml IH QID 03/29/16 [History] Gemfibrozil [Lopid] 600 mg PO BIDWM 05/28/16 [History] OxyCODONE/APAP 5/325 [Percocet 5/325 MG] 1 each PO BID PRN 05/28/16 [History] Aspirin Enteric Coated [Aspirin EC] 81 mg PO DAILY 11/23/16 [History] Ferrous Sulfate 325 mg PO DAILY 11/23/16 [History] Fish Oil/Dha/Epa [Fish Oil 1,200 mg Fish Oil] 1 each PO TID 11/23/16 [History] Magnesium Oxide [Mag-Ox] 400 mg PO DAILY 11/23/16 [History] Nystatin [Nystatin Suspension] 400,000 units PO QID 11/23/16 [History] Omeprazole [PriLOSEC] 40 mg PO DAILY 11/23/16 [History] Sucralfate [Carafate] 1 gm PO BID 11/23/16 [History] ALPRAZolam [Xanax 1 MG Tablet] 1 mg PO BID PRN #6 tablet 11/29/16 [Rx] Folic Acid 1 mg PO DAILY #30 tablet 11/29/16 [Rx] Megestrol Acetate [Megace] 40 mg PO DAILY #30 tablet 11/29/16 [Rx] Metoprolol XL (24 HR) Succ [Toprol Xl] 12.5 mg PO DAILY #15 tab.er.24h 11/29/16 [Rx] Lisinopril [Lisinopril] 2.5 mg PO DAILY 01/12/17 [History] Metoclopramide [Reglan] 20 mg PO DAILY PRN 01/12/17 [History] Furosemide [Lasix] 40 mg PO DAILY #60 tab 01/13/17 [Rx] Potassium Chloride 20 meq PO DAILY #30 tab.er.prt 01/13/17 [Rx] Allergies/Adverse Reactions: Allergies codeine Allergy (Verified 01/12/17 06:56) Confusion Iodinated Contrast- Oral and IV Dye [Iodinated Contrast Media - Oral and] Adverse Reaction (Verified 01/12/17 06:56) See Comments patient states kidney problems. meclizine Adverse Reaction (Verified 01/12/17 06:56) Confusion Procedures/tests Complete & Pending: Procedures Performed prior 72 hours Category Date Time Status CT head/brain wo con [CT] Routine Cat Scan 01/12/17 12:00 Completed Date of admission: 01/12/17 10:02 Primary care physician: Orestes Grace MD Consults: 01/12/17 11:03 Consult to Physical Therapy [CONS] Routine Comment: Evaluate, develop and implement POC Reason for Consult: Patient has hx of CVA/TIAs with last episode reportedly three weeks ago. Some left-sided weakness and speech deficits 01/12/17 11:04 Consult to Occupational Therapy [CONS] Routine Comment: Evaluate, develop and implement POC Reason for Consult: Patient has hx of CVA/TIAs with last episode reportedly three weeks ago. Some left-sided weakness and speech deficits Consult to Emergency Room Physician [CONS] Routine Reason for SW Consult: Patient has hx of CVA/TIAs with last episode reportedly three weeks ago. Some left-sided weakness and speech deficits. Assess for possible home needs Consult to Speech Therapy [CONS] Routine Comment: Evaluate, develop and implement POC Reason for Consult: Patient has hx of CVA/TIAs with last episode reportedly three weeks ago. Some left-sided weakness and speech deficits Call Completed: No Discharging clinician: Patty Hennessy Anticipated date of discharge: 01/13/17 - Patient Status Disposition: Home, Self-Care Condition: Fair Functional capacity at discharge: uses cane/walker Overall status at discharge: patient is back to baseline - Discharge Instructions Instructions: Transient Ischemic Attack (DC), Heart Failure (DC), Hypothyroidism (DC), Chronic Obstructive Pulmonary Disease (DC), Chronic Hypertension (DC) Follow Up With: Orestes Grace MD [Primary Care Provider] - 01/20/17 3:15 pm Additional Instructions: followup with primary care provider as scheduled. follow 1500ml/day fluid restricted and sodium restricted diets - Diet and Activity Activity: ambulate only with your walker Diet: low fat, low cholesterol, low salt diet Hospital course: Ms. Tucker is a 71 year old female with past medical history of CHF, COPD, CAD, hypertension, hyperlipidemia, hypothyroidism. Patient presented to the emergency department chief complaint of shortness of breath and dyspnea on exertion. Patient stating her symptoms were present for several days. Patient also stating that she had a syncopal episode 3 weeks prior to presentation from a possible CVA/TIA. She states this episode left her with mild left-sided weakness and a mild speech deficit. Workup in the emergency department unremarkable. Chest x-ray with pulmonary edema, head CT negative. She was admitted to the hospitalist service for further evaluation and management of COPD exacerbation. She was successfully diuresed with IV furosemide. Her shortness of breath and dyspnea on exertion returned to its baseline. She was seen and evaluated by speech therapy who surmised she had no needs. She was seen and evaluated by occupational and physical therapy both of whom surmise she needed to go home with 24-hour supervision. She lives with her who is always present. Her anemia remained stable. She had mild hypokalemia and was started on potassium supplementation as her furosemide dosage at home was increased. She was back to her baseline and anxious to return home. Her pedal edema had resolved. She was discharged home in stable condition with close outpatient follow-up recommended. Fluid and sodium restricted diet reinforced. ITS Impressions Chest X-Ray 01/12/17 07:12 IMPRESSION: Pulmonary edema. Given the cardiac enlargement CHF is considered D/ / Raciel Escamilla MD / Raciel Escamilla MD Interpreting Provider: Raciel Escamilla MD Head CT 01/12/17 12:00 IMPRESSION: No acute intracranial abnormality. No significant change D/ / Jesus Petersen MD / Jesus Petersen MD Interpreting Provider: Jesus Petersen MD - Time Spent with Patient Total time spent providing and/or coordinating discharge services: - Constitutional Vitals: Temp Pulse Resp BP Pulse Ox 97.9 F 81 16 102/54 95 01/13/17 12:35 01/13/17 12:35 01/13/17 16:10 01/13/17 12:35 01/13/17 16:10 General appearance: Present: cooperative, A&O X 3, pleasant, no acute distress, obese, answers questions appropriately - Head Head exam: Present: atraumatic, normocephalic - Eye Eye exam: Present: PERRL, conjuntiva pink, sclera anicteric Pupils: Present: PERRL - Neck Neck exam general surgery: Present: supple, trachea midline. Absent: lymphadenopathy - Respiratory Respiratory exam: Present: CTAB. Absent: accessory muscle use, rales, respiratory distress, rhonchi, wheezes - Cardiovascular Cardiovascular exam: Present: RRR, +S1, +S2. Absent: diastolic murmur, gallop, rubs, systolic murmur - GI/Abdominal GI/Abdominal exam: Present: normal bowel sounds, soft, no peritoneal signs. Absent: distended, tenderness - Extremities Exam Extremities exam: Present: warm, radial pulses palpable and symmetrical. Absent : calf tenderness, cyanotic, pedal edema - Neurological Exam Neurological exam: Present: alert, CN II-XII intact, oriented X3, no focal deficits, strengths equal and symetr throughout (subjective left sided weakness ; no deficits on examination). Absent: pronater drift, facial droop, speech deficit - Skin Skin exam: Present: dry, intact, normal color, warm
== END 2017-01-13 19:00 | disposition home or self-care (01) ==
LOC: EMEROO 06:50 → 3BNU 06:50
PROVIDERS: ADMIT Nurse Practitioner Family; ATTEND Nurse Practitioner Family

== ENCOUNTER 2017-03-19 16:33 | Observation (INO) ==
[2017-03-19 17:14] LABS: Basophils % 0.2 %; Eosinophils # 0.1 K/mcL (0.0-0.6); Eosinophils % 0.5 %; Hematocrit 26.1 % (35.3-44.9); Immature Granulocytes % 0.8 % (0-4); Immature Platelets 3.6 % (1.1-6.1); Lymphocytes # 1.8 K/mcL (0.6-4.6); Lymphocytes % 12.4 %; Mean Corpuscular HGB Conc 34.5 g/dL (31.6-35.5); Mean Corpuscular Hemoglobin 31.9 pg (28.0-33.3); Mean Corpuscular Volume 92.6 fL (83.0-100.0); Mean Platelet Volume 10.9 fL (9.4-12.4); Monocytes # 0.8 K/mcL (0.0-1.3); Monocytes % 5.7 %; Neutrophils # 11.8 K/mcL (1.6-8.9); Platelet Count 327 K/mcL (140-400); Red Blood Count 2.82 M/mcL (3.82-4.97); Red Cell Distribution Width 14.7 % (11.5-14.5); Segmented Neutrophils % 80.4 %
[2017-03-19 17:16] LABS: Bilirubin,Urine Negative (Negative); Blood,Urine Negative (Negative); Clarity,Urine Cloudy (Clear); Color,Urine Yellow (Yellow); Glucose,Urine (UA) Normal (Normal); Ketones,Urine Negative (Negative); Leukocyte Esterase,Urine Trace (Negative); Nitrite,Urine Negative (Negative); Protein,Urine Negative (Neg-Trace); Specific Gravity,Urine 1.015 (1.010-1.025); Urobilinogen,Urine Normal (Normal)
[2017-03-19 17:17] LABS: Bacteria,Urine None Seen per hpf (None-Few); Hyaline Casts,Urine None Seen per lpf (None-Few); RBC,Urine 0-3 per hpf (0-3); Squamous Epithelial Cell,Urine Many per lpf (None-Few); WBC,Urine 0-3 per hpf (0-3)
[2017-03-19 17:29] LABS: Alanine Aminotransferase 9 Units/L (0-55); Albumin 2.9 g/dL (3.5-5.0); Albumin/Globulin Ratio 0.7 (1.1-2.2); Alkaline Phosphatase 88 Units/L (38-126); Amylase 31 Units/L (25-125); Aspartate Amino Transferase 29 Units/L (5-34); BUN/Creatinine Ratio 21 (6-26); Bilirubin,Direct 0.4 mg/dL (0.0-0.5); Bilirubin,Indirect 0.3 mg/dL (0.0-1.2); Bilirubin,Total 0.7 mg/dL (0.2-1.2); Blood Urea Nitrogen 19 mg/dL (7-20); Calcium 9.7 mg/dL (8.6-10.8); Carbon Dioxide 24 mEq/L (19-29); Chloride 100 mEq/L (98-109); Globulin 3.9 g/dL (2.4-3.5); Glucose 109 mg/dL (70-99); Osmolality,Calculated 285 (280-300); Potassium 3.6 mEq/L (3.5-4.5); Sodium 136 mEq/L (136-145); Total Protein 6.8 g/dL (6.0-8.3); eGFR For African Americans > 60 (> 60); eGFR For Non-African Americans > 60 (> 60)
[2017-03-19] MEDS ORDERED: 0.9 % Sodium Chloride 1,000 ML IVC ONE ×2 (17:29→23:41)
[2017-03-19 17:30] LABS: Lipase < 10 Units/L (8-78)
--- NOTE | 2017-03-19 19:08 | Emergency Department Note ---
Disposition Clinical Impression: GI bleeding Qualifiers: GI bleed type/associated pathology: unspecified gastrointestinal hemorrhage type Qualified Code(s): K92.2 - Gastrointestinal hemorrhage, unspecified Diarrhea Qualifiers: Diarrhea type: presumed infectious Qualified Code(s): A09 - Infectious gastroenteritis and colitis, unspecified Disposition: Admitted As Inpatient Condition: Good Time of Disposition: 19:37 Abdominal Pain HPI - General Chief Complaint: ED Abdominal Pain Stated Complaint: Abd pain/diarrhea Time Seen by Provider: 03/19/17 16:54 Source: patient Nursing Notes Reviewed: Yes Vital Signs Reviewed: Yes - History of Present Illness HPI Narrative: The patient is a 71 y/o F with a history of hypertension, congestive heart failure, adn TIA who presents to the ED complaining of lower abdominal pain and diarrhea. Patient states that she has been having lower abdominal pain for the past 3 days with associated diarrhea. She describes the pain as a crampy and intermittent that does not radiate. She states the pain improves when she has a bowel movement. She states that she currently does not have any abdominal pain. She states that she has had multiple episodes of watery diarrhea with no blood for the past three days. She denies anything that brings on the abdominal pain or diarrhea. She states that she has taken imodium yesterday that has improved her abdominal pain and diarrhea. She any headache, vision changes, chest pain, shortness of breath, difficulty breathing, constipation, blood in her urine, numbness and tingling, and any weaknesses. Pain Scale: 2 - Related Data Home Medications Medication Instructions Recorded Confirmed Albuterol Sulfate [Albuterol 2 puff IH Q4-6H PRN 10/15/15 03/21/17 Inhaler] Allopurinol [Zyloprim 100 MG] 100 mg PO DAILY 10/15/15 03/21/17 Fenofibrate Nanocrystallized 145 mg PO QPM 10/15/15 03/21/17 [Tricor] Fluticasone/Salmeterol [Advair 1 inh PO BID 10/15/15 03/21/17 500-50 Diskus] Isosorbide MONOnitrate (24 HR) 30 mg PO DAILY 10/15/15 03/21/17 [Imdur] Levothyroxine [Synthroid] 112 mcg PO DAILY 10/15/15 03/21/17 Ropinirole HCl [Requip] 0.5 - 1 mg PO HS 10/15/15 03/21/17 Sertraline [Zoloft] 100 mg PO BID 10/15/15 03/21/17 Tiotropium [Spiriva] 18 mcg IH DAILY 10/15/15 03/21/17 Diltiazem HCl [Diltiazem ER] 120 mg PO DAILY 03/29/16 03/21/17 Ipratropium/Albuterol Neb [Duoneb] 3 ml IH QID 03/29/16 03/21/17 Gemfibrozil [Lopid] 600 mg PO BIDWM 05/28/16 03/21/17 OxyCODONE/APAP 5/325 [Percocet 1 each PO BID PRN 05/28/16 03/21/17 5/325 MG] Aspirin Enteric Coated [Aspirin EC] 81 mg PO DAILY 11/23/16 03/21/17 Ferrous Sulfate 325 mg PO DAILY 11/23/16 03/21/17 Fish Oil/Dha/Epa [Fish Oil 1,200 1 each PO TID 11/23/16 03/21/17 mg Fish Oil] Magnesium Oxide [Mag-Ox] 400 mg PO DAILY 11/23/16 03/21/17 Omeprazole [PriLOSEC] 40 mg PO DAILY 11/23/16 03/21/17 Sucralfate [Carafate] 1 gm PO BID 11/23/16 03/21/17 Metoclopramide [Reglan] 20 mg PO DAILY PRN 01/12/17 03/21/17 Clotrimazole [Mycelex Syl[place]] 10 mg PO 5XD 02/06/17 03/21/17 ALPRAZolam [Xanax 1 MG Tablet] 0.5 mg PO BID 03/19/17 03/21/17 Megestrol Acetate [Megace] 40 mg PO BID 03/19/17 03/21/17 Gabapentin [Neurontin] 800 mg PO TID 03/21/17 03/21/17 Previous Rx's Medication Instructions Recorded Folic Acid 1 mg PO DAILY #30 tablet 11/29/16 Metoprolol XL (24 HR) Succ [Toprol 12.5 mg PO DAILY #15 tab.er.24h 11/29/16 Xl] Potassium Chloride 20 meq PO DAILY #30 tab.er.prt 01/13/17 Budesonide/Formoterol 160/4.5 2 puff IH BIDR #1 02/10/17 [Symbicort 160/4.5] Furosemide [Lasix] 40 mg PO BID 14 Days tab 02/10/17 Nystatin [Nystatin Suspension] 400,000 units PO QID 14 Days 02/10/17 Allergies Allergy/AdvReac Type Severity Reaction Status Date / Time codeine AdvReac Swelling Verified 03/19/17 16:35 of Lip/Tongue/Throat Iodinated Contrast- Oral and AdvReac See Verified 03/19/17 16:35 IV Dye Comments [Iodinated Contrast Media - Oral and] meclizine AdvReac Confusion Verified 03/19/17 16:35 All systems ED: reviewed and negative except as stated. Review of Systems: As Per HPI Abdominal Pain PMH - Past Medical History Medical history: Reports: arthritis, asthma, CHF, COPD, coronary artery disease , CVA, GERD, hyperlipidemia, hypertension, myocardial infarction, osteoporosis, renal disease, thyroid disease, other Female Surgical History: Reports: angioplasty/stent, appendectomy, cholecystectomy, herniorrhaphy, hysterectomy, other PSYCHOLOGICAL STRESS EVALUATOR history: Reports: no PSYCHOLOGICAL STRESS EVALUATOR history Psychiatric history: Reports: anxiety, depression - Social History Smoking status: Never smoker Alcohol use: Reports: none Drug use: Reports: none Physical Exam CONSTITUTIONAL: Alert and oriented X3, well-nourished, well appearing, in no apparent distress HEAD: Normocephalic; atraumatic. EYES: PERRL, no scleral icterus. NOSE: The nose is normal in appearance without rhinorrhea RESP: Normal chest excursion with respiration; breath sounds clear and equal bilaterally; no wheezes, rhonchi, or rales CARD: Regular rhythm, without murmurs, rub or gallop ABD: Non-distended; non-tender, soft,without rigidity, rebound or guarding SKIN: Normal for age and race; warm and dry; no apparent lesions - General Limitations: no limitations General appearance: alert - Rectal Exam Employee Representative present during exam: Yes Rectal exam: Present: heme (+) stool (guaic positive), black stool Course Vital Signs Temperature 97.8 F 03/19/17 16:36 Pulse Rate 82 03/19/17 16:36 Respiratory Rate 20 03/19/17 16:36 Blood Pressure 103/69 03/19/17 16:36 O2 Sat by Pulse Oximetry 98 03/19/17 16:36 Temperature 98.2 F 03/21/17 11:40 Pulse Rate 66 03/21/17 11:40 Respiratory Rate 14 03/21/17 11:40 Blood Pressure 114/64 03/21/17 11:40 O2 Sat by Pulse Oximetry 97 03/21/17 11:40 Oxygen Delivery Oxygen Delivery Room Air Abdominal Pain - MDM Narrative Medical decision making narrative: Vitals are reviewed and stable. Patient is afebrile and appears comfortable. Patient has an elevated WBC with a drop in her Hgb compare to her baseline. Stool occult was positive for blood. CT of abdomen and pelvis is still pending. Plan to admit patient for lower GI bleed. - Lab Data Lab results reviewed: Yes I reviewed the patient's lab results. Result diagrams: 03/21/17 04:44 03/21/17 04:44 Lab Results 03/19/17 03/19/17 03/19/17 Range/Units 16:50 16:56 16:56 WBC 14.7 H (4.3-11.1) K/mcL RBC 2.82 L (3.82-4.97) M/mcL Hgb 9.0 L (11.5-15.4) g/dL Hct 26.1 L (35.3-44.9) % MCV 92.6 (83.0-100.0) fL MCH 31.9 (28.0-33.3) pg MCHC 34.5 (31.6-35.5) g/dL RDW 14.7 H (11.5-14.5) % Plt Count 327 (140-400) K/mcL MPV 10.9 (9.4-12.4) fL Immature Gran % 0.8 (0-4) % Seg Neutrophils % 80.4 % Lymphocytes % 12.4 % Monocytes % 5.7 % Eosinophils % 0.5 % Basophils % 0.2 % Neutrophils # 11.8 H (1.6-8.9) K/mcL Lymphocytes # 1.8 (0.6-4.6) K/mcL Monocytes # 0.8 (0.0-1.3) K/mcL Eosinophils # 0.1 (0.0-0.6) K/mcL Basophils # 0.0 (0.0-0.2) K/mcL Immature Plt Fraction 3.6 (1.1-6.1) % PT 13.7 H (9.4-12.1) Seconds INR 1.3 Sodium 136 (136-145) mEq/L Potassium 3.6 (3.5-4.5) mEq/L Chloride 100 (98-109) mEq/L Carbon Dioxide 24 (19-29) mEq/L BUN 19 (7-20) mg/dL Creatinine 0.90 (0.57-1.11) mg/dL Est GFR ( Amer) > 60 (> 60) Est GFR (Non-Af Amer) > 60 (> 60) BUN/Creatinine Ratio 21 (6-26) Glucose 109 H (70-99) mg/dL Calculated Osmolality 285 (280-300) Calcium 9.7 (8.6-10.8) mg/dL Total Bilirubin 0.7 (0.2-1.2) mg/dL Direct Bilirubin 0.4 (0.0-0.5) mg/dL Indirect Bilirubin 0.3 (0.0-1.2) mg/dL AST 29 (5-34) Units/L ALT 9 (0-55) Units/L Alkaline Phosphatase 88 (38-126) Units/L Serum Total Protein 6.8 (6.0-8.3) g/dL Albumin 2.9 L (3.5-5.0) g/dL Globulin 3.9 H (2.4-3.5) g/dL Albumin/Globulin Ratio 0.7 L (1.1-2.2) Amylase 31 (25-125) Units/L Lipase < 10 (8-78) Units/L Ur Specimen Adequacy Urine Color (Yellow) Urine Clarity (Clear) Urine pH (5.0-8.0) pH Units Ur Specific [place] (1.010-1.025) Urine Protein (Neg-Trace) mg/dL Urine Glucose (UA) (Normal) mg/dL Urine Ketones (Negative) mg/dL Urine Blood (Negative) Urine Nitrite (Negative) Urine Bilirubin (Negative) Urine Urobilinogen (Normal) mg/dL Ur Leukocyte Esterase (Negative) Urine Microscopic RBC (0-3) per hpf Urine Microscopic WBC (0-3) per hpf Ur Squamous Epith Cells (None-Few) per lpf Urine Bacteria (None-Few) per hpf Hyaline Casts (None-Few) per lpf Ur Culture Indicated? (NO) Stool Occult Blood (Negative) 03/19/17 03/19/17 Range/Units 17:05 17:58 WBC (4.3-11.1) K/mcL RBC (3.82-4.97) M/mcL Hgb (11.5-15.4) g/dL Hct (35.3-44.9) % MCV (83.0-100.0) fL MCH (28.0-33.3) pg MCHC (31.6-35.5) g/dL RDW (11.5-14.5) % Plt Count (140-400) K/mcL MPV (9.4-12.4) fL Immature Gran % (0-4) % Seg Neutrophils % % Lymphocytes % % Monocytes % % Eosinophils % % Basophils % % Neutrophils # (1.6-8.9) K/mcL Lymphocytes # (0.6-4.6) K/mcL Monocytes # (0.0-1.3) K/mcL Eosinophils # (0.0-0.6) K/mcL Basophils # (0.0-0.2) K/mcL Immature Plt Fraction (1.1-6.1) % PT (9.4-12.1) Seconds INR Sodium (136-145) mEq/L Potassium (3.5-4.5) mEq/L Chloride (98-109) mEq/L Carbon Dioxide (19-29) mEq/L BUN (7-20) mg/dL Creatinine (0.57-1.11) mg/dL Est GFR ( Amer) (> 60) Est GFR (Non-Af Amer) (> 60) BUN/Creatinine Ratio (6-26) Glucose (70-99) mg/dL Calculated Osmolality (280-300) Calcium (8.6-10.8) mg/dL Total Bilirubin (0.2-1.2) mg/dL Direct Bilirubin (0.0-0.5) mg/dL Indirect Bilirubin (0.0-1.2) mg/dL AST (5-34) Units/L ALT (0-55) Units/L Alkaline Phosphatase (38-126) Units/L Serum Total Protein (6.0-8.3) g/dL Albumin (3.5-5.0) g/dL Globulin (2.4-3.5) g/dL Albumin/Globulin Ratio (1.1-2.2) Amylase (25-125) Units/L Lipase (8-78) Units/L Ur Specimen Adequacy See below A Urine Color Yellow (Yellow) Urine Clarity Cloudy A (Clear) Urine pH 7.0 (5.0-8.0) pH Units Ur Specific [place] 1.015 (1.010-1.025) Urine Protein Negative (Neg-Trace) mg/dL Urine Glucose (UA) Normal (Normal) mg/dL Urine Ketones Negative (Negative) mg/dL Urine Blood Negative (Negative) Urine Nitrite Negative (Negative) Urine Bilirubin Negative (Negative) Urine Urobilinogen Normal (Normal) mg/dL Ur Leukocyte Esterase Trace H (Negative) Urine Microscopic RBC 0-3 (0-3) per hpf Urine Microscopic WBC 0-3 (0-3) per hpf Ur Squamous Epith Cells Many H (None-Few) per lpf Urine Bacteria None Seen (None-Few) per hpf Hyaline Casts None Seen (None-Few) per lpf Ur Culture Indicated? YES A (NO) Stool Occult Blood Positive A (Negative) - Radiology Data Radiology results reviewed: Yes I reviewed the patient's radiology results. Attestation Statement - Attestation Attestation: I examined this patient and my medical decision-making was reviewed with the Resident Physician. I agree with the documented findings, disposition and treatment plan as described except to the extent set forth below. 71 yo F with lower abdominal pain and diarrhea x 3 days. +dark and tarry stools. +ttp of the suprapubic and LLQ on exam. +dark, OB positive stool on rectal exam. Pt is anemic. CT does not show acute surgical pathology. Pt will be admitted for further care and evaluation.
[2017-03-19 20:48] LABS: INR 1.3; Prothrombin Time 13.7 Seconds (9.4-12.1)
--- NOTE | 2017-03-20 01:49 | Internal Med History&Physical ---
<Mich Gee - Last Filed: 03/20/17 01:55> Date of Encounter: 03/20/17 Time of Encounter: 01:00 Assessment and Plan (1) Abdominal pain Current visit: No Status: Acute Patient's abdominal pain was located in the right lower quadrant and left lower quadrant. -Patient's pain had subsided upon admission to the hospital. -She was relieved with bowel movements. -CT scan reveals evidence of enteritis in the distal small bowel which could possibly be infectious, inflammatory, or ischemic in nature. In addition, significant atherosclerotic changes with severe stenosis were seen at the origins of the celiac and SMA. -IV ciprofloxacin and Flagyl. -IV fluids. -Protonix. Qualifiers: Qualified Code(s): R10.30 - Lower abdominal pain, unspecified (2) Diarrhea Current visit: Yes Status: Acute Patient has had several bouts of diarrhea. -Diarrhea described as watery and nonbloody. -IV antibiotics for enteritis. Qualifiers: Diarrhea type: unspecified type Qualified Code(s): R19.7 - Diarrhea, unspecified (3) GI bleeding Current visit: Yes Status: Acute Patient's stool occult was positive. -Surgery has been consulted. -Patient is currently nothing by mouth. Qualifiers: GI bleed type/associated pathology: unspecified gastrointestinal hemorrhage type Qualified Code(s): K92.2 - Gastrointestinal hemorrhage, unspecified (4) Anemia Current visit: No Status: Chronic Patient was noted to have a low hemoglobin at 9.0 upon admission to the hospital. -Stool occult was positive for blood. -CT scan showed evidence of enteritis. -IV antibiotics. -Surgery has been consulted. Qualifiers: Anemia type: other cause Other causes of anemia: chronic disease, other Qualified Code(s): D63.8 - Anemia in other chronic diseases classified elsewhere Internal Medicine - H&P: HPI Chief complaint: abdominal pain and diarrhea History of present illness: Ms. Tucker is a 71 year old female with a past medical history of hypertension, CHF, and TIA who presented to the emergency department with the chief complaint of lower abdominal pain and diarrhea of 3 days' duration. Patient states that this pain is cramp-like in character, rated 2 out of 10, intermittent, nonradiating. She states that her pain improved whenever she had a bowel movement. Patient states that her abdominal pain has since subsided since coming to the hospital. She has had multiple bouts of watery diarrhea without blood last 3 days. She states that it is been getting progressively worse. She took Imodium yesterday, which improved both her abdominal pain and diarrhea. Patient denies having any chest pain, shortness of breath, acid reflux, constipation, blood in her urine and stool, or weakness. At time of examination, patient had no abdominal pain and had no complaints. Past Med Surg Social Fam HX - Past Medical History Medical history: arthritis, asthma, CHF, COPD, coronary artery disease, CVA, GERD, hyperlipidemia, hypertension, myocardial infarction, osteoporosis, renal disease, thyroid disease, other Psychiatric history: anxiety, depression - Past Surgical History Surgical History: cholecystectomy, herniorrhaphy, hysterectomy, knee replacement , other - Social History Smoking Status: Never smoker Smokeless Tobacco Status: No Alcohol use: none Drug use: none - Family History Mother Adopted: No Family Member Ethnicity: Non- Living Status: Hx Family Cardiac Disorders: Yes (HD, HTN) Hx Family Cancer: Yes Hx Family Endocrine Disorder: Yes (DM) Father Adopted: No Family Member Ethnicity: Non- Living Status: Hx Family Cardiac Disorders: Yes (HD, HTN) Hx Family Cancer: Yes Hx Family Endocrine Disorder: Yes (DM) Brother Family Member Ethnicity: Non- Living Status: Hx Family Cardiac Disorders: Yes (MD, HD, HTN) Sister Family Member Ethnicity: Non- Living Status: Still Living Hx Family Cancer: Yes (Esophageal) Internal Medicine - H&P: Meds Albuterol Sulfate [Albuterol Inhaler] 2 puff IH Q4-6H PRN 10/15/15 [History] Allopurinol [Zyloprim 100 MG] 100 mg PO DAILY 10/15/15 [History] Fenofibrate Nanocrystallized [Tricor] 145 mg PO QPM 10/15/15 [History] Fluticasone/Salmeterol [Advair 500-50 Diskus] 1 inh PO BID 10/15/15 [History] Gabapentin [Neurontin] 400 mg PO QID 10/15/15 [History] Isosorbide MONOnitrate (24 HR) [Imdur] 30 mg PO DAILY 10/15/15 [History] Levothyroxine [Synthroid] 112 mcg PO DAILY 10/15/15 [History] Ropinirole HCl [Requip] 0.5 - 1 mg PO HS 10/15/15 [History] Sertraline [Zoloft] 100 mg PO BID 10/15/15 [History] Tiotropium [Spiriva] 18 mcg IH DAILY 10/15/15 [History] Diltiazem HCl [Diltiazem ER] 120 mg PO DAILY 03/29/16 [History] Ipratropium/Albuterol Neb [Duoneb] 3 ml IH QID 03/29/16 [History] Gemfibrozil [Lopid] 600 mg PO BIDWM 05/28/16 [History] OxyCODONE/APAP 5/325 [Percocet 5/325 MG] 1 each PO BID PRN 05/28/16 [History] Aspirin Enteric Coated [Aspirin EC] 81 mg PO DAILY 11/23/16 [History] Ferrous Sulfate 325 mg PO DAILY 11/23/16 [History] Fish Oil/Dha/Epa [Fish Oil 1,200 mg Fish Oil] 1 each PO TID 11/23/16 [History] Magnesium Oxide [Mag-Ox] 400 mg PO DAILY 11/23/16 [History] Omeprazole [PriLOSEC] 40 mg PO DAILY 11/23/16 [History] Sucralfate [Carafate] 1 gm PO BID 11/23/16 [History] Folic Acid 1 mg PO DAILY #30 tablet 11/29/16 [Rx] Metoprolol XL (24 HR) Succ [Toprol Xl] 12.5 mg PO DAILY #15 tab.er.24h 11/29/16 [Rx] Metoclopramide [Reglan] 20 mg PO DAILY PRN 01/12/17 [History] Potassium Chloride 20 meq PO DAILY #30 tab.er.prt 01/13/17 [Rx] Clotrimazole [Mycelex Sylvia] 10 mg PO 5XD 02/06/17 [History] Budesonide/Formoterol 160/4.5 [Symbicort 160/4.5] 2 puff IH BIDR #1 02/10/17 [Rx ] Doxycycline 100 mg PO 0700,1900 #20 02/10/17 [Rx] Furosemide [Lasix] 40 mg PO BID 14 Days tab 02/10/17 [Rx] Nystatin [Nystatin Suspension] 400,000 units PO QID 14 Days 02/10/17 [Rx] ALPRAZolam [Xanax 1 MG Tablet] 0.5 mg PO BID 03/19/17 [History] LORazepam [Ativan] 1 mg PO HS 03/19/17 [History] Megestrol Acetate [Megace] 40 mg PO BID 03/19/17 [History] Ranitidine HCl 300 mg PO HS 03/19/17 [History] Reglan 20 mg PO DAILY 03/19/17 [History] 3 Allergy/AdvReac Type Severity Reaction Status Date / Time codeine AdvReac Swelling Verified 03/19/17 16:35 of Lip/Tongue/Throat Iodinated Contrast- Oral and AdvReac See Verified 03/19/17 16:35 IV Dye Comments [Iodinated Contrast Media - Oral and] meclizine AdvReac Confusion Verified 03/19/17 16:35 All Systems PM: A 10-system review of systems was performed and is negative for pertinent findings except as documented above in the HPI. - Constitutional Constitutional: no chills, no fever(s), no night sweats - Cardiovascular Cardiovascular ROS IM: no chest pain, no diaphoresis, no dyspnea - Respiratory Respiratory: no cough, no dyspnea, no wheezing, no excessive phlegm production - Gastrointestinal Gastrointestinal: abdominal pain, diarrhea, no hematemesis, no hematochezia, no melena, no nausea, no vomiting - Genitourinary Genitourinary: no change in urinary stream, no dysuria, no flank pain, no hematuria - Musculoskeletal Musculoskeletal ROS IM: no numbness, no tingling - Neurological Neurological ROS: no focal weakness - Allergic/Immunologic Allergic/Immunologic: no GI upset with certain foods - Constitutional Vitals: Temp Pulse Resp BP Pulse Ox 98.8 F 75 18 102/46 96 03/19/17 23:17 03/19/17 23:17 03/19/17 23:17 03/19/17 23:17 03/19/17 23:17 General appearance: Present: A&O X 3, answers questions appropriately - Head Head exam: Present: atraumatic, normocephalic - Neck Neck exam general surgery: Present: supple, trachea midline. Absent: lymphadenopathy - Respiratory Respiratory exam: Present: CTAB. Absent: accessory muscle use, rales, rhonchi, wheezes - Cardiovascular Cardiovascular exam: Present: RRR, +S1, +S2. Absent: diastolic murmur, gallop, rubs, systolic murmur - GI/Abdominal GI/Abdominal exam: Present: normal bowel sounds, soft, no peritoneal signs. Absent: distended, tenderness - Extremities Exam Extremities exam: Present: warm, radial pulses palpable and symmetrical. Absent : calf tenderness, cyanotic, pedal edema - Skin Skin exam: Present: dry, intact Internal Med - H&P Results - Labs CBC & Chem 7: 03/19/17 16:56 03/19/17 16:56 <Franko Powers - Last Filed: 03/20/17 05:11> Date of Encounter: 03/19/17 Time of Encounter: 23:00 Internal Medicine - H&P: HPI History of present illness: Ms. Tucker is a 71 year old female All Systems PM: A 10-system review of systems was performed and is negative for pertinent findings except as documented above in the HPI. - Constitutional Vitals: Temp Pulse Resp BP Pulse Ox 97.9 F 70 18 106/51 94 03/20/17 03:11 03/20/17 03:11 03/20/17 03:11 03/20/17 03:11 03/20/17 03:11 Internal Med - H&P Results - Labs CBC & Chem 7: 03/19/17 16:56 03/19/17 16:56 - Attending Attestation I have personally and independently seen and examined the patient and discussed the plan with the resident and agree with the findings. Patient has come in with abdominal pain nausea vomiting and has been diagnosed with enteritis. Differential diagnosis discussed. Will start her on IV fluid and there antibiotics. She seems to be getting better already. On CAT scan atherosclerosis of the mesenteric and celiac arteries noted.
[2017-03-20] MEDS: MetroNIDAZOLE 500 MG/100 ML 500 MG/100 ML BAG IVPB SCH ×4 (02:29→23:32)
[2017-03-20] MEDS ORDERED: ALPRAZolam 1 MG TABLET PO ONE (02:49)
[2017-03-20] MEDS: Isosorbide MONOnitrate (24 HR) 30 MG TAB.ER.24H PO SCH (07:46)
[2017-03-20] MEDS: Sucralfate 1 GM TABLET PO SCH ×2 (07:47→16:35)
[2017-03-20] MEDS: Gabapentin 400 MG CAPSULE PO SCH ×4 (07:47→20:26)
[2017-03-20] MEDS: Magnesium Oxide 400 MG TABLET PO SCH (07:47)
[2017-03-20] MEDS: Diltiazem CD (24hr) 120 MG CAPSULE PO SCH (07:47)
[2017-03-20] MEDS: Fenofibrate 54 MG TABLET PO SCH (07:47)
[2017-03-20] MEDS: Furosemide 40 MG TABLET PO SCH (07:47)
[2017-03-20] MEDS: ALPRAZolam 0.5 MG TABLET PO SCH ×2 (07:53→14:53)
--- NOTE | 2017-03-20 08:23 | Internal Med Progress Note ---
<Marci Belle - Last Filed: 03/20/17 08:45> Date of Encounter: 03/20/17 Time of Encounter: 08:19 - Assessment and plan (1) Diarrhea Current Visit: Yes Status: Acute Assessment and plan: several episodes of diarrhea, watery and non bloody. CT abdomen/pelvis showed enteritis of the distal small bowel, possbily infectious, inflammatory, or ischemic in nature. Significant atherosclerotic disease with severe stneosis of celiac and SMA, mild hepatosplenomegaly. Plan: GI panel pending. cipro/flagyl. replete electrolytes as necessary. Qualifiers: Diarrhea type: presumed infectious Qualified Code(s): A09 - Infectious gastroenteritis and colitis, unspecified (2) Abdominal pain Current Visit: No Status: Resolved Assessment and plan: plan as above. abdominal pain subsided upon admission. Qualifiers: Abdominal location: lower abdomen, unspecified Qualified Code(s): R10.30 - Lower abdominal pain, unspecified (3) Anemia Current Visit: No Status: Chronic Assessment and plan: Hg today was 9. baseline Hg about 10-11. concern for GI bleed. stool occult blood is positive. Plan: NPO, consult to surgery for possible EGD. awaiting surgery recs. Qualifiers: Anemia type: other cause Other causes of anemia: chronic disease, other Qualified Code(s): D63.8 - Anemia in other chronic diseases classified elsewhere (4) GI bleeding Current Visit: Yes Status: Acute Assessment and plan: plan as above. Qualifiers: GI bleed type/associated pathology: unspecified gastrointestinal hemorrhage type Qualified Code(s): K92.2 - Gastrointestinal hemorrhage, unspecified (5) CHF (congestive heart failure) Current Visit: No Status: Chronic Assessment and plan: last echo from 11/24/16 showed LVEF 40%, mildly dilated left ventricle, no evidence of PFO. decreased LV function compared to prior echo. Plan: continue oral lasix. Qualifiers: Congestive heart failure type: combined Congestive heart failure chronicity : acute on chronic Qualified Code(s): I50.43 - Acute on chronic combined systolic (congestive) and diastolic (congestive) heart failure (6) DVT prophylaxis Current Visit: Yes Status: Acute Assessment and plan: EPCDs - Subjective Interval history: 71F evaluated at bedside. she denies nausea, vomiting, diarrhea, fever, chills, chest pain, shortness of breath. she reports mild abdominal discomfort. - Constitutional Vitals: Temp Pulse Resp BP Pulse Ox 98.3 F 66 16 103/57 96 03/20/17 07:07 03/20/17 07:07 03/20/17 07:07 03/20/17 07:07 03/20/17 07:07 General appearance: Present: A&O X 3, pleasant, no acute distress, answers questions appropriately - Head Head exam: Present: atraumatic, normocephalic - Neck Neck exam general surgery: Present: supple, trachea midline - Respiratory Respiratory exam: Present: CTAB - Cardiovascular Cardiovascular exam: Present: RRR, +S1, +S2 - GI/Abdominal GI/Abdominal exam: Present: distended, soft, tenderness (mild abdominal tenderness. ) - Extremities Exam Extremities exam: Absent: cyanotic, pedal edema - Neurological Exam Neurological exam: Present: alert, oriented X3, no focal deficits - Psychiatric Psychiatric exam: Present: normal affect, normal mood Internal Medicine: Result - Labs CBC & Chem 7: 03/19/17 16:56 03/19/17 16:56 - ABG Interpretation ABG results: PT/INR, D-dimer PT 13.7 Seconds (9.4-12.1) H 03/19/17 16:50 Consult Discharge Plan - Plan Referrals: Orestes Grace MD [Primary Care Provider] - <CaseyChioma - Last Filed: 03/20/17 15:04> Date of Encounter: 03/20/17 - Constitutional Vitals: Temp Pulse Resp BP Pulse Ox 98.1 F 62 16 93/50 96 03/20/17 11:14 03/20/17 11:14 03/20/17 11:14 03/20/17 11:14 03/20/17 11:14 Internal Medicine: Result - Labs CBC & Chem 7: 03/19/17 16:56 03/19/17 16:56 - ABG Interpretation ABG results: PT/INR, D-dimer PT 13.7 Seconds (9.4-12.1) H 03/19/17 16:50 - Attending Attestation I have seen and examined patient independently. I have discussed with resident DR Belle regarding the management plan. Agree with the documentation. Patient was admitted for abdominal pain and diarrhea. Her pain has improved. CT shows colitis. Vitals are stable. Surgical consult appreciated. We will continue Cipro and Flagyl for colitis, advance diet as tolerated. CT also showed severe sclerosis of celiac A and SMA, patient may also possibly have ischemic colitis.
[2017-03-20] MEDS ORDERED: 0.9 % Sodium Chloride 1,000 ML IVC SCH (08:30)
--- NOTE | 2017-03-20 10:03 | General Surgery Consult Note ---
Date of Encounter: 03/20/17 Time of Encounter: 10:02 Assessment and Plan (1) Enteritis Current Visit: Yes Status: Acute I expect to the patient that I personally reviewed the CT scan images were port and do agree that I think her symptoms are likely related to enteritis. I do not think this requires an EGD at this time because the discoloration of her stool can also be explained by the enteritis. I do agree with IV fluid hydration and IV antibiotics. I think it would be appropriate to start her off with clear liquids and if she tolerates this for lunch, then advance her to full liquids this evening. History of Present Illness Consult date: 03/20/17 Reason for consult: other (Right sided abdominal pain, diarrhea, heme positive stool) Requesting physician: Franko Powers History of present illness: The patient is a 71 year old female with a past medical history significant for GERD, asthma, COPD, diabetes mellitus, hypertension, chronic kidney disease stage III and history of coronary artery disease with UT with coronary stent placement presented to [facility] yesterday with a three-day history of diarrhea. She missed having right sided abdominal pain as well. She states that she had no nausea or vomiting and states that her who takes care of her mentioned that it appeared to be brownish/black. She states that since her admission her abdominal pain has almost completely resolved and her last bowel movement was this morning. She last had an EGD on 01/19/2017 do this dysphagia where a dilation was performed. Prior to that she had both an EGD and colonoscopy in July 2016. The EGD did show some mild inflammation in the colonoscopy showed evidence of a previous anastomosis (catecholamine resection performed by my colleague Dr. Chow proximally 5 years ago due to a nonresectable colon polyp). Past Med Surg Social Fam HX - Past Medical History Medical history: arthritis, asthma, CHF, COPD, coronary artery disease, CVA, GERD, hyperlipidemia, hypertension, myocardial infarction, osteoporosis, renal disease, thyroid disease, other Psychiatric history: anxiety, depression - Past Surgical History Surgical History: cholecystectomy, herniorrhaphy, hysterectomy, knee replacement , other - Social History Smoking Status: Never smoker Smokeless Tobacco Status: No Alcohol use: none Drug use: none - Family History Mother Adopted: No Family Member Ethnicity: Non- Living Status: Hx Family Cardiac Disorders: Yes (HD, HTN) Hx Family Cancer: Yes Hx Family Endocrine Disorder: Yes (DM) Father Adopted: No Family Member Ethnicity: Non- Living Status: Hx Family Cardiac Disorders: Yes (HD, HTN) Hx Family Cancer: Yes Hx Family Endocrine Disorder: Yes (DM) Brother Family Member Ethnicity: Non- Living Status: Hx Family Cardiac Disorders: Yes (UT, HD, HTN) Sister Family Member Ethnicity: Non- Living Status: Still Living Hx Family Cancer: Yes (Esophageal) Medications and Allergies Albuterol Sulfate [Albuterol Inhaler] 2 puff IH Q4-6H PRN 10/15/15 [History] Allopurinol [Zyloprim 100 MG] 100 mg PO DAILY 10/15/15 [History] Fenofibrate Nanocrystallized [Tricor] 145 mg PO QPM 10/15/15 [History] Fluticasone/Salmeterol [Advair 500-50 Diskus] 1 inh PO BID 10/15/15 [History] Gabapentin [Neurontin] 400 mg PO QID 10/15/15 [History] Isosorbide MONOnitrate (24 HR) [Imdur] 30 mg PO DAILY 10/15/15 [History] Levothyroxine [Synthroid] 112 mcg PO DAILY 10/15/15 [History] Ropinirole HCl [Requip] 0.5 - 1 mg PO HS 10/15/15 [History] Sertraline [Zoloft] 100 mg PO BID 10/15/15 [History] Tiotropium [Spiriva] 18 mcg IH DAILY 10/15/15 [History] Diltiazem HCl [Diltiazem ER] 120 mg PO DAILY 03/29/16 [History] Ipratropium/Albuterol Neb [Duoneb] 3 ml IH QID 03/29/16 [History] Gemfibrozil [Lopid] 600 mg PO BIDWM 05/28/16 [History] OxyCODONE/APAP 5/325 [Percocet 5/325 MG] 1 each PO BID PRN 05/28/16 [History] Aspirin Enteric Coated [Aspirin EC] 81 mg PO DAILY 11/23/16 [History] Ferrous Sulfate 325 mg PO DAILY 11/23/16 [History] Fish Oil/Dha/Epa [Fish Oil 1,200 mg Fish Oil] 1 each PO TID 11/23/16 [History] Magnesium Oxide [Mag-Ox] 400 mg PO DAILY 11/23/16 [History] Omeprazole [PriLOSEC] 40 mg PO DAILY 11/23/16 [History] Sucralfate [Carafate] 1 gm PO BID 11/23/16 [History] Folic Acid 1 mg PO DAILY #30 tablet 11/29/16 [Rx] Metoprolol XL (24 HR) Succ [Toprol Xl] 12.5 mg PO DAILY #15 tab.er.24h 11/29/16 [Rx] Metoclopramide [Reglan] 20 mg PO DAILY PRN 01/12/17 [History] Potassium Chloride 20 meq PO DAILY #30 tab.er.prt 01/13/17 [Rx] Clotrimazole [Mycelex Sylvia] 10 mg PO 5XD 02/06/17 [History] Budesonide/Formoterol 160/4.5 [Symbicort 160/4.5] 2 puff IH BIDR #1 02/10/17 [Rx ] Doxycycline 100 mg PO 0700,1900 #20 02/10/17 [Rx] Furosemide [Lasix] 40 mg PO BID 14 Days tab 02/10/17 [Rx] Nystatin [Nystatin Suspension] 400,000 units PO QID 14 Days 02/10/17 [Rx] ALPRAZolam [Xanax 1 MG Tablet] 0.5 mg PO BID 03/19/17 [History] LORazepam [Ativan] 1 mg PO HS 03/19/17 [History] Megestrol Acetate [Megace] 40 mg PO BID 03/19/17 [History] Ranitidine HCl 300 mg PO HS 03/19/17 [History] Reglan 20 mg PO DAILY 03/19/17 [History] 3 Allergy/AdvReac Type Severity Reaction Status Date / Time codeine AdvReac Swelling Verified 03/19/17 16:35 of Lip/Tongue/Throat Iodinated Contrast- Oral and AdvReac See Verified 03/19/17 16:35 IV Dye Comments [Iodinated Contrast Media - Oral and] meclizine AdvReac Confusion Verified 03/19/17 16:35 Review of Systems All systems PM: reviewed and no additional remarkable complaints except as stated All systems PM: A 10-system review of systems was performed and is negative for pertinent findings except as documented above in the HPI. General Surgery Exam Initial Vital Signs Temp Pulse Resp BP Pulse Ox 97.8 F 82 20 103/69 98 03/19/17 16:36 03/19/17 16:36 03/19/17 16:36 03/19/17 16:36 03/19/17 16:36 - Eyes PERRL, normal ocular movement - Respiratory normal expansion, normal respiratory effort, clear to auscultation - Cardiovascular Cardiovascular exam: Present: RRR, no murmurs/rubs/gallops - Abdomen Abdomen general surgery: Present: bowel sounds present, soft (Noted abdominal incision. No hernia. Mild pain to moderate palpation in the RLQ. No masses.) - Integumentary Integumentary general surgery: Present: warm and dry - Neurologic Present: CN 2-12 grossly intact - Musculoskeletal Present: other (No clubbing or cyanosis) Exam Initial Vital Signs Temp Pulse Resp BP Pulse Ox 97.8 F 82 20 103/69 98 03/19/17 16:36 03/19/17 16:36 03/19/17 16:36 03/19/17 16:36 03/19/17 16:36 Results - Labs 03/19/17 16:56 03/19/17 16:56 Abnormal lab results WBC 14.7 K/mcL (4.3-11.1) H 03/19/17 16:56 RBC 2.82 M/mcL (3.82-4.97) L 03/19/17 16:56 Hgb 9.0 g/dL (11.5-15.4) L 03/19/17 16:56 Hct 26.1 % (35.3-44.9) L 03/19/17 16:56 RDW 14.7 % (11.5-14.5) H 03/19/17 16:56 Neutrophils # 11.8 K/mcL (1.6-8.9) H 03/19/17 16:56 PT 13.7 Seconds (9.4-12.1) H 03/19/17 16:50 Glucose 109 mg/dL (70-99) H 03/19/17 16:56 Albumin 2.9 g/dL (3.5-5.0) L 03/19/17 16:56 Globulin 3.9 g/dL (2.4-3.5) H 03/19/17 16:56 Albumin/Globulin Ratio 0.7 (1.1-2.2) L 03/19/17 16:56 Ur Specimen Adequacy See below A 03/19/17 17:05 Urine Clarity Cloudy (Clear) A 03/19/17 17:05 Ur Leukocyte Esterase Trace (Negative) H 03/19/17 17:05 Ur Squamous Epith Cells Many per lpf (None-Few) H 03/19/17 17:05 Ur Culture Indicated? YES (NO) A 03/19/17 17:05 Stool Occult Blood Positive (Negative) A 03/19/17 17:58 All other labs normal. - Imaging CT scan - abdomen: report reviewed, image reviewed (Evidence of mild thickening of the small bowel consistent with enteritis. No free air or free fluid. No colitis identified.) Consult Discharge Plan - Plan Referrals: Orestes Grace MD [Primary Care Provider] -
[2017-03-20] MEDS: rOPINIRole 1 MG TABLET PO SCH (20:25)
[2017-03-20] MEDS: ALPRAZolam 1 MG TABLET PO SCH (20:26)
[2017-03-20] MEDS ORDERED: Famotidine 20 MG TABLET PO SCH (21:00)
[2017-03-20 21:53] LABS: Adenovirus F 40/41 PCR Not detected (Not detect); Astrovirus PCR Not detected (Not detect); C.difficile Toxin A/B by PCR See reflex test (Not detect); Campylobacter by PCR Not detected (Not detect); Cryptosporidium by PCR Not detected (Not detect); Cyclospora cayetanensis PCR Not detected (Not detect); E. coli O157 by PCR Not detected (Not detect); Entamoeba histolytica PCR Not detected (Not detect); Enteroaggregative E.coli(EAEC) Not detected (Not detect); Enteropathogenic E.coli(EPEC) Not detected (Not detect); Enterotoxigenic E.coli (ETEC) Not detected (Not detect); Giardia lamblia PCR Not detected (Not detect); Norovirus GI/GII PCR Not detected (Not detect); Plesiomonas shigelloides PCR Not detected (Not detect); Rotavirus A PCR Not detected (Not detect); Salmonella PCR Not detected (Not detect); Sapovirus PCR Not detected (Not detect); Shig/EnteroinvasiveE coli EIEC Not detected (Not detect); Shigalike tox-prod E coli STEC Not detected (Not detect); Vibrio PCR Not detected (Not detect); Vibrio cholerae PCR Not detected (Not detect); Yersinia enterocolitica PCR Not detected (Not detect)
[2017-03-21 05:26] LABS: Basophils % 0.5 %; Eosinophils # 0.2 K/mcL (0.0-0.6); Eosinophils % 3.2 %; Hematocrit 21.6 % (35.3-44.9); Immature Granulocytes % 1.4 % (0-4); Lymphocytes # 1.7 K/mcL (0.6-4.6); Lymphocytes % 26.4 %; Mean Corpuscular HGB Conc 34.3 g/dL (31.6-35.5); Mean Corpuscular Hemoglobin 31.1 pg (28.0-33.3); Mean Corpuscular Volume 90.8 fL (83.0-100.0); Monocytes # 0.4 K/mcL (0.0-1.3); Neutrophils # 3.9 K/mcL (1.6-8.9); Platelet Count 285 K/mcL (140-400); Red Blood Count 2.38 M/mcL (3.82-4.97); Red Cell Distribution Width 14.6 % (11.5-14.5); Segmented Neutrophils % 61.5 %
[2017-03-21 05:33] LABS: Hemoglobin 7.4 g/dL (11.5-15.4)
[2017-03-21 05:34] LABS: BUN/Creatinine Ratio 22 (6-26); Blood Urea Nitrogen 16 mg/dL (7-20); Calcium 8.7 mg/dL (8.6-10.8); Carbon Dioxide 22 mEq/L (19-29); Chloride 99 mEq/L (98-109); Glucose 86 mg/dL (70-99); Magnesium 1.4 mg/dL (1.6-2.6); Osmolality,Calculated 270 (280-300); Sodium 130 mEq/L (136-145); eGFR For African Americans > 60 (> 60); eGFR For Non-African Americans > 60 (> 60)
[2017-03-21 05:36] LABS: Chol/HDL Ratio 13.8 (0-4.9)
[2017-03-21] MEDS ORDERED: Magnesium Sulfate 2 GM in D5% in Water 100 ML IVPB ONE (08:21)
--- NOTE | 2017-03-21 08:53 | Internal Med Progress Note ---
<Prerna Thibodeaux - Last Filed: 03/21/17 15:56> Date of Encounter: 03/21/17 Time of Encounter: 08:50 - Assessment and plan (1) Diarrhea Current Visit: Yes Status: Acute Assessment and plan: Patient was admitted for several episodes of diarrhea, watery and non bloody CT abdomen/pelvis showed enteritis of the distal small bowel, possbily infectious, inflammatory, or ischemic in nature. 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 Reports diarrhea has resolved, denies blood in stool and abdominal pain. -C.Diff positive -continue flagyl day 2 -stop cipro -replete electrolytes as necessary -diet has been advanced to regular diet Qualifiers: Diarrhea type: presumed infectious Qualified Code(s): A09 - Infectious gastroenteritis and colitis, unspecified (2) Abdominal pain Current Visit: No Status: Resolved Assessment and plan: plan as above abdominal pain resolved Qualifiers: Abdominal location: lower abdomen, unspecified Qualified Code(s): R10.30 - Lower abdominal pain, unspecified (3) Anemia Current Visit: No Status: Chronic Assessment and plan: Hgb today was 7.4, decreased. Baseline Hgb about 10-11 concern for GI bleed however may be due to IV fluid hydration stool occult blood is positive patient denies shamar blood in stool -surgery following -recheck H&H at 5 PM today -surgery recommends IV hydration, antibiotics, advancement in diet, no EGD at this time -ferrous sulfate supplementation -continue to monitor H&H Qualifiers: Anemia type: other cause Other causes of anemia: chronic disease, other Qualified Code(s): D63.8 - Anemia in other chronic diseases classified elsewhere (4) GI bleeding Current Visit: Yes Status: Acute Assessment and plan: plan as above Qualifiers: GI bleed type/associated pathology: unspecified gastrointestinal hemorrhage type Qualified Code(s): K92.2 - Gastrointestinal hemorrhage, unspecified (5) CHF (congestive heart failure) Current Visit: No Status: Chronic Assessment and plan: last echo from 11/24/16 showed LVEF 40%, mildly dilated left ventricle, no evidence of PFO. decreased LV function compared to prior echo -continue oral lasix Qualifiers: Congestive heart failure type: combined Congestive heart failure chronicity : acute on chronic Qualified Code(s): I50.43 - Acute on chronic combined systolic (congestive) and diastolic (congestive) heart failure (6) DVT prophylaxis Current Visit: No Status: Acute Assessment and plan: EPCDs - Subjective Interval history: Sitting up on the side of the bed comfortably watching television she reports that her diarrhea and oral mouth pain has resolved she denies fever, chills, nausea, vomiting, abdominal pain, diarrhea she is requesting a full diet rather than the cream of wheat that she currently has. - Constitutional Vitals: Temp Pulse Resp BP Pulse Ox 98.3 F 67 17 108/52 97 03/21/17 04:48 03/21/17 04:48 03/21/17 04:48 03/21/17 04:48 03/21/17 04:48 General appearance: Present: A&O X 3, pleasant, no acute distress, answers questions appropriately Exam: Gen.: Vitals noted. No acute distress. AAOx3 HEENT: oropharynx clear, Normocephalic, atraumatic Cardiac: RRR, no murmur, +S1/S2 Pulmonary: CTA bilaterally, no wheezes, rales or rhonchi, equal chest expansion Abdomen: soft, nontender, Bowel sounds noted, no guarding Back: Nontender throughout. Extremities: no BLE edema, nontender calf, no cyanosis or clubbing Psych: Appropriate mood and behavior Internal Medicine: Result - Labs CBC & Chem 7: 03/21/17 04:44 03/21/17 04:44 Labs: Short CBC 03/21/17 Range/Units 04:44 WBC 6.3 D (4.3-11.1) K/mcL Hgb 7.4 L D (11.5-15.4) g/dL Hct 21.6 L (35.3-44.9) % Plt Count 285 (140-400) K/mcL Neutrophils # 3.9 (1.6-8.9) K/mcL BMP 03/21/17 04:44 Sodium 130 L Potassium 3.0 L Chloride 99 Carbon Dioxide 22 BUN 16 Creatinine 0.72 Glucose 86 Calcium 8.7 - ABG Interpretation ABG results: PT/INR, D-dimer PT 13.7 Seconds (9.4-12.1) H 03/19/17 16:50 Consult Discharge Plan - Plan Referrals: Orestes Grace MD [Primary Care Provider] - <Chioma Casey - Last Filed: 03/21/17 16:34> Date of Encounter: 03/21/17 - Constitutional Vitals: Temp Pulse Resp BP Pulse Ox 98.2 F 66 14 114/64 97 03/21/17 11:40 03/21/17 11:40 03/21/17 11:40 03/21/17 11:40 03/21/17 11:40 Internal Medicine: Result - Labs CBC & Chem 7: 03/21/17 04:44 03/21/17 04:44 Labs: Short CBC 03/21/17 Range/Units 04:44 WBC 6.3 D (4.3-11.1) K/mcL Hgb 7.4 L D (11.5-15.4) g/dL Hct 21.6 L (35.3-44.9) % Plt Count 285 (140-400) K/mcL Neutrophils # 3.9 (1.6-8.9) K/mcL BMP 03/21/17 04:44 Sodium 130 L Potassium 3.0 L Chloride 99 Carbon Dioxide 22 BUN 16 Creatinine 0.72 Glucose 86 Calcium 8.7 - ABG Interpretation ABG results: PT/INR, D-dimer PT 13.7 Seconds (9.4-12.1) H 03/19/17 16:50 - Attending Attestation I saw and examined the patient independently. I have discussed with resident Dr Thibodeaux regarding the management plan. Agree with the documentation. Patient has no further abdominal pain or diarrhea today. However, C. difficile tested positive. Patient has mild decreased hemoglobin. Switch Flagyl to by mouth today for C. difficile. Continue monitor patient H&H. Surgical consult appreciated. Patient may discharge soon if no further diarrhea and hemoglobin stable.
[2017-03-21] MEDS ORDERED: Potassium Chloride Elixir 20 MEQ/15 ML UDC PO ONE (08:54)
[2017-03-21] MEDS: ALPRAZolam 0.5 MG TABLET PO SCH ×2 (10:05→13:39)
[2017-03-21] MEDS: Gabapentin 400 MG CAPSULE PO SCH ×4 (10:05→20:43)
[2017-03-21] MEDS: Sucralfate 1 GM TABLET PO SCH ×2 (10:05→16:57)
[2017-03-21] MEDS: metroNIDAZOLE 500 MG TABLET PO SCH ×3 (10:05→20:43)
[2017-03-21] MEDS: Furosemide 40 MG TABLET PO SCH (10:05)
[2017-03-21] MEDS: Isosorbide MONOnitrate (24 HR) 30 MG TAB.ER.24H PO SCH (10:05)
[2017-03-21] MEDS: Diltiazem CD (24hr) 120 MG CAPSULE PO SCH (10:05)
[2017-03-21] MEDS: Magnesium Oxide 400 MG TABLET PO SCH (10:05)
[2017-03-21] MEDS: Fenofibrate 54 MG TABLET PO SCH (10:06)
--- NOTE | 2017-03-21 11:41 | General Surgery Progress Note ---
<Ariel Nunez Ashley - Last Filed: 03/21/17 14:30> Date of Encounter: 03/21/17 - Assessment and Plan (1) Enteritis Current Visit: Yes Status: Acute Objective Vital Signs - Last 8 Hours Temp Pulse Resp BP Pulse Ox 03/21/17 11:40 98.2 F 66 14 114/64 97 03/21/17 08:00 98.0 F 102 14 115/79 94 Intake and Output 03/20/17 03/21/17 03/21/17 23:59 07:59 15:59 Intake Total 560 / 560 100 / 100 360 / 360 Output Total 200 / 200 0 / 0 800 / 800 Balance 360 / 360 100 / 100 -440 / -440 Intake: IV Fluids 200 / 200 100 / 100 Cipro Premix 400 MG/200 ML 400 200 / 200 mg In 200 ml @ 200 mls/hr IVPB BID DUSTY Rx#:[id number] Flagyl Premix 500 MG/100 ML 500 100 / 100 mg In 100 ml @ 100 mls/hr IVPB Q8HR DUSTY Rx#:[id number] Oral 360 / 360 360 / 360 Output: Urine 0 / 0 800 / 800 Urine/Stool Mix 200 / 200 Other: Meal Dinner Breakfast Percent of Meal Consumed 0% 75% # Voids 1 # Bowel Movement Diapers 2 Weight 62.5 kg Patient Weight 03/21/17 23:59 Weight 62.5 kg - Labs 03/21/17 04:44 03/21/17 04:44 Diabetes panel 03/21/17 03/21/17 Range/Units 04:44 04:44 Sodium 130 L (136-145) mEq/L Potassium 3.0 L (3.5-4.5) mEq/L Chloride 99 (98-109) mEq/L Carbon Dioxide 22 (19-29) mEq/L BUN 16 (7-20) mg/dL Creatinine 0.72 (0.57-1.11) mg/dL Glucose 86 (70-99) mg/dL Calcium 8.7 (8.6-10.8) mg/dL Triglycerides 120 (< 150) mg/dL HDL Cholesterol 5 L (40-59) mg/dL Calcium panel 03/21/17 Range/Units 04:44 Calcium 8.7 (8.6-10.8) mg/dL Pituitary panel 03/21/17 Range/Units 04:44 Sodium 130 L (136-145) mEq/L Potassium 3.0 L (3.5-4.5) mEq/L Chloride 99 (98-109) mEq/L Carbon Dioxide 22 (19-29) mEq/L BUN 16 (7-20) mg/dL Creatinine 0.72 (0.57-1.11) mg/dL Glucose 86 (70-99) mg/dL Calcium 8.7 (8.6-10.8) mg/dL Adrenal panel 03/21/17 Range/Units 04:44 Sodium 130 L (136-145) mEq/L Potassium 3.0 L (3.5-4.5) mEq/L Chloride 99 (98-109) mEq/L Carbon Dioxide 22 (19-29) mEq/L BUN 16 (7-20) mg/dL Creatinine 0.72 (0.57-1.11) mg/dL Glucose 86 (70-99) mg/dL Calcium 8.7 (8.6-10.8) mg/dL Consult Discharge Plan - Plan Referrals: Orestes Grace MD [Primary Care Provider] - - Attending Attestation I examined this patient and my medical decision-making was reviewed with the Resident Physician. I agree with the documented findings, disposition and treatment plan as described except to the extent set forth below. Reviewed the above assessment and evaluation. She has positive C. difficile colitis. That with enteritis is likely the source of the patient's previous symptoms. She denies any current diarrhea or rectal bleeding. I think that her decrease her hemoglobin is likely related to the hydration over the past 48 hours. Based upon her current treatment with antibiotics and do not think that she requires endoscopy at this time. On regular diet. Will follow from a distance; thank you. <Natacha Godinez - Last Filed: 03/21/17 14:39> Date of Encounter: 03/21/17 Time of Encounter: 11:37 - Assessment and Plan (1) Anemia Current Visit: No Status: Chronic Hemoglobin did drop from 9.0 to 7.4 from 03/19 to 03/21. Patient denies seeing blood in her stool. Recheck of H/H at 5pm. Decrease in Hgb, most consistent with IV fluid hydration. Still no indication for scope in the the setting of active C dif. Agree with advancing diet and continuing on Flagyl and may discharge when medical service feels that hemoglobin is stable. Qualifiers: Anemia type: other cause Other causes of anemia: chronic disease, other Qualified Code(s): D63.8 - Anemia in other chronic diseases classified elsewhere (2) Enteritis Current Visit: Yes Status: Acute C diff positive. Patient tolerating regular food well without N/V or diarrhea. See plan above. Subjective Narrative: Ms. Tucker is a 70 y/o female who presented to the Ed with diarrhea and abdominal pain and was found to be C. diff positive and anemic. Surgery was consulted for concern for GI bleed. Patient today says she wants to go home. She tolerated regular food well this morning without N/V or diarrhea. Objective Vital Signs - Last 8 Hours Temp Pulse Resp BP Pulse Ox 03/21/17 08:00 98.0 F 102 14 115/79 94 03/21/17 04:48 98.3 F 67 17 108/52 97 Intake and Output 03/20/17 03/21/17 03/21/17 23:59 07:59 15:59 Intake Total 560 / 560 100 / 100 0 / 0 Output Total 200 / 200 0 / 0 500 / 500 Balance 360 / 360 100 / 100 -500 / -500 Intake: IV Fluids 200 / 200 100 / 100 Cipro Premix 400 MG/200 ML 400 200 / 200 mg In 200 ml @ 200 mls/hr IVPB BID DUSTY Rx#:[id number] Flagyl Premix 500 MG/100 ML 500 100 / 100 mg In 100 ml @ 100 mls/hr IVPB Q8HR DUSTY Rx#:[id number] Oral 360 / 360 0 / 0 Output: Urine 0 / 0 500 / 500 Urine/Stool Mix 200 / 200 Other: Meal Dinner Percent of Meal Consumed 0% # Voids 1 # Bowel Movement Diapers 2 Weight 62.5 kg Patient Weight 03/21/17 23:59 Weight 62.5 kg - Labs 03/21/17 04:44 03/21/17 04:44 Diabetes panel 03/21/17 03/21/17 Range/Units 04:44 04:44 Sodium 130 L (136-145) mEq/L Potassium 3.0 L (3.5-4.5) mEq/L Chloride 99 (98-109) mEq/L Carbon Dioxide 22 (19-29) mEq/L BUN 16 (7-20) mg/dL Creatinine 0.72 (0.57-1.11) mg/dL Glucose 86 (70-99) mg/dL Calcium 8.7 (8.6-10.8) mg/dL Triglycerides 120 (< 150) mg/dL HDL Cholesterol 5 L (40-59) mg/dL Calcium panel 03/21/17 Range/Units 04:44 Calcium 8.7 (8.6-10.8) mg/dL Pituitary panel 03/21/17 Range/Units 04:44 Sodium 130 L (136-145) mEq/L Potassium 3.0 L (3.5-4.5) mEq/L Chloride 99 (98-109) mEq/L Carbon Dioxide 22 (19-29) mEq/L BUN 16 (7-20) mg/dL Creatinine 0.72 (0.57-1.11) mg/dL Glucose 86 (70-99) mg/dL Calcium 8.7 (8.6-10.8) mg/dL Adrenal panel 03/21/17 Range/Units 04:44 Sodium 130 L (136-145) mEq/L Potassium 3.0 L (3.5-4.5) mEq/L Chloride 99 (98-109) mEq/L Carbon Dioxide 22 (19-29) mEq/L BUN 16 (7-20) mg/dL Creatinine 0.72 (0.57-1.11) mg/dL Glucose 86 (70-99) mg/dL Calcium 8.7 (8.6-10.8) mg/dL
[2017-03-21] MEDS: rOPINIRole 1 MG TABLET PO SCH (20:43)
[2017-03-21] MEDS: ALPRAZolam 1 MG TABLET PO SCH (20:43)
[2017-03-22 03:56] LABS: Basophils % 0.6 %; Eosinophils # 0.2 K/mcL (0.0-0.6); Eosinophils % 2.3 %; Hematocrit 26.3 % (35.3-44.9); Lymphocytes # 2.6 K/mcL (0.6-4.6); Lymphocytes % 36.4 %; Mean Corpuscular HGB Conc 34.2 g/dL (31.6-35.5); Mean Corpuscular Hemoglobin 31.4 pg (28.0-33.3); Mean Corpuscular Volume 91.6 fL (83.0-100.0); Mean Platelet Volume 10.9 fL (9.4-12.4); Monocytes # 0.5 K/mcL (0.0-1.3); Monocytes % 7.2 %; Neutrophils # 3.7 K/mcL (1.6-8.9); Platelet Count 338 K/mcL (140-400); Red Blood Count 2.87 M/mcL (3.82-4.97); Red Cell Distribution Width 14.7 % (11.5-14.5); Segmented Neutrophils % 52.5 %
[2017-03-22 04:17] LABS: BUN/Creatinine Ratio 20 (6-26); Blood Urea Nitrogen 16 mg/dL (7-20); Calcium 9.3 mg/dL (8.6-10.8); Carbon Dioxide 22 mEq/L (19-29); Chloride 105 mEq/L (98-109); Glucose 96 mg/dL (70-99); Magnesium 1.8 mg/dL (1.6-2.6); Osmolality,Calculated 279 (280-300); Sodium 134 mEq/L (136-145); eGFR For African Americans > 60 (> 60); eGFR For Non-African Americans > 60 (> 60)
[2017-03-22 04:28] LABS: Potassium 4.1 mEq/L (3.5-4.5)
[2017-03-22] MEDS: Fenofibrate 54 MG TABLET PO SCH (07:54)
[2017-03-22] MEDS: Diltiazem CD (24hr) 120 MG CAPSULE PO SCH (07:55)
[2017-03-22] MEDS: Furosemide 40 MG TABLET PO SCH (07:55)
[2017-03-22] MEDS: Sucralfate 1 GM TABLET PO SCH (07:55)
[2017-03-22] MEDS: Isosorbide MONOnitrate (24 HR) 30 MG TAB.ER.24H PO SCH (07:55)
[2017-03-22] MEDS: Gabapentin 400 MG CAPSULE PO SCH (07:55)
[2017-03-22] MEDS: Magnesium Oxide 400 MG TABLET PO SCH (07:55)
[2017-03-22] MEDS: metroNIDAZOLE 500 MG TABLET PO SCH (07:55)
[2017-03-22 10:11] VITALS: BP 111/69
[2017-03-22] MEDS: ALPRAZolam 0.5 MG TABLET PO SCH (10:11)
--- NOTE | 2017-03-22 13:30 | Discharge Summary ---
Date of Encounter: 03/22/17 Time of Encounter: 13:28 - Discharge Diagnosis (1) Abdominal pain Priority: Primary Status: Acute Qualifiers: Abdominal location: lower abdomen, unspecified Qualified Code(s): R10.30 - Lower abdominal pain, unspecified (2) C. difficile colitis Priority: Primary Status: Acute (3) Anxiety Priority: Secondary Status: Chronic (4) Depression Priority: Secondary Status: Chronic Qualifiers: Depression Type: unspecified Qualified Code(s): F32.9 - Major depressive disorder, single episode, unspecified (5) COPD (chronic obstructive pulmonary disease) Priority: Secondary Status: Chronic Qualifiers: COPD type: emphysema Emphysema type: unspecified Qualified Code(s): J43.9 - Emphysema, unspecified (6) CAD (coronary artery disease) Priority: Secondary Status: Chronic Qualifiers: Coronary Disease-Associated Artery/Lesion type: [place] artery [place] vs. transplanted heart: [place] heart Associated angina: without angina Qualified Code(s): I25.10 - Atherosclerotic heart disease of [place] coronary artery without angina pectoris (7) Anemia Priority: Secondary Status: Chronic Qualifiers: Anemia type: other cause Other causes of anemia: chronic disease, other Qualified Code(s): D63.8 - Anemia in other chronic diseases classified elsewhere (8) Hypertension Priority: Secondary Status: Chronic Qualifiers: Hypertension type: essential hypertension Qualified Code(s): I10 - Essential (primary) hypertension (9) Hypothyroidism Priority: Secondary Status: Chronic Qualifiers: Hypothyroidism type: unspecified Qualified Code(s): E03.9 - Hypothyroidism , unspecified - Discharge Medications Prescriptions: Lactobacillus Acidophilus [Acidophilus] 1 each PO BID #30 capsule metroNIDAZOLE [Flagyl] 500 mg PO TID #33 tablet Home Medications: Albuterol Sulfate [Albuterol Inhaler] 2 puff IH Q4-6H PRN 10/15/15 [History] Allopurinol [Zyloprim 100 MG] 100 mg PO DAILY 10/15/15 [History] Fenofibrate Nanocrystallized [Tricor] 145 mg PO QPM 10/15/15 [History] Fluticasone/Salmeterol [Advair 500-50 Diskus] 1 inh PO BID 10/15/15 [History] Isosorbide MONOnitrate (24 HR) [Imdur] 30 mg PO DAILY 10/15/15 [History] Levothyroxine [Synthroid] 112 mcg PO DAILY 10/15/15 [History] Ropinirole HCl [Requip] 0.5 - 1 mg PO HS 10/15/15 [History] Sertraline [Zoloft] 100 mg PO BID 10/15/15 [History] Tiotropium [Spiriva] 18 mcg IH DAILY 10/15/15 [History] Diltiazem HCl [Diltiazem ER] 120 mg PO DAILY 03/29/16 [History] Ipratropium/Albuterol Neb [Duoneb] 3 ml IH QID 03/29/16 [History] Gemfibrozil [Lopid] 600 mg PO BIDWM 05/28/16 [History] OxyCODONE/APAP 5/325 [Percocet 5/325 MG] 1 each PO BID PRN 05/28/16 [History] Aspirin Enteric Coated [Aspirin EC] 81 mg PO DAILY 11/23/16 [History] Ferrous Sulfate 325 mg PO DAILY 11/23/16 [History] Fish Oil/Dha/Epa [Fish Oil 1,200 mg Fish Oil] 1 each PO TID 11/23/16 [History] Magnesium Oxide [Mag-Ox] 400 mg PO DAILY 11/23/16 [History] Omeprazole [PriLOSEC] 40 mg PO DAILY 11/23/16 [History] Sucralfate [Carafate] 1 gm PO BID 11/23/16 [History] Folic Acid 1 mg PO DAILY #30 tablet 11/29/16 [Rx] Metoprolol XL (24 HR) Succ [Toprol Xl] 12.5 mg PO DAILY #15 tab.er.24h 11/29/16 [Rx] Metoclopramide [Reglan] 20 mg PO DAILY PRN 01/12/17 [History] Potassium Chloride 20 meq PO DAILY #30 tab.er.prt 01/13/17 [Rx] Clotrimazole [Mycelex Sylvia] 10 mg PO 5XD 02/06/17 [History] Budesonide/Formoterol 160/4.5 [Symbicort 160/4.5] 2 puff IH BIDR #1 02/10/17 [Rx ] Nystatin [Nystatin Suspension] 400,000 units PO QID 14 Days 02/10/17 [Rx] ALPRAZolam [Xanax 1 MG Tablet] 0.5 mg PO BID 03/19/17 [History] Megestrol Acetate [Megace] 40 mg PO BID 03/19/17 [History] Gabapentin [Neurontin] 800 mg PO TID 03/21/17 [History] Furosemide [Lasix] 40 mg PO DAILY 30 Days tab 03/22/17 [Rx] Lactobacillus Acidophilus [Acidophilus] 1 each PO BID #30 capsule 03/22/17 [Rx] metroNIDAZOLE [Flagyl] 500 mg PO TID #33 tablet 03/22/17 [Rx] Allergies/Adverse Reactions: 3 Allergy/AdvReac Type Severity Reaction Status Date / Time codeine AdvReac Swelling Verified 03/19/17 16:35 of Lip/Tongue/Throat Iodinated Contrast- Oral and AdvReac See Verified 03/19/17 16:35 IV Dye Comments [Iodinated Contrast Media - Oral and] meclizine AdvReac Confusion Verified 03/19/17 16:35 Date of admission: 03/19/17 19:40 Primary care physician: Orestes Grace MD Discharging clinician: Hue Aguila Anticipated date of discharge: 03/22/17 - Patient Status Disposition: Home, Self-Care Condition: Good Functional capacity at discharge: uses cane/walker Overall status at discharge: patient is progressing back to baseline - Discharge Instructions Instructions: Depression (DC), Clostridium Difficile Infection (DC), Anxiety ( DC) Follow Up With: Orestes Grace MD [Primary Care Provider] - 03/29/17 2:15 pm Additional Instructions: F/up with PCP in 1-2 weeks - Diet and Activity Activity: resume usual activities as tolerated Diet: low fat, low cholesterol, low salt diet Hospital course: Ms. Tucker is a 71 year old female with multiple medical problems, was admitted with abdominal pain. CT abdomen/pelvis done in the emergency room showed changes suggestive of enteritis. Stool studies revealed positive Clostridium difficile toxin. Patient was started on oral Flagyl along with IV hydration. She had no fever, leukocytosis and was not septic. Surgery was consulted and recommended no further inpatient management and agrees with current management. Patient was noted to have an acute drop in hemoglobin during this hospitalization, which was noted to be erroneous as repeat hemoglobin was at her baseline. She is currently able to tolerate oral diet, diarrhea improved and she is extremely anxious to be discharged home. She is otherwise medically stable and is advised to follow up as outpatient. - Time Spent with Patient Total time spent providing and/or coordinating discharge services: Greater than 30 minutes (45 min) - Constitutional Vitals: Temp Pulse Resp BP Pulse Ox 97.8 F 84 15 111/69 98 03/22/17 10:10 03/22/17 10:10 03/22/17 10:10 03/22/17 10:10 03/22/17 10:10 General appearance: Present: A&O X 3, answers questions appropriately - Respiratory Respiratory exam: Present: CTAB. Absent: accessory muscle use, rales, rhonchi, wheezes - Cardiovascular Cardiovascular exam: Present: RRR, +S1, +S2. Absent: diastolic murmur, gallop, rubs, systolic murmur - GI/Abdominal GI/Abdominal exam: Present: normal bowel sounds, soft, no peritoneal signs. Absent: distended, tenderness
== END 2017-03-22 14:10 | disposition home or self-care (01) ==
LOC: 3ANU 16:33 → EMEROO 16:33 → SUATTDRO 19:40 → 3ANU 20:05
PROVIDERS: ADMIT Family Medicine; ATTEND Internal Medicine

== ENCOUNTER 2017-05-27 16:42 | Inpatient (IN) ==
[2017-05-27] MEDS ORDERED: Ondansetron 4 MG/2 ML VIAL IVP ONE (17:13)
--- NOTE | 2017-05-27 17:22 | Emergency Department Note ---
Disposition Clinical Impression: Clostridium difficile infection, Hypokalemia Abdominal pain Qualifiers: Abdominal location: lower abdomen, unspecified Qualified Code(s): R10.30 - Lower abdominal pain, unspecified Disposition: Admitted As Inpatient Condition: Good Referrals: Orestes Grace MD [Primary Care Provider] - Forms: ED Satisfaction Letter, Work/School Release Time of Disposition: 22:23 General Adult HPI - General Chief complaint: ED Abdominal Pain Stated complaint: abdominal pain, diarrhea Time Seen by Provider: 05/27/17 16:44 Source: EMS Limitations: no limitations Nursing Notes Reviewed: Yes Vital Signs Reviewed: Yes - History of Present Illness HPI Narrative: Patient is a 71-year-old female that presents the emergency department with lower abdominal pain and diarrhea for the past few days. She is at nothing seems to make this any better. She says any time that her abdomen was soft it seemed to make it worse and states it has not eaten in the past 2 days. States she has been nauseated with no vomiting. She has a history of ulcerative colitis but states that this is worse than when she would get a colitis flare. Her daughter reports that she was diagnosed with C. difficile approximately 3-4 days ago and is currently taking Flagyl. Family also reports that she does not seem to be acting like herself and is weaker than normal. Patient also has a history of 2 strokes this year with known left-sided deficit but the daughter feels like she is worse than normal. Daughter reports that she feels like she is not speaking as clearly as normal and is difficult to understand. Pain Scale: 10 - Related Data Home Medications Medication Instructions Recorded Confirmed Albuterol Sulfate [Albuterol 2 puff IH Q4-6H PRN 10/15/15 03/21/17 Inhaler] Allopurinol [Zyloprim 100 MG] 100 mg PO DAILY 10/15/15 03/21/17 Fenofibrate Nanocrystallized 145 mg PO QPM 10/15/15 03/21/17 [Tricor] Fluticasone/Salmeterol [Advair 1 inh PO BID 10/15/15 03/21/17 500-50 Diskus] Isosorbide MONOnitrate (24 HR) 30 mg PO DAILY 10/15/15 03/21/17 [Imdur] Levothyroxine [Synthroid] 112 mcg PO DAILY 10/15/15 03/21/17 Ropinirole HCl [Requip] 0.5 - 1 mg PO HS 10/15/15 03/21/17 Sertraline [Zoloft] 100 mg PO BID 10/15/15 03/21/17 Tiotropium [Spiriva] 18 mcg IH DAILY 10/15/15 03/21/17 Diltiazem HCl [Diltiazem ER] 120 mg PO DAILY 03/29/16 03/21/17 Ipratropium/Albuterol Neb [Duoneb] 3 ml IH QID 03/29/16 03/21/17 Gemfibrozil [Lopid] 600 mg PO BIDWM 05/28/16 03/21/17 OxyCODONE/APAP 5/325 [Percocet 1 each PO BID PRN 05/28/16 03/21/17 5/325 MG] Aspirin Enteric Coated [Aspirin EC] 81 mg PO DAILY 11/23/16 03/21/17 Ferrous Sulfate 325 mg PO DAILY 11/23/16 03/21/17 Fish Oil/Dha/Epa [Fish Oil 1,200 1 each PO TID 11/23/16 03/21/17 mg Fish Oil] Magnesium Oxide [Mag-Ox] 400 mg PO DAILY 11/23/16 03/21/17 Omeprazole [PriLOSEC] 40 mg PO DAILY 11/23/16 03/21/17 Sucralfate [Carafate] 1 gm PO BID 11/23/16 03/21/17 Metoclopramide [Reglan] 20 mg PO DAILY PRN 01/12/17 03/21/17 ALPRAZolam [Xanax 1 MG Tablet] 0.5 mg PO BID 03/19/17 03/21/17 Megestrol Acetate [Megace] 40 mg PO BID 03/19/17 03/21/17 Gabapentin [Neurontin] 800 mg PO TID 03/21/17 03/21/17 Lisinopril [Lisinopril] 2.5 mg PO DAILY 05/27/17 05/27/17 Loperamide [Imodium] 2 mg PO QID PRN 05/27/17 05/27/17 Ondansetron HCl [Ondansetron HCl] 4 mg PO TID PRN 05/27/17 05/27/17 Ranitidine HCl [Zantac] 300 mg PO HS 05/27/17 05/27/17 Spironolactone [Aldactone] 12.5 mg PO DAILY 05/27/17 05/27/17 hydrOXYzine pamoate [HydrOXYzine 25 mg PO Q8H PRN 05/27/17 05/27/17 Pamoate] metroNIDAZOLE [Flagyl] 500 mg PO TID 05/27/17 05/27/17 Previous Rx's Medication Instructions Recorded Folic Acid 1 mg PO DAILY #30 tablet 11/29/16 Metoprolol XL (24 HR) Succ [Toprol 12.5 mg PO DAILY #15 tab.er.24h 11/29/16 Xl] Potassium Chloride 20 meq PO DAILY #30 tab.er.prt 01/13/17 Budesonide/Formoterol 160/4.5 2 puff IH BIDR #1 02/10/17 [Symbicort 160/4.5] Furosemide [Lasix] 40 mg PO DAILY 30 Days tab 03/22/17 Allergies Allergy/AdvReac Type Severity Reaction Status Date / Time codeine AdvReac Swelling Verified 03/19/17 16:35 of Lip/Tongue/Throat Iodinated Contrast- Oral and AdvReac See Verified 03/19/17 16:35 IV Dye Comments [Iodinated Contrast Media - Oral and] meclizine AdvReac Confusion Verified 03/19/17 16:35 All systems ED: reviewed and negative except as stated. Constitutional: Reports: chills Gastrointestinal: Reports: abdominal pain, nausea, diarrhea. Denies: vomiting Neurological: Reports: weakness (Left side) Past Medical History - Past Medical History Medical history: Reports: arthritis, asthma, CHF, COPD, coronary artery disease , CVA, GERD, hyperlipidemia, hypertension, myocardial infarction, osteoporosis, renal disease, thyroid disease, other Surgical history: Reports: cholecystectomy, herniorrhaphy, hysterectomy, knee replacement, other Psychiatric history: Reports: anxiety, depression SPORTS COORDINATOR history: Reports: no SPORTS COORDINATOR history - Social History Smoking Status: Former smoker Smokeless Tobacco Status: No Alcohol use: Reports: none Drug use: Reports: none Physical Exam - General Limitations: no limitations, other (Patient's speech is somewhat difficult to understand) General appearance: alert, in no apparent distress - Head Head exam: atraumatic, normocephalic - Eye Eye exam: Present: normal appearance, EOMI - Neck Neck exam: Present: normal inspection, full ROM, trachea midline - Respiratory Respiratory exam: Present: normal lung sounds bilaterally. Absent: respiratory distress, wheezes - Cardiovascular Cardiovascular exam: Present: regular rate, normal rhythm, normal heart sounds, +S1, +S2 - Abdominal Exam Abdominal exam: Present: soft, tenderness (Diffuse tenderness throughout the abdomen), normal bowel sounds, scar (Patient has surgical scars from previous cholecystectomy and appendectomy) Abdominal tenderness: Present: diffuse, moderate - Neurological Exam Neurological exam: Present: alert, oriented X3 - Expanded Neurological Exam Patient oriented to: Present: person, place, time Cranial nerves: EOM function (II, III, IV, ): Normal, facial sensation (V): Normal, facial palsy (VII): Normal, gag reflex (IX): Normal, spinal accessory function (XI): Normal, tongue deviation (XII): Normal Cerebellar function: finger to nose: Normal, heel to watts: Abnormal Left ( Patient cannot perform) Motor strength - LUE: 5/5 Motor strength - RUE: 5/5 Motor strength - LLE: 5/5 Motor strength - RLE: 5/5 Sensory exam upper extremity: light touch: Normal Sensory exam lower extremity: light touch: Normal Coma Scale Eye Opening: Spontaneous Coma Scale Motor Response: Obeys Commands Coma Scale Verbal Response: Oriented Coma Scale Total: 15 - Psychiatric Psychiatric exam: Present: normal affect, normal mood - Skin Skin exam: Present: warm, dry, intact Course Vital Signs Temperature 97.5 F L 05/27/17 16:43 Pulse Rate 90 05/27/17 16:43 Respiratory Rate 18 05/27/17 16:43 Blood Pressure 127/62 05/27/17 16:43 O2 Sat by Pulse Oximetry 96 05/27/17 16:43 Temperature 97.5 F L 05/27/17 16:43 Pulse Rate 91 05/27/17 21:39 Respiratory Rate 18 05/27/17 21:39 Blood Pressure 132/48 05/27/17 21:39 O2 Sat by Pulse Oximetry 96 05/27/17 21:39 Oxygen Delivery Oxygen Delivery Room Air Medical Decision Making - MDM Narrative Medical decision making narrative: Due the patient having abdominal pain and diarrhea will order a CT the abdomen and pelvis as well as a CBC, BMP, CXR, Lipase, EKG and troponin. We will also order a CT scan of the head due to the patient having reported increased weakness in her left side and reports from family that she has been not acting herself. EKG showed atrial fibrillation with nonspecific T-wave abnormalities. patient had an elevated troponin 0.06 upon looking at previous laboratory results it appears that the patient has chronically elevated troponins. Patient denies any chest pain at this time does state that she has some mild shortness of breath. Patient's creatinine was elevated at 1.88 and she had a white count of due the patient having been diagnosed with C. difficile 3-4 days ago and currently on oral Flagyl we will give the patient a IV dose Flagyl here in the emergency department. Patient had a potassium of 2. potassium was replaced with oral and IV potassium. The CT scan showed that there was circumferential wall thickening and adjacent mesenteric edema several of the loops of small bowel in the right lower quadrant. This was worse from previous CT scan. This is compatible with infectious or inflammatory enteritis there is no evidence of perforation at this time. There opacities in bilateral lung bases. There is a small incidental 6 x 5 mm nodule in the left lower lobe that was not present on previous scan on 03/19/17 given the rapid development of this is most likely infectious per radiology. They recommended using Fleischner Society guidelines for follow-up of the incidental pulmonary nodule. based on the patient having a smoking history a follow up ct in 12 months would be recommended. Patient will be informed of these findings. The patient will need to be admitted to the hospital.. - Medical Records Medical records reviewed: Yes I reviewed the patient's medical records. - Lab Data Lab results reviewed: Yes I reviewed the patient's lab results. Result diagrams: 05/27/17 17:51 05/27/17 17:51 Lab Results 05/27/17 05/27/17 05/27/17 Range/Units 17:51 17:51 17:51 WBC 32.4 H* (4.3-11.1) K/mcL RBC 4.07 (3.82-4.97) M/mcL Hgb 12.5 (11.5-15.4) g/dL Hct 36.3 (35.3-44.9) % MCV 89.2 (83.0-100.0) fL MCH 30.7 (28.0-33.3) pg MCHC 34.4 (31.6-35.5) g/dL RDW 15.8 H (11.5-14.5) % Plt Count 384 (140-400) K/mcL MPV 11.7 (9.4-12.4) fL Immature Gran % 0.9 (0-4) % Seg Neutrophils % 86.7 % Lymphocytes % 7.1 % Monocytes % 5.0 % Eosinophils % 0.0 % Basophils % 0.3 % Neutrophils # 28.1 H (1.6-8.9) K/mcL Lymphocytes # 2.3 (0.6-4.6) K/mcL Monocytes # 1.6 H (0.0-1.3) K/mcL Eosinophils # 0.0 (0.0-0.6) K/mcL Basophils # 0.1 (0.0-0.2) K/mcL Dohle Bodies Present A (Not Present) Sodium 136 (136-145) mEq/L Potassium 2.8 L (3.5-5.1) mEq/L Chloride 104 (98-107) mEq/L Carbon Dioxide 20 L (23-29) mEq/L BUN 30 H (8-23) mg/dL Creatinine 1.88 H (0.60-1.20) mg/dL Est GFR ( Amer) 32 L (> 60) Est GFR (Non-Af Amer) 27 L (> 60) BUN/Creatinine Ratio 16 (6-26) Glucose 157 H (70-105) mg/dL Calculated Osmolality 291 (280-300) Calcium 10.4 H (8.6-10.3) mg/dL Magnesium 1.5 L (1.6-2.6) mg/dL Total Bilirubin 0.6 (0.3-1.0) mg/dL Direct Bilirubin 0.2 (0.0-0.2) mg/dL Indirect Bilirubin 0.4 (0.0-1.2) mg/dL AST 317 H (13-39) Units/L ALT 77 H (7-52) Units/L Alkaline Phosphatase 85 (34-104) Units/L Troponin I 0.06 H* (< 0.04) ng/mL Serum Total Protein 6.7 (6.4-8.9) g/dL Albumin 3.6 (3.5-5.7) g/dL Globulin 3.1 (2.4-3.5) g/dL Albumin/Globulin Ratio 1.2 (1.1-2.2) Amylase 55 (29-103) Units/L Lipase 6 L (11-82) Units/L Urine Color (Yellow) Urine Clarity (Clear) Urine pH (5.0-8.0) pH Units Ur Specific Elizabeth (1.010-1.025) Urine Protein (Neg-Trace) mg/dL Urine Glucose (UA) (Normal) mg/dL Urine Ketones (Negative) mg/dL Urine Blood (Negative) Urine Nitrite (Negative) Urine Bilirubin (Negative) Urine Urobilinogen (Normal) mg/dL Ur Leukocyte Esterase (Negative) Urine Microscopic RBC (0-3) per hpf Urine Microscopic WBC (0-3) per hpf Ur Squamous Epith Cells (None-Few) per lpf Urine Bacteria (None-Few) per hpf Hyaline Casts (None-Few) per lpf Ur Culture Indicated? (NO) 05/27/17 Range/Units 18:16 WBC (4.3-11.1) K/mcL RBC (3.82-4.97) M/mcL Hgb (11.5-15.4) g/dL Hct (35.3-44.9) % MCV (83.0-100.0) fL MCH (28.0-33.3) pg MCHC (31.6-35.5) g/dL RDW (11.5-14.5) % Plt Count (140-400) K/mcL MPV (9.4-12.4) fL Immature Gran % (0-4) % Seg Neutrophils % % Lymphocytes % % Monocytes % % Eosinophils % % Basophils % % Neutrophils # (1.6-8.9) K/mcL Lymphocytes # (0.6-4.6) K/mcL Monocytes # (0.0-1.3) K/mcL Eosinophils # (0.0-0.6) K/mcL Basophils # (0.0-0.2) K/mcL Dohle Bodies (Not Present) Sodium (136-145) mEq/L Potassium (3.5-5.1) mEq/L Chloride (98-107) mEq/L Carbon Dioxide (23-29) mEq/L BUN (8-23) mg/dL Creatinine (0.60-1.20) mg/dL Est GFR ( Amer) (> 60) Est GFR (Non-Af Amer) (> 60) BUN/Creatinine Ratio (6-26) Glucose (70-105) mg/dL Calculated Osmolality (280-300) Calcium (8.6-10.3) mg/dL Magnesium (1.6-2.6) mg/dL Total Bilirubin (0.3-1.0) mg/dL Direct Bilirubin (0.0-0.2) mg/dL Indirect Bilirubin (0.0-1.2) mg/dL AST (13-39) Units/L ALT (7-52) Units/L Alkaline Phosphatase (34-104) Units/L Troponin I (< 0.04) ng/mL Serum Total Protein (6.4-8.9) g/dL Albumin (3.5-5.7) g/dL Globulin (2.4-3.5) g/dL Albumin/Globulin Ratio (1.1-2.2) Amylase (29-103) Units/L Lipase (11-82) Units/L Urine Color Dark Yellow (Yellow) Urine Clarity Clear (Clear) Urine pH 5.0 (5.0-8.0) pH Units Ur Specific Elizabeth 1.016 (1.010-1.025) Urine Protein Negative (Neg-Trace) mg/dL Urine Glucose (UA) Normal (Normal) mg/dL Urine Ketones Negative (Negative) mg/dL Urine Blood Negative (Negative) Urine Nitrite Positive A (Negative) Urine Bilirubin Negative (Negative) Urine Urobilinogen Normal (Normal) mg/dL Ur Leukocyte Esterase Negative (Negative) Urine Microscopic RBC 0-3 (0-3) per hpf Urine Microscopic WBC 0-3 (0-3) per hpf Ur Squamous Epith Cells None Seen (None-Few) per lpf Urine Bacteria None Seen (None-Few) per hpf Hyaline Casts None Seen (None-Few) per lpf Ur Culture Indicated? YES A (NO) - Radiology Data Radiology results reviewed: Yes I reviewed the patient's radiology results. Abdomen/Pelvis CT 05/27/17 17:13 IMPRESSION: 1. Circumferential wall thickening and adjacent mesenteric edema of several loops of small bowel in the right lower quadrant worsened from 03/19/2017 compatible with infectious or inflammatory enteritis. No evidence of perforation. 2. Scattered small tree-in-bud opacities in the bilateral lung bases compatible with an atypical pneumonia. 3. Small 6 x 5 mm nodule in the left lower lobe new from 03/19/2017. Given the rapid development of this is most likely infectious. See recommendations below. 4. Status post cholecystectomy, hysterectomy, and partial right colectomy. Fleischner Society guidelines for follow-up and management of incidentally detected pulmonary nodules: Single Solid Nodule: Nodule size less than 6 mm In a low-risk patient, no routine follow-up. In a high-risk patient, optional CT at 12 months. - Low risk patients include individuals with minimal or absent history of smoking and other known risk factors. - High risk patients include individuals with a history or smoking or known risk factors. Radiology 2017 http://pubs.rsna.org/doi/full/10.1148/radiol.[email or web address] D/ / Charles Benites MD / Charles Benites MD Interpreting Provider: Charles Benites MD Chest X-Ray 05/27/17 17:13 IMPRESSION: 1. No acute abnormality. D/ / Jorge Dickinson MD / Jorge Dickinson MD Interpreting Provider: Jorge Dickinson MD Head CT 05/27/17 17:16 IMPRESSION: Essentially stable examination without evidence for acute intracranial pathology. No intracranial hemorrhage, mass effect, or midline shift. D/ / Mark Godoy MD / Mark Godoy MD Interpreting Provider: Mark Godoy MD - EKG Data EKG #1 EKG attestation: Yes I reviewed and interpreted this EKG. EKG results narrative: EKG showed atrial fibrillation with nonspecific T-wave abnormalities. With a ventricular rate of 97 bpm, QRS duration of 86, QTC of 325 with a normal axis. This is compared to previous EKG of 05/03/17 which showed a sinus rhythm with nonspecific T-wave abnormalities. Attestation Statement - Attestation Attestation: I examined this patient and my medical decision-making was reviewed with the Resident Physician. I agree with the documented findings, disposition and treatment plan as described except to the extent set forth below. Findings consistent with C. difficile. Plan to admit for further evaluation. Hospital is recommended starting oral vancomycin as well as Cipro for urinary tract infection. Cultures were sent.
[2017-05-27 17:57] LABS: Basophils % 0.3 %; Immature Granulocytes % 0.9 % (0-4); Mean Corpuscular Hemoglobin 30.7 pg (28.0-33.3); Mean Platelet Volume 11.7 fL (9.4-12.4)
[2017-05-27 17:59] LABS: Basophils # 0.1 K/mcL (0.0-0.2); Hematocrit 36.3 % (35.3-44.9); Hemoglobin 12.5 g/dL (11.5-15.4); Lymphocytes # 2.3 K/mcL (0.6-4.6); Lymphocytes % 7.1 %; Mean Corpuscular HGB Conc 34.4 g/dL (31.6-35.5); Mean Corpuscular Volume 89.2 fL (83.0-100.0); Monocytes # 1.6 K/mcL (0.0-1.3); Neutrophils # 28.1 K/mcL (1.6-8.9); Platelet Count 384 K/mcL (140-400); Red Blood Count 4.07 M/mcL (3.82-4.97); Red Cell Distribution Width 15.8 % (11.5-14.5); Segmented Neutrophils % 86.7 %
[2017-05-27 18:12] LABS: Albumin 3.6 g/dL (3.5-5.7); Albumin/Globulin Ratio 1.2 (1.1-2.2); Bilirubin,Direct 0.2 mg/dL (0.0-0.2); Bilirubin,Indirect 0.4 mg/dL (0.0-1.2); Bilirubin,Total 0.6 mg/dL (0.3-1.0); Calcium 10.4 mg/dL (8.6-10.3); Globulin 3.1 g/dL (2.4-3.5); Potassium 2.8 mEq/L (3.5-5.1); Total Protein 6.7 g/dL (6.4-8.9)
[2017-05-27 18:22] LABS: Bilirubin,Urine Negative (Negative); Blood,Urine Negative (Negative); Clarity,Urine Clear (Clear); Color,Urine Dark Yellow (Yellow); Glucose,Urine (UA) Normal (Normal); Ketones,Urine Negative (Negative); Leukocyte Esterase,Urine Negative (Negative); Nitrite,Urine Positive (Negative); Protein,Urine Negative (Neg-Trace); Specific Gravity,Urine 1.016 (1.010-1.025); Urobilinogen,Urine Normal (Normal)
[2017-05-27 18:24] LABS: Bacteria,Urine None Seen per hpf (None-Few); Hyaline Casts,Urine None Seen per lpf (None-Few); RBC,Urine 0-3 per hpf (0-3); Squamous Epithelial Cell,Urine None Seen per lpf (None-Few); WBC,Urine 0-3 per hpf (0-3)
[2017-05-27] MEDS ORDERED: 0.9 % Sodium Chloride 1,000 ML IVC ONE (18:29)
[2017-05-27 18:30] LABS: Dohle Bodies Present (Not Present)
[2017-05-27] MEDS ORDERED: Potassium Chloride Elixir 20 MEQ/15 ML UDC PO ONE (18:32)
[2017-05-27] MEDS ORDERED: MetroNIDAZOLE 500 MG/100 ML 500 MG/100 ML BAG IVPB ONE (18:47)
[2017-05-27 19:05] LABS: Magnesium 1.5 mg/dL (1.6-2.6)
[2017-05-27] MEDS ORDERED: Vancomycin Oral Soln 250 MG/5 ML UDC PO ONE (21:34)
[2017-05-27] MEDS ORDERED: *HR* Morphine 2 MG/ML SYRINGE IVP PRN (22:35)
[2017-05-27] MEDS ORDERED: Naloxone 0.4 MG/ML INJ IVP PRN (22:35)
[2017-05-27] MEDS ORDERED: Acetaminophen 325 MG TABLET PO PRN (22:35)
[2017-05-27] MEDS ORDERED: *HR* Heparin 5,000 UNIT/ML VIAL IVP ONE (22:41)
[2017-05-27] MEDS ORDERED: *HR* Heparin 5,000 UNIT/ML VIAL IVP PRN ×2 (22:41)
[2017-05-27] MEDS ORDERED: Heparin 25,000 UNIT/500 ML D5W 25,000 UNIT/500 ML BAG IVC SCH (22:45)
[2017-05-27] MEDS ORDERED: 0.9 % Sodium Chloride 1,000 ML IVC SCH (22:45)
[2017-05-27] MEDS ORDERED: hydrOXYzine pamoate 25 MG CAPSULE PO PRN (22:46)
--- NOTE | 2017-05-27 22:54 | Internal Med History&Physical ---
Date of Encounter: 05/27/17 Time of Encounter: 10:00 Assessment and Plan (1) Ulcerative colitis Current visit: Yes Status: Acute Patient has abdominal pain and diarrhea. History of ulcerative colitis. Need to consider ulcerative colitis flare. We will start a by mouth steroid with prednisone 40 mg by mouth daily. If not improved after treatment, will consider GI consult. Qualifiers: Ulcerative colitis location: other ulcerative colitis Digestive disease complication type: without complication Qualified Code(s): K51.80 - Other ulcerative colitis without complications (2) New onset a-fib Current visit: Yes Status: Acute Patient was found A. fib in ER. Patient denies history of A. fib. Patient has a history of CVA. - Heart rate is well controlled, at around 90s. Continue home medication of Cardizem and metoprolol. - We will start heparin drip as patient has history of CVA. - Patient has hypomagnesemia, will give supplement. Also treat hypokalemia. - Patient has a recent echocardiogram done. - TSH in a.m. - Consult cardiology for further management. Patient is at high risk because she is on heparin drip, need close monitoring. (3) COPD (chronic obstructive pulmonary disease) Current visit: No Status: Chronic Stable. No signs of exacerbation. Continue home medications Qualifiers: COPD type: emphysema Emphysema type: unspecified Qualified Code(s): J43.9 - Emphysema, unspecified (4) Cerebrovascular accident Current visit: No Status: Chronic Continue home medications aspirin. Start heparin drip to prevent CVA as patient has new A. fib Qualifiers: CVA mechanism: unspecified Qualified Code(s): I63.9 - Cerebral infarction, unspecified (5) Hypertension Current visit: No Status: Chronic Continue home medications. Hold Lasix and lisinopril because of RYLEY Qualifiers: Hypertension type: essential hypertension Qualified Code(s): I10 - Essential (primary) hypertension (6) DVT prophylaxis Current visit: No Status: Acute On heparin drip (7) RYLEY (acute kidney injury) Current visit: No Status: Resolved Patient has diarrhea and nausea, poor intake. Consider prerenal RYLEY. - We will give low rate hydration, carefully hydrate patient considering patient has a history of systolic CHF with EF 35-45%. - Follow up her renal function in a.m. - CT abd done, no obstruction. (8) Hypothyroidism Current visit: No Status: Chronic Continue home medications. Follow up a TSH Qualifiers: Hypothyroidism type: unspecified Qualified Code(s): E03.9 - Hypothyroidism , unspecified (9) Congestive heart failure (CHF) Current visit: No Status: Acute Appears euvolemic. May have mild dehydration because of diarrhea. Closely monitor fluid status Qualifiers: Congestive heart failure type: systolic Congestive heart failure chronicity : acute on chronic Qualified Code(s): I50.23 - Acute on chronic systolic ( congestive) heart failure (10) C. difficile colitis Current visit: No Status: Acute Patient has diarrhea and C. difficile positive. CT scan has been done in emergency room, no signs of megacolon. We will place patient on IV Flagyl and by mouth vancomycin as patient has severe abdominal pain and leukocytosis with WBC 37k. Closely monitor patient. Internal Medicine - H&P: HPI Chief complaint: Abd pain, diarrhea Admitted From: Home Plans for Post Hospital Care: Home History of present illness: Ms. Tucker is a 71 year old female with history of systolic CHF, hypertension, COPD, ulcerative colitis, CVA, presented to ER for abdominal pain and diarrhea for 2 days. Patient also was diagnosed as C. difficile colitis and on by mouth Flagyl. Patient has taking by mouth Flagyl for 7 days. Patient has history of C. difficile previously in this March. Patient denies a fever. She has nausea but no vomiting. She has about a 4-5 bowel movements in the last 24 hours. Bowel movements look likes what she eats. No blood in it. Patient denies cough, shortness of breath, chest pain. Patient has no dysuria or increased frequency or urgency. Past Med Surg Social Fam HX - Past Medical History Medical history: arthritis, asthma, CHF, COPD, coronary artery disease, CVA, GERD, hyperlipidemia, hypertension, myocardial infarction, osteoporosis, renal disease, thyroid disease, other Psychiatric history: anxiety, depression - Past Surgical History Surgical History: cholecystectomy, herniorrhaphy, hysterectomy, knee replacement , other - Social History Smoking Status: Former smoker Smokeless Tobacco Status: No Alcohol use: none Drug use: none - Family History Mother Adopted: No Family Member Ethnicity: Non- Living Status: Hx Family Cardiac Disorders: Yes (HD, HTN) Hx Family Cancer: Yes Hx Family Endocrine Disorder: Yes (DM) Father Adopted: No Family Member Ethnicity: Non- Living Status: Hx Family Cardiac Disorders: Yes (HD, HTN) Hx Family Cancer: Yes Hx Family Endocrine Disorder: Yes (DM) Brother Family Member Ethnicity: Non- Living Status: Hx Family Cardiac Disorders: Yes (ME, HD, HTN) Sister Family Member Ethnicity: Non- Living Status: Still Living Hx Family Cancer: Yes (Esophageal) Internal Medicine - H&P: Meds Albuterol Sulfate [Albuterol Inhaler] 2 puff IH Q4-6H PRN 10/15/15 [History] Allopurinol [Zyloprim 100 MG] 100 mg PO DAILY 10/15/15 [History] Fenofibrate Nanocrystallized [Tricor] 145 mg PO QPM 10/15/15 [History] Fluticasone/Salmeterol [Advair 500-50 Diskus] 1 each IH BID 10/15/15 [History] Isosorbide MONOnitrate (24 HR) [Imdur] 30 mg PO DAILY 10/15/15 [History] Levothyroxine [Synthroid] 112 mcg PO DAILY 10/15/15 [History] Ropinirole HCl [Requip] 0.5 - 1 mg PO HS 10/15/15 [History] Sertraline [Zoloft] 100 mg PO BID 10/15/15 [History] Tiotropium [Spiriva] 18 mcg IH DAILY 10/15/15 [History] Diltiazem HCl [Diltiazem ER] 120 mg PO DAILY 03/29/16 [History] Ipratropium/Albuterol Neb [Duoneb] 3 ml IH QID 03/29/16 [History] Gemfibrozil [Lopid] 600 mg PO BIDWM 05/28/16 [History] OxyCODONE/APAP 5/325 [Percocet 5/325 MG] 1 each PO BID PRN 05/28/16 [History] Aspirin Enteric Coated [Aspirin EC] 81 mg PO DAILY 11/23/16 [History] Ferrous Sulfate 325 mg PO DAILY 11/23/16 [History] Fish Oil/Dha/Epa [Fish Oil 1,200 mg Fish Oil] 1 each PO TID 11/23/16 [History] Magnesium Oxide [Mag-Ox] 400 mg PO DAILY 11/23/16 [History] Omeprazole [PriLOSEC] 40 mg PO DAILY 11/23/16 [History] Sucralfate [Carafate] 1 gm PO BID 11/23/16 [History] Folic Acid 1 mg PO DAILY #30 tablet 11/29/16 [Rx] Metoprolol XL (24 HR) Succ [Toprol Xl] 12.5 mg PO DAILY #15 tab.er.24h 11/29/16 [Rx] Metoclopramide [Reglan] 20 mg PO DAILY PRN 01/12/17 [History] Potassium Chloride 20 meq PO DAILY #30 tab.er.prt 01/13/17 [Rx] Budesonide/Formoterol 160/4.5 [Symbicort 160/4.5] 2 puff IH BIDR #1 02/10/17 [Rx ] ALPRAZolam [Xanax 1 MG Tablet] 1 mg PO BID 03/19/17 [History] Megestrol Acetate [Megace] 40 mg PO BID 03/19/17 [History] Gabapentin [Neurontin] 800 mg PO TID 03/21/17 [History] Furosemide [Lasix] 40 mg PO DAILY 30 Days tab 03/22/17 [Rx] Lisinopril [Lisinopril] 2.5 mg PO DAILY 05/27/17 [History] Loperamide [Imodium] 2 mg PO QID PRN 05/27/17 [History] Ondansetron HCl [Ondansetron HCl] 4 mg PO TID PRN 05/27/17 [History] Ranitidine HCl [Zantac] 300 mg PO HS 05/27/17 [History] Spironolactone [Aldactone] 12.5 mg PO DAILY 05/27/17 [History] hydrOXYzine pamoate [HydrOXYzine Pamoate] 25 mg PO Q8H PRN 05/27/17 [History] metroNIDAZOLE [Flagyl] 500 mg PO TID 05/27/17 [History] 3 Allergy/AdvReac Type Severity Reaction Status Date / Time codeine AdvReac Swelling Verified 03/19/17 16:35 of Lip/Tongue/Throat Iodinated Contrast- Oral and AdvReac See Verified 03/19/17 16:35 IV Dye Comments [Iodinated Contrast Media - Oral and] meclizine AdvReac Confusion Verified 03/19/17 16:35 All Systems PM: A 10-system review of systems was performed and is negative for pertinent findings except as documented above in the HPI. - Constitutional Vitals: Temp Pulse Resp BP Pulse Ox 97.5 F L 91 18 132/48 96 05/27/17 16:43 05/27/17 21:39 05/27/17 21:39 05/27/17 21:39 05/27/17 21:39 General appearance: Present: mild distress, A&O X 3, answers questions appropriately - Head Head exam: Present: atraumatic, normocephalic - Eye Eye exam: Present: PERRL, conjuntiva pink, sclera anicteric Pupils: Present: PERRL - Neck Neck exam general surgery: Present: supple, trachea midline. Absent: lymphadenopathy - Respiratory Respiratory exam: Present: CTAB. Absent: accessory muscle use, rales, rhonchi, wheezes - Cardiovascular Cardiovascular exam: Present: RRR, +S1, +S2. Absent: diastolic murmur, gallop, rubs, systolic murmur - GI/Abdominal GI/Abdominal exam: Present: normal bowel sounds, soft, tenderness (Abdominal tenderness in 4Q, mostly on the right side, with guarding, without rebound.), no peritoneal signs. Absent: distended - Extremities Exam Extremities exam: Present: warm, radial pulses palpable and symmetrical. Absent : calf tenderness, cyanotic, pedal edema - Neurological Exam Neurological exam: Present: CN II-XII intact, oriented X3, no focal deficits. Absent: pronater drift, facial droop, speech deficit - Skin Skin exam: Present: dry, intact Internal Med - H&P Results - Labs CBC & Chem 7: 05/27/17 17:51 05/27/17 17:51 - EKG Data -: EKG Interpreted by Myself (Aminata Dyer)
[2017-05-27] MEDS: Ondansetron 4 MG/2 ML VIAL IVP PRN (22:59)
[2017-05-27 23:15] LABS: Mean Platelet Volume 11.9 fL (9.4-12.4)
[2017-05-27 23:18] LABS: Hematocrit 37.9 % (35.3-44.9); Hemoglobin 12.4 g/dL (11.5-15.4); Immature Platelets 4.7 % (1.1-6.1); Mean Corpuscular HGB Conc 32.7 g/dL (31.6-35.5); Mean Corpuscular Hemoglobin 30.8 pg (28.0-33.3); Red Blood Count 4.03 M/mcL (3.82-4.97)
[2017-05-27 23:39] LABS: INR 1.8; Prothrombin Time 19.1 Seconds (9.4-12.1)
[2017-05-27 23:42] LABS: Activated Partial Thrombo Time 36.9 Seconds (26.0-36.0)
[2017-05-28] MEDS: MetroNIDAZOLE 500 MG/100 ML 500 MG/100 ML BAG IVPB SCH ×4 (01:39→23:54)
[2017-05-28] MEDS: 0.9 % Sodium Chloride 1,000 ML IVC SCH ×2 (01:40→22:00)
[2017-05-28] MEDS: predniSONE 20 MG TABLET PO SCH ×2 (01:40→11:04)
[2017-05-28 04:44] LABS: Basophils # 0.1 K/mcL (0.0-0.2); Basophils % 0.3 %; Hematocrit 31.2 % (35.3-44.9); Immature Granulocytes % 1.6 % (0-4); Lymphocytes # 1.4 K/mcL (0.6-4.6); Lymphocytes % 5.9 %; Mean Corpuscular HGB Conc 33.7 g/dL (31.6-35.5); Mean Corpuscular Hemoglobin 30.2 pg (28.0-33.3); Mean Corpuscular Volume 89.7 fL (83.0-100.0); Monocytes # 1.2 K/mcL (0.0-1.3); Monocytes % 5.1 %; Neutrophils # 20.9 K/mcL (1.6-8.9); Platelet Count 353 K/mcL (140-400); Red Blood Count 3.48 M/mcL (3.82-4.97); Red Cell Distribution Width 15.9 % (11.5-14.5); Segmented Neutrophils % 87.1 %
[2017-05-28 04:56] LABS: Calcium 9.7 mg/dL (8.6-10.3); Magnesium 2.3 mg/dL (1.6-2.6); Potassium 3.8 mEq/L (3.5-5.1)
[2017-05-28 05:30] LABS: Hemoglobin 10.5 g/dL (11.5-15.4)
[2017-05-28 05:31] LABS: Platelet Estimate Normal (Normal)
--- NOTE | 2017-05-28 05:33 | Event Note ---
Date of Encounter: 05/28/17 Time of Encounter: 03:00 Pt is difficult to place periphral venous line. Her potassium infusion is infiltrated. It is also difficult to draw blood for her. She needs a line for heparin drip, abx, and potassium. There is no powerglid team available over weekend. Decision has been made to place a central line for pt. After obtaining informed consent, right IJ line was placed under ultrasound guiding, uneventfully. Timeout called prior to procedure and pt's name, and site of line confirmed. 3 lumen of the line with good blood return on withdraw. CXR confirmed the position, no pneumothorax. The right IJ line can be used.
[2017-05-28] MEDS ORDERED: Metoprolol XL (24 HR) Succ 25 MG TAB.ER.24H PO SCH (09:00)
[2017-05-28] MEDS ORDERED: Diltiazem CD (24hr) 120 MG CAPSULE PO SCH (09:00)
--- NOTE | 2017-05-28 10:33 | Cardiology Consult Note ---
<Justin Westbrook R - Last Filed: 05/28/17 10:45> Date of Encounter: 05/28/17 Time of Encounter: 10:25 Assessment and Plan (1) PAF (paroxysmal atrial fibrillation) Current Visit: Yes Status: Acute New diagnosis. Presented in A-Fib, rate 97, since converted back to SR. K on admission 2.8--replaced and now 3.8. Mag 2.3. TSH 17.266--address per primary team. Primary team started Cardizem CD 120mg daily. Given her known reduced EF of 30- 35%, stop Cardizem. Increase BB--Toprol XL from 12.5mg daily to 25mg daily. Full echo 07/2016 mild-moderate MR, mild TR. No severe valve dysfunction. Limited echo 03/2017 EF 30-35%. [facility] at [place] 04/2017 without obstructive disease. [id number] (Age, HTN, Female, CVA, vascular disease, CHF). High stroke risk. 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 Discussed Coumadin vs NOACs. Agreeable to NOAC. Recommend reduced Eliquis dose given current renal function and weight < 60kg--dose at 2.5mg BID. If creatinine were to be >2.5, would need to stop Eliquis and consider Coumadin. Can re-evaluate dosing as outpt. HGB is 10.5 currently, was 12.4 on admission, but historically fluctuates. Cardiology signing off. Reconsult PRN. (2) Nonischemic cardiomyopathy Current Visit: Yes Status: Acute EF 30-35%. NICMP. Plans to recheck echo as outpt in 3 months and if remains reduced, refer for ICD implantation. Euvolemic on exam. Continue BB. No ACEi currently due to RYLEY. Discussion w patient/family: The assessment and plan as outlined above was discussed with the patient and/or family members who expressed understanding and agreement. All questions were answered. Thank you for involving us in the care of your patient. Please call with any questions. I will discuss all the above with Dr. Olsen and make changes as necessary. History of Present Illness Consult date: 05/28/17 Requesting physician: Chioma Casey Consult reason: A-Fib Chief complaint: diarrhea History of present illness: Ms. Tucker is a 71 year old female with history of systolic CHF, NICMP EF 30-35% , hypertension, COPD, PVD s/p iliac stenting, bilateral carotid stenosis (60-79% ), ulcerative colitis, CVA, presented to ER for abdominal pain and diarrhea for 2 days. Known recent hx of Cdiff. Troponins 0.06, 0.14, 0.07. Pt found to be in new A-Fib, since converted back to SR. Cardiology consulted for further recommendations. TSH 17.266. She denies chest pain or dyspnea. Denies palpitations. Also found to have RYLEY. Past Med Surg Social Fam HX - Past Medical History Medical history: arthritis, asthma, cardiomyopathy, CHF, COPD, coronary artery disease, CVA, GERD, hyperlipidemia, hypertension, myocardial infarction, osteoporosis, renal disease, thyroid disease, other Psychiatric history: anxiety, depression - Past Surgical History Surgical History: cholecystectomy, herniorrhaphy, hysterectomy, knee replacement , other - Social History Smoking Status: Former smoker Smokeless Tobacco Status: No Alcohol use: none Drug use: none - Family History Mother Adopted: No Family Member Ethnicity: Non- Living Status: Hx Family Cardiac Disorders: Yes (HD, HTN) Hx Family Cancer: Yes Hx Family Endocrine Disorder: Yes (DM) Father Adopted: No Family Member Ethnicity: Non- Living Status: Hx Family Cardiac Disorders: Yes (HD, HTN) Hx Family Cancer: Yes Hx Family Endocrine Disorder: Yes (DM) Brother Family Member Ethnicity: Non- Living Status: Hx Family Cardiac Disorders: Yes (ID, HD, HTN) Sister Family Member Ethnicity: Non- Living Status: Still Living Hx Family Cancer: Yes (Esophageal) Medications and Allergies Albuterol Sulfate [Albuterol Inhaler] 2 puff IH Q4-6H PRN 10/15/15 [History] Allopurinol [Zyloprim 100 MG] 100 mg PO DAILY 10/15/15 [History] Fenofibrate Nanocrystallized [Tricor] 145 mg PO QPM 10/15/15 [History] Fluticasone/Salmeterol [Advair 500-50 Diskus] 1 each IH BID 10/15/15 [History] Isosorbide MONOnitrate (24 HR) [Imdur] 30 mg PO DAILY 10/15/15 [History] Levothyroxine [Synthroid] 112 mcg PO DAILY 10/15/15 [History] Ropinirole HCl [Requip] 0.5 - 1 mg PO HS 10/15/15 [History] Sertraline [Zoloft] 100 mg PO BID 10/15/15 [History] Tiotropium [Spiriva] 18 mcg IH DAILY 10/15/15 [History] Diltiazem HCl [Diltiazem ER] 120 mg PO DAILY 03/29/16 [History] Ipratropium/Albuterol Neb [Duoneb] 3 ml IH QID 03/29/16 [History] Gemfibrozil [Lopid] 600 mg PO BIDWM 05/28/16 [History] OxyCODONE/APAP 5/325 [Percocet 5/325 MG] 1 each PO BID PRN 05/28/16 [History] Aspirin Enteric Coated [Aspirin EC] 81 mg PO DAILY 11/23/16 [History] Ferrous Sulfate 325 mg PO DAILY 11/23/16 [History] Fish Oil/Dha/Epa [Fish Oil 1,200 mg Fish Oil] 1 each PO TID 11/23/16 [History] Magnesium Oxide [Mag-Ox] 400 mg PO DAILY 11/23/16 [History] Omeprazole [PriLOSEC] 40 mg PO DAILY 11/23/16 [History] Sucralfate [Carafate] 1 gm PO BID 11/23/16 [History] Folic Acid 1 mg PO DAILY #30 tablet 11/29/16 [Rx] Metoprolol XL (24 HR) Succ [Toprol Xl] 12.5 mg PO DAILY #15 tab.er.24h 11/29/16 [Rx] Metoclopramide [Reglan] 20 mg PO DAILY PRN 01/12/17 [History] Potassium Chloride 20 meq PO DAILY #30 tab.er.prt 01/13/17 [Rx] Budesonide/Formoterol 160/4.5 [Symbicort 160/4.5] 2 puff IH BIDR #1 02/10/17 [Rx ] ALPRAZolam [Xanax 1 MG Tablet] 1 mg PO BID 03/19/17 [History] Megestrol Acetate [Megace] 40 mg PO BID 03/19/17 [History] Gabapentin [Neurontin] 800 mg PO TID 03/21/17 [History] Furosemide [Lasix] 40 mg PO DAILY 30 Days tab 10/17/17 [Rx] Lisinopril [Lisinopril] 2.5 mg PO DAILY 05/27/17 [History] Loperamide [Imodium] 2 mg PO QID PRN 05/27/17 [History] Ondansetron HCl [Ondansetron HCl] 4 mg PO TID PRN 05/27/17 [History] Ranitidine HCl [Zantac] 300 mg PO HS 05/27/17 [History] Spironolactone [Aldactone] 12.5 mg PO DAILY 05/27/17 [History] hydrOXYzine pamoate [HydrOXYzine Pamoate] 25 mg PO Q8H PRN 05/27/17 [History] metroNIDAZOLE [Flagyl] 500 mg PO TID 05/27/17 [History] 3 Allergy/AdvReac Type Severity Reaction Status Date / Time codeine AdvReac Swelling Verified 03/19/17 16:35 of Lip/Tongue/Throat Iodinated Contrast- Oral and AdvReac See Verified 03/19/17 16:35 IV Dye Comments [Iodinated Contrast Media - Oral and] meclizine AdvReac Confusion Verified 03/19/17 16:35 All Systems Review: A 10-system review of systems was performed and is negative for pertinent findings except as documented above in the HPI. - Gastrointestinal Gastrointestinal: abdominal pain, diarrhea Physical Examination Vital Signs Temp Pulse Resp BP Pulse Ox 05/28/17 06:25 97.5 F L 83 15 118/61 97 05/28/17 03:40 98.0 F 85 24 99/35 94 05/28/17 01:51 86 05/27/17 23:39 97.5 F L 89 18 132/64 96 05/27/17 22:52 16 126/50 05/27/17 21:39 91 18 132/48 96 05/27/17 21:02 81 14 127/67 94 05/27/17 18:52 83 16 127/67 95 05/27/17 16:43 97.5 F L 90 18 127/62 96 Intake and Output 05/27/17 05/28/17 05/28/17 23:59 07:59 15:59 Intake Total 1300 / 1300 220 / 220 240 / 240 Output Total 0 / 0 Balance 1300 / 1300 220 / 220 240 / 240 Intake: IV Fluids 1300 / 1300 100 / 100 0.9 % Sodium Chloride 1,000 ML 1000 / 1000 @ 3750 mls/hr IVC .Q16M ONE Rx# :[id number] Flagyl Premix 500 MG/100 ML 500 100 / 100 mg In 100 ml @ 100 mls/hr IVPB ONCE ONE Rx#:[id number] Potassium Chloride 10 mEq/100mL 200 / 200 100 / 100 10 meq In 100 ml @ 100 mls/hr IVPB Q1H DUSTY Rx#:[id number] Oral 0 / 0 120 / 120 240 / 240 Output: Urine 0 / 0 Other: Meal Breakfast Percent of Meal Consumed 100% Stool Size Small Stool Consistency loose Stool Characteristics Normal for Patient Stool Color Brown # Voids 0 0 1 Weight 58.6 kg General: Conversant, No Apparent Distress HEENT: Atraumatic, Normocephaly, Mucus Membranes Moist Neck: No JVD, Normal carotid pulses Cardiac: Reg Rate and Rhythm, Normal S1 and S2, No Murmur Lungs: Normal Breath Sounds, No Wheeze, Rales, Rhonchi Neuro: Alert and responsive, No focal deficits noted Abdomen: Soft Skin: No rashes noted on visualized skin Musculoskeletal: No Chest Wall Tenderness Extremities: No Clubbing, No Cyanosis, No Edema, Normal Pulses Results 05/28/17 04:28 05/28/17 04:28 Lab Results 05/27/17 05/27/17 05/28/17 23:06 23:20 02:27 WBC 31.0 H* Hgb 12.4 Hct 37.9 Plt Count 282 INR 1.8 APTT 36.9 H Sodium Potassium Chloride Carbon Dioxide BUN Creatinine Glucose Calcium Magnesium Troponin I 0.14 H* TSH 05/28/17 05/28/17 05/28/17 04:28 04:28 04:28 WBC 24.0 H Hgb 10.5 L D Hct 31.2 L Plt Count 353 INR APTT Sodium 135 L Potassium 3.8 D Chloride 110 H Carbon Dioxide 15 L BUN 35 H Creatinine 1.91 H Glucose 131 H Calcium 9.7 Magnesium 2.3 Troponin I TSH 17.266 H 05/28/17 04:28 WBC Hgb Hct Plt Count INR APTT Sodium Potassium Chloride Carbon Dioxide BUN Creatinine Glucose Calcium Magnesium Troponin I 0.07 H* TSH Short CBC 05/28/17 05/27/17 05/27/17 Range/Units 04:28 23:06 17:51 WBC 24.0 H 31.0 H* 32.4 H* (4.3-11.1) K/mcL Hgb 10.5 L D 12.4 12.5 (11.5-15.4) g/dL Hct 31.2 L 37.9 36.3 (35.3-44.9) % Plt Count 353 282 384 (140-400) K/mcL Neutrophils # 20.9 H 28.1 H (1.6-8.9) K/mcL BMP 05/28/17 05/27/17 Range/Units 04:28 17:51 Sodium 135 L 136 (136-145) mEq/L Potassium 3.8 D 2.8 L (3.5-5.1) mEq/L Chloride 110 H 104 (98-107) mEq/L Carbon Dioxide 15 L 20 L (23-29) mEq/L BUN 35 H 30 H (8-23) mg/dL Creatinine 1.91 H 1.88 H (0.60-1.20) mg/dL Glucose 131 H 157 H (70-105) mg/dL Calcium 9.7 10.4 H (8.6-10.3) mg/dL Cardiac Enzymes 05/28/17 05/28/17 05/27/17 Range/Units 04:28 02:27 17:51 Troponin I 0.07 H* 0.14 H* 0.06 H* (< 0.04) ng/mL Liver Function 05/27/17 Range/Units 17:51 Total Bilirubin 0.6 (0.3-1.0) mg/dL Direct Bilirubin 0.2 (0.0-0.2) mg/dL AST 317 H (13-39) Units/L ALT 77 H (7-52) Units/L Alkaline Phosphatase 85 (34-104) Units/L Albumin 3.6 (3.5-5.7) g/dL Urine 05/27/17 Range/Units 18:16 Urine Color Dark Yellow (Yellow) Urine Clarity Clear (Clear) Urine pH 5.0 (5.0-8.0) pH Units Ur Specific [place] 1.016 (1.010-1.025) Urine Protein Negative (Neg-Trace) mg/dL Urine Glucose (UA) Normal (Normal) mg/dL Impressions Abdomen/Pelvis CT 05/27/17 17:13 IMPRESSION: 1. Circumferential wall thickening and adjacent mesenteric edema of several loops of small bowel in the right lower quadrant worsened from 03/19/2017 compatible with infectious or inflammatory enteritis. No evidence of perforation. 2. Scattered small tree-in-bud opacities in the bilateral lung bases compatible with an atypical pneumonia. 3. Small 6 x 5 mm nodule in the left lower lobe new from 03/19/2017. Given the rapid development of this is most likely infectious. See recommendations below. 4. Status post cholecystectomy, hysterectomy, and partial right colectomy. Fleischner Society guidelines for follow-up and management of incidentally detected pulmonary nodules: Single Solid Nodule: Nodule size less than 6 mm In a low-risk patient, no routine follow-up. In a high-risk patient, optional CT at 12 months. - Low risk patients include individuals with minimal or absent history of smoking and other known risk factors. - High risk patients include individuals with a history or smoking or known risk factors. Radiology 2017 http://pubs.rsna.org/doi/full/10.1148/radiol.0079118396 D/ / Charles Benites MD / Charles Benites MD Interpreting Provider: Charles Benites MD Chest X-Ray 05/27/17 17:13 IMPRESSION: 1. No acute abnormality. D/ / Jorge Dickinson MD / Jorge Dickinson MD Interpreting Provider: Jorge Dickinson MD Head CT 05/27/17 17:16 IMPRESSION: Essentially stable examination without evidence for acute intracranial pathology. No intracranial hemorrhage, mass effect, or midline shift. D/ / Mark Godoy MD / Mark Godoy MD Interpreting Provider: Mark Godoy MD Chest X-Ray 05/28/17 04:19 IMPRESSION: Uncomplicated line placement. D/ / Clem Mata MD / Clem Mata MD Interpreting Provider: Clem Mata MD Active Medications Acetaminophen (Tylenol) 650 mg PO Q6HR PRN PRN Reason: Mild Pain (1-3) Stop: 11/26/17 22:36 Hydrocodone Bitart/Acetaminophen ([place] 5-325 Mg) 1 tab PO Q4HR PRN PRN Reason: Moderate Pain (4-6) Stop: 11/26/17 22:36 Albuterol Sulfate (Albuterol Inhaler) 2 puff IH [id number] PRN PRN Reason: Shortness Of Breath Stop: 11/27/17 00:01 Albuterol/Ipratropium (Duoneb) 3 ml IH QID DUST[facility] Stop: 11/27/17 09:01 Alprazolam (Xanax) 1 mg PO BID DUSTY PRN Reason: Protocol Stop: 11/27/17 09:01 Aspirin (Aspirin Ec) 81 mg PO DAILY [facility] Stop: 11/27/17 09:01 Budesonide/Formoterol Fumarate (Symbicort) 2 puff IH BIDR DUSTY PRN Reason: Protocol Stop: 11/27/17 10:01 Diltiazem HCl (Cardizem Cd) 120 mg PO DAILY [facility] Stop: 11/27/17 09:01 Fenofibrate (Tricor) 162 mg PO QPM [facility] Stop: 11/27/17 18:01 Ferrous Sulfate (Ferrous Sulfate) 325 mg PO DAILY [facility] Stop: 11/27/17 09:01 Folic Acid (Folic Acid) 1 mg PO DAILY [facility] Stop: 11/27/17 09:01 Hydroxyzine Pamoate (Hydroxyzine Pamoate) 25 mg PO Q8H PRN PRN Reason: Anxiety Stop: 11/26/17 22:47 Metronidazole (Flagyl Premix 500 Mg/100 Ml) 500 mg in 100 mls @ 100 mls/hr IVPB Q8HR DUSTY Stop: 11/27/17 00:01 Last Admin: 05/28/17 01:39 Dose: 100 mls/hr Sodium Chloride (0.9 % Sodium Chloride) 1,000 mls @ 60 mls/hr IVC .[id number] [facility] Stop: 05/29/17 08:04 Last Admin: 05/28/17 01:40 Dose: 60 mls/hr Isosorbide Mononitrate (Imdur) 30 mg PO DAILY [facility] Stop: 11/27/17 09:01 Lactobacillus Acidophilus/Rhamnosus (Culturelle) 2 each PO DAILY [facility] Stop: 11/27/17 09:01 Levothyroxine Sodium (Synthroid) 112 mcg PO DAILY [facility] Stop: 11/27/17 09:01 Metoprolol Succinate (Toprol Xl) 12.5 mg PO DAILY [facility] Stop: 11/27/17 09:01 Morphine Sulfate (Morphine Sulfate) 2 mg IVP Q4HR PRN PRN Reason: Severe Pain (7-10) Stop: 11/26/17 22:36 Last Admin: 05/27/17 22:59 Dose: 2 mg Naloxone HCl (Narcan) 0.4 mg IVP Q2MIN PRN PRN Reason: Opioid Reversal Stop: 11/26/17 22:36 Ondansetron HCl (Zofran) 4 mg IVP Q8HR PRN PRN Reason: Nausea And Vomiting Stop: 11/26/17 22:36 Last Admin: 05/27/17 22:59 Dose: 4 mg Pharmacy Profile Note (Patient Taking Own Medication) 0 each PO TID [facility] Stop: 11/27/17 09:01 Prednisone (Prednisone) 40 mg PO DAILY [facility] Stop: 11/26/17 23:01 Last Admin: 05/28/17 01:40 Dose: 40 mg Vancomycin HCl (Vancocin) 125 mg PO QID [facility] Stop: 11/27/17 09:01 - Imaging and Cardiology Echo: report reviewed Cardiac cath: report reviewed - EKG Interpretation EKG results cardiology: personally reviewed (A-Fib, rate 97), other (12 hr tele AVG HR 83, SR) Consult Discharge Plan - Plan Referrals: Orestes Grace MD [Primary Care Provider] - <Danni Olsen - Last Filed: 05/28/17 10:56> Date of Encounter: 05/28/17 - Attending Attestation I examined this patient and my medical decision-making was reviewed with the PROOF MACHINE OPERATOR SUPERVISOR. I agree with the documented findings, disposition and treatment plan as described. Mr. Tucker presented with newly discovered atrial fibrillation and has since converted back to normal sinus rhythm. Potassium on admission was repleted. TSH is 17 - will defer to primary team for management. Recommend stopping cardizem in favor of uptitration of BB given presence of NICM and reduced EF. Troponins are flat and adynamic not representing an ACS. Patient's CHADSVASC is 7 - recommend full anticoagulation. Patient agreeable to NOACs after R/B/A discussed. Recommend reduced dose Eliquis given renal dysfunction which will need to be monitored as outpatient. If creatinine increased to >2.5, recommend stopping Eliquis and considering coumadin. We will sign off. Please call with questions. Assessment and Plan Discussion w patient/family: The assessment and plan as outlined above was discussed with the patient and/or family members who expressed understanding and agreement. All questions were answered. Thank you for involving us in the care of your patient. Please call with any questions. History of Present Illness History of present illness: Ms. Tucker is a 71 year old female All Systems Review: A 10-system review of systems was performed and is negative for pertinent findings except as documented above in the HPI. Physical Examination Vital Signs, Last 4 Hours Resp Pulse Ox 05/28/17 10:45 18 97 Results 05/28/17 04:28 05/28/17 04:28 Lab Results 05/27/17 05/27/17 05/28/17 23:06 23:20 02:27 WBC 31.0 H* Hgb 12.4 Hct 37.9 Plt Count 282 INR 1.8 APTT 36.9 H Sodium Potassium Chloride Carbon Dioxide BUN Creatinine Glucose Calcium Magnesium Troponin I 0.14 H* TSH 05/28/17 05/28/17 05/28/17 04:28 04:28 04:28 WBC 24.0 H Hgb 10.5 L D Hct 31.2 L Plt Count 353 INR APTT Sodium 135 L Potassium 3.8 D Chloride 110 H Carbon Dioxide 15 L BUN 35 H Creatinine 1.91 H Glucose 131 H Calcium 9.7 Magnesium 2.3 Troponin I TSH 17.266 H 05/28/17 04:28 WBC Hgb Hct Plt Count INR APTT Sodium Potassium Chloride Carbon Dioxide BUN Creatinine Glucose Calcium Magnesium Troponin I 0.07 H* TSH
[2017-05-28] MEDS: Budesonide/Formoterol 160/4.5 MDI IH SCH ×2 (10:40→21:41)
[2017-05-28] MEDS: Ipratropium/Albuterol Neb 3 ML IH SCH ×4 (10:40→21:40)
[2017-05-28] MEDS: Isosorbide MONOnitrate (24 HR) 60 MG TAB.ER.24H PO SCH (11:02)
[2017-05-28] MEDS: Folic Acid 1 MG TABLET PO SCH (11:04)
[2017-05-28] MEDS: Aspirin Enteric Coated 81 MG Tablet PO SCH (11:04)
[2017-05-28] MEDS: Lactobacillus 1 EACH CAP.SPRINK PO SCH (11:04)
[2017-05-28] MEDS: ALPRAZolam 1 MG TABLET PO SCH ×2 (11:04→21:54)
[2017-05-28] MEDS: Vancomycin Oral Soln 250 MG/5 ML UDC PO SCH ×4 (11:05→21:55)
[2017-05-28] MEDS: (Fish Oil 1,200 Mg Fish Oil] 1 EACH) PO SCH ×3 (11:34→22:00)
[2017-05-28] MEDS: Apixaban 5 MG TABLET PO SCH ×2 (13:41→21:53)
[2017-05-28] MEDS: *HR* HYDROcodone/Acet 5/325 mg TABLET PO PRN ×2 (13:41→21:54)
[2017-05-28] MEDS: Fenofibrate 54 MG TABLET PO SCH (17:43)
--- NOTE | 2017-05-28 17:47 | Internal Med Progress Note ---
Date of Encounter: 05/28/17 Time of Encounter: 11:00 - Assessment and plan (1) C. difficile colitis Current Visit: No Status: Acute Assessment and plan: -Patient with decreased episodes of diarrhea with leukocytosis that is now trending down to 24 from 31. -Continue IV Flagyl and oral vancomycin. (2) New onset a-fib Current Visit: No Status: Acute Assessment and plan: -Cardiology consulted with the following recommendations: -Cardizem discontinued secondary to reduced EF of 30-35% -Recommendations to increaseToprol XL from 12.5mg daily to 25mg daily. 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 -Recommendations to reduced Eliquis dose given current renal function and weight <60kg--dose at 2.5mg BID. If creatinine were to be >2.5, would need to stop Eliquis and consider Coumadin. (3) Ulcerative colitis Current Visit: No Status: Acute Assessment and plan: -Will continue oral prednisone Qualifiers: Ulcerative colitis location: other ulcerative colitis Digestive disease complication type: without complication Qualified Code(s): K51.80 - Other ulcerative colitis without complications (4) CKD (chronic kidney disease) Current Visit: No Status: Chronic Assessment and plan: -Stable; continue to monitor Qualifiers: Chronic kidney disease stage: stage 2 (mild) Qualified Code(s): N18.2 - Chronic kidney disease, stage 2 (mild) (5) CHF (congestive heart failure) Current Visit: No Status: Chronic Assessment and plan: Euvolemic on exam. -Continue BB. No ACEi currently due to RYLEY. Qualifiers: Congestive heart failure type: combined Congestive heart failure chronicity : acute on chronic Qualified Code(s): I50.43 - Acute on chronic combined systolic (congestive) and diastolic (congestive) heart failure - Subjective Interval history: Patient with decrease episodes of diarrhea this morning. - Constitutional Vitals: Temp Pulse Resp BP Pulse Ox 97.4 F L 104 16 136/59 95 05/28/17 15:00 05/28/17 15:00 05/28/17 15:59 05/28/17 15:00 05/28/17 15:59 General appearance: Present: mild distress, A&O X 3, answers questions appropriately - Respiratory Respiratory exam: Present: CTAB. Absent: accessory muscle use, rales, rhonchi, wheezes - Cardiovascular Cardiovascular exam: Present: RRR, +S1, +S2. Absent: diastolic murmur, gallop, rubs, systolic murmur Internal Medicine: Result - Labs CBC & Chem 7: 05/28/17 04:28 05/28/17 04:28 Labs: Short CBC 05/27/17 05/28/17 Range/Units 23:06 04:28 WBC 31.0 H* 24.0 H (4.3-11.1) K/mcL Hgb 12.4 10.5 L D (11.5-15.4) g/dL Hct 37.9 31.2 L (35.3-44.9) % Plt Count 282 353 (140-400) K/mcL Neutrophils # 20.9 H (1.6-8.9) K/mcL BMP 05/28/17 04:28 Sodium 135 L Potassium 3.8 D Chloride 110 H Carbon Dioxide 15 L BUN 35 H Creatinine 1.91 H Glucose 131 H Calcium 9.7 Cardiac Enzymes 05/28/17 05/28/17 Range/Units 02:27 04:28 Troponin I 0.14 H* 0.07 H* (< 0.04) ng/mL - ABG Interpretation ABG results: PT/INR, D-dimer PT 19.1 Seconds (9.4-12.1) H 05/27/17 23:20 - Impressions Impressions Chest X-Ray 05/28/17 04:19 IMPRESSION: Uncomplicated line placement. D/ / Clem Mata MD / Clem Mata MD Interpreting Provider: Clem Mata MD Consult Discharge Plan - Plan Referrals: Orestes Grace MD [Primary Care Provider] -
[2017-05-29] MEDS: ALPRAZolam 1 MG TABLET PO SCH ×2 (09:58→22:38)
[2017-05-29] MEDS: Metoprolol XL (24 HR) Succ 25 MG TAB.ER.24H PO SCH (09:58)
[2017-05-29] MEDS: Apixaban 5 MG TABLET PO SCH ×2 (09:59→22:38)
[2017-05-29] MEDS: Isosorbide MONOnitrate (24 HR) 60 MG TAB.ER.24H PO SCH (09:59)
[2017-05-29] MEDS: MetroNIDAZOLE 500 MG/100 ML 500 MG/100 ML BAG IVPB SCH ×2 (10:00→17:27)
[2017-05-29] MEDS: Folic Acid 1 MG TABLET PO SCH (10:00)
[2017-05-29] MEDS: predniSONE 20 MG TABLET PO SCH (10:00)
[2017-05-29] MEDS: Lactobacillus 1 EACH CAP.SPRINK PO SCH (10:00)
[2017-05-29] MEDS: Aspirin Enteric Coated 81 MG Tablet PO SCH (10:00)
[2017-05-29] MEDS: Vancomycin Oral Soln 250 MG/5 ML UDC PO SCH ×4 (10:01→22:39)
[2017-05-29] MEDS: (Fish Oil 1,200 Mg Fish Oil] 1 EACH) PO SCH ×3 (10:01→22:40)
[2017-05-29] MEDS: Ipratropium/Albuterol Neb 3 ML IH SCH ×5 (10:49→22:32)
[2017-05-29] MEDS: Budesonide/Formoterol 160/4.5 MDI IH SCH ×2 (10:50→22:32)
--- NOTE | 2017-05-29 16:22 | Internal Med Progress Note ---
Date of Encounter: 05/29/17 Time of Encounter: 08:00 - Assessment and plan (1) C. difficile colitis Current Visit: No Status: Acute Assessment and plan: -Patient with decreased episodes of diarrhea with leukocytosis that is now trending down to 24 from 31. -Continue IV Flagyl and oral vancomycin. (2) New onset a-fib Current Visit: No Status: Acute Assessment and plan: -Cardiology consulted with the following recommendations: -Cardizem discontinued secondary to reduced EF of 30-35% -Recommendations to increaseToprol XL from 12.5mg daily to 25mg daily. 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 -Recommendations to reduced Eliquis dose given current renal function and weight <60kg--dose at 2.5mg BID. If creatinine were to be >2.5, would need to stop Eliquis and consider Coumadin. (3) Ulcerative colitis Current Visit: No Status: Acute Assessment and plan: -Will continue oral prednisone Qualifiers: Ulcerative colitis location: other ulcerative colitis Digestive disease complication type: without complication Qualified Code(s): K51.80 - Other ulcerative colitis without complications (4) CKD (chronic kidney disease) Current Visit: No Status: Chronic Assessment and plan: -Stable; continue to monitor Qualifiers: Chronic kidney disease stage: stage 2 (mild) Qualified Code(s): N18.2 - Chronic kidney disease, stage 2 (mild) (5) CHF (congestive heart failure) Current Visit: No Status: Chronic Assessment and plan: Euvolemic on exam. -Continue BB. No ACEi currently due to RYLEY. Qualifiers: Congestive heart failure type: combined Congestive heart failure chronicity : acute on chronic Qualified Code(s): I50.43 - Acute on chronic combined systolic (congestive) and diastolic (congestive) heart failure - Subjective Interval history: Patient complains of right upper and lower quadrant abdominal pain. - Constitutional Vitals: Temp Pulse Resp BP Pulse Ox 97.4 F L 93 16 136/65 96 05/29/17 08:00 05/29/17 08:00 05/29/17 15:41 05/29/17 08:00 05/29/17 15:41 General appearance: Present: mild distress, A&O X 3, answers questions appropriately - Respiratory Respiratory exam: Present: CTAB. Absent: accessory muscle use, rales, rhonchi, wheezes - Cardiovascular Cardiovascular exam: Present: RRR, +S1, +S2. Absent: diastolic murmur, gallop, rubs, systolic murmur Internal Medicine: Result - Labs CBC & Chem 7: 05/28/17 04:28 05/28/17 04:28 - ABG Interpretation ABG results: PT/INR, D-dimer PT 19.1 Seconds (9.4-12.1) H 05/27/17 23:20 Consult Discharge Plan - Plan Referrals: Orestes Grace MD [Primary Care Provider] -
[2017-05-29 16:56] LABS: Basophils % 0.1 %; Hematocrit 24.7 % (35.3-44.9); Immature Granulocytes % 0.6 % (0-4); Immature Platelets 3.2 % (1.1-6.1); Lymphocytes # 1.1 K/mcL (0.6-4.6); Lymphocytes % 7.2 %; Mean Corpuscular HGB Conc 35.2 g/dL (31.6-35.5); Mean Corpuscular Hemoglobin 31.2 pg (28.0-33.3); Mean Corpuscular Volume 88.5 fL (83.0-100.0); Mean Platelet Volume 11.3 fL (9.4-12.4); Monocytes # 0.5 K/mcL (0.0-1.3); Monocytes % 3.4 %; Neutrophils # 13.4 K/mcL (1.6-8.9); Platelet Count 256 K/mcL (140-400); Red Blood Count 2.79 M/mcL (3.82-4.97); Red Cell Distribution Width 15.9 % (11.5-14.5); Segmented Neutrophils % 88.7 %
[2017-05-29 17:12] LABS: Calcium 8.9 mg/dL (8.6-10.3); Potassium 3.3 mEq/L (3.5-5.1)
[2017-05-29] MEDS: Fenofibrate 54 MG TABLET PO SCH (17:27)
[2017-05-29 18:36] LABS: Hemoglobin 8.7 g/dL (11.5-15.4)
[2017-05-30] MEDS: MetroNIDAZOLE 500 MG/100 ML 500 MG/100 ML BAG IVPB SCH ×4 (00:15→23:44)
[2017-05-30] MEDS: *HR* HYDROcodone/Acet 5/325 mg TABLET PO PRN (00:28)
[2017-05-30 03:48] LABS: Basophils % 0.1 %; Hematocrit 21.2 % (35.3-44.9); Hemoglobin 7.5 g/dL (11.5-15.4); Immature Granulocytes % 0.6 % (0-4); Lymphocytes # 1.9 K/mcL (0.6-4.6); Mean Corpuscular HGB Conc 35.4 g/dL (31.6-35.5); Mean Corpuscular Hemoglobin 31.3 pg (28.0-33.3); Mean Corpuscular Volume 88.3 fL (83.0-100.0); Mean Platelet Volume 11.3 fL (9.4-12.4); Monocytes # 0.7 K/mcL (0.0-1.3); Monocytes % 5.9 %; Platelet Count 233 K/mcL (140-400); Red Cell Distribution Width 15.9 % (11.5-14.5); Segmented Neutrophils % 77.4 %
[2017-05-30 04:01] LABS: Calcium 8.6 mg/dL (8.6-10.3); Potassium 3.1 mEq/L (3.5-5.1)
[2017-05-30 04:09] LABS: Platelet Estimate Normal (Normal)
[2017-05-30] MEDS: Ipratropium/Albuterol Neb 3 ML IH SCH ×4 (04:11→22:59)
[2017-05-30] MEDS: Lactobacillus 1 EACH CAP.SPRINK PO SCH (08:43)
[2017-05-30] MEDS: Folic Acid 1 MG TABLET PO SCH (08:43)
[2017-05-30] MEDS: predniSONE 20 MG TABLET PO SCH (08:43)
[2017-05-30] MEDS: (Fish Oil 1,200 Mg Fish Oil] 1 EACH) PO SCH ×3 (08:44→22:30)
[2017-05-30] MEDS: Metoprolol XL (24 HR) Succ 25 MG TAB.ER.24H PO SCH (08:44)
[2017-05-30] MEDS: ALPRAZolam 1 MG TABLET PO SCH ×2 (08:44→22:29)
[2017-05-30] MEDS: Apixaban 5 MG TABLET PO SCH ×2 (08:44→22:29)
[2017-05-30] MEDS: Vancomycin Oral Soln 250 MG/5 ML UDC PO SCH ×3 (08:45→16:54)
[2017-05-30] MEDS: Aspirin Enteric Coated 81 MG Tablet PO SCH (09:06)
[2017-05-30] MEDS: Isosorbide MONOnitrate (24 HR) 60 MG TAB.ER.24H PO SCH (09:06)
[2017-05-30] MEDS: Budesonide/Formoterol 160/4.5 MDI IH SCH ×2 (10:22→22:59)
[2017-05-30] MEDS: Ondansetron 4 MG/2 ML VIAL IVP PRN (11:49)
--- NOTE | 2017-05-30 12:00 | Internal Med Progress Note ---
Date of Encounter: 05/30/17 Time of Encounter: 09:00 - Assessment and plan (1) C. difficile colitis Current Visit: No Status: Acute Assessment and plan: -Patient's presenting symptoms of diarrhea has decreased to 2 episodes per day as opposed to approximately 5 episodes per hour at home -Her abdominal pain has resolved and tolerating full liquid diet. -Patient's leukocytosis has improved 31 to 11.6 this morning -Continue IV Flagyl and oral vancomycin. (2) New onset a-fib Current Visit: No Status: Acute Assessment and plan: -Cardiology consulted with the following recommendations: -Cardizem discontinued secondary to reduced EF of 30-35% -Recommendations to increaseToprol XL from 12.5mg daily to 25mg daily. -[id number] therefore recommendations for snf anticoagulation and patient agreeable to NOAC. -Recommendations to reduced Eliquis dose given current renal function and weight <60kg--dose at 2.5mg BID. If creatinine were to be >2.5, would need to stop Eliquis and consider Coumadin. (3) Ulcerative colitis Current Visit: No Status: Acute Assessment and plan: -Patient reports that abdominal pain has resolved this morning and tolerating clear liquids. -Will advance diet as tolerates. -Will continue oral prednisone Qualifiers: Ulcerative colitis location: other ulcerative colitis Digestive disease complication type: without complication Qualified Code(s): K51.80 - Other ulcerative colitis without complications (4) CKD (chronic kidney disease) Current Visit: No Status: Chronic Assessment and plan: -Creatinine continues to improve. -Will continue to monitor. Qualifiers: Chronic kidney disease stage: stage 2 (mild) Qualified Code(s): N18.2 - Chronic kidney disease, stage 2 (mild) (5) CHF (congestive heart failure) Current Visit: No Status: Chronic Assessment and plan: -Euvolemic on exam. -Continue BB. No ACEi currently due to RYLEY. Qualifiers: Congestive heart failure type: combined Congestive heart failure chronicity : acute on chronic Qualified Code(s): I50.43 - Acute on chronic combined systolic (congestive) and diastolic (congestive) heart failure - Subjective Interval history: Patient's presenting symptoms of diarrhea has decreased to 2 episodes per day as opposed to approximately 5 episodes per hour at home Her abdominal pain has resolved and tolerating full liquid diet. Patient's leukocytosis has improved and has been afebrile on IV antibiotics. - Constitutional Vitals: Temp Pulse Resp BP Pulse Ox 98.0 F 92 19 122/53 96 05/30/17 06:43 05/30/17 06:43 05/30/17 10:22 05/30/17 06:43 05/30/17 10:22 General appearance: Present: mild distress, A&O X 3, no acute distress, answers questions appropriately - Respiratory Respiratory exam: Present: CTAB. Absent: accessory muscle use, rales, rhonchi, wheezes - Cardiovascular Cardiovascular exam: Present: RRR, +S1, +S2. Absent: diastolic murmur, gallop, rubs, systolic murmur - GI/Abdominal GI/Abdominal exam: Present: normal bowel sounds, soft, no peritoneal signs. Absent: distended, tenderness Internal Medicine: Result - Labs CBC & Chem 7: 05/30/17 03:20 05/30/17 03:20 Labs: Short CBC 05/29/17 05/30/17 Range/Units 16:40 03:20 WBC 15.1 H 11.6 H (4.3-11.1) K/mcL Hgb 8.7 L D 7.5 L (11.5-15.4) g/dL Hct 24.7 L 21.2 L (35.3-44.9) % Plt Count 256 233 (140-400) K/mcL Neutrophils # 13.4 H 9.0 H (1.6-8.9) K/mcL BMP 05/29/17 05/30/17 16:40 03:20 Sodium 136 136 Potassium 3.3 L 3.1 L Chloride 112 H 112 H Carbon Dioxide 16 L 17 L BUN 43 H 44 H Creatinine 1.35 H 1.23 H Glucose 143 H 95 Calcium 8.9 8.6 - ABG Interpretation ABG results: PT/INR, D-dimer PT 19.1 Seconds (9.4-12.1) H 05/27/17 23:20 - Impressions Impressions Abdomen X-Ray 05/29/17 16:17 IMPRESSION: Gaseous dilation of a bowel loop within the right lower quadrant, possibly a small bowel loop. This could represent ileus, although the possibility of developing obstruction remains considered. Consider further evaluation with a small bowel follow-through or CT of the abdomen and pelvis, preferably with intravenous and oral contrast. D/ / Ady Watkins MD / Ady Watkins MD Interpreting Provider: Ady Watkins MD Consult Discharge Plan - Plan Referrals: Orestes Grace MD [Primary Care Provider] -
[2017-05-30] MEDS: Fenofibrate 54 MG TABLET PO SCH (16:54)
[2017-05-31] MEDS: Ipratropium/Albuterol Neb 3 ML IH SCH ×4 (04:27→21:59)
[2017-05-31] MEDS: MetroNIDAZOLE 500 MG/100 ML 500 MG/100 ML BAG IVPB SCH (09:23)
[2017-05-31] MEDS: Apixaban 5 MG TABLET PO SCH ×2 (09:23→21:31)
[2017-05-31] MEDS: Isosorbide MONOnitrate (24 HR) 60 MG TAB.ER.24H PO SCH (09:24)
[2017-05-31] MEDS: ALPRAZolam 1 MG TABLET PO SCH ×2 (09:24→21:31)
[2017-05-31] MEDS: Aspirin Enteric Coated 81 MG Tablet PO SCH (09:25)
[2017-05-31] MEDS: Vancomycin Oral Soln 250 MG/5 ML UDC PO SCH ×4 (09:26→21:32)
[2017-05-31] MEDS: (Fish Oil 1,200 Mg Fish Oil] 1 EACH) PO SCH ×2 (09:27→13:55)
[2017-05-31] MEDS: Lactobacillus 1 EACH CAP.SPRINK PO SCH (09:27)
[2017-05-31] MEDS: Metoprolol XL (24 HR) Succ 25 MG TAB.ER.24H PO SCH (09:27)
[2017-05-31] MEDS: Folic Acid 1 MG TABLET PO SCH (09:28)
[2017-05-31] MEDS: predniSONE 20 MG TABLET PO SCH (09:30)
[2017-05-31 09:51] LABS: Basophils % 0.2 %; Eosinophils # 0.1 K/mcL (0.0-0.6); Eosinophils % 0.5 %; Hematocrit 23.3 % (35.3-44.9); Hemoglobin 8.1 g/dL (11.5-15.4); Immature Granulocytes % 4.2 % (0-4); Lymphocytes # 2.9 K/mcL (0.6-4.6); Lymphocytes % 30.1 %; Mean Corpuscular HGB Conc 34.8 g/dL (31.6-35.5); Mean Corpuscular Hemoglobin 30.8 pg (28.0-33.3); Mean Corpuscular Volume 88.6 fL (83.0-100.0); Mean Platelet Volume 10.3 fL (9.4-12.4); Neutrophils # 5.2 K/mcL (1.6-8.9); Platelet Count 240 K/mcL (140-400); Red Blood Count 2.63 M/mcL (3.82-4.97); Red Cell Distribution Width 16.2 % (11.5-14.5)
[2017-05-31 10:07] LABS: % Iron Saturation 26 % (15-50); Iron 56 mcg/dL (50-170); Transferrin 152 mg/dL (203-362)
[2017-05-31] MEDS: Budesonide/Formoterol 160/4.5 MDI IH SCH ×2 (10:47→21:58)
--- NOTE | 2017-05-31 11:00 | Internal Med Progress Note ---
Date of Encounter: 05/31/17 Time of Encounter: 09:00 - Assessment and plan (1) C. difficile colitis Current Visit: No Status: Acute Assessment and plan: Diarrhea started improving Continue IV Flagyl and oral vancomycin. WBC trended down to normal (2) Ulcerative colitis Current Visit: No Status: Acute Assessment and plan: start tapering steroids need to f/u with GI as an out pt Qualifiers: Ulcerative colitis location: other ulcerative colitis Digestive disease complication type: without complication Qualified Code(s): K51.80 - Other ulcerative colitis without complications (3) Atelectasis of left lung Current Visit: No Status: Acute Assessment and plan: Reviewed CT of abd / pelvis.. showed LLL 6x5mm nodule mostly reactive vs infectious currently on Abx Flagyl unable to use other broad spec abx due to C. Diff Pt's WBC trended down to normal.. and her symptoms seems to be better too. (4) PAF (paroxysmal atrial fibrillation) Current Visit: Yes Status: Acute Assessment and plan: new onset converted to SR right away cont Metoprolol not a candidate for Ca channel blockers due to systolic CHF on eliquis for anti coag will change to regular dose (5) Anemia Current Visit: No Status: Chronic Assessment and plan: Acute on chronic mostly dilutional no signs of active bleeding Hb slightly dropped down y/d, however repeat Hb today improved @ 8.1, with out any active transfusions Qualifiers: Anemia type: other cause Other causes of anemia: chronic disease, other Qualified Code(s): D63.8 - Anemia in other chronic diseases classified elsewhere (6) RYLEY (acute kidney injury) Current Visit: No Status: Resolved Assessment and plan: due to dehydration trending down no CKD noted (7) COPD (chronic obstructive pulmonary disease) Current Visit: No Status: Chronic Assessment and plan: not in exacerbation resumed home regimen started tapering steroids Qualifiers: COPD type: emphysema Emphysema type: unspecified Qualified Code(s): J43.9 - Emphysema, unspecified (8) CAD (coronary artery disease) Current Visit: No Status: Chronic Assessment and plan: resumed all home meds Qualifiers: Coronary Disease-Associated Artery/Lesion type: [place] artery [place] vs. transplanted heart: [place] heart Associated angina: without angina Qualified Code(s): I25.10 - Atherosclerotic heart disease of [place] coronary artery without angina pectoris (9) Hypertension Current Visit: No Status: Chronic Qualifiers: Hypertension type: essential hypertension Qualified Code(s): I10 - Essential (primary) hypertension (10) Nonischemic cardiomyopathy Current Visit: Yes Status: Chronic - Subjective Interval history: Ms. Tucker is a 71 year old female with history of systolic CHF, NICMP EF 30-35% , hypertension, COPD, PVD s/p iliac stenting, bilateral carotid stenosis (60-79% ), ulcerative colitis, CVA, presented to ER for abdominal pain and diarrhea for 2 days. She did have recent hx of Cdiff. Her current stool C. Diff PCR came back as positive and CT of abd showed enteritis. She also have atypical pneumonia. She was started on Flagyl IV and Vanco PO. Her symptoms started improving now. Still feels weak and lethargic. Still has diarrhea but over all lot better - Constitutional Vitals: Temp Pulse Resp BP Pulse Ox 98.3 F 78 19 96/44 98 05/31/17 07:00 05/31/17 07:00 05/31/17 10:48 05/31/17 07:00 05/31/17 10:48 General appearance: Present: A&O X 3 (looks lethargic), no acute distress, answers questions appropriately - Head Head exam: Present: atraumatic, normal inspection - Neck Neck exam general surgery: Present: supple - Respiratory Respiratory exam: Present: decreased breath sounds. Absent: rales, respiratory distress, wheezes - Cardiovascular Cardiovascular exam: Present: RRR, +S1, +S2. Absent: systolic murmur - GI/Abdominal GI/Abdominal exam: Present: normal bowel sounds, soft. Absent: rebound, rigid, tenderness - Extremities Exam Extremities exam: Absent: calf tenderness, pedal edema, tenderness - Neurological Exam Neurological exam: Present: alert, oriented X3 - Psychiatric Psychiatric exam: Present: normal affect, normal mood Internal Medicine: Result - Labs CBC & Chem 7: 05/31/17 09:43 05/30/17 03:20 Labs: Short CBC 05/31/17 Range/Units 09:43 WBC 9.5 (4.3-11.1) K/mcL Hgb 8.1 L (11.5-15.4) g/dL Hct 23.3 L (35.3-44.9) % Plt Count 240 (140-400) K/mcL Neutrophils # 5.2 (1.6-8.9) K/mcL - ABG Interpretation ABG results: PT/INR, D-dimer PT 19.1 Seconds (9.4-12.1) H 05/27/17 23:20 Consult Discharge Plan - Plan Referrals: Orestes Grace MD [Primary Care Provider] -
--- NOTE | 2017-05-31 14:58 | Electrocardiograph Report ---
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
[2017-05-31] MEDS: metroNIDAZOLE 500 MG TABLET PO SCH ×2 (15:06→21:32)
[2017-05-31] MEDS: Fenofibrate 54 MG TABLET PO SCH (18:18)
[2017-05-31] MEDS: *HR* HYDROcodone/Acet 5/325 mg TABLET PO PRN (21:30)
[2017-05-31] MEDS: Ondansetron 4 MG/2 ML VIAL IVP PRN (21:37)
[2017-06-01] MEDS: Ipratropium/Albuterol Neb 3 ML IH SCH ×4 (03:44→22:26)
[2017-06-01] MEDS: Ondansetron 4 MG/2 ML VIAL IVP PRN ×3 (07:42→19:40)
[2017-06-01] MEDS: Apixaban 5 MG TABLET PO SCH ×2 (09:40→21:18)
[2017-06-01] MEDS: predniSONE 20 MG TABLET PO SCH (09:40)
[2017-06-01] MEDS: Aspirin Enteric Coated 81 MG Tablet PO SCH (09:40)
[2017-06-01] MEDS: metroNIDAZOLE 500 MG TABLET PO SCH ×3 (09:41→21:18)
[2017-06-01] MEDS: Folic Acid 1 MG TABLET PO SCH (09:41)
[2017-06-01] MEDS: Isosorbide MONOnitrate (24 HR) 60 MG TAB.ER.24H PO SCH (09:41)
[2017-06-01] MEDS: Metoprolol XL (24 HR) Succ 25 MG TAB.ER.24H PO SCH (09:41)
[2017-06-01] MEDS: ALPRAZolam 1 MG TABLET PO SCH ×2 (09:41→21:18)
[2017-06-01] MEDS: Vancomycin Oral Soln 250 MG/5 ML UDC PO SCH ×4 (09:42→21:20)
[2017-06-01] MEDS: Budesonide/Formoterol 160/4.5 MDI IH SCH ×2 (10:47→22:26)
[2017-06-01] MEDS: Lactobacillus 1 EACH CAP.SPRINK PO SCH (10:54)
--- NOTE | 2017-06-01 10:55 | Discharge Summary ---
Date of Encounter: 06/01/17 Time of Encounter: 08:00 - Discharge Diagnosis (1) C. difficile colitis Priority: Primary Status: Acute (2) Ulcerative colitis Priority: Primary Status: Acute Qualifiers: Ulcerative colitis location: other ulcerative colitis Digestive disease complication type: without complication Qualified Code(s): K51.80 - Other ulcerative colitis without complications (3) Atelectasis of left lung Priority: Primary Status: Acute (4) PAF (paroxysmal atrial fibrillation) Priority: Secondary Status: Acute (5) Anemia Priority: Secondary Status: Chronic Qualifiers: Anemia type: other cause Other causes of anemia: chronic disease, other Qualified Code(s): D63.8 - Anemia in other chronic diseases classified elsewhere (6) RYLEY (acute kidney injury) Priority: Secondary Status: Resolved (7) COPD (chronic obstructive pulmonary disease) Priority: Secondary Status: Chronic Qualifiers: COPD type: emphysema Emphysema type: unspecified Qualified Code(s): J43.9 - Emphysema, unspecified (8) CAD (coronary artery disease) Priority: Secondary Status: Chronic Qualifiers: Coronary Disease-Associated Artery/Lesion type: [place] artery [place] vs. transplanted heart: [place] heart Associated angina: without angina Qualified Code(s): I25.10 - Atherosclerotic heart disease of [place] coronary artery without angina pectoris (9) Hypertension Priority: Secondary Status: Chronic Qualifiers: Hypertension type: essential hypertension Qualified Code(s): I10 - Essential (primary) hypertension (10) Nonischemic cardiomyopathy Priority: Secondary Status: Chronic - Discharge Medications Home Medications: Albuterol Sulfate [Albuterol Inhaler] 2 puff IH Q4-6H PRN 10/15/15 [History] Allopurinol [Zyloprim 100 MG] 100 mg PO DAILY 10/15/15 [History] Fenofibrate Nanocrystallized [Tricor] 145 mg PO QPM 10/15/15 [History] Isosorbide MONOnitrate (24 HR) [Imdur] 30 mg PO DAILY 10/15/15 [History] Levothyroxine [Synthroid] 112 mcg PO DAILY 10/15/15 [History] Ropinirole HCl [Requip] 0.5 - 1 mg PO HS 10/15/15 [History] Sertraline [Zoloft] 100 mg PO BID 10/15/15 [History] Tiotropium [Spiriva] 18 mcg IH DAILY 10/15/15 [History] Ipratropium/Albuterol Neb [Duoneb] 3 ml IH QID 03/29/16 [History] Gemfibrozil [Lopid] 600 mg PO BIDWM 05/28/16 [History] OxyCODONE/APAP 5/325 [Percocet 5/325 MG] 1 each PO BID PRN 05/28/16 [History] Aspirin Enteric Coated [Aspirin EC] 81 mg PO DAILY 11/23/16 [History] Ferrous Sulfate 325 mg PO DAILY 11/23/16 [History] Fish Oil/Dha/Epa [Fish Oil 1,200 mg Fish Oil] 1 each PO TID 11/23/16 [History] Magnesium Oxide [Mag-Ox] 400 mg PO DAILY 11/23/16 [History] Sucralfate [Carafate] 1 gm PO BID 11/23/16 [History] Folic Acid 1 mg PO DAILY #30 tablet 11/29/16 [Rx] Metoprolol XL (24 HR) Succ [Toprol Xl] 12.5 mg PO DAILY #15 tab.er.24h 11/29/16 [Rx] Metoclopramide [Reglan] 20 mg PO DAILY PRN 01/12/17 [History] Potassium Chloride 20 meq PO DAILY #30 tab.er.prt 01/13/17 [Rx] Budesonide/Formoterol 160/4.5 [Symbicort 160/4.5] 2 puff IH BIDR #1 02/10/17 [Rx ] ALPRAZolam [Xanax 1 MG Tablet] 1 mg PO BID 03/19/17 [History] Megestrol Acetate [Megace] 40 mg PO BID 03/19/17 [History] Gabapentin [Neurontin] 800 mg PO TID 03/21/17 [History] Furosemide [Lasix] 40 mg PO DAILY 30 Days tab 03/22/17 [Rx] Lisinopril [Lisinopril] 2.5 mg PO DAILY 05/27/17 [History] Loperamide [Imodium] 2 mg PO QID PRN 05/27/17 [History] Ondansetron HCl [Ondansetron HCl] 4 mg PO TID PRN 05/27/17 [History] Ranitidine HCl [Zantac] 300 mg PO HS 05/27/17 [History] Spironolactone [Aldactone] 12.5 mg PO DAILY 05/27/17 [History] hydrOXYzine pamoate [HydrOXYzine Pamoate] 25 mg PO Q8H PRN 05/27/17 [History] Lactobacillus [Culturelle] 2 each PO BID 30 Days cap.sprink 06/01/17 [Rx] Vancomycin Oral Soln [Vancocin] 125 mg PO QID 8 Days udc 06/01/17 [Rx] predniSONE [PredniSONE] 30 mg PO DAILY #6 tablet 06/01/17 [Rx] Allergies/Adverse Reactions: 3 Allergy/AdvReac Type Severity Reaction Status Date / Time codeine AdvReac Swelling Verified 03/19/17 16:35 of Lip/Tongue/Throat Iodinated Contrast- Oral and AdvReac See Verified 03/19/17 16:35 IV Dye Comments [Iodinated Contrast Media - Oral and] meclizine AdvReac Confusion Verified 03/19/17 16:35 Date of admission: 05/27/17 22:35 Primary care physician: Orestes Grace MD Consults: 05/27/17 22:44 Consult to Cardiology [CONS] Routine Comment: Consulting Provider: Cardiology [facility] Reason for Consult: New onset A Fib Call Completed: No - Patient Status Disposition: Home Health Service Condition: Good Overall status at discharge: patient is back to baseline - Discharge Instructions Follow Up With: Orestes Grace MD [Primary Care Provider] - 06/07/17 1:30 pm - Diet and Activity Activity: increase activity as tolerated Diet: low salt diet Hospital course: Ms. Tucker is a 71 year old female with history of systolic CHF, NICMP EF 30-35% , hypertension, COPD, PVD s/p iliac stenting, bilateral carotid stenosis (60-79% ), ulcerative colitis, CVA, presented to ER for abdominal pain and diarrhea for 2 days. She did have recent hx of Cdiff. Her current stool C. Diff PCR came back as positive and CT of abd showed enteritis. She also have atypical pneumonia. She was started on Flagyl IV and Vanco PO. Her symptoms started improving now. Her diarrhea improved. She was seen by PT / OT for her physical deconditioning who recommend for ECF placement.. However pt refused to go to shelter,, she wanted to home only with home health services. Sent her home on tapering steroids for her enteritis with possible ulcerative colitis mild flare up. Also noticed she was n Cardizem at home, due to her systolic CHF, it is not recommended to cont Cardizem, so d/c Cardizem - Time Spent with Patient Total time spent providing and/or coordinating discharge services: - Constitutional Vitals: Temp Pulse Resp BP Pulse Ox 98.9 F 95 18 101/69 94 06/01/17 08:00 06/01/17 08:00 06/01/17 08:00 06/01/17 08:00 06/01/17 08:00 General appearance: Present: A&O X 3, no acute distress, answers questions appropriately - Head Head exam: Present: atraumatic, normal inspection - Neck Neck exam general surgery: Present: supple - Respiratory Respiratory exam: Present: decreased breath sounds. Absent: rales, respiratory distress, rhonchi, wheezes - Cardiovascular Cardiovascular exam: Present: RRR, +S1, +S2. Absent: tachycardia - GI/Abdominal GI/Abdominal exam: Present: normal bowel sounds, soft. Absent: rebound, rigid, tenderness - Extremities Exam Extremities exam: Absent: calf tenderness, pedal edema, tenderness - Psychiatric Psychiatric exam: Present: normal affect, normal mood
--- NOTE | 2017-06-01 11:03 | Physician Discharge Referral ---
Home Health/Hosp Referral Info Transfer to: Home Health Provider in Charge Post Discharge: PCP - Diagnosis (1) C. difficile colitis Status: Acute (2) Ulcerative colitis Status: Acute (3) Atelectasis of left lung Status: Acute (4) PAF (paroxysmal atrial fibrillation) Status: Acute (5) Anemia Status: Chronic (6) RYLEY (acute kidney injury) Status: Resolved (7) COPD (chronic obstructive pulmonary disease) Status: Chronic (8) CAD (coronary artery disease) Status: Chronic (9) Hypertension Status: Chronic (10) Nonischemic cardiomyopathy Status: Chronic - Respiratory Orders Smoking Cessation: Smoking cessation has been advised. For more information, call the [place] Tobacco Quit Line at 8-326-YUQF-NOW. - Services Needed Following services are medically necessary services: Nursing, Physical Therapy, Occupational Therapy - Transfer Medications Prescriptions: Lactobacillus [Culturelle] 2 each PO BID 30 Days cap.sprink predniSONE [PredniSONE] 30 mg PO DAILY #6 tablet Vancomycin Oral Soln [Vancocin] 125 mg PO QID 8 Days [facility] [place] Home Medications: Albuterol Sulfate [Albuterol Inhaler] 2 puff IH Q4-6H PRN 10/15/15 [History] Allopurinol [Zyloprim 100 MG] 100 mg PO DAILY 10/15/15 [History] Fenofibrate Nanocrystallized [Tricor] 145 mg PO QPM 10/15/15 [History] Isosorbide MONOnitrate (24 HR) [Imdur] 30 mg PO DAILY 10/15/15 [History] Levothyroxine [Synthroid] 112 mcg PO DAILY 10/15/15 [History] Ropinirole HCl [Requip] 0.5 - 1 mg PO HS 10/15/15 [History] Sertraline [Zoloft] 100 mg PO BID 10/15/15 [History] Tiotropium [Spiriva] 18 mcg IH DAILY 10/15/15 [History] Ipratropium/Albuterol Neb [Duoneb] 3 ml IH QID 03/29/16 [History] Gemfibrozil [Lopid] 600 mg PO BIDWM 05/28/16 [History] OxyCODONE/APAP 5/325 [Percocet 5/325 MG] 1 each PO BID PRN 05/28/16 [History] Aspirin Enteric Coated [Aspirin EC] 81 mg PO DAILY 11/23/16 [History] Ferrous Sulfate 325 mg PO DAILY 11/23/16 [History] Fish Oil/Dha/Epa [Fish Oil 1,200 mg Fish Oil] 1 each PO TID 11/23/16 [History] Magnesium Oxide [Mag-Ox] 400 mg PO DAILY 11/23/16 [History] Sucralfate [Carafate] 1 gm PO BID 11/23/16 [History] Folic Acid 1 mg PO DAILY #30 tablet 11/29/16 [Rx] Metoprolol XL (24 HR) Succ [Toprol Xl] 12.5 mg PO DAILY #15 tab.er.24h 11/29/16 [Rx] Metoclopramide [Reglan] 20 mg PO DAILY PRN 01/12/17 [History] Potassium Chloride 20 meq PO DAILY #30 tab.er.prt 01/13/17 [Rx] Budesonide/Formoterol 160/4.5 [Symbicort 160/4.5] 2 puff IH BIDR #1 02/10/17 [Rx ] ALPRAZolam [Xanax 1 MG Tablet] 1 mg PO BID 03/19/17 [History] Megestrol Acetate [Megace] 40 mg PO BID 03/19/17 [History] Gabapentin [Neurontin] 800 mg PO TID 03/21/17 [History] Furosemide [Lasix] 40 mg PO DAILY 30 Days tab 03/22/17 [Rx] Lisinopril 2.5 mg PO DAILY 05/27/17 [History] Loperamide [Imodium] 2 mg PO QID PRN 05/27/17 [History] Ondansetron HCl 4 mg PO TID PRN 05/27/17 [History] Ranitidine HCl [Zantac] 300 mg PO HS 05/27/17 [History] Spironolactone [Aldactone] 12.5 mg PO DAILY 05/27/17 [History] hydrOXYzine pamoate [HydrOXYzine Pamoate] 25 mg PO Q8H PRN 05/27/17 [History] Lactobacillus [Culturelle] 2 each PO BID 30 Days cap.sprink 06/01/17 [Rx] Vancomycin Oral Soln [Vancocin] 125 mg PO QID 8 Days udc 06/01/17 [Rx] predniSONE [PredniSONE] 30 mg PO DAILY #6 tablet 06/01/17 [Rx] Allergies/Adverse Reactions: 3 Allergy/AdvReac Type Severity Reaction Status Date / Time codeine AdvReac Swelling Verified 03/19/17 16:35 of Lip/Tongue/Throat Iodinated Contrast- Oral and AdvReac See Verified 03/19/17 16:35 IV Dye Comments [Iodinated Contrast Media - Oral and] meclizine AdvReac Confusion Verified 03/19/17 16:35 Certification: Further, I certify that my clinical findings support that this patient is homebound (i.e. absences from home require considerable and taxing effort and are for medical reasons or taoist services or infrequently or short duration when for other reasons) because: Homebound Reason: Patient requires assistance of a person or device to safely leave home Attestation: My signature below is to certify that this patient is under my care and that I, or nurse practitioner, or a physician's food and beverage assistant working with me, has a face-to -face encounter with this patient.
[2017-06-01] MEDS: Fenofibrate 54 MG TABLET PO SCH (18:31)
[2017-06-01] MEDS: *HR* HYDROcodone/Acet 5/325 mg TABLET PO PRN (19:40)
[2017-06-01] MEDS: *HR* Promethazine 25 MG/ML VIAL IVP PRN (22:02)
[2017-06-02] MEDS: *HR* Promethazine 25 MG/ML VIAL IVP PRN ×2 (04:35→13:59)
[2017-06-02] MEDS: Ipratropium/Albuterol Neb 3 ML IH SCH ×4 (05:30→22:30)
--- NOTE | 2017-06-02 08:32 | Internal Med Progress Note ---
Date of Encounter: 06/02/17 Time of Encounter: 08:28 - Assessment and plan (1) C. difficile colitis Current Visit: No Status: Acute Assessment and plan: Diarrhea improved Continue oral vancomycin. WBC trended down to normal (2) Physical deconditioning Current Visit: No Status: Acute Assessment and plan: PT / OT recommended ECF for short term PT / OT She refused to go to ECF y/d ..however later after talking to her she agreed to go to ECF for short term PT / OT, she definitely need supervision care and PT / OT for her severe physical deconditioning. So will d/c her ECF once we get approval from insurance. (3) Ulcerative colitis Current Visit: No Status: Acute Assessment and plan: start tapering steroids need to f/u with GI as an out pt Qualifiers: Ulcerative colitis location: other ulcerative colitis Digestive disease complication type: without complication Qualified Code(s): K51.80 - Other ulcerative colitis without complications (4) Atelectasis of left lung Current Visit: No Status: Acute Assessment and plan: Reviewed CT of abd / pelvis.. showed LLL 6x5mm nodule mostly reactive vs infectious currently on Abx Flagyl unable to use other broad spec abx due to C. Diff Pt's WBC trended down to normal.. and her symptoms seems to be better too. (5) PAF (paroxysmal atrial fibrillation) Current Visit: Yes Status: Acute Assessment and plan: new onset converted to SR right away cont Metoprolol not a candidate for Ca channel blockers due to systolic CHF on eliquis for anti coag will change to regular dose (6) Anemia Current Visit: No Status: Chronic Assessment and plan: Acute on chronic mostly dilutional no signs of active bleeding Hb slightly dropped down y/d, however repeat Hb today improved @ 8.1, with out any active transfusions Qualifiers: Anemia type: other cause Other causes of anemia: chronic disease, other Qualified Code(s): D63.8 - Anemia in other chronic diseases classified elsewhere (7) RYLEY (acute kidney injury) Current Visit: No Status: Resolved Assessment and plan: due to dehydration trending down no CKD noted (8) COPD (chronic obstructive pulmonary disease) Current Visit: No Status: Chronic Assessment and plan: not in exacerbation resumed home regimen started tapering steroids Qualifiers: COPD type: emphysema Emphysema type: unspecified Qualified Code(s): J43.9 - Emphysema, unspecified (9) CAD (coronary artery disease) Current Visit: No Status: Chronic Assessment and plan: resumed all home meds Qualifiers: Coronary Disease-Associated Artery/Lesion type: [place] artery [place] vs. transplanted heart: [place] heart Associated angina: without angina Qualified Code(s): I25.10 - Atherosclerotic heart disease of [place] coronary artery without angina pectoris (10) Hypertension Current Visit: No Status: Chronic Qualifiers: Hypertension type: essential hypertension Qualified Code(s): I10 - Essential (primary) hypertension (11) Nonischemic cardiomyopathy Current Visit: Yes Status: Chronic - Subjective Interval history: Ms. Tucker is a 71 year old female with history of systolic CHF, NICMP EF 30-35% , hypertension, COPD, PVD s/p iliac stenting, bilateral carotid stenosis (60-79% ), ulcerative colitis, CVA, presented to ER for abdominal pain and diarrhea for 2 days. She did have recent hx of C. diff. Her current stool C. Diff PCR came back as positive and CT of abd showed enteritis. She also have atypical pneumonia. She was started on Flagyl IV and Vanco PO. Her symptoms started improving now. Her diarrhea also improved. She denied any abdominal pain. Tolerating PO intake well. - Constitutional Vitals: Temp Pulse Resp BP Pulse Ox 98.2 F 89 16 107/72 97 06/02/17 06:33 06/02/17 06:33 06/02/17 06:33 06/02/17 06:33 06/02/17 06:33 General appearance: Present: A&O X 3, no acute distress, answers questions appropriately - Head Head exam: Present: atraumatic, normal inspection - Respiratory Respiratory exam: Present: decreased breath sounds, wheezes (mild). Absent: rales, respiratory distress, rhonchi - Cardiovascular Cardiovascular exam: Present: +S1, +S2 - GI/Abdominal GI/Abdominal exam: Present: normal bowel sounds, soft. Absent: rebound, rigid, tenderness - Extremities Exam Extremities exam: Absent: calf tenderness, pedal edema, tenderness - Back Exam Back exam: Absent: CVA tenderness (L), CVA tenderness (R) - Psychiatric Psychiatric exam: Present: normal affect, normal mood Internal Medicine: Result - Labs CBC & Chem 7: 05/31/17 09:43 05/30/17 03:20 - ABG Interpretation ABG results: PT/INR, D-dimer PT 19.1 Seconds (9.4-12.1) H 05/27/17 23:20 Consult Discharge Plan - Plan Referrals: Orestes Grace MD [Primary Care Provider] - 06/07/17 1:30 pm Prescriptions: Lactobacillus [Culturelle] 2 each PO BID 30 Days cap.sprink predniSONE [PredniSONE] 30 mg PO DAILY #6 tablet Vancomycin Oral Soln [Vancocin] 125 mg PO QID 8 Days ud
[2017-06-02] MEDS: Vancomycin Oral Soln 250 MG/5 ML UDC PO SCH ×4 (09:36→19:59)
[2017-06-02] MEDS: Lactobacillus 1 EACH CAP.SPRINK PO SCH (09:36)
[2017-06-02] MEDS: Isosorbide MONOnitrate (24 HR) 60 MG TAB.ER.24H PO SCH (09:36)
[2017-06-02] MEDS: metroNIDAZOLE 500 MG TABLET PO SCH ×3 (09:36→19:59)
[2017-06-02] MEDS: predniSONE 20 MG TABLET PO SCH (09:36)
[2017-06-02] MEDS: Aspirin Enteric Coated 81 MG Tablet PO SCH (09:37)
[2017-06-02] MEDS: Folic Acid 1 MG TABLET PO SCH (09:37)
[2017-06-02] MEDS: ALPRAZolam 1 MG TABLET PO SCH ×2 (09:38→19:59)
[2017-06-02] MEDS: Metoprolol XL (24 HR) Succ 25 MG TAB.ER.24H PO SCH (09:38)
[2017-06-02] MEDS: Apixaban 5 MG TABLET PO SCH ×2 (09:38→20:00)
[2017-06-02] MEDS: Budesonide/Formoterol 160/4.5 MDI IH SCH ×2 (10:50→22:30)
[2017-06-02] MEDS: Fenofibrate 54 MG TABLET PO SCH (18:48)
[2017-06-02] MEDS: *HR* HYDROcodone/Acet 5/325 mg TABLET PO PRN (19:59)
[2017-06-03] MEDS: Ipratropium/Albuterol Neb 3 ML IH SCH ×2 (04:37→10:56)
[2017-06-03 07:07] VITALS: BP 117/59
[2017-06-03] MEDS: ALPRAZolam 1 MG TABLET PO SCH (09:18)
[2017-06-03] MEDS: Lactobacillus 1 EACH CAP.SPRINK PO SCH (09:18)
[2017-06-03] MEDS: Folic Acid 1 MG TABLET PO SCH (09:18)
[2017-06-03] MEDS: Vancomycin Oral Soln 250 MG/5 ML UDC PO SCH ×2 (09:18→12:46)
[2017-06-03] MEDS: metroNIDAZOLE 500 MG TABLET PO SCH (09:18)
[2017-06-03] MEDS: Aspirin Enteric Coated 81 MG Tablet PO SCH (09:18)
[2017-06-03] MEDS: Metoprolol XL (24 HR) Succ 25 MG TAB.ER.24H PO SCH (09:18)
--- NOTE | 2017-06-03 09:18 | Internal Med Progress Note ---
Date of Encounter: 06/03/17 Time of Encounter: 09:16 - Assessment and plan (1) C. difficile colitis Current Visit: No Status: Acute Assessment and plan: Diarrhea improved Continue oral vancomycin. WBC trended down to normal (2) Physical deconditioning Current Visit: No Status: Acute Assessment and plan: PT / OT recommended ECF for short term PT / OT She refused to go to ECF initially ..however later after talking to her she agreed to go to ECF for short term PT / OT, she definitely need supervision care and PT / OT for her severe physical deconditioning. So will d/c her ECF once we get approval from insurance. (3) Ulcerative colitis Current Visit: No Status: Acute Assessment and plan: start tapering steroids need to f/u with GI as an out pt Qualifiers: Ulcerative colitis location: other ulcerative colitis Digestive disease complication type: without complication Qualified Code(s): K51.80 - Other ulcerative colitis without complications (4) Atelectasis of left lung Current Visit: No Status: Acute Assessment and plan: Reviewed CT of abd / pelvis.. showed LLL 6x5mm nodule mostly reactive vs infectious currently on Abx Flagyl unable to use other broad spec abx due to C. Diff Pt's WBC trended down to normal.. and her symptoms seems to be better too. (5) PAF (paroxysmal atrial fibrillation) Current Visit: Yes Status: Acute Assessment and plan: new onset converted to SR right away cont Metoprolol not a candidate for Ca channel blockers due to systolic CHF on eliquis for anti coag will change to regular dose (6) Anemia Current Visit: No Status: Chronic Assessment and plan: Acute on chronic mostly dilutional no signs of active bleeding Hb slightly dropped down y/d, however repeat Hb today improved @ 8.1, with out any active transfusions Qualifiers: Anemia type: other cause Other causes of anemia: chronic disease, other Qualified Code(s): D63.8 - Anemia in other chronic diseases classified elsewhere (7) RYLEY (acute kidney injury) Current Visit: No Status: Resolved Assessment and plan: due to dehydration improved no CKD noted (8) COPD (chronic obstructive pulmonary disease) Current Visit: No Status: Chronic Assessment and plan: not in exacerbation resumed home regimen started tapering steroids Qualifiers: COPD type: emphysema Emphysema type: unspecified Qualified Code(s): J43.9 - Emphysema, unspecified (9) CAD (coronary artery disease) Current Visit: No Status: Chronic Assessment and plan: resumed all home meds Qualifiers: Coronary Disease-Associated Artery/Lesion type: [place] artery [place] vs. transplanted heart: [place] heart Associated angina: without angina Qualified Code(s): I25.10 - Atherosclerotic heart disease of [place] coronary artery without angina pectoris (10) Hypertension Current Visit: No Status: Chronic Qualifiers: Hypertension type: essential hypertension Qualified Code(s): I10 - Essential (primary) hypertension (11) Nonischemic cardiomyopathy Current Visit: Yes Status: Chronic - Subjective Interval history: Ms. Tucker is a 71 year old female with history of systolic CHF, NICMP EF 30-35% , hypertension, COPD, PVD s/p iliac stenting, bilateral carotid stenosis (60-79% ), ulcerative colitis, CVA, presented to ER for abdominal pain and diarrhea for 2 days. She did have recent hx of C. diff. Her current stool C. Diff PCR came back as positive and CT of abd showed enteritis. She also have atypical pneumonia. She was started on Flagyl IV and Vanco PO. Her symptoms started improving now. Her diarrhea also improved. She denied any abdominal pain. Tolerating PO intake well. Still waiting on insurance approval for ECF / Swing bed transfer for short term PT / OT - Constitutional Vitals: Temp Pulse Resp BP Pulse Ox 97.9 F 91 18 117/59 96 06/03/17 07:05 06/03/17 07:05 06/03/17 07:05 06/03/17 07:05 06/03/17 07:05 General appearance: Present: A&O X 3, no acute distress, answers questions appropriately - Head Head exam: Present: atraumatic, normal inspection - Neck Neck exam general surgery: Present: supple - Respiratory Respiratory exam: Present: decreased breath sounds. Absent: rales, respiratory distress, rhonchi, wheezes - Cardiovascular Cardiovascular exam: Present: RRR, +S1, +S2. Absent: tachycardia - GI/Abdominal GI/Abdominal exam: Present: normal bowel sounds, soft. Absent: rebound, rigid, tenderness - Extremities Exam Extremities exam: Absent: calf tenderness, pedal edema, tenderness - Back Exam Back exam: Absent: CVA tenderness (L), CVA tenderness (R) - Psychiatric Psychiatric exam: Present: normal affect, normal mood Internal Medicine: Result - Labs CBC & Chem 7: 05/31/17 09:43 05/30/17 03:20 - ABG Interpretation ABG results: PT/INR, D-dimer PT 19.1 Seconds (9.4-12.1) H 05/27/17 23:20 Consult Discharge Plan - Plan Instructions: Prednisone (By mouth), Vancomycin (By mouth), Probiotic (By mouth ), Heart Failure (DC), Atrial Fibrillation (DC), Pacemaker (DC), Acute Kidney Injury (DC), Acute Kidney Injury (GEN), Depression (DC), Chronic Obstructive Pulmonary Disease (DC), Ulcerative Colitis (DC), Ulcerative Colitis (GEN), Clostridium Difficile Infection (DC), Ischemic Stroke (DC), Ischemic Stroke (GEN ), Acute Diarrhea (GEN), Chronic Hypertension (DC), Anemia (GEN), Anxiety (DC) Referrals: Orestes Grace MD [Primary Care Provider] - 06/07/17 1:30 pm Prescriptions: Lactobacillus [Culturelle] 2 each PO BID 30 Days cap.sprink predniSONE [PredniSONE] 30 mg PO DAILY #6 tablet Vancomycin Oral Soln [Vancocin] 125 mg PO QID 8 Days [facility] [place]
[2017-06-03] MEDS: predniSONE 20 MG TABLET PO SCH (09:19)
[2017-06-03] MEDS: Apixaban 5 MG TABLET PO SCH (09:19)
[2017-06-03] MEDS: Isosorbide MONOnitrate (24 HR) 60 MG TAB.ER.24H PO SCH (09:19)
--- NOTE | 2017-06-03 10:09 | Physician Discharge Referral ---
ExtendedCare Referral Info Transfer To: Swing bed Provider in Charge after Transfer: PCP Institutional Level of Care: Skilled - Diagnosis (1) C. difficile colitis Status: Acute (2) Physical deconditioning Status: Acute (3) Ulcerative colitis Status: Acute (4) Atelectasis of left lung Status: Acute (5) PAF (paroxysmal atrial fibrillation) Status: Acute (6) Anemia Status: Chronic (7) RYLEY (acute kidney injury) Status: Resolved (8) COPD (chronic obstructive pulmonary disease) Status: Chronic (9) CAD (coronary artery disease) Status: Chronic (10) Hypertension Status: Chronic (11) Nonischemic cardiomyopathy Status: Chronic - Transfer Medications Prescriptions: Lactobacillus [Culturelle] 2 each PO BID 30 Days cap.sprink predniSONE [PredniSONE] 30 mg PO DAILY #6 tablet Vancomycin Oral Soln [Vancocin] 125 mg PO QID 8 Days [facility] [place] Medications: Albuterol Sulfate [Albuterol Inhaler] 2 puff IH Q4-6H PRN 10/15/15 [History] Allopurinol [Zyloprim 100 MG] 100 mg PO DAILY 10/15/15 [History] Fenofibrate Nanocrystallized [Tricor] 145 mg PO QPM 10/15/15 [History] Isosorbide MONOnitrate (24 HR) [Imdur] 30 mg PO DAILY 10/15/15 [History] Levothyroxine [Synthroid] 112 mcg PO DAILY 10/15/15 [History] Ropinirole HCl [Requip] 0.5 - 1 mg PO HS 10/15/15 [History] Sertraline [Zoloft] 100 mg PO BID 10/15/15 [History] Tiotropium [Spiriva] 18 mcg IH DAILY 10/15/15 [History] Ipratropium/Albuterol Neb [Duoneb] 3 ml IH QID 03/29/16 [History] Gemfibrozil [Lopid] 600 mg PO BIDWM 05/28/16 [History] OxyCODONE/APAP 5/325 [Percocet 5/325 MG] 1 each PO BID PRN 05/28/16 [History] Aspirin Enteric Coated [Aspirin EC] 81 mg PO DAILY 11/23/16 [History] Ferrous Sulfate 325 mg PO DAILY 11/23/16 [History] Fish Oil/Dha/Epa [Fish Oil 1,200 mg Fish Oil] 1 each PO TID 11/23/16 [History] Magnesium Oxide [Mag-Ox] 400 mg PO DAILY 11/23/16 [History] Sucralfate [Carafate] 1 gm PO BID 11/23/16 [History] Folic Acid 1 mg PO DAILY #30 tablet 11/29/16 [Rx] Metoprolol XL (24 HR) Succ [Toprol Xl] 12.5 mg PO DAILY #15 tab.er.24h 11/29/16 [Rx] Metoclopramide [Reglan] 20 mg PO DAILY PRN 01/12/17 [History] Potassium Chloride 20 meq PO DAILY #30 tab.er.prt 01/13/17 [Rx] Budesonide/Formoterol 160/4.5 [Symbicort 160/4.5] 2 puff IH BIDR #1 02/10/17 [Rx ] ALPRAZolam [Xanax 1 MG Tablet] 1 mg PO BID 03/19/17 [History] Megestrol Acetate [Megace] 40 mg PO BID 03/19/17 [History] Gabapentin [Neurontin] 800 mg PO TID 03/21/17 [History] Furosemide [Lasix] 40 mg PO DAILY 30 Days tab 03/22/17 [Rx] Lisinopril 2.5 mg PO DAILY 05/27/17 [History] Loperamide [Imodium] 2 mg PO QID PRN 05/27/17 [History] Ondansetron HCl 4 mg PO TID PRN 05/27/17 [History] Ranitidine HCl [Zantac] 300 mg PO HS 05/27/17 [History] Spironolactone [Aldactone] 12.5 mg PO DAILY 05/27/17 [History] hydrOXYzine pamoate [HydrOXYzine Pamoate] 25 mg PO Q8H PRN 05/27/17 [History] Lactobacillus [Culturelle] 2 each PO BID 30 Days cap.sprink 06/01/17 [Rx] Vancomycin Oral Soln [Vancocin] 125 mg PO QID 8 Days [facility] 06/01/17 [Rx] predniSONE [PredniSONE] 30 mg PO DAILY #6 tablet 06/01/17 [Rx] Allergies/Adverse Reactions: 3 Allergy/AdvReac Type Severity Reaction Status Date / Time codeine AdvReac Swelling Verified 03/19/17 16:35 of Lip/Tongue/Throat Iodinated Contrast- Oral and AdvReac See Verified 03/19/17 16:35 IV Dye Comments [Iodinated Contrast Media - Oral and] meclizine AdvReac Confusion Verified 03/19/17 16:35 - Respiratory Orders Smoking Cessation: Smoking cessation has been advised. For more information, call the [place] Tobacco Quit Line at 7-939-EJJI-NOW. CERTIFICATION: I certify that the transfer of the above named patient to an Extended Care Facility is necessary for the continuing treatment of the diagnosis listed. The above information is true and accurate reflection of patient's current condition. Confidential - Redisclosure prohibited without a patient's written consent.
[2017-06-03] MEDS: Budesonide/Formoterol 160/4.5 MDI IH SCH (10:56)
== END 2017-06-03 13:10 | disposition other institution (70) | DRG 371 ==
LOC: EMEROO 16:42 → 2NENU 16:42
PROVIDERS: ADMIT Student in an Organized Health Care Education/Training Program; ATTEND Hospitalist

== ENCOUNTER 2017-08-20 11:27 | Inpatient (IN) ==
[2017-08-20] MEDS ORDERED: 0.9 % Sodium Chloride 500 ML IVC ONE (11:58)
[2017-08-20] MEDS ORDERED: Ondansetron 4 MG/2 ML VIAL IVP ONE (12:00)
--- NOTE | 2017-08-20 12:00 | Emergency Department Note ---
Disposition Clinical Impression: Weakness Failure to thrive Qualifiers: Failure to thrive age range: in adult Qualified Code(s): R62.7 - Adult failure to thrive Anemia Qualifiers: Anemia type: unspecified type Qualified Code(s): D64.9 - Anemia, unspecified Disposition: Admitted As Inpatient Condition: Fair Time of Disposition: 15:41 General Adult HPI - General Chief complaint: ED General Medical Stated complaint: failure to thrive Time Seen by Provider: 08/20/17 11:44 Source: patient Mode of arrival: wheelchair Limitations: no limitations Nursing Notes Reviewed: Yes Vital Signs Reviewed: Yes - History of Present Illness HPI Narrative: 72-year-old female with multiple comorbidities conditions present for evaluation of generalized weakness and failure to thrive. Patient was in some of care a family history states the patient has been living at home with some home health and nursing assistance. Films concerned the patient has not had much of an appetite and has had increasing weight loss over the past several months. Patient also been having lower abdominal tenderness over the past week. Patient also been having some nausea and vomiting. Patient has been having loose stools. Patient denies any difficulty urinating. Patient denies any fevers or cough. Patient denies chest pain or shortness of breath. Patient states he is generally weak. Denies any recent falls. Family at bedside states the patient does have plans for pacemaker the fever placement next week. Patient's family also states that they have been in discussions with surgery for possible feeding tube placement. Pain Scale: 6 - Related Data Home Medications Medication Instructions Recorded Confirmed Albuterol Sulfate [Albuterol 2 puff IH Q4-6H PRN 10/15/15 08/20/17 Inhaler] Allopurinol [Zyloprim 100 MG] 100 mg PO DAILY 10/15/15 08/20/17 Fenofibrate Nanocrystallized 145 mg PO QPM 10/15/15 08/20/17 [Tricor] Levothyroxine [Synthroid] 112 mcg PO DAILY 10/15/15 08/20/17 Ropinirole HCl [Requip] 0.5 - 1 mg PO HS 10/15/15 08/20/17 Sertraline [Zoloft] 100 mg PO BID 10/15/15 08/20/17 Tiotropium [Spiriva] 18 mcg IH DAILY 10/15/15 08/20/17 Ipratropium/Albuterol Neb [Duoneb] 3 ml IH QID 03/29/16 08/20/17 Gemfibrozil [Lopid] 600 mg PO BIDWM 05/28/16 08/20/17 Ferrous Sulfate 325 mg PO DAILY 11/23/16 08/20/17 Sucralfate [Carafate] 1 gm PO BID 11/23/16 08/20/17 ALPRAZolam [Xanax 1 MG Tablet] 1 mg PO BID 03/19/17 08/20/17 Megestrol Acetate [Megace] 40 mg PO BID 03/19/17 08/20/17 hydrOXYzine pamoate [HydrOXYzine 25 mg PO Q8H PRN 05/27/17 08/20/17 Pamoate] Omeprazole [PriLOSEC] 40 mg PO DAILY 08/20/17 08/20/17 Ondansetron HCl [Ondansetron HCl] 4 mg PO TID PRN 08/20/17 08/20/17 Potassium Chloride [K-Tab ER] 20 meq PO DAILY 08/20/17 08/20/17 dilTIAZem HCl [Diltiazem 24Hr ER] 120 mg PO DAILY 08/20/17 08/20/17 metroNIDAZOLE [Flagyl] 500 mg PO TID 08/20/17 08/20/17 Previous Rx's Medication Instructions Recorded Folic Acid 1 mg PO DAILY #30 tablet 11/29/16 Budesonide/Formoterol 160/4.5 2 puff IH BIDR #1 02/10/17 [Symbicort 160/4.5] Lactobacillus [Culturelle] 2 each PO BID 30 Days cap.[email or web address] 06/01/17 Aspirin Enteric Coated [Aspirin EC] 81 mg PO DAILY tablet. 06/23/17 Allergies Allergy/AdvReac Type Severity Reaction Status Date / Time codeine Allergy Swelling Verified 08/20/17 14:27 of Lip/Tongue/Throat Iodinated Contrast- Oral and AdvReac See Verified 08/20/17 14:27 IV Dye Comments [Iodinated Contrast Media - Oral and] meclizine AdvReac Confusion Verified 08/20/17 14:27 All systems ED: reviewed and negative except as stated. Constitutional: Denies: fever Cardiovascular: Denies: chest pain Respiratory: Denies: cough, dyspnea Gastrointestinal: Reports: abdominal pain, nausea, vomiting, diarrhea Past Medical History - Past Medical History Source: patient, obtained from family Medical history: Reports: arthritis, asthma, cardiomyopathy, CHF, COPD, coronary artery disease, CVA, GERD, hyperlipidemia, hypertension, myocardial infarction, osteoporosis, renal disease, thyroid disease, other Surgical history: Reports: cholecystectomy, herniorrhaphy, hysterectomy, knee replacement, other Psychiatric history: Reports: anxiety, depression [facility] history: Reports: no [facility] history - Social History Smoking Status: Former smoker Smokeless Tobacco Status: No Alcohol use: Reports: none Drug use: Reports: none Physical Exam - General Limitations: no limitations General appearance: alert, cachectic - Head Head exam: atraumatic, normocephalic, normal inspection - Eye Eye exam: Present: normal appearance, PERRL, EOMI - ENT ENT exam: normal exam, mucous membranes dry - Neck Neck exam: Present: normal inspection, trachea midline - Chest Chest inspection: Present: normal inspection, symmetric chest wall rise - Respiratory Respiratory exam: Present: other (diffuesly diminished). Absent: respiratory distress, prolonged expiratory phase - Cardiovascular Cardiovascular exam: Present: regular rate, normal rhythm. Absent: systolic murmur - Abdominal Exam Abdominal exam: Present: soft, tenderness. Absent: distention, guarding, rebound - Extremities Exam Extremities exam: Present: other (Diffuse atrophy of all extremities) - Back Exam Back exam: Present: normal inspection - Neurological Exam Neurological exam: Present: alert, CN II-XII intact - Skin Skin exam: Present: warm, dry, intact, normal color, other (Stage II decubitus ulcer with padding in place.) Course Course Narrative: Patient seen and examined. Patient was a generalized weakness as well as failure to thrive. Patient will do an extensive evaluation searching for possible reversible causes such as infection. Patient also get a screening cardiopulmonary evaluation with EKG, troponin, BNP. Patient will also be given gradual IV fluid hydration given her recent po intake. Patient will get a CT of the abdomen and pelvis. Disposition admission. Vital Signs Temperature 97.8 F 08/20/17 11:33 Pulse Rate 92 08/20/17 11:33 Respiratory Rate 16 08/20/17 11:33 Blood Pressure 116/72 08/20/17 11:33 O2 Sat by Pulse Oximetry 100 08/20/17 11:33 Temperature 97.8 F 08/20/17 11:33 Pulse Rate 90 08/20/17 16:28 Respiratory Rate 15 08/20/17 16:28 Blood Pressure 119/56 08/20/17 16:28 O2 Sat by Pulse Oximetry 94 08/20/17 16:28 Oxygen Delivery Oxygen Delivery Room Air Medical Decision Making - MDM Narrative Medical decision making narrative: Patient presents with multiple comorbid conditions. Patient's admitting diagnosis can be failure to thrive, generalized weakness. Patient's had an extensive evaluation including labs, chest x-ray CT abdomen and pelvis urinalysis. Patient's workup is essentially nondiagnostic. Patient does appear chronically ill. Appears malnourished. Patient will be admitted to the hospital service for further evaluation and rehabilitation. Recommend goals of care discussion. - Lab Data Lab results reviewed: Yes I reviewed the patient's lab results. Result diagrams: 08/20/17 14:50 08/20/17 14:50 Lab Results 08/20/17 08/20/17 08/20/17 Range/Units 13:19 14:50 14:50 WBC (4.3-11.1) K/mcL RBC (3.82-4.97) M/mcL Hgb (11.5-15.4) g/dL Hct (35.3-44.9) % MCV (83.0-100.0) fL MCH (28.0-33.3) pg MCHC (31.6-35.5) g/dL RDW (11.5-14.5) % Plt Count (140-400) K/mcL MPV (9.4-12.4) fL Immature Gran % (0-4) % Seg Neutrophils % % Lymphocytes % % Monocytes % % Eosinophils % % Basophils % % Neutrophils # (1.6-8.9) K/mcL Lymphocytes # (0.6-4.6) K/mcL Monocytes # (0.0-1.3) K/mcL Eosinophils # (0.0-0.6) K/mcL Basophils # (0.0-0.2) K/mcL PT (9.4-12.1) Seconds INR VBG pH (7.32-7.42) pH Units VBG pCO2 (41-51) mmHg VBG pO2 (25-50) mmHg VBG HCO3 (21-27) mEq/L Sodium (136-145) mEq/L Potassium (3.5-5.1) mEq/L Chloride (98-107) mEq/L Carbon Dioxide (23-29) mEq/L BUN (8-23) mg/dL Creatinine (0.60-1.20) mg/dL Est GFR ( Amer) (> 60) Est GFR (Non-Af Amer) (> 60) BUN/Creatinine Ratio (6-26) Glucose (70-105) mg/dL Calculated Osmolality (280-300) Lactic Acid 1.1 (0.5-2.2) mmol/L Calcium (8.6-10.3) mg/dL Total Bilirubin (0.3-1.0) mg/dL Direct Bilirubin (0.0-0.2) mg/dL Indirect Bilirubin (0.0-1.2) mg/dL AST (13-39) Units/L ALT (7-52) Units/L Alkaline Phosphatase (34-104) Units/L Troponin I 0.04 H* (< 0.04) ng/mL B-Natriuretic Peptide (Less than 100) pg/mL Serum Total Protein (6.4-8.9) g/dL Albumin (3.5-5.7) g/dL Globulin (2.4-3.5) g/dL Albumin/Globulin Ratio (1.1-2.2) Lipase (11-82) Units/L Urine Color Dark Yellow (Yellow) Urine Clarity Clear (Clear) Urine pH 6.0 (5.0-8.0) pH Units Ur Specific [place] 1.023 (1.010-1.025) Urine Protein Trace (Neg-Trace) mg/dL Urine Glucose (UA) Normal (Normal) mg/dL Urine Ketones Negative (Negative) mg/dL Urine Blood Negative (Negative) Urine Nitrite Negative (Negative) Urine Bilirubin Small H (Negative) Urine Urobilinogen Normal (Normal) mg/dL Ur Leukocyte Esterase Small H (Negative) Urine Microscopic RBC 5-15 H (0-3) per hpf Urine Microscopic WBC 5-15 H (0-3) per hpf Ur Squamous Epith Cells Many H (None-Few) per lpf Urine Bacteria None Seen (None-Few) per hpf Hyaline Casts None Seen (None-Few) per lpf Ur Culture Indicated? NO. (NO) 08/20/17 08/20/17 08/20/17 Range/Units 14:50 14:50 14:50 WBC 8.9 (4.3-11.1) K/mcL RBC 3.20 L (3.82-4.97) M/mcL Hgb 9.5 L (11.5-15.4) g/dL Hct 27.9 L (35.3-44.9) % MCV 87.2 (83.0-100.0) fL MCH 29.7 (28.0-33.3) pg MCHC 34.1 (31.6-35.5) g/dL RDW 16.0 H (11.5-14.5) % Plt Count 428 H (140-400) K/mcL MPV 10.5 (9.4-12.4) fL Immature Gran % 0.9 (0-4) % Seg Neutrophils % 58.7 % Lymphocytes % 30.5 % Monocytes % 8.2 % Eosinophils % 1.2 % Basophils % 0.5 % Neutrophils # 5.2 (1.6-8.9) K/mcL Lymphocytes # 2.7 (0.6-4.6) K/mcL Monocytes # 0.7 (0.0-1.3) K/mcL Eosinophils # 0.1 (0.0-0.6) K/mcL Basophils # 0.0 (0.0-0.2) K/mcL PT (9.4-12.1) Seconds INR VBG pH (7.32-7.42) pH Units VBG pCO2 (41-51) mmHg VBG pO2 (25-50) mmHg VBG HCO3 (21-27) mEq/L Sodium 137 (136-145) mEq/L Potassium 3.5 (3.5-5.1) mEq/L Chloride 112 H (98-107) mEq/L Carbon Dioxide 18 L (23-29) mEq/L BUN 41 H (8-23) mg/dL Creatinine 0.92 (0.60-1.20) mg/dL Est GFR ( Amer) > 60 (> 60) Est GFR (Non-Af Amer) > 60 (> 60) BUN/Creatinine Ratio 45 H (6-26) Glucose 77 (70-105) mg/dL Calculated Osmolality 293 (280-300) Lactic Acid (0.5-2.2) mmol/L Calcium 11.3 H (8.6-10.3) mg/dL Total Bilirubin 0.5 (0.3-1.0) mg/dL Direct Bilirubin 0.2 (0.0-0.2) mg/dL Indirect Bilirubin 0.3 (0.0-1.2) mg/dL AST 27 (13-39) Units/L ALT 12 (7-52) Units/L Alkaline Phosphatase 84 (34-104) Units/L Troponin I (< 0.04) ng/mL B-Natriuretic Peptide 260 H (Less than 100) pg/mL Serum Total Protein 5.6 L (6.4-8.9) g/dL Albumin 3.1 L (3.5-5.7) g/dL Globulin 2.5 (2.4-3.5) g/dL Albumin/Globulin Ratio 1.2 (1.1-2.2) Lipase 17 (11-82) Units/L Urine Color (Yellow) Urine Clarity (Clear) Urine pH (5.0-8.0) pH Units Ur Specific [place] (1.010-1.025) Urine Protein (Neg-Trace) mg/dL Urine Glucose (UA) (Normal) mg/dL Urine Ketones (Negative) mg/dL Urine Blood (Negative) Urine Nitrite (Negative) Urine Bilirubin (Negative) Urine Urobilinogen (Normal) mg/dL Ur Leukocyte Esterase (Negative) Urine Microscopic RBC (0-3) per hpf Urine Microscopic WBC (0-3) per hpf Ur Squamous Epith Cells (None-Few) per lpf Urine Bacteria (None-Few) per hpf Hyaline Casts (None-Few) per lpf Ur Culture Indicated? (NO) 08/20/17 08/20/17 Range/Units 14:50 15:06 WBC (4.3-11.1) K/mcL RBC (3.82-4.97) M/mcL Hgb (11.5-15.4) g/dL Hct (35.3-44.9) % MCV (83.0-100.0) fL MCH (28.0-33.3) pg MCHC (31.6-35.5) g/dL RDW (11.5-14.5) % Plt Count (140-400) K/mcL MPV (9.4-12.4) fL Immature Gran % (0-4) % Seg Neutrophils % % Lymphocytes % % Monocytes % % Eosinophils % % Basophils % % Neutrophils # (1.6-8.9) K/mcL Lymphocytes # (0.6-4.6) K/mcL Monocytes # (0.0-1.3) K/mcL Eosinophils # (0.0-0.6) K/mcL Basophils # (0.0-0.2) K/mcL PT 15.2 H (9.4-12.1) Seconds INR 1.4 VBG pH 7.37 (7.32-7.42) pH Units VBG pCO2 30 L (41-51) mmHg VBG pO2 77 H (25-50) mmHg VBG HCO3 17 L (21-27) mEq/L Sodium (136-145) mEq/L Potassium (3.5-5.1) mEq/L Chloride (98-107) mEq/L Carbon Dioxide (23-29) mEq/L BUN (8-23) mg/dL Creatinine (0.60-1.20) mg/dL Est GFR ( Amer) (> 60) Est GFR (Non-Af Amer) (> 60) BUN/Creatinine Ratio (6-26) Glucose (70-105) mg/dL Calculated Osmolality (280-300) Lactic Acid (0.5-2.2) mmol/L Calcium (8.6-10.3) mg/dL Total Bilirubin (0.3-1.0) mg/dL Direct Bilirubin (0.0-0.2) mg/dL Indirect Bilirubin (0.0-1.2) mg/dL AST (13-39) Units/L ALT (7-52) Units/L Alkaline Phosphatase (34-104) Units/L Troponin I (< 0.04) ng/mL B-Natriuretic Peptide (Less than 100) pg/mL Serum Total Protein (6.4-8.9) g/dL Albumin (3.5-5.7) g/dL Globulin (2.4-3.5) g/dL Albumin/Globulin Ratio (1.1-2.2) Lipase (11-82) Units/L Urine Color (Yellow) Urine Clarity (Clear) Urine pH (5.0-8.0) pH Units Ur Specific [place] (1.010-1.025) Urine Protein (Neg-Trace) mg/dL Urine Glucose (UA) (Normal) mg/dL Urine Ketones (Negative) mg/dL Urine Blood (Negative) Urine Nitrite (Negative) Urine Bilirubin (Negative) Urine Urobilinogen (Normal) mg/dL Ur Leukocyte Esterase (Negative) Urine Microscopic RBC (0-3) per hpf Urine Microscopic WBC (0-3) per hpf Ur Squamous Epith Cells (None-Few) per lpf Urine Bacteria (None-Few) per hpf Hyaline Casts (None-Few) per lpf Ur Culture Indicated? (NO) - Radiology Data Radiology results reviewed: Yes I reviewed the patient's radiology results. Abdomen/Pelvis CT 08/20/17 11:55 IMPRESSION: Multiple centrilobular nodules in the lung bases, similar to previous exam. D/ / Nita Nieto MD / Nita Nieto MD Interpreting Provider: Nita Nieto MD Chest X-Ray 08/20/17 11:57 IMPRESSION: No evidence of acute cardiopulmonary process. D/ / 08/20/2017 13:00:08 Kevin Davis MD / jose antonio Interpreting Provider: Kevin Davis MD - EKG Data EKG #1 EKG attestation: Yes I reviewed and interpreted this EKG. Rate: normal Rhythm: junctional [place]/QRS: normal Voltage: c/w LVH Interpretation: no acute changes, nonspecific ST-T wave changes S.B.A.R. - S.B.A.R. Situation: Demographics Background: Presenting Complaint Assessment: Vital Signs, Course and respsone to treatment, Patient/Family Expectation Recommendation: Barrier(s) to disposition, Recommendation based on pending studies, treatments, or consults S.B.A.RDale Report Given to: Dr. Sara Robin Repor Time: 15:40 Attestation Statement - Attestation Attestation: Patient was seen with resident physician. I reviewed the history, physical, assessment and plan, and agree with the findings. I also personally evaluated this patient and had [id number] time with this patient. 72-year-old female presents the Department chief complaint of failure to thrive. Patient basically stopped eating and is minimally drinking over the last for 5 days. She was seen by her primary doctor on and was told to come into the hospital but she declined. Today she comes in at the request of her caregiver, who said either go to the hospital I am putting in hospice. They have also had discussions with cardiology about placing a pacemaker for her CHF, and Gen. surgery for placement of a feeding tube. Examination. Vital signs stable. ENT is unremarkable. Heart regular rhythm and rate. Lungs clear. Abdomen soft minimal tenderness in lower abdomen. Extremities are unremarkable without swelling. Neurologically alert and oriented. Skin no rashes. Psych patient appears to have a flat affect. ED course. I we will do a workup on the patient to try and figure out why she is having failure to thrive. Labs revealed an elevated BNP and the slightly elevated troponin. CT did not reveal any acute abnormalities. EKG also did not show anything acutely abnormal. Patient remained hemodynamically stable throughout the course of her visit in the emergency department. We discussed the case with the hospitalist service to arrange for admission. He agreed to accept the patient. I agree with the resident physician assessment and plan.
[2017-08-20 13:28] LABS: Bilirubin,Urine Small (Negative); Blood,Urine Negative (Negative); Color,Urine Dark Yellow (Yellow); Glucose,Urine (UA) Normal (Normal); Ketones,Urine Negative (Negative); Leukocyte Esterase,Urine Small (Negative); Nitrite,Urine Negative (Negative); Protein,Urine Trace mg/dL (Neg-Trace); Specific Gravity,Urine 1.023 (1.010-1.025); Urobilinogen,Urine Normal (Normal)
[2017-08-20 13:34] LABS: Bacteria,Urine None Seen per hpf (None-Few); Hyaline Casts,Urine None Seen per lpf (None-Few); Squamous Epithelial Cell,Urine Many per lpf (None-Few)
[2017-08-20 13:35] LABS: Clarity,Urine Clear (Clear)
[2017-08-20 15:03] LABS: Basophils % 0.5 %; Eosinophils # 0.1 K/mcL (0.0-0.6); Eosinophils % 1.2 %; Hematocrit 27.9 % (35.3-44.9); Hemoglobin 9.5 g/dL (11.5-15.4); Immature Granulocytes % 0.9 % (0-4); Lymphocytes # 2.7 K/mcL (0.6-4.6); Lymphocytes % 30.5 %; Mean Corpuscular HGB Conc 34.1 g/dL (31.6-35.5); Mean Corpuscular Hemoglobin 29.7 pg (28.0-33.3); Mean Corpuscular Volume 87.2 fL (83.0-100.0); Mean Platelet Volume 10.5 fL (9.4-12.4); Monocytes # 0.7 K/mcL (0.0-1.3); Monocytes % 8.2 %; Neutrophils # 5.2 K/mcL (1.6-8.9); Platelet Count 428 K/mcL (140-400); Segmented Neutrophils % 58.7 %
[2017-08-20 15:08] LABS: INR 1.4; Prothrombin Time 15.2 Seconds (9.4-12.1)
[2017-08-20 15:09] LABS: VBG HCO3 17 mEq/L (21-27); VBG PCO2 30 mmHg (41-51); VBG PH 7.37 pH Units (7.32-7.42); VBG PO2 77 mmHg (25-50)
[2017-08-20 15:31] LABS: Alanine Aminotransferase 12 Units/L (7-52); Albumin 3.1 g/dL (3.5-5.7); Albumin/Globulin Ratio 1.2 (1.1-2.2); Alkaline Phosphatase 84 Units/L (34-104); Aspartate Amino Transferase 27 Units/L (13-39); BUN/Creatinine Ratio 45 (6-26); Bilirubin,Direct 0.2 mg/dL (0.0-0.2); Bilirubin,Indirect 0.3 mg/dL (0.0-1.2); Bilirubin,Total 0.5 mg/dL (0.3-1.0); Blood Urea Nitrogen 41 mg/dL (8-23); Calcium 11.3 mg/dL (8.6-10.3); Carbon Dioxide 18 mEq/L (23-29); Chloride 112 mEq/L (98-107); Globulin 2.5 g/dL (2.4-3.5); Glucose 77 mg/dL (70-105); Lipase 17 Units/L (11-82); Osmolality,Calculated 293 (280-300); Potassium 3.5 mEq/L (3.5-5.1); Sodium 137 mEq/L (136-145); Total Protein 5.6 g/dL (6.4-8.9); eGFR For African Americans > 60 (> 60); eGFR For Non-African Americans > 60 (> 60)
[2017-08-20] MEDS ORDERED: Aspirin 81 MG TAB.CHEW PO ONE (15:54)
[2017-08-20] MEDS ORDERED: Acetaminophen 325 MG TABLET PO PRN (20:15)
[2017-08-20] MEDS ORDERED: Ondansetron 4 MG/2 ML VIAL IVP PRN (20:15)
[2017-08-20] MEDS ORDERED: Naloxone 0.4 MG/ML INJ IVP PRN (20:15)
[2017-08-20] MEDS ORDERED: Albuterol 2.5 MG/3 ML NEBULIZER IH PRN (20:45)
[2017-08-20] MEDS: Sucralfate 1 GM TABLET PO SCH (22:05)
[2017-08-20] MEDS: Lactobacillus 1 EACH CAP.SPRINK PO SCH (22:05)
[2017-08-20] MEDS: Fenofibrate 54 MG TABLET PO SCH (22:05)
[2017-08-20] MEDS: metroNIDAZOLE 500 MG TABLET PO SCH (22:05)
[2017-08-20] MEDS: ALPRAZolam 1 MG TABLET PO SCH (22:05)
[2017-08-20] MEDS: 0.9 % Sodium Chloride 1,000 ML IVC SCH (22:05)
[2017-08-20] MEDS: Ipratropium/Albuterol Neb 3 ML IH SCH (22:48)
[2017-08-20] MEDS: Budesonide/Formoterol 160/4.5 MDI IH SCH (22:49)
--- NOTE | 2017-08-21 00:55 | Internal Med History&Physical ---
Date of Encounter: 08/21/17 Time of Encounter: 18:07 Assessment and Plan (1) Failure to thrive Current visit: Yes Status: Acute Patient and family state that this has been going on for last few months. Most recently, she has not eaten for last 4 days. She was hospitalized this past CHF exacerbation and Afib; hospital course was complicated by C. diff colitis. She has had persistent diarrhea since then. Currently on new course of flagyl started 2 days ago for C. diff colitis. She has had persistent N/V. She states that she has "gall taste" in mouth. She has has cholecystecomy. She has had multiple GI workups and EGDs in the past, most recently by Dr. Mclaughlin. She was told that she may have ulcerative colitis, but has not been treated for this. She also feels like "food gets caught in throat. " Will start liberalized diet to encourage PO intake. Control N/V with anti- emetics and PPI. Continue C. diff treatment. Consult nutrition. Will consult GI on Tuesday. Continue gentle hydration by IVF for now until PO intake improves. Will monitor electrolytes and replete as necessary. Qualifiers: Failure to thrive age range: in adult Qualified Code(s): R62.7 - Adult failure to thrive (2) Weakness Current visit: Yes Status: Acute This has been progressive over last few months. Likely related to poor PO intake and severe protein calorie malnutrition. Will address failure to thrive as per above. Will consult PT/OT. (3) Anemia Current visit: Yes Status: Chronic Hgb stable. Will continue to monitor. Recheck CBC in AM. Qualifiers: Anemia type: unspecified type Qualified Code(s): D64.9 - Anemia, unspecified (4) Congestive heart failure (CHF) Current visit: Yes Status: Chronic History of systolic CHF, EF = 30-35%. BNP = 260. No symptoms of acute exacerbation. Continue home medications. Qualifiers: Qualified Code(s): I50.23 - Acute on chronic systolic (congestive) heart failure (5) DVT prophylaxis Current visit: Yes Status: Acute Continue SCDs. Consider lovenox if no change in Hgb overnight. (6) Diarrhea Current visit: Yes Status: Chronic History of C. diff colitis and ulcerative colitis. Continue recently restarted flagyl for now. Obtain C. diff PCR. Consider adding oral vancomycin. Will consult GI as per above. Previously on steroids for ulcerative colitis; may consider again with GI's input. Qualifiers: Diarrhea type: presumed infectious Qualified Code(s): A09 - Infectious gastroenteritis and colitis, unspecified (7) Ulcerative colitis Current visit: No Status: Chronic GI consulted as per above. Will defer steroids until they evaluate. Qualifiers: Ulcerative colitis location: other ulcerative colitis Digestive disease complication type: without complication Qualified Code(s): K51.80 - Other ulcerative colitis without complications (8) Anxiety Current visit: No Status: Chronic This may be contributing to failure to thrive. Continue home medications. Will consider readdressing once medical causes of failure to thrive are addressed. (9) COPD (chronic obstructive pulmonary disease) Current visit: No Status: Chronic No respiratory issues. Continue home medications. Qualifiers: COPD type: emphysema Emphysema type: unspecified Qualified Code(s): J43.9 - Emphysema, unspecified (10) Depression Current visit: No Status: Chronic This may be contributing to failure to thrive. Continue home medications. Will consider readdressing once medical causes of failure to thrive are addressed. Qualifiers: Depression Type: unspecified Qualified Code(s): F32.9 - Major depressive disorder, single episode, unspecified (11) Hypothyroidism Current visit: No Status: Chronic Continue home medications. Recheck TSH in AM. Qualifiers: Hypothyroidism type: unspecified Qualified Code(s): E03.9 - Hypothyroidism , unspecified (12) Severe protein-calorie malnutrition Current visit: No Status: Chronic Addressing as per above. Nutrition consulted for recommendations. (13) Dysphagia Current visit: No Status: Resolved ST consulted for swallow evaluation as per above. Qualifiers: Dysphagia type: oropharyngeal phase Qualified Code(s): R13.12 - Dysphagia, oropharyngeal phase Internal Medicine - H&P: HPI Chief complaint: "Don't feel like eating" History of present illness: Ms. Tucker is a 72 year old white female who presented to ED today after her PCP recommended she come to hospital for dehydration. Family is with patient in the room and help provide additional history. Family states that patient has not been eating well for last several months. She has lost significant weight during that time. She has had multiple medical issues that have required hospitalization since knee replacement surgery 2 years ago. She was hospitalized this past for CHF exacerbation and had a protracted hospital course complicated by C. diff colitis. She has had diarrhea continuously since then. She was restarted on a flagyl course few days ago. She has persistent N/V. She was seen by GI, and had her "throat opened up." She was also told that she has ulcerative colitis by Dr. Mclaughlin, but this has not been followed up on. Most recently, she has not eaten for last 4 days. She states that she does not have an appetite, and also does not like eating because 1) she has a "gall taste" in her mouth, and 2) sometimes has things get caught in her throat. She has multiple chronic medical issues, including CHF and COPD. She has had prior cholecystecomy. She denies chest pain and SOB. Past Med Surg Social Fam HX - Past Medical History Medical history: arthritis, asthma, cardiomyopathy, CHF, COPD, coronary artery disease, CVA, GERD, hyperlipidemia, hypertension, myocardial infarction, osteoporosis, renal disease, thyroid disease, other Psychiatric history: anxiety, depression - Past Surgical History Surgical History: cholecystectomy, herniorrhaphy, hysterectomy, knee replacement , other - Social History Smoking Status: Former smoker Smokeless Tobacco Status: No Alcohol use: none Drug use: none - Family History Mother Adopted: No Family Member Ethnicity: Non- Living Status: Hx Family Cardiac Disorders: Yes (HD, HTN) Hx Family Cancer: Yes Hx Family Endocrine Disorder: Yes (DM) Father Adopted: No Family Member Ethnicity: Non- Living Status: Hx Family Cardiac Disorders: Yes (HD, HTN) Hx Family Cancer: Yes Hx Family Endocrine Disorder: Yes (DM) Brother Family Member Ethnicity: Non- Living Status: Hx Family Cardiac Disorders: Yes ([place], HD, HTN) Sister Family Member Ethnicity: Non- Living Status: Still Living Hx Family Cancer: Yes (Esophageal) Internal Medicine - H&P: Meds Albuterol Sulfate [Albuterol Inhaler] 2 puff IH Q4-6H PRN 10/15/15 [History] Allopurinol [Zyloprim 100 MG] 100 mg PO DAILY 10/15/15 [History] Fenofibrate Nanocrystallized [Tricor] 145 mg PO QPM 10/15/15 [History] Levothyroxine [Synthroid] 112 mcg PO DAILY 10/15/15 [History] Ropinirole HCl [Requip] 0.5 - 1 mg PO HS 10/15/15 [History] Sertraline [Zoloft] 100 mg PO BID 10/15/15 [History] Tiotropium [Spiriva] 18 mcg IH DAILY 10/15/15 [History] Ipratropium/Albuterol Neb [Duoneb] 3 ml IH QID 03/29/16 [History] Gemfibrozil [Lopid] 600 mg PO BIDWM 05/28/16 [History] Ferrous Sulfate 325 mg PO DAILY 11/23/16 [History] Sucralfate [Carafate] 1 gm PO BID 11/23/16 [History] Folic Acid 1 mg PO DAILY #30 tablet 11/29/16 [Rx] Budesonide/Formoterol 160/4.5 [Symbicort 160/4.5] 2 puff IH BIDR #1 02/10/17 [Rx ] ALPRAZolam [Xanax 1 MG Tablet] 1 mg PO BID 03/19/17 [History] Megestrol Acetate [Megace] 40 mg PO BID 03/19/17 [History] hydrOXYzine pamoate [HydrOXYzine Pamoate] 25 mg PO Q8H PRN 05/27/17 [History] Lactobacillus [Culturelle] 2 each PO BID 30 Days [email or web address] 06/01/17 [Rx] Aspirin Enteric Coated [Aspirin EC] 81 mg PO DAILY tablet. 06/23/17 [Rx] Omeprazole [PriLOSEC] 40 mg PO DAILY 08/20/17 [History] Ondansetron HCl [Ondansetron HCl] 4 mg PO TID PRN 08/20/17 [History] Potassium Chloride [K-Tab ER] 20 meq PO DAILY 08/20/17 [History] dilTIAZem HCl [Diltiazem 24Hr ER] 120 mg PO DAILY 08/20/17 [History] metroNIDAZOLE [Flagyl] 500 mg PO TID 08/20/17 [History] 3 Allergy/AdvReac Type Severity Reaction Status Date / Time codeine Allergy Swelling Verified 08/20/17 14:27 of Lip/Tongue/Throat Iodinated Contrast- Oral and AdvReac See Verified 08/20/17 14:27 IV Dye Comments [Iodinated Contrast Media - Oral and] meclizine AdvReac Confusion Verified 08/20/17 14:27 All Systems PM: A 10-system review of systems was performed and is negative for pertinent findings except as documented above in the HPI. - Constitutional Constitutional: anorexia, malaise, weakness, weight loss, no chills, no fever(s) - EENT Eyes: no blurry vision, no change in vision, no diplopia, no discharge, no loss of vision Nose, mouth and throat: dysphagia, no mouth pain, no nasal congestion, no nasal discharge, no neck pain, no odynophagia, no sore throat - Cardiovascular Cardiovascular ROS IM: no chest pain, no diaphoresis, no dyspnea, no edema, no lightheadedness, no palpitations, no syncope - Respiratory Respiratory: no cough, no dyspnea, no hemoptysis, no wheezing - Gastrointestinal Gastrointestinal: abdominal pain, change in bowel habits, diarrhea, dysphagia, loose stools, nausea, vomiting, no constipation, no heartburn, no hematemesis, no hematochezia, no melena - Genitourinary Genitourinary: no difficulty voiding, no dysuria, no urinary frequency, no urinary incontinence - Musculoskeletal Musculoskeletal ROS IM: no joint swelling, no myalgias, no numbness - Integumentary Integumentary IM: no erythema, no new lesions, no rash, no skin ulcer - Neurological Neurological ROS: weakness, no confusion, no dizziness, no focal weakness, no headache(s) - Psychiatric Psychiatric: change in appetite, irritability, no anxiety, no depression, no homicidal ideation, no suicidal ideation - Endocrine Endocrine IM: fatigue, no cold intolerance, no heat intolerance, no polydipsia, no polyphagia, no polyuria - Hematologic/Lymphatic Hematologic/Lymphatic: no easy bleeding, no easy bruising, no lymphadenopathy - Constitutional Vitals: Temp Pulse Resp BP Pulse Ox 97.9 F 60 16 99/59 96 08/20/17 23:00 08/20/17 23:00 08/20/17 23:00 08/20/17 23:00 08/20/17 23:00 General appearance: Present: cooperative, A&O X 3, underweight, answers questions appropriately. Absent: no acute distress - Head Head exam: Present: atraumatic, normocephalic - Eye Eye exam: Present: EOMI, PERRL. Absent: nystagmus, scleral icterus - ENT ENT exam: Present: mucous membranes dry, normal oropharynx - Neck Neck exam general surgery: Present: supple, trachea midline. Absent: lymphadenopathy, tenderness, thyromegaly - Respiratory Respiratory exam: Present: CTAB. Absent: accessory muscle use, rales, rhonchi, wheezes Additional comments: Normal WOB - Cardiovascular Cardiovascular exam: Present: RRR, +S1, +S2. Absent: diastolic murmur, gallop, rubs, systolic murmur Additional comments: No BLE edema - GI/Abdominal GI/Abdominal exam: Present: normal bowel sounds, soft. Absent: distended, guarding, hepatomegaly, mass, rebound, splenomegaly Additional comments: Mild TTP diffusely across epigastrium - Extremities Exam Extremities exam: Present: full ROM, normal inspection, radial pulses palpable and symmetrical. Absent: joint swelling, pedal edema, tenderness - Neurological Exam Neurological exam: Present: alert, CN II-XII intact, no focal deficits, strengths equal and symetr throughout. Absent: facial droop, speech deficit - Psychiatric Psychiatric exam: Present: normal affect, normal mood. Absent: anxious, depressed, homicidal ideation, suicidal ideation - Skin Skin exam: Present: dry, intact, warm. Absent: cyanosis, rash Internal Med - H&P Results - Labs CBC & Chem 7: 08/21/17 02:57 08/21/17 02:57 Labs: Cardiac Enzymes 08/20/17 Range/Units 20:30 Troponin I 0.03 (< 0.04) ng/mL - VTE Documentation of Mechanical Device: Intermittent pneumatic compression device
[2017-08-21 03:31] LABS: Basophils % 0.5 %; Eosinophils # 0.1 K/mcL (0.0-0.6); Eosinophils % 1.9 %; Hematocrit 27.1 % (35.3-44.9); Hemoglobin 9.3 g/dL (11.5-15.4); Immature Granulocytes % 1.2 % (0-4); Lymphocytes # 2.8 K/mcL (0.6-4.6); Lymphocytes % 37.7 %; Mean Corpuscular HGB Conc 34.3 g/dL (31.6-35.5); Mean Corpuscular Hemoglobin 29.8 pg (28.0-33.3); Mean Corpuscular Volume 86.9 fL (83.0-100.0); Mean Platelet Volume 10.7 fL (9.4-12.4); Monocytes # 0.5 K/mcL (0.0-1.3); Monocytes % 6.8 %; Neutrophils # 3.8 K/mcL (1.6-8.9); Platelet Count 384 K/mcL (140-400); Red Blood Count 3.12 M/mcL (3.82-4.97); Red Cell Distribution Width 16.5 % (11.5-14.5); Segmented Neutrophils % 51.9 %
[2017-08-21 03:55] LABS: BUN/Creatinine Ratio 41 (6-26); Blood Urea Nitrogen 39 mg/dL (8-23); Calcium 11.1 mg/dL (8.6-10.3); Carbon Dioxide 17 mEq/L (23-29); Chloride 114 mEq/L (98-107); Glucose 87 mg/dL (70-105); Magnesium 1.4 mg/dL (1.6-2.6); Osmolality,Calculated 291 (280-300); Sodium 136 mEq/L (136-145); eGFR For African Americans > 60 (> 60); eGFR For Non-African Americans 58 (> 60)
[2017-08-21] MEDS: Ipratropium/Albuterol Neb 3 ML IH SCH ×4 (04:03→22:39)
[2017-08-21] MEDS: Diltiazem CD (24hr) 120 MG CAPSULE PO SCH (08:02)
[2017-08-21] MEDS: ALPRAZolam 1 MG TABLET PO SCH (08:02)
[2017-08-21] MEDS: Aspirin Enteric Coated 81 MG Tablet PO SCH (08:02)
[2017-08-21] MEDS: Folic Acid 1 MG TABLET PO SCH (08:02)
[2017-08-21] MEDS: metroNIDAZOLE 500 MG TABLET PO SCH ×3 (08:02→21:51)
[2017-08-21] MEDS: Lactobacillus 1 EACH CAP.SPRINK PO SCH ×2 (08:02→21:52)
[2017-08-21] MEDS: Sucralfate 1 GM TABLET PO SCH ×2 (08:02→21:52)
[2017-08-21] MEDS: *HR* Enoxaparin 40 MG/0.4 ML SYRINGE SQ SCH (09:30)
--- NOTE | 2017-08-21 09:35 | Internal Med Progress Note ---
Date of Encounter: 08/21/17 Time of Encounter: 09:35 - Assessment and plan (1) Failure to thrive Current Visit: Yes Status: Acute Assessment and plan: Unchanged. Ate some ice cream with me last night. Still having N/V/D this AM. Continue liberalized diet and encourage PO intake. Control N/V with anti- emetics and PPI. Will start scheduled IV ativan in place of home xanax to better control anxiety and also help with N/V. I have also made changes to antidepressants as per below; sertraline decreased and amitriptyline added as it may better help if there is some component of IBS. Continue C. diff treatment; holding off on adding oral vancomycin for now until GI is consulted on Tuesday. Nutrition consulted. Continue gentle hydration by IVF for now until PO intake improves. Will monitor electrolytes and replete as necessary. Qualifiers: Failure to thrive age range: in adult Qualified Code(s): R62.7 - Adult failure to thrive (2) Weakness Current Visit: Yes Status: Acute Assessment and plan: This has been progressive over last few months. Likely related to poor PO intake and severe protein calorie malnutrition. Will address failure to thrive as per above. Will consult PT/OT. (3) Anemia Current Visit: Yes Status: Chronic Assessment and plan: Hgb stable. Will continue to monitor. Recheck CBC in AM. Qualifiers: Anemia type: unspecified type Qualified Code(s): D64.9 - Anemia, unspecified (4) Congestive heart failure (CHF) Current Visit: Yes Status: Chronic Assessment and plan: History of systolic CHF, EF = 30-35%. BNP = 260. No symptoms of acute exacerbation. Continue home medications. Troponin with slight bump to 0.04 this AM, but she remains asymptomatic. Will monitor and follow up on third troponin. Qualifiers: Qualified Code(s): I50.23 - Acute on chronic systolic (congestive) heart failure (5) DVT prophylaxis Current Visit: Yes Status: Acute Assessment and plan: Started SC lovenox today. (6) Diarrhea Current Visit: Yes Status: Chronic Assessment and plan: Unchanged. History of C. diff colitis and ulcerative colitis. Continue recently restarted flagyl for now; will hold off on oral vancomycin as per above. Follow up C. diff PCR. Added amitriptyline (and decreased home sertraline) as this may help if there is an IBS component. Will consult GI on Tuesday. Previously on steroids for ulcerative colitis; may consider again with GI's input. Qualifiers: Diarrhea type: presumed infectious Qualified Code(s): A09 - Infectious gastroenteritis and colitis, unspecified (7) Ulcerative colitis Current Visit: No Status: Chronic Assessment and plan: GI consulted as per above. Will defer steroids until they evaluate. Qualifiers: Ulcerative colitis location: other ulcerative colitis Digestive disease complication type: without complication Qualified Code(s): K51.80 - Other ulcerative colitis without complications (8) Anxiety Current Visit: No Status: Chronic Assessment and plan: This may be contributing to failure to thrive. Continue home medications. Will switch home xanax to IV ativan 1 mg Q8H to see if this better helps with anxiety and nausea-control. (9) COPD (chronic obstructive pulmonary disease) Current Visit: No Status: Chronic Assessment and plan: No respiratory issues. Continue home medications. Qualifiers: COPD type: emphysema Emphysema type: unspecified Qualified Code(s): J43.9 - Emphysema, unspecified (10) Depression Current Visit: No Status: Chronic Assessment and plan: This may be contributing to failure to thrive. Home sertraline decreased and amitriptyline added as per above. Qualifiers: Depression Type: unspecified Qualified Code(s): F32.9 - Major depressive disorder, single episode, unspecified (11) Hypothyroidism Current Visit: No Status: Chronic Assessment and plan: Continue home medications. Recheck TSH in AM. Qualifiers: Hypothyroidism type: unspecified Qualified Code(s): E03.9 - Hypothyroidism , unspecified (12) Severe protein-calorie malnutrition Current Visit: No Status: Chronic Assessment and plan: Addressing as per above. Nutrition consulted for recommendations. (13) Dysphagia Current Visit: No Status: Resolved Assessment and plan: ST consulted for swallow evaluation as per above. Qualifiers: Dysphagia type: oropharyngeal phase Qualified Code(s): R13.12 - Dysphagia, oropharyngeal phase - Time Spent With Patient less than 15 minutes - Subjective Interval history: Patient had no acute events overnight. She is sleeping peacefully in bed this AM. Nursing staff reports that she has not had breakfast. She states that she wants to eat something. She still has N/V/D. Nursing staff does not suspect any swallowing problems with AM medications and liquids. She denies any chest pain, SOB, fever, or chills. - Constitutional Vitals: Temp Pulse Resp BP Pulse Ox 98.5 F 60 15 131/73 92 08/21/17 07:43 08/21/17 07:43 08/21/17 07:43 08/21/17 07:43 08/21/17 07:43 General appearance: Present: cooperative, A&O X 3, underweight, answers questions appropriately. Absent: no acute distress - Respiratory Respiratory exam: Present: CTAB. Absent: accessory muscle use, rales, rhonchi, wheezes Additional comments: Normal WOB - Cardiovascular Cardiovascular exam: Present: RRR, +S1, +S2. Absent: diastolic murmur, gallop, rubs, systolic murmur Additional comments: No BLE edema - GI/Abdominal GI/Abdominal exam: Present: normal bowel sounds, soft. Absent: distended, hepatomegaly, mass, splenomegaly Additional comments: Mild TTP diffusely across lower abdomen - Psychiatric Psychiatric exam: Present: normal affect, normal mood. Absent: anxious, depressed - Skin Skin exam: Present: dry, intact, warm. Absent: cyanosis, rash Internal Medicine: Result - Labs CBC & Chem 7: 08/21/17 02:57 08/21/17 02:57 Labs: Short CBC 08/21/17 Range/Units 02:57 WBC 7.4 (4.3-11.1) K/mcL Hgb 9.3 L (11.5-15.4) g/dL Hct 27.1 L (35.3-44.9) % Plt Count 384 (140-400) K/mcL Neutrophils # 3.8 (1.6-8.9) K/mcL BMP 08/21/17 02:57 Sodium 136 Potassium 3.0 L Chloride 114 H Carbon Dioxide 17 L BUN 39 H Creatinine 0.95 Glucose 87 Calcium 11.1 H Cardiac Enzymes 08/20/17 08/21/17 Range/Units 20:30 02:57 Troponin I 0.03 0.04 H* (< 0.04) ng/mL - ABG Interpretation ABG results: PT/INR, D-dimer PT 15.2 Seconds (9.4-12.1) H 08/20/17 14:50 - VTE Documentation of Mechanical Device: Intermittent pneumatic compression device Consult Discharge Plan - Plan Referrals: Orestes Grace MD [Primary Care Provider] -
[2017-08-21] MEDS ORDERED: Pantoprazole 40 MG VIAL IVP STA (09:39)
[2017-08-21] MEDS: Budesonide/Formoterol 160/4.5 MDI IH SCH ×2 (11:04→22:39)
[2017-08-21] MEDS: 0.9 % Sodium Chloride 1,000 ML IVC SCH (11:42)
[2017-08-21] MEDS: rOPINIRole 0.25 MG TABLET PO SCH ×2 (14:23→21:51)
[2017-08-21] MEDS: *HR* LORazepam 2 MG/ML VIAL IVP SCH ×2 (15:27→23:52)
[2017-08-21] MEDS: Fenofibrate 54 MG TABLET PO SCH (17:47)
[2017-08-21] MEDS: Pantoprazole 40 MG VIAL IVP SCH (17:47)
[2017-08-22] MEDS: Ipratropium/Albuterol Neb 3 ML IH SCH ×4 (04:13→22:23)
[2017-08-22] MEDS: Pantoprazole 40 MG VIAL IVP SCH ×2 (06:10→17:31)
[2017-08-22 06:45] LABS: Basophils % 0.5 %; Eosinophils # 0.4 K/mcL (0.0-0.6); Eosinophils % 5.1 %; Hematocrit 28.4 % (35.3-44.9); Hemoglobin 9.1 g/dL (11.5-15.4); Immature Granulocytes % 0.6 % (0-4); Lymphocytes # 2.5 K/mcL (0.6-4.6); Lymphocytes % 30.6 %; Mean Corpuscular Hemoglobin 30.2 pg (28.0-33.3); Mean Platelet Volume 10.6 fL (9.4-12.4); Monocytes # 0.5 K/mcL (0.0-1.3); Monocytes % 6.4 %; Neutrophils # 4.6 K/mcL (1.6-8.9); Platelet Count 356 K/mcL (140-400); Red Blood Count 3.01 M/mcL (3.82-4.97); Red Cell Distribution Width 17.8 % (11.5-14.5); Segmented Neutrophils % 56.8 %
[2017-08-22 06:47] LABS: Mean Corpuscular Volume 94.4 fL (83.0-100.0)
[2017-08-22 07:26] LABS: BUN/Creatinine Ratio 37 (6-26); Blood Urea Nitrogen 31 mg/dL (8-23); Calcium 10.8 mg/dL (8.6-10.3); Carbon Dioxide 14 mEq/L (23-29); Chloride 120 mEq/L (98-107); Glucose 75 mg/dL (70-105); Magnesium 1.9 mg/dL (1.6-2.6); Osmolality,Calculated 295 (280-300); Potassium 4.4 mEq/L (3.5-5.1); Sodium 140 mEq/L (136-145); Thyroid Stimulating Hormone 7.285 mcIU/mL (0.340-5.600); eGFR For African Americans > 60 (> 60); eGFR For Non-African Americans > 60 (> 60)
--- NOTE | 2017-08-22 08:38 | Internal Med Progress Note ---
Date of Encounter: 08/22/17 Time of Encounter: 08:34 - Assessment and plan (1) Failure to thrive Current Visit: Yes Status: Acute Assessment and plan: Unchanged. Minimal PO intake over last 24 hours per nursing staff. Still having N/V/D this AM. Continue liberalized diet and encourage PO intake. Control N/V with anti-emetics and PPI. Advised nursing staff to pretreat with zofran about 30-60 minutes before each meal. Continue schedule IV ativan in place of home xanax to better control anxiety and also help with N/V. I have also made changes to antidepressants as per below; sertraline decreased and amitriptyline added as it may better help if there is some component of IBS. Continue C. diff treatment; holding off on adding oral vancomycin for now until GI is consulted on Tuesday. Nutrition consulted. Continue gentle hydration by IVF for now until PO intake improves. Will monitor electrolytes and replete as necessary. Qualifiers: Failure to thrive age range: in adult Qualified Code(s): R62.7 - Adult failure to thrive (2) Weakness Current Visit: Yes Status: Acute Assessment and plan: This has been progressive over last few months. Likely related to poor PO intake and severe protein calorie malnutrition. Will address failure to thrive as per above. Will consult PT/OT. (3) Anemia Current Visit: Yes Status: Chronic Assessment and plan: Hgb stable. Will continue to monitor. Recheck CBC in AM. Qualifiers: Anemia type: unspecified type Qualified Code(s): D64.9 - Anemia, unspecified (4) Congestive heart failure (CHF) Current Visit: Yes Status: Chronic Assessment and plan: History of systolic CHF, EF = 30-35%. BNP = 260. No symptoms of acute exacerbation. Continue home medications. Troponin with slight bump to 0.04 yesterday, but she remains asymptomatic. Will monitor and consider cardiology consult it symptomatic. Qualifiers: Qualified Code(s): I50.23 - Acute on chronic systolic (congestive) heart failure (5) DVT prophylaxis Current Visit: Yes Status: Acute Assessment and plan: Continue SC lovenox. (6) Diarrhea Current Visit: Yes Status: Chronic Assessment and plan: Unchanged. History of C. diff colitis and ulcerative colitis. Continue recently restarted flagyl for now; will hold off on oral vancomycin as per above. Follow up C. diff PCR. Added amitriptyline (and decreased home sertraline) as this may help if there is an IBS component. GI consulted today. Previously on steroids for ulcerative colitis; may consider again with GI's input. Qualifiers: Diarrhea type: presumed infectious Qualified Code(s): A09 - Infectious gastroenteritis and colitis, unspecified (7) Ulcerative colitis Current Visit: No Status: Chronic Assessment and plan: GI consulted as per above. Will defer steroids until they evaluate. Qualifiers: Ulcerative colitis location: other ulcerative colitis Digestive disease complication type: without complication Qualified Code(s): K51.80 - Other ulcerative colitis without complications (8) Anxiety Current Visit: No Status: Chronic Assessment and plan: This may be contributing to failure to thrive. Continue home medications. Will switch home xanax to IV ativan 1 mg Q8H to see if this better helps with anxiety and nausea-control. Sertraline decreased and amitriptyline added. (9) COPD (chronic obstructive pulmonary disease) Current Visit: No Status: Chronic Assessment and plan: No respiratory issues. Continue home medications. Qualifiers: COPD type: emphysema Emphysema type: unspecified Qualified Code(s): J43.9 - Emphysema, unspecified (10) Depression Current Visit: No Status: Chronic Assessment and plan: This may be contributing to failure to thrive. Home sertraline decreased and amitriptyline added as per above. Qualifiers: Depression Type: unspecified Qualified Code(s): F32.9 - Major depressive disorder, single episode, unspecified (11) Hypothyroidism Current Visit: No Status: Chronic Assessment and plan: TSH elevated this AM. Will increase home levothyroxine to 125 mcg QD. Qualifiers: Hypothyroidism type: unspecified Qualified Code(s): E03.9 - Hypothyroidism , unspecified (12) Severe protein-calorie malnutrition Current Visit: No Status: Chronic Assessment and plan: Addressing as per above. Nutrition consulted for recommendations. (13) Dysphagia Current Visit: No Status: Suspected Assessment and plan: ST consulted for swallow evaluation as per above. Qualifiers: Dysphagia type: oropharyngeal phase Qualified Code(s): R13.12 - Dysphagia, oropharyngeal phase - Time Spent With Patient less than 15 minutes - Subjective Interval history: Patient had no acute events overnight. She awake this AM with breakfast in front of her, but will not eat due to pain in her lower abdomen and N/V. She continues to have diarrhea. Nursing staff does not report any swallowing problems with medications. She denies any chest pain, SOB, fever, or chills. She has no other complaints. - Constitutional Vitals: Temp Pulse Resp BP Pulse Ox 98.2 F 70 16 120/63 100 08/22/17 07:00 08/22/17 07:00 08/22/17 07:00 08/22/17 07:00 08/22/17 07:00 General appearance: Present: cooperative, A&O X 3, no acute distress, underweight, answers questions appropriately - Respiratory Respiratory exam: Present: CTAB. Absent: accessory muscle use, rales, rhonchi, wheezes Additional comments: Normal WOB - Cardiovascular Cardiovascular exam: Present: RRR, +S1, +S2. Absent: diastolic murmur, gallop, rubs, systolic murmur Additional comments: No BLE edema - GI/Abdominal GI/Abdominal exam: Present: normal bowel sounds, soft. Absent: distended, hepatomegaly, mass, splenomegaly, tenderness - Psychiatric Psychiatric exam: Present: normal affect, normal mood. Absent: anxious, depressed - Skin Skin exam: Present: dry, intact, warm. Absent: cyanosis, rash Internal Medicine: Result - Labs CBC & Chem 7: 08/22/17 06:31 08/22/17 06:31 Labs: Short CBC 08/22/17 Range/Units 06:31 WBC 8.1 (4.3-11.1) K/mcL Hgb 9.1 L (11.5-15.4) g/dL Hct 28.4 L (35.3-44.9) % Plt Count 356 (140-400) K/mcL Neutrophils # 4.6 (1.6-8.9) K/mcL BMP 08/22/17 06:31 Sodium 140 Potassium 4.4 Chloride 120 H Carbon Dioxide 14 L BUN 31 H Creatinine 0.84 Glucose 75 Calcium 10.8 H Cardiac Enzymes 08/21/17 Range/Units 11:00 Troponin I 0.04 H* (< 0.04) ng/mL - ABG Interpretation ABG results: PT/INR, D-dimer PT 15.2 Seconds (9.4-12.1) H 08/20/17 14:50 Consult Discharge Plan - Plan Referrals: Orestes Grace MD [Primary Care Provider] -
[2017-08-22] MEDS: Folic Acid 1 MG TABLET PO SCH (08:59)
[2017-08-22] MEDS: Aspirin Enteric Coated 81 MG Tablet PO SCH (08:59)
[2017-08-22] MEDS: *HR* Enoxaparin 40 MG/0.4 ML SYRINGE SQ SCH (08:59)
[2017-08-22] MEDS: Lactobacillus 1 EACH CAP.SPRINK PO SCH ×2 (08:59→21:05)
[2017-08-22] MEDS: *HR* LORazepam 2 MG/ML VIAL IVP SCH ×2 (09:00→17:32)
[2017-08-22] MEDS: Diltiazem CD (24hr) 120 MG CAPSULE PO SCH (09:00)
[2017-08-22] MEDS: metroNIDAZOLE 500 MG TABLET PO SCH ×3 (09:00→21:05)
[2017-08-22] MEDS: Sucralfate 1 GM TABLET PO SCH ×2 (09:00→21:05)
[2017-08-22] MEDS: Budesonide/Formoterol 160/4.5 MDI IH SCH ×2 (11:29→22:23)
--- NOTE | 2017-08-22 11:57 | Gastroenterology Consult Note ---
<Ike Cortez - Last Filed: 08/22/17 11:54> Date of Encounter: 08/22/17 Time of Encounter: 10:45 - Assessment and plan (1) Collagenous colitis Current Visit: Yes Status: Acute Assessment and plan: Colonoscopy completed 07/31/[address] Ayala, no mention of ulcerative colitis, however it was positive for collagenous colitis. Will check fecal calprotectin and start Solu-Medrol 45 mg daily. If fecal calprotectin negative, start Entocort 9mg daily for 2 months on discharge. (2) Diarrhea Current Visit: Yes Status: Chronic Assessment and plan: Likely secondary to collagenous colitis. Colonoscopy completed 07/31/[address] Ayala, no mention of ulcerative colitis, however it was positive for collagenous colitis. Will check fecal calprotectin and start Solu-Medrol 45 mg daily. If fecal calprotectin negative, start Entocort 9mg daily for 2 months on discharge. Qualifiers: Diarrhea type: presumed infectious Qualified Code(s): A09 - Infectious gastroenteritis and colitis, unspecified (3) C. difficile colitis Current Visit: No Status: Acute Assessment and plan: C.Diff was negative on 06/05/17, 07/15/2017, and 08/21/2017. Last positive C.Diff was 05/19/2017. (4) Failure to thrive Current Visit: Yes Status: Acute Assessment and plan: Speech therapy consulted. Pt saw Dr. Nunez as outpatient for possible feeding tube insertion. Qualifiers: Failure to thrive age range: in adult Qualified Code(s): R62.7 - Adult failure to thrive - Time Spent With Patient Total time spent is greater than 50% in coordination of care (as documented) at patient's floor/unit and/or counseling patient: GI History of Present Illness - Data of Consult Patient: known to practice within the last 3 years Consult date: 08/22/17 Requesting Physician: Meryl Lopez CNP - Consult Narrative Reason for consult: History of C diff, questionable ulcerative colitis History of present illness: Ms. Tucker is a 72 year old female with PMHx of right hemicolectomy secondary to unresectable colon polyp 2008, arthritis, asthma, cardiomyopathy, CHF, COPD, CAD, CVA, GERD, HLD, HTN, DC, who presented to the ED after her PCP recommended she come to hospital for dehydration. Family states that patient has not been eating well for last several months. She has lost significant weight during that time. She was hospitalized this past for CHF exacerbation and had a protracted hospital course complicated by C. diff colitis and has continued to have diarrhea since that time. She was restarted on a Flagyl course on 08/18/2017 by her PCP. She has persistent N/V. She states that she does not have an appetite, and also does not like eating because 1) she has a "gall taste" in her mouth, and 2) sometimes has things get caught in her throat. She was seen by Dr. Nunez on 08/15/2017 for evaluation for feeding tube insertion. She was referred to Speech Therapy for swallow evaluation prior to feeding tube insertion. C.Diff was negative on 06/05/17, 07/15/2017, and . Last positive C.Diff was 05/19/2017. Procedures: EGD 01/19/2017 Dr. Mclaughlin: Medium sized hiatal hernia, dilation of esophagus. EGD 07/31/2016 Dr. Ayala: Nonbleeding gastric ulcer, small hiatal hernia, monilial esophagitis. Colonoscopy 07/31/2016 Dr. Ayala: Scattered moderate inflammation in the descending and transverse colon, collagenous colitis, ulcerated mucosa at anastomosis. NSAIDs: ASA Anticoagulation: None Past Med Surg Social Fam HX - Past Medical History Medical history: arthritis, asthma, cardiomyopathy, CHF, COPD, coronary artery disease, CVA, GERD, hyperlipidemia, hypertension, myocardial infarction, osteoporosis, renal disease, thyroid disease, other Psychiatric history: anxiety, depression - Past Surgical History Surgical History: cholecystectomy, herniorrhaphy, hysterectomy, knee replacement , other - Social History Smoking Status: Former smoker Smokeless Tobacco Status: No Alcohol use: none Drug use: none - Family History Mother Adopted: No Family Member Ethnicity: Non- Living Status: Hx Family Cardiac Disorders: Yes (HD, HTN) Hx Family Cancer: Yes Hx Family Endocrine Disorder: Yes (DM) Father Adopted: No Family Member Ethnicity: Non- Living Status: Hx Family Cardiac Disorders: Yes (HD, HTN) Hx Family Cancer: Yes Hx Family Endocrine Disorder: Yes (DM) Brother Family Member Ethnicity: Non- Living Status: Hx Family Cardiac Disorders: Yes (DC, HD, HTN) Sister Family Member Ethnicity: Non- Living Status: Still Living Hx Family Cancer: Yes (Esophageal) - Gastrointestinal Gastrointestinal: Present: as per HPI - Constitutional Constitutional: as per HPI - EENT Eyes: as per HPI Ears: Present: as per HPI Nose, mouth and throat: Present: as per HPI - Cardiovascular Cardiovascular ROS: Present: as per HPI - Respiratory Respiratory IM: Present: as per HPI - Genitourinary Genitourinary: Absent: change in color, Urinary frequency - Neurological ROS Neurological GI: Present: as per HPI - Hematologic/Lymphatic Hematologic/Lymphatic pediatric: Present: as per HPI - Musculoskeletal Musculoskeletal ROS GI: Present: as per HPI - Integumentary Integumentary GI: Present: as per HPI - Psychiatric ROS Psychiatric GI: Present: as per HPI - Endocrine Endocrine IM: Present: as per HPI - Constitutional Vitals: Temp Pulse Resp BP Pulse Ox 98.3 F 84 16 118/65 96 08/22/17 11:47 08/22/17 11:47 08/22/17 11:47 08/22/17 11:47 08/22/17 11:47 General appearance: Present: cooperative, A&O X 3, no acute distress, answers questions appropriately - Head Head exam: Present: atraumatic, normocephalic - Eye Eye exam: Present: normal appearance, sclera anicteric - ENT ENT exam: Present: mucous membranes dry - Neck Neck exam general surgery: Present: normal inspection, trachea midline - Respiratory Respiratory exam: Present: decreased breath sounds, CTAB - Cardiovascular Cardiovascular exam: Present: RRR, +S1, +S2 - GI/Abdominal GI/Abdominal exam: Present: soft, no peritoneal signs. Absent: distended, firm , guarding, tenderness - Rectal Rectal exam: Present: deferred - Extremities Exam Extremities exam: Present: warm - Neurological Exam Neurological exam: Present: no focal deficits - Psychiatric Psychiatric exam: Present: normal affect, normal mood - Skin Skin exam: Present: dry, intact, normal color, warm Results - Labs CBC & Chem 7: 08/22/17 06:31 08/22/17 06:31 Labs: Last Result Calcium 10.8 mg/dL (8.6-10.3) H 08/22/17 06:31 Troponin I 0.04 ng/mL (< 0.04) H* 03/18/18 11:00 Entire Visit Hgb 9.1 g/dL (11.5-15.4) L 08/22/17 06:31 Hct 28.4 % (35.3-44.9) L 08/22/17 06:31 PT 15.2 Seconds (9.4-12.1) H 08/20/17 14:50 Total Bilirubin 0.5 mg/dL (0.3-1.0) 08/20/17 14:50 AST 27 Units/L (13-39) 08/20/17 14:50 ALT 12 Units/L (7-52) 08/20/17 14:50 Lipase 17 Units/L (11-82) 08/20/17 14:50 - ABG ABG results: PT/INR, D-dimer PT 15.2 Seconds (9.4-12.1) H 08/20/17 14:50 Consult Discharge Plan - Plan Referrals: Orestes Grace MD [Primary Care Provider] - <Rere Mclaughlin - Last Filed: 08/22/17 20:41> Date of Encounter: 08/22/17 Time of Encounter: 13:30 - Time Spent With Patient Total time spent is greater than 50% in coordination of care (as documented) at patient's floor/unit and/or counseling patient: GI History of Present Illness - Data of Consult Requesting Physician: Meryl Lopez CNP - Consult Narrative History of present illness: Ms. Tucker is a 72 year old female - Constitutional Vitals: Temp Pulse Resp BP Pulse Ox 97.7 F 81 15 112/65 96 08/22/17 18:48 08/22/17 18:48 08/22/17 18:48 08/22/17 18:48 08/22/17 18:48 Results - Labs CBC & Chem 7: 08/22/17 06:31 08/22/17 06:31 Labs: Last Result Calcium 10.8 mg/dL (8.6-10.3) H 08/22/17 06:31 Troponin I 0.04 ng/mL (< 0.04) H* 08/21/17 11:00 Entire Visit Hgb 9.1 g/dL (11.5-15.4) L 08/22/17 06:31 Hct 28.4 % (35.3-44.9) L 08/22/17 06:31 PT 15.2 Seconds (9.4-12.1) H 08/20/17 14:50 Total Bilirubin 0.5 mg/dL (0.3-1.0) 08/20/17 14:50 AST 27 Units/L (13-39) 08/20/17 14:50 ALT 12 Units/L (7-52) 08/20/17 14:50 Lipase 17 Units/L (11-82) 08/20/17 14:50 - ABG ABG results: PT/INR, D-dimer PT 15.2 Seconds (9.4-12.1) H 08/20/17 14:50 - Attending Attestation I have personally performed a face to face evaluation on this patient. I have reviewed and agree with the care plan. History and Exam by me shows:
[2017-08-22] MEDS: methylPREDNISolone 125 MG/2 ML VIAL IVP SCH (12:40)
[2017-08-22] MEDS: Fenofibrate 54 MG TABLET PO SCH (17:31)
[2017-08-22] MEDS: rOPINIRole 0.25 MG TABLET PO SCH (21:05)
[2017-08-23] MEDS: *HR* LORazepam 2 MG/ML VIAL IVP SCH ×3 (00:08→17:50)
[2017-08-23] MEDS: Ipratropium/Albuterol Neb 3 ML IH SCH ×4 (04:08→22:12)
[2017-08-23] MEDS: Pantoprazole 40 MG VIAL IVP SCH ×2 (05:23→17:50)
[2017-08-23] MEDS: Aspirin Enteric Coated 81 MG Tablet PO SCH (10:01)
[2017-08-23] MEDS: methylPREDNISolone 125 MG/2 ML VIAL IVP SCH (10:01)
[2017-08-23] MEDS: *HR* Enoxaparin 40 MG/0.4 ML SYRINGE SQ SCH (10:01)
[2017-08-23] MEDS: Lactobacillus 1 EACH CAP.SPRINK PO SCH ×2 (10:01→21:58)
[2017-08-23] MEDS: Sucralfate 1 GM TABLET PO SCH ×2 (10:02→21:57)
[2017-08-23] MEDS: Folic Acid 1 MG TABLET PO SCH (10:02)
[2017-08-23] MEDS: Diltiazem CD (24hr) 120 MG CAPSULE PO SCH (10:02)
[2017-08-23] MEDS: metroNIDAZOLE 500 MG TABLET PO SCH ×3 (10:02→21:57)
[2017-08-23] MEDS: Budesonide/Formoterol 160/4.5 MDI IH SCH ×2 (11:07→22:12)
[2017-08-23] MEDS: *HR* HYDROcodone/Acet 5/325 mg TABLET PO PRN (15:10)
--- NOTE | 2017-08-23 15:22 | Internal Med Progress Note ---
Date of Encounter: 08/24/17 Time of Encounter: 15:22 - Subjective Interval history: Adult failure to thrive: Likely multifactorial including; poor oral intake, chronic N/V, CHF, chronic anemia, chronic diarrhea, Debilitation Pallitive care consult to be ordered tomorrow Pt saw Dr. Nunez as outpatient for possible feeding tube insertion. Chronic diarrhea: GI consult appreciated From GI note; "Likely secondary to collagenous colitis. Colonoscopy completed by Dr. Ayala, no mention of ulcerative colitis, however it was positive for collagenous colitis. Will check fecal calprotectin and start Solu-Medrol 45 mg daily. If fecal calprotectin negative, start Entocort 9mg daily for 2 months on discharge". Calprotectin level still pending Pt still on Flagyl despite negative C.diff test ?? C.Diff negative on 06/05/17, 07/15/2017, and 08/21/2017. Positive C.Diff 05/19/2017. Chronic N/V: Pt states she feels food get stuck in chest then has vomiting GI following EGD, gastric emptying study ?? Chronic systoic heart failure (CHF) History of systolic CHF, EF = 30-35%. BNP = 260. No symptoms of acute exacerbation. Continue home medications. Chronic anemia Hgb stable. Anemia w/u - Constitutional Vitals: Temp Pulse Resp BP Pulse Ox 98.6 F 84 16 123/64 97 08/23/17 10:49 08/23/17 10:49 08/23/17 11:08 08/23/17 10:49 08/23/17 11:08 General appearance: Present: cooperative, A&O X 3, no acute distress, underweight, answers questions appropriately - Head Head exam: Present: atraumatic, normocephalic - Eye Eye exam: Present: PERRL, conjuntiva pink, sclera anicteric Pupils: Present: PERRL - Neck Neck exam general surgery: Present: supple, trachea midline. Absent: lymphadenopathy, thyromegaly - Respiratory Respiratory exam: Present: CTAB. Absent: accessory muscle use, rales, rhonchi, wheezes - Cardiovascular Cardiovascular exam: Present: RRR, +S1, +S2. Absent: diastolic murmur, gallop, rubs, systolic murmur - GI/Abdominal GI/Abdominal exam: Present: guarding, normal bowel sounds, soft, no peritoneal signs. Absent: distended, firm, tenderness Additional comments: Mild epigastric gaurding - Extremities Exam Extremities exam: Present: warm. Absent: calf tenderness, cyanotic, pedal edema - Neurological Exam Neurological exam: Present: CN II-XII intact, oriented X3, no focal deficits. Absent: pronater drift, facial droop, speech deficit - Psychiatric Psychiatric exam: Present: depressed. Absent: normal affect, normal mood - Skin Skin exam: Present: dry, intact Internal Medicine: Result - Labs CBC & Chem 7: 08/22/17 06:31 08/22/17 06:31 - ABG Interpretation ABG results: PT/INR, D-dimer PT 15.2 Seconds (9.4-12.1) H 08/20/17 14:50 - VTE Documentation of Mechanical Device: Intermittent pneumatic compression device Consult Discharge Plan - Plan Referrals: Orestes Grace MD [Primary Care Provider] -
[2017-08-23 16:39] LABS: Triiodothyronine (T3) Free 1.7 pg/mL (2.50-3.90)
[2017-08-23] MEDS: 0.9 % Sodium Chloride 1,000 ML IVC SCH (17:51)
[2017-08-23] MEDS: Fenofibrate 54 MG TABLET PO SCH (17:58)
[2017-08-23] MEDS: rOPINIRole 0.25 MG TABLET PO SCH (21:58)
[2017-08-24] MEDS: *HR* LORazepam 2 MG/ML VIAL IVP SCH ×4 (00:49→20:08)
[2017-08-24] MEDS: Ipratropium/Albuterol Neb 3 ML IH SCH ×4 (04:14→22:27)
[2017-08-24 04:38] LABS: Basophils % 0.1 %; Hematocrit 21.6 % (35.3-44.9); Immature Granulocytes % 0.7 % (0-4); Lymphocytes # 2.3 K/mcL (0.6-4.6); Lymphocytes % 28.5 %; Mean Corpuscular HGB Conc 34.3 g/dL (31.6-35.5); Mean Corpuscular Hemoglobin 30.2 pg (28.0-33.3); Mean Platelet Volume 10.2 fL (9.4-12.4); Monocytes # 0.3 K/mcL (0.0-1.3); Monocytes % 4.1 %; Neutrophils # 5.4 K/mcL (1.6-8.9); Platelet Count 359 K/mcL (140-400); Red Blood Count 2.45 M/mcL (3.82-4.97); Red Cell Distribution Width 17.5 % (11.5-14.5); Segmented Neutrophils % 66.6 %
[2017-08-24 04:42] LABS: Hemoglobin 7.4 g/dL (11.5-15.4); Mean Corpuscular Volume 88.2 fL (83.0-100.0)
[2017-08-24 04:53] LABS: BUN/Creatinine Ratio 33 (6-26); Blood Urea Nitrogen 31 mg/dL (8-23); Calcium 10.3 mg/dL (8.6-10.3); Carbon Dioxide 13 mEq/L (23-29); Chloride 119 mEq/L (98-107); Glucose 88 mg/dL (70-105); Osmolality,Calculated 294 (280-300); Sodium 139 mEq/L (136-145); eGFR For African Americans > 60 (> 60); eGFR For Non-African Americans 58 (> 60)
[2017-08-24] MEDS: Pantoprazole 40 MG VIAL IVP SCH ×2 (05:07→17:34)
[2017-08-24] MEDS: Lactobacillus 1 EACH CAP.SPRINK PO SCH ×2 (09:39→19:57)
[2017-08-24] MEDS: methylPREDNISolone 125 MG/2 ML VIAL IVP SCH (09:39)
[2017-08-24] MEDS: *HR* Enoxaparin 40 MG/0.4 ML SYRINGE SQ SCH (09:39)
[2017-08-24] MEDS: Diltiazem CD (24hr) 120 MG CAPSULE PO SCH (09:40)
[2017-08-24] MEDS: Aspirin Enteric Coated 81 MG Tablet PO SCH (09:40)
[2017-08-24] MEDS: Folic Acid 1 MG TABLET PO SCH (09:40)
[2017-08-24] MEDS: Sucralfate 1 GM TABLET PO SCH ×2 (09:40→19:56)
[2017-08-24] MEDS: metroNIDAZOLE 500 MG TABLET PO SCH ×3 (09:40→19:57)
[2017-08-24] MEDS: 0.9 % Sodium Chloride 1,000 ML IVC SCH (09:41)
[2017-08-24] MEDS: Budesonide/Formoterol 160/4.5 MDI IH SCH ×2 (11:01→22:27)
[2017-08-24] MEDS: *HR* HYDROcodone/Acet 5/325 mg TABLET PO PRN (11:59)
--- NOTE | 2017-08-24 16:00 | Internal Med Progress Note ---
Date of Encounter: 08/24/17 Time of Encounter: 15:58 - Subjective Interval history: Interval changes: 08/24/2017: Today I spent approximately one hour talking with family and patient about their concerns regarding her decreased oral intake and substantial weight loss. The patient was seen by ST and a pureed diet was recommended and she refuses to even try it because it's "gross". She eats small amounts of soft food and states it get stuck in her esophagus and se vomits. Shes had a prior EGD which did not show obstruction. GI saw her two days ago and did not recommend a repeat EGD She was see by Dr. Nunez as an OP recently to be evaluated for a possible FT/PEG per report. The patient and family failed to f/u. She's severely malnurished so a Douboff feeding was discussed and the patient and family initially agreed to it. After considerable time and effort by the nursing staff and myself to get this done she refused. I will call GI again tomorrow to discuss a PEG tube. I suspect she will refuse this as well and may need a psych evaluation. Adult failure to thrive: Likely multifactorial including; poor oral intake, chronic N/V, CHF, chronic anemia, chronic diarrhea, Debilitation Pallitive care consult to be ordered tomorrow Pt saw Dr. Nunez as outpatient for possible feeding tube insertion. Refused FT today Takl to GI about PEG tomorrow Chronic diarrhea: GI consult appreciated From GI note; "Likely secondary to collagenous colitis. Colonoscopy completed by Dr. Ayala, no mention of ulcerative colitis, however it was positive for collagenous colitis. Will check fecal calprotectin and start Solu-Medrol 45 mg daily. If fecal calprotectin negative, start Entocort 9mg daily for 2 months on discharge". Calprotectin level still pending Pt still on Flagyl despite negative C.diff test ?? C.Diff negative on 06/05/17, 07/15/2017, and 08/21/2017. Positive C.Diff 05/19/2017. Ordering feeding tube I'll talk to GI about d/c Flagyl since she's had three neg C.diff tests Chronic N/V: Pt states she feels food get stuck in chest then has vomiting GI following EGD, gastric emptying study ?? Chronic systoic heart failure (CHF) History of systolic CHF, EF = 30-35%. BNP = 260. No symptoms of acute exacerbation. Continue home medications. Chronic anemia Hgb stable. Anemia w/u - Constitutional Vitals: Temp Pulse Resp BP Pulse Ox 98.2 F 101 16 91/48 99 08/24/17 15:23 08/24/17 15:23 08/24/17 15:23 08/24/17 15:23 08/24/17 15:23 General appearance: Present: cooperative, A&O X 3, no acute distress, underweight, answers questions appropriately - Head Head exam: Present: atraumatic, normocephalic - Eye Eye exam: Present: PERRL, conjuntiva pink, sclera anicteric Pupils: Present: PERRL - Neck Neck exam general surgery: Present: supple, trachea midline. Absent: lymphadenopathy - Respiratory Respiratory exam: Present: CTAB. Absent: accessory muscle use, rales, rhonchi, wheezes - Cardiovascular Cardiovascular exam: Present: RRR, +S1, +S2. Absent: diastolic murmur, gallop, rubs, systolic murmur - GI/Abdominal GI/Abdominal exam: Present: normal bowel sounds, soft, no peritoneal signs. Absent: diminished bowel sounds, distended, firm, guarding, rebound, rigid, tenderness - Extremities Exam Extremities exam: Present: warm, radial pulses palpable and symmetrical. Absent : calf tenderness, cyanotic, pedal edema - Neurological Exam Neurological exam: Present: CN II-XII intact, oriented X3, no focal deficits. Absent: pronater drift, facial droop, speech deficit - Psychiatric Psychiatric exam: Absent: normal affect, normal mood Additional comments: Noncompliant and uncooperative behavior - Skin Skin exam: Present: dry, intact Internal Medicine: Result - Labs CBC & Chem 7: 08/24/17 04:07 08/24/17 19:22 Labs: Short CBC 08/24/17 Range/Units 04:07 WBC 8.0 (4.3-11.1) K/mcL Hgb 7.4 L D (11.5-15.4) g/dL Hct 21.6 L (35.3-44.9) % Plt Count 359 (140-400) K/mcL Neutrophils # 5.4 (1.6-8.9) K/mcL BMP 08/24/17 04:07 Sodium 139 Potassium 4.0 Chloride 119 H Carbon Dioxide 13 L BUN 31 H Creatinine 0.95 Glucose 88 Calcium 10.3 - ABG Interpretation ABG results: PT/INR, D-dimer PT 15.2 Seconds (9.4-12.1) H 08/20/17 14:50 - VTE Documentation of Mechanical Device: Intermittent pneumatic compression device Consult Discharge Plan - Plan Referrals: Orestes Grace MD [Primary Care Provider] -
[2017-08-24] MEDS: Fenofibrate 54 MG TABLET PO SCH (17:34)
--- NOTE | 2017-08-24 18:48 | Electrocardiograph Report ---
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
[2017-08-24 19:52] LABS: Alanine Aminotransferase 13 Units/L (7-52); Albumin 3.1 g/dL (3.5-5.7); Albumin/Globulin Ratio 1.5 (1.1-2.2); Alkaline Phosphatase 72 Units/L (34-104); Aspartate Amino Transferase 19 Units/L (13-39); BUN/Creatinine Ratio 26 (6-26); Bilirubin,Total 0.4 mg/dL (0.3-1.0); Blood Urea Nitrogen 28 mg/dL (8-23); Calcium 10.4 mg/dL (8.6-10.3); Carbon Dioxide 12 mEq/L (23-29); Chloride 120 mEq/L (98-107); Globulin 2.1 g/dL (2.4-3.5); Glucose 144 mg/dL (70-105); Osmolality,Calculated 298 (280-300); Potassium 4.3 mEq/L (3.5-5.1); Sodium 140 mEq/L (136-145); Total Protein 5.2 g/dL (6.4-8.9); eGFR For African Americans > 60 (> 60); eGFR For Non-African Americans 51 (> 60)
[2017-08-24] MEDS: rOPINIRole 0.25 MG TABLET PO SCH (19:57)
[2017-08-25] MEDS: 0.9 % Sodium Chloride 1,000 ML IVC SCH ×2 (02:36→18:47)
[2017-08-25] MEDS: Ipratropium/Albuterol Neb 3 ML IH SCH ×5 (04:02→21:45)
[2017-08-25] MEDS: Pantoprazole 40 MG VIAL IVP SCH ×2 (06:08→17:01)
[2017-08-25 06:25] LABS: Basophils % 0.2 %; Hematocrit 23.4 % (35.3-44.9); Hemoglobin 7.6 g/dL (11.5-15.4); Immature Granulocytes % 0.7 % (0-4); Lymphocytes # 2.5 K/mcL (0.6-4.6); Lymphocytes % 25.6 %; Mean Corpuscular HGB Conc 32.5 g/dL (31.6-35.5); Mean Corpuscular Hemoglobin 29.9 pg (28.0-33.3); Mean Corpuscular Volume 92.1 fL (83.0-100.0); Mean Platelet Volume 10.3 fL (9.4-12.4); Monocytes # 0.4 K/mcL (0.0-1.3); Monocytes % 4.4 %; Neutrophils # 6.8 K/mcL (1.6-8.9); Platelet Count 353 K/mcL (140-400); Red Blood Count 2.54 M/mcL (3.82-4.97); Red Cell Distribution Width 18.6 % (11.5-14.5); Segmented Neutrophils % 69.1 %
[2017-08-25] MEDS: Lactobacillus 1 EACH CAP.SPRINK PO SCH ×2 (10:34→20:29)
[2017-08-25] MEDS: methylPREDNISolone 125 MG/2 ML VIAL IVP SCH (10:34)
[2017-08-25] MEDS: Aspirin Enteric Coated 81 MG Tablet PO SCH (10:35)
[2017-08-25] MEDS: Folic Acid 1 MG TABLET PO SCH (10:35)
[2017-08-25] MEDS: *HR* Enoxaparin 40 MG/0.4 ML SYRINGE SQ SCH (10:35)
[2017-08-25] MEDS: Sucralfate 1 GM TABLET PO SCH ×2 (10:35→20:29)
[2017-08-25] MEDS: *HR* LORazepam 2 MG/ML VIAL IVP SCH ×2 (10:35→18:48)
[2017-08-25] MEDS: metroNIDAZOLE 500 MG TABLET PO SCH (10:35)
[2017-08-25] MEDS: Diltiazem CD (24hr) 120 MG CAPSULE PO SCH (10:35)
[2017-08-25] MEDS: Budesonide/Formoterol 160/4.5 MDI IH SCH ×2 (10:45→21:45)
--- NOTE | 2017-08-25 13:55 | Internal Med Progress Note ---
Date of Encounter: 08/25/17 Time of Encounter: 13:48 - Subjective Interval history: Interval changes: 08/24/2017: Today I spent approximately one hour talking with family and patient about their concerns regarding her decreased oral intake and substantial weight loss. The patient was seen by ST and a pureed diet was recommended and she refuses to even try it because it's "gross". She eats small amounts of soft food and states it get stuck in her esophagus and se vomits. Shes had a prior EGD which did not show obstruction. GI saw her two days ago and did not recommend a repeat EGD She was see by Dr. Nunez as an OP recently to be evaluated for a possible FT/PEG per report. The patient and family failed to f/u. She's severely malnurished so a Douboff feeding was discussed and the patient and family initially agreed to it. After considerable time and effort by the nursing staff and myself to get this done she refused. I will call GI again tomorrow to discuss a PEG tube. I suspect she will refuse this as well and may need a psych evaluation. 08/25/2017 Still c/o multiple bouts of diarrhea. Still c/o N/V but no reports of vomiting She is able to take pills crushed in pudding Asked GI to see her again Mod. barrium swallow with video recommended by Dr. Banks and ordered Flagyl d/c'd since she has had multiple neg C.diff tests Adult failure to thrive: Likely multifactorial including; poor oral intake, chronic N/V, CHF, chronic anemia, chronic diarrhea, Debilitation Pallitive care consult to be ordered tomorrow Pt saw Dr. Nunez as outpatient for possible feeding tube insertion. Refused FT today Talk to GI about PEG tomorrow Chronic diarrhea: GI consult appreciated From GI note; "Likely secondary to collagenous colitis. Colonoscopy completed by Dr. Ayala, no mention of ulcerative colitis, however it was positive for collagenous colitis. Will check fecal calprotectin and start Solu-Medrol 45 mg daily. If fecal calprotectin negative, start Entocort 9mg daily for 2 months on discharge". Calprotectin level still pending Pt still on Flagyl despite negative C.diff test ?? C.Diff negative on 06/05/17, 07/15/2017, and 08/21/2017. Positive C.Diff 05/19/2017. Ordering feeding tube. Refused by pt. Chronic N/V: Pt states she feels food get stuck in chest then has vomiting GI following EGD, gastric emptying study ?? Chronic systoic heart failure (CHF) History of systolic CHF, EF = 30-35%. BNP = 260. No symptoms of acute exacerbation. Continue home medications. Chronic anemia Hgb stable. Anemia w/u - Constitutional Vitals: Temp Pulse Resp BP Pulse Ox 98.9 F 89 14 117/59 100 08/25/17 10:52 08/25/17 10:52 08/25/17 10:52 08/25/17 10:52 08/25/17 10:52 General appearance: Present: cooperative, A&O X 3, no acute distress, underweight. Absent: answers questions appropriately - Head Head exam: Present: atraumatic, normocephalic - Eye Eye exam: Present: PERRL, conjuntiva pink, sclera anicteric Pupils: Present: PERRL - Neck Neck exam general surgery: Present: supple, trachea midline. Absent: lymphadenopathy - Respiratory Respiratory exam: Present: CTAB. Absent: accessory muscle use, rales, rhonchi, wheezes - Cardiovascular Cardiovascular exam: Present: RRR, +S1, +S2. Absent: diastolic murmur, gallop, rubs, systolic murmur - GI/Abdominal GI/Abdominal exam: Present: normal bowel sounds, soft, no peritoneal signs. Absent: distended, tenderness - Extremities Exam Extremities exam: Present: warm, radial pulses palpable and symmetrical. Absent : calf tenderness, cyanotic, pedal edema - Neurological Exam Neurological exam: Present: CN II-XII intact, oriented X3, no focal deficits. Absent: pronater drift, facial droop, speech deficit - Psychiatric Additional comments: Pt. noncompliant - Skin Skin exam: Present: dry, intact Internal Medicine: Result - Labs CBC & Chem 7: 08/25/17 06:07 08/24/17 19:22 Labs: Short CBC 08/25/17 Range/Units 06:07 WBC 9.9 (4.3-11.1) K/mcL Hgb 7.6 L (11.5-15.4) g/dL Hct 23.4 L (35.3-44.9) % Plt Count 353 (140-400) K/mcL Neutrophils # 6.8 (1.6-8.9) K/mcL BMP 08/24/17 19:22 Sodium 140 Potassium 4.3 Chloride 120 H Carbon Dioxide 12 L BUN 28 H Creatinine 1.07 Glucose 144 H Calcium 10.4 H Liver Function 08/24/17 Range/Units 19:22 Total Bilirubin 0.4 (0.3-1.0) mg/dL AST 19 (13-39) Units/L ALT 13 (7-52) Units/L Alkaline Phosphatase 72 (34-104) Units/L Albumin 3.1 L (3.5-5.7) g/dL - ABG Interpretation ABG results: PT/INR, D-dimer PT 15.2 Seconds (9.4-12.1) H 08/20/17 14:50 - VTE Documentation of Mechanical Device: Intermittent pneumatic compression device Consult Discharge Plan - Plan Referrals: Orestes Grace MD [Primary Care Provider] -
[2017-08-25] MEDS: *HR* HYDROcodone/Acet 5/325 mg TABLET PO PRN (17:00)
[2017-08-25] MEDS: Fenofibrate 54 MG TABLET PO SCH (17:00)
[2017-08-25] MEDS: rOPINIRole 0.25 MG TABLET PO SCH (20:29)
[2017-08-26] MEDS: Ipratropium/Albuterol Neb 3 ML IH SCH ×3 (04:08→16:12)
[2017-08-26] MEDS: *HR* LORazepam 2 MG/ML VIAL IVP SCH ×3 (06:02→17:11)
[2017-08-26] MEDS: Pantoprazole 40 MG VIAL IVP SCH ×2 (06:20→17:12)
[2017-08-26 06:57] LABS: Basophils % 0.1 %; Hematocrit 23.8 % (35.3-44.9); Hemoglobin 7.7 g/dL (11.5-15.4); Immature Granulocytes % 0.6 % (0-4); Immature Platelets 2.5 % (1.1-6.1); Lymphocytes # 2.7 K/mcL (0.6-4.6); Lymphocytes % 26.5 %; Mean Corpuscular HGB Conc 32.4 g/dL (31.6-35.5); Mean Corpuscular Hemoglobin 29.7 pg (28.0-33.3); Mean Corpuscular Volume 91.9 fL (83.0-100.0); Mean Platelet Volume 10.9 fL (9.4-12.4); Monocytes # 0.4 K/mcL (0.0-1.3); Monocytes % 3.9 %; Neutrophils # 7.1 K/mcL (1.6-8.9); Platelet Count 349 K/mcL (140-400); Red Blood Count 2.59 M/mcL (3.82-4.97); Red Cell Distribution Width 18.8 % (11.5-14.5); Segmented Neutrophils % 68.9 %
[2017-08-26 07:18] LABS: BUN/Creatinine Ratio 27 (6-26); Blood Urea Nitrogen 26 mg/dL (8-23); Calcium 10.1 mg/dL (8.6-10.3); Carbon Dioxide 12 mEq/L (23-29); Chloride 123 mEq/L (98-107); Glucose 76 mg/dL (70-105); Osmolality,Calculated 296 (280-300); Potassium 3.8 mEq/L (3.5-5.1); Sodium 141 mEq/L (136-145); eGFR For African Americans > 60 (> 60); eGFR For Non-African Americans 56 (> 60)
[2017-08-26] MEDS: *HR* Enoxaparin 40 MG/0.4 ML SYRINGE SQ SCH (10:11)
[2017-08-26] MEDS: methylPREDNISolone 125 MG/2 ML VIAL IVP SCH (10:11)
[2017-08-26] MEDS: Sucralfate 1 GM TABLET PO SCH (10:12)
[2017-08-26] MEDS: Lactobacillus 1 EACH CAP.SPRINK PO SCH (10:12)
[2017-08-26] MEDS: 0.9 % Sodium Chloride 1,000 ML IVC SCH (10:12)
[2017-08-26] MEDS: Aspirin Enteric Coated 81 MG Tablet PO SCH (10:12)
[2017-08-26] MEDS: Diltiazem CD (24hr) 120 MG CAPSULE PO SCH (10:12)
[2017-08-26] MEDS: Folic Acid 1 MG TABLET PO SCH (10:12)
[2017-08-26] MEDS: Budesonide/Formoterol 160/4.5 MDI IH SCH (11:07)
--- NOTE | 2017-08-26 14:21 | Internal Med Progress Note ---
Date of Encounter: 08/26/17 Time of Encounter: 14:14 - Subjective Interval history: Interval changes: 08/24/2017: Today I spent approximately one hour talking with family and patient about their concerns regarding her decreased oral intake and substantial weight loss. The patient was seen by ST and a pureed diet was recommended and she refuses to even try it because it's "gross". She eats small amounts of soft food and states it get stuck in her esophagus and se vomits. Shes had a prior EGD which did not show obstruction. GI saw her two days ago and did not recommend a repeat EGD She was see by Dr. Nunez as an OP recently to be evaluated for a possible FT/PEG per report. The patient and family failed to f/u. She's severely malnurished so a Douboff feeding was discussed and the patient and family initially agreed to it. After considerable time and effort by the nursing staff and myself to get this done she refused. I will call GI again tomorrow to discuss a PEG tube. I suspect she will refuse this as well and may need a psych evaluation. 08/25/2017 Still c/o multiple bouts of diarrhea. Still c/o N/V but no reports of vomiting She is able to take pills crushed in pudding Asked GI to see her again Mod. barrium swallow with video recommended by Dr. Banks and ordered Flagyl d/c'd since she has had multiple neg C.diff tests 08/26/2017 Mod. barrium swallow with video showed silent aspiration and per ST retained food Family feeding patient and not compliant with recommended dysphagia diet. A dysphagia diet waiver placed on chart Adult failure to thrive: Likely multifactorial including; poor oral intake, chronic N/V, CHF, chronic anemia, chronic diarrhea, Debilitation Pallitive care consult to be ordered tomorrow Pt saw Dr. Nunez as outpatient for possible feeding tube insertion. Refused FT today Talked to GI about possible Mod. Barium swallow with video fluoroscopy recommended. Chronic diarrhea: GI consult appreciated From GI note; "Likely secondary to collagenous colitis. Colonoscopy completed by Dr. Ayala, no mention of ulcerative colitis, however it was positive for collagenous colitis. Will check fecal calprotectin and start Solu-Medrol 45 mg daily. If fecal calprotectin negative, start Entocort 9mg daily for 2 months on discharge". Calprotectin level still pending Pt still on Flagyl despite negative C.diff test ?? C.Diff negative on 06/05/17, 07/15/2017, and 08/21/2017. Positive C.Diff 05/19/2017. Ordering feeding tube. Refused by pt. Chronic N/V: Pt states she feels food get stuck in chest then has vomiting GI following EGD, gastric emptying study ?? Chronic systoic heart failure (CHF) History of systolic CHF, EF = 30-35%. BNP = 260. No symptoms of acute exacerbation. Continue home medications. Chronic anemia Hgb stable. Anemia w/u - Constitutional Vitals: Temp Pulse Resp BP Pulse Ox 98.0 F 108 16 107/58 99 08/26/17 12:22 08/26/17 12:22 08/26/17 12:22 08/26/17 12:22 08/26/17 12:22 General appearance: Present: cooperative, A&O X 3, no acute distress, underweight. Absent: answers questions appropriately Internal Medicine: Result - Labs CBC & Chem 7: 08/26/17 06:40 08/26/17 06:40 Labs: Short CBC 08/26/17 Range/Units 06:40 WBC 10.2 (4.3-11.1) K/mcL Hgb 7.7 L (11.5-15.4) g/dL Hct 23.8 L (35.3-44.9) % Plt Count 349 (140-400) K/mcL Neutrophils # 7.1 (1.6-8.9) K/mcL BMP 08/26/17 06:40 Sodium 141 Potassium 3.8 Chloride 123 H Carbon Dioxide 12 L BUN 26 H Creatinine 0.98 Glucose 76 Calcium 10.1 - ABG Interpretation ABG results: PT/INR, D-dimer PT 15.2 Seconds (9.4-12.1) H 08/20/17 14:50 - Impressions Impressions Videofluoroscopic Swallow 08/25/17 13:26 IMPRESSION: Silent aspiration of thin liquids. Please see separate speech pathology report for full discussion of findings and recommendations. D/ / Raciel Lima MD / Raciel Lima MD Interpreting Provider: Raciel Lima MD - VTE Documentation of Mechanical Device: Intermittent pneumatic compression device Consult Discharge Plan - Plan Referrals: Orestes Grace MD [Primary Care Provider] -
--- NOTE | 2017-08-26 14:45 | Discharge Summary ---
Orders not resulted at time of discharge: 08/22/17 11:52 Calprotectin, Fecal Routine Date of Encounter: 08/26/17 Time of Encounter: 14:45 - Discharge Diagnosis (1) Failure to thrive Priority: Primary Status: Acute Qualifiers: Failure to thrive age range: in adult Qualified Code(s): R62.7 - Adult failure to thrive (2) Collagenous colitis Priority: Primary Status: Acute Code(s): K52.831 - Collagenous colitis (3) Congestive heart failure (CHF) Priority: Secondary Status: Chronic Qualifiers: Qualified Code(s): I50.23 - Acute on chronic systolic (congestive) heart failure (4) Weakness Priority: Primary Status: Chronic Code(s): R53.1 - Weakness (5) Dysphagia Priority: Primary Status: Acute Qualifiers: Dysphagia type: unspecified Qualified Code(s): R13.10 - Dysphagia, unspecified Hospital course: Ms. Tucker is a 72 year old female Hospital course: History of present illness (From H&P:: "Ms. Tucker is a 72 year old white female who presented to ED today after her PCP recommended she come to hospital for dehydration. Family is with patient in the room and help provide additional history. Family states that patient has not been eating well for last several months. She has lost significant weight during that time. She has had multiple medical issues that have required hospitalization since knee replacement surgery 2 years ago. She was hospitalized this past for CHF exacerbation and had a protracted hospital course complicated by C. diff colitis. She has had diarrhea continuously since then. She was restarted on a flagyl course few days ago. She has persistent N/V. She was seen by GI, and had her "throat opened up." She was also told that she has ulcerative colitis by Dr. Mclaughlin, but this has not been followed up on. Most recently, she has not eaten for last 4 days. She states that she does not have an appetite, and also does not like eating because 1) she has a "gall taste" in her mouth, and 2) sometimes has things get caught in her throat. She has multiple chronic medical issues, including CHF and COPD. She has had prior cholecystecomy. She denies chest pain and SOB." She had reportedly lost approximately 60 Lbs over the past several months due to poor oral intake associated with a sense of dysphagia despite a prior EGD showing no obstruction. GI was consulted and addressed her diarrhea, which was determined earlier to be associated with collagenous colitis and not C.diff collitis based on recent colonoscopies. Steroids were started for treatment of her collagenous colitis. 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 She was seen by speech therapy and a pureed diet was suggested but she refused to follow the diet. Her family also refused to follow the pureed diet. After numerous extensive and lengthy conversations with family and patient they agreed to have a Dobhoff tube placed. When we attempted to have it placed she refused it. We then discussed a PEG tube and called GI again. GI did not return to discuss her options or the procedure to the family and patient. She had recently been w/u as an OP by surgery for PEG tube placement and did not follow through with him because of personal issues with him. The family became increasingly frustrated at the lack of progress with her dysphasia workup and placement of a PEG tube or alternative means to feed her. GI was again called and did not respond. Finally, after multiple discussions hospice was discussed and the family and patient agreed this option was best for her. EDUCATION CONSULTANT help arrange [facility] and the family agreed to this option. Meanwhile, we continued steroids recommended for her ongoing diarrhea. She received little benefit from the steroids and continued to have diarrhea. She'd had multiple negative C.diff tests (C.Diff negative on 06/05/17, 07/15/2017, and 08/21/2017) prior to admission but was admitted on Flagyl for C.diff. A C dif test was performed and again found to be negative. C.Diff precautions were continued per hospital protocol but Flagyl was discontinued. I called GI again concerning her dysphagia and a modified barium video swallow study was recommended over the phone and was perfomed the following morning. ST noted silent aspiration and retained barium in her mouth but no obstruction. A pureed diet was again recommended and explained to the patient and family. Shortly after I was informed that the family was not following these recommendations. I was asked to sign an dysphagia waiver. Finally this afternoon she was discharged to [facility] in stable conditions. -Discharge Diagnoses: (1) Failure to thrive Priority: Primary Status: Acute (2) Severe protein-calorie malnutrition Priority: Primary Status: Chronic (3) Dysphagia Priority: Primary Status: Chronic (4) Weakness Priority: Primary Status: Chronic (5) Collagenous colitis Status: Acute (6) Cardiomyopathy Priority: Secondary Status: Chronic - Respiratory Orders None Smoking Cessation: Smoking cessation has been advised. For more information, call the [place] Tobacco Quit Line at 9-996-NRZX-NOW. - Diet/Nutrition Diet/Nutrition Orders: Pureed - Activity Activity Orders: Chair, Bedrest - Services Needed Following services are medically necessary services: Nursing, Physical Therapy, Occupational Therapy, Speech Therapy Per Hospice request hand written prescriptions for the following were written; Morphine 20mg/ml 0.25 mg PO Q3 hrs PRN pain Ativan 0.5 mg PO Q6 hrs Haldol 2 mg /ml PO Q6 hrs Tylenol 650 mg Supp. 1 Supp MN PRN pain/fever Prochlorperozine 10 mg PO Q6 hrs PRN N/V Biscodyl 10 mg Supp. 1 Supp MN Qdaily Hyoscyamine 0.125 mg SL tabs Q4 hrs PRN bladder/bowel spasm Oxygen 2-4 LPM NC continuous for SOB Discharge discussed with: patient, family, nurse, social work, case management Time spent discussing smoking cessation with patient: more than 10 minutes - Time Spent with Patient Total time spent providing and/or coordinating discharge services: Greater than 30 minutes - Discharge Medications Home Medications: Albuterol Sulfate [Albuterol Inhaler] 2 puff IH Q4-6H PRN 10/15/15 [History] Allopurinol [Zyloprim 100 MG] 100 mg PO DAILY 10/15/15 [History] Fenofibrate Nanocrystallized [Tricor] 145 mg PO QPM 10/15/15 [History] Levothyroxine [Synthroid] 112 mcg PO DAILY 10/15/15 [History] Ropinirole HCl [Requip] 0.5 - 1 mg PO HS 10/15/15 [History] Sertraline [Zoloft] 100 mg PO BID 10/15/15 [History] Tiotropium [Spiriva] 18 mcg IH DAILY 10/15/15 [History] Ipratropium/Albuterol Neb [Duoneb] 3 ml IH QID 03/29/16 [History] Gemfibrozil [Lopid] 600 mg PO BIDWM 05/28/16 [History] Ferrous Sulfate 325 mg PO DAILY 11/23/16 [History] Sucralfate [Carafate] 1 gm PO BID 11/23/16 [History] Folic Acid 1 mg PO DAILY #30 tablet 11/29/16 [Rx] Budesonide/Formoterol 160/4.5 [Symbicort 160/4.5] 2 puff IH BIDR #1 02/10/17 [Rx ] ALPRAZolam [Xanax 1 MG Tablet] 1 mg PO BID 03/19/17 [History] Megestrol Acetate [Megace] 40 mg PO BID 03/19/17 [History] hydrOXYzine pamoate [HydrOXYzine Pamoate] 25 mg PO Q8H PRN 05/27/17 [History] Lactobacillus [Culturelle] 2 each PO BID 30 Days cap.[email or web address] 06/01/17 [Rx] Aspirin Enteric Coated [Aspirin EC] 81 mg PO DAILY tablet. 06/23/17 [Rx] Omeprazole [PriLOSEC] 40 mg PO DAILY 08/20/17 [History] Ondansetron HCl 4 mg PO TID PRN 08/20/17 [History] Potassium Chloride [K-Tab ER] 20 meq PO DAILY 08/20/17 [History] dilTIAZem HCl [Diltiazem 24Hr ER] 120 mg PO DAILY 08/20/17 [History] Allergies/Adverse Reactions: 3 Allergy/AdvReac Type Severity Reaction Status Date / Time codeine Allergy Swelling Verified 08/20/17 14:27 of Lip/Tongue/Throat Iodinated Contrast- Oral and AdvReac See Verified 08/20/17 14:27 IV Dye Comments [Iodinated Contrast Media - Oral and] meclizine AdvReac Confusion Verified 08/20/17 14:27 Date of admission: 08/20/17 20:16 Primary care physician: Orestes Grace MD Consults: 08/21/17 08:07 Consult to Nutrition [CONS] Stat Comment: Failure to thrive, severe malnutrition Consulting Provider: NUTRITION Reason for Dietary Consult: PO Supplementation 08/21/17 08:09 Consult to Gastroenterology [CONS] Routine Consulting Provider: Gastroenterology [place] Reason for Consult: Failure to thrive, history of C. diff colitis/? ulcerative colitis Call Completed: No 08/24/17 16:29 Consult to Invasive Line Access Team [CONS] Routine Reason for Consult: Limited Access Line Type: EPIV 08/26/17 14:21 Consult to Speech Therapy [CONS] Routine Comment: Evaluate, develop and implement POC Reason for Consult: Dysphagia Time Notified: 14:22 Call Completed: Yes - Constitutional Vitals: Temp Pulse Resp BP Pulse Ox 98.0 F 108 16 107/58 99 08/26/17 12:22 08/26/17 12:22 08/26/17 12:22 08/26/17 12:22 08/26/17 12:22 General appearance: Present: cooperative, A&O X 3, no acute distress, underweight. Absent: answers questions appropriately - Head Head exam: Present: atraumatic, normocephalic - Eye Eye exam: Present: PERRL, conjuntiva pink, sclera anicteric Pupils: Present: PERRL - Neck Neck exam general surgery: Present: supple, trachea midline. Absent: lymphadenopathy - Respiratory Respiratory exam: Present: CTAB. Absent: accessory muscle use, rales, rhonchi, wheezes - Cardiovascular Cardiovascular exam: Present: RRR, +S1, +S2. Absent: diastolic murmur, gallop, rubs, systolic murmur - GI/Abdominal GI/Abdominal exam: Present: normal bowel sounds, soft, no peritoneal signs. Absent: distended, guarding, rebound, rigid, tenderness - Extremities Exam Extremities exam: Present: warm, radial pulses palpable and symmetrical. Absent : calf tenderness, cyanotic, pedal edema - Neurological Exam Neurological exam: Present: CN II-XII intact, oriented X3, no focal deficits. Absent: pronater drift, facial droop, speech deficit - Psychiatric Psychiatric exam: Present: agitated - Skin Skin exam: Present: dry, intact - Patient Status Disposition: Hospice - Home Condition: Fair - Discharge Instructions Instructions: Hospice Care (GEN) Follow Up With: Orestes Grace MD [Primary Care Provider] - - VTE Documentation of Mechanical Device: Intermittent pneumatic compression device
--- NOTE | 2017-08-26 14:47 | Physician Discharge Referral ---
Home Health/Hosp Referral Info Transfer to: Hospice Attending Provider: Cammy Provider in Charge Post Discharge: [employer] - Diagnosis (1) Failure to thrive Priority: Primary Status: Acute (2) Severe protein-calorie malnutrition Priority: Primary Status: Chronic (3) Dysphagia Priority: Primary Status: Chronic (4) Weakness Priority: Primary Status: Chronic (5) Collagenous colitis Status: Acute (6) Cardiomyopathy Priority: Secondary Status: Chronic - Respiratory Orders None Smoking Cessation: Smoking cessation has been advised. For more information, call the [place] [employer] Quit Line at 0-534-AHLI-NOW. - Diet/Nutrition Diet/Nutrition Orders: Pureed - Activity Activity Orders: Chair, Bedrest - Services Needed Following services are medically necessary services: Nursing, Physical Therapy, Occupational Therapy, Speech Therapy - Transfer Medications Home Medications: Albuterol Sulfate [Albuterol Inhaler] 2 puff IH Q4-6H PRN 10/15/15 [History] Allopurinol [Zyloprim 100 MG] 100 mg PO DAILY 10/15/15 [History] Fenofibrate Nanocrystallized [Tricor] 145 mg PO QPM 10/15/15 [History] Levothyroxine [Synthroid] 112 mcg PO DAILY 10/15/15 [History] Ropinirole HCl [Requip] 0.5 - 1 mg PO HS 10/15/15 [History] Sertraline [Zoloft] 100 mg PO BID 10/15/15 [History] Tiotropium [Spiriva] 18 mcg IH DAILY 10/15/15 [History] Ipratropium/Albuterol Neb [Duoneb] 3 ml IH QID 03/29/16 [History] Gemfibrozil [Lopid] 600 mg PO BIDWM 05/28/16 [History] Ferrous Sulfate 325 mg PO DAILY 11/23/16 [History] Sucralfate [Carafate] 1 gm PO BID 11/23/16 [History] Folic Acid 1 mg PO DAILY #30 tablet 11/29/16 [Rx] Budesonide/Formoterol 160/4.5 [Symbicort 160/4.5] 2 puff IH BIDR #1 02/10/17 [Rx ] ALPRAZolam [Xanax 1 MG Tablet] 1 mg PO BID 03/19/17 [History] Megestrol Acetate [Megace] 40 mg PO BID 03/19/17 [History] hydrOXYzine pamoate [HydrOXYzine Pamoate] 25 mg PO Q8H PRN 05/27/17 [History] Lactobacillus [Culturelle] 2 each PO BID 30 Days cap.[email or web address] 06/01/17 [Rx] Aspirin Enteric Coated [Aspirin EC] 81 mg PO DAILY tablet. 06/23/17 [Rx] Omeprazole [PriLOSEC] 40 mg PO DAILY 08/20/17 [History] Ondansetron HCl 4 mg PO TID PRN 08/20/17 [History] Potassium Chloride [K-Tab ER] 20 meq PO DAILY 08/20/17 [History] dilTIAZem HCl [Diltiazem 24Hr ER] 120 mg PO DAILY 08/20/17 [History] Allergies/Adverse Reactions: 3 Allergy/AdvReac Type Severity Reaction Status Date / Time codeine Allergy Swelling Verified 08/20/17 14:27 of Lip/Tongue/Throat Iodinated Contrast- Oral and AdvReac See Verified 08/20/17 14:27 IV Dye Comments [Iodinated Contrast Media - Oral and] meclizine AdvReac Confusion Verified 08/20/17 14:27 Certification: Further, I certify that my clinical findings support that this patient is homebound (i.e. absences from home require considerable and taxing effort and are for medical reasons or protestant services or infrequently or short duration when for other reasons) because: Homebound Reason: Patient requires assistance of a person or device to safely leave home Attestation: My signature below is to certify that this patient is under my care and that I, or nurse practitioner, or a physician's licensed sales assistant working with me, has a face-to -face encounter with this patient.
[2017-08-26 16:28] VITALS: BP 110/61
[2017-08-26] MEDS: Fenofibrate 54 MG TABLET PO SCH (17:12)
[2017-08-26] MEDS: *HR* HYDROcodone/Acet 5/325 mg TABLET PO PRN (18:28)
== END 2017-08-26 18:36 | disposition hospice, home (50) | DRG 640 ==
LOC: 3BNU 11:27 → EMEROO 11:27 → 3BNU 16:54
PROVIDERS: ADMIT Student in an Organized Health Care Education/Training Program; ATTEND Nurse Practitioner Acute Care